=== PATIENT | male | born 1950 | race Caucasian/White ===

== ENCOUNTER 2020-09-29 05:39 | Emergency (ER) | payer MEDICARE, OTHER, SELFPAY ==
[2020-09-29 05:42] VITALS: BP 105/71; PULSE 70; RESP 16; TEMP 36.8; O2SAT 96; BMI 27.3
--- NOTE | 2020-09-29 05:42 | XR_ITS ---
WS: [id number] PORTABLE CHEST HISTORY: Acute onset of chest pain. COMPARISON: 02/11/2019 Lungs are clear and well expanded. No pleural effusion or pneumothorax. Cardiac size: Normal. Mediastinum/Aorta: Normal mediastinum. Mild bilateral glenohumeral joint arthritis. XR/XR chest 1V portable [id number] IMPRESSION: Unremarkable portable chest.
--- NOTE | 2020-09-29 05:42 | ECG_ITS ---
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 Measurements Intervals [place] Rate: 70 P: -88 MT: 121 QRS: -21 QRSD: 92 T: 39 QT: 384 QTc: 415 Interpretive Statements JUNCTIONAL RHYTHM BORDERLINE LEFT AXIS DEVIATION [QRS AXIS < -20] Compared to ECG 02/11/2019 09:46:46 Junctional rhythm now present Ectopic atrial rhythm no longer present Electronically Signed On 09-29-2020 18:27:50 ROOM SERVICE ATTENDANT by Karissa العلي M.D. [id number] f
--- NOTE | 2020-09-29 05:43 | W.ED.CHESTPA ---
HPI - Chest Pain General: Chief Complaint: Chest Pain Stated Complaint: CP Time Seen by Provider: 09/29/20 05:50 Source: patient and EMS Mode of arrival: EMS Limitations: no limitations History of Present Illness: HPI narrative: 70-year-old male states has been having chest pain over the last week after a fall. He states he had a ground-level fall and landed on his chest and has had sharp pain is worse with palpation. He states that throughout the night he was concerned as he was having hypertension. He does have a history of hypertension. Patient was given nitro in route and blood pressure is much improved. He denies any shortness of breath. Denies any pressure type pain. Associated symptoms: Deny abdominal pain, dyspnea, fever(s), nausea or vomiting Review of Systems Const: Denies: fever(s), chills, body aches or change in appetite Eyes: Denies: blurry vision or eye discomfort ENMT: Denies: throat pain or dental pain Card: Reports: chest pain Resp: Denies: dyspnea GI: Denies: abdominal pain, nausea, vomiting or diarrhea : Denies: dysuria Musc: Denies: neck pain or back pain Skin/Breast: Denies: rash Neuro: Denies: headache(s) Psych: Denies: depression Rashel/Lymph: Denies: easy bruising All/Imm: Denies: urticaria Physical Exam Const: COMMON NORMALS: no acute distress, patient oriented x3 and healthy appearing HENMT: COMMON NORMALS: normocephalic and atraumatic HEAD & SCALP: normocephalic and atraumatic Eye: COMMON NORMALS: Equal, round and reactive pupils present and EOMs intact bilaterally PUPIL: Yes Equal, round and reactive pupils present Neck/C-Spine: COMMON NORMALS: full ROM and supple Chest: COMMONS NORMALS: normal inspection of the chest OTHER: point tender in center of chest Resp: COMMON NORMALS: normal respiratory effort, No retractions, No use of accessory muscles and clear to auscultation bilaterally AUSCULTATION: clear to auscultation bilaterally Cardio: COMMON NORMALS: regular rate, regular rhythm and No murmurs present (Cardio) RATE: regular rate RHYTHM: regular rhythm GI: COMMON NORMALS: Normal to inspection, nondistended, normoactive bowel sounds present, Soft to palpation, non-tender and no masses PALPATION: Yes Soft to palpation Extremity: COMMON NORMALS: normal to inspection and full ROM Neuro: COMMON NORMALS: patient oriented x3, moves all extremities and no focal motor deficits Psych: COMMON NORMALS: mental status grossly normal, Normal thought process present and cooperative THOUGHT PROCESS: Normal thought process present Skin: COMMON NORMALS: no rashes or lesions noted and no wounds GENERAL SKIN EXAM: no rashes or lesions noted Course Vital Signs: Vital signs: Vital Signs Temperature 98.2 F 09/29/20 05:42 Pulse Rate 70 09/29/20 06:17 Respiratory Rate 14 09/29/20 07:43 Blood Pressure 92/65 09/29/20 07:43 Pulse Oximetry 96 09/29/20 07:43 MDM - Chest Pain MDM Narrative: Medical decision making narrative: Rafa presents here with high blood pressure has since resolved. He is to monitor his blood pressure at home and follow-up with his PCP. Chest pain is atypical and is likely muscular or contusion from his fall. His repeat troponin shows no change. He is stable for discharge and return if worsening. Lab Data: Labs: Lab Results 09/29/20 09/29/20 09/29/20 Range/Units 05:30 05:30 05:30 WBC 4.7 (4.0-10.0) 10^3/ uL RBC 4.83 (4.1-5.3) 10^6/u L Hgb 14.9 (11.7-16.6) g/dL Hct 45.2 (42.0-52.0) % MCV 93.6 (80-94) fL MCH 30.8 (28.0-34.0) pg MCHC 33.0 (30.0-36.0) g/dL RDW 12.3 (12.1-15.1) % Plt Count 282 (130-400) 10^3/c mm MPV 9.8 (7.4-10.4) fL Neut % (Auto) 57.9 % Lymph % (Auto) 24.7 % [place] % (Auto) 13.4 % Eos % (Auto) 2.3 % Baso % (Auto) 1.3 % Neut # (Auto) 2.72 (1.8-7.7) 10^3/u L Lymph # (Auto) 1.2 (0.8-4.8) 10^3/u L [place] # (Auto) 0.6 (0.2-0.9) 10^3/u L Eos # (Auto) 0.1 (0.0-0.8) 10^3/u L Baso # (Auto) 0.1 (0.0-0.1) 10^3/u L Nucleated RBC % (a uto) 0 % Nucleated RBCs # 0.0 /100WBC Sodium 137 (136-145) mmol/L Potassium 4.4 (3.5-5.1) mmol/L Chloride 100 (98-107) mmol/L Carbon Dioxide 29 (22-29) mmol/L Anion Gap 12.4 (5-19) BUN 12 (8-23) mg/dL Creatinine 0.9 (0.7-1.2) mg/dL GFR Calculation 83.4 L (90-130) mL/min Glucose 136 H (65-115) mg/dL Calculated Osmolal ity 286 (285-295) mOsm/k g Calcium 9.6 (8.5-10.5) mg/dL Total Bilirubin 0.4 (0.15-1.2) mg/dL AST 19 (0-40) U/L ALT 23 (0-41) U/L Alkaline Phosphata se 90 (40-130) IU/L Troponin T Baselin e 30 H (0-15) ng/L Troponin T 120 Min [place] (0-15) ng/L Delta Troponin T (0-10) ABS# Total Protein 6.8 (6.6-8.7) g/dL Albumin 4.6 (3.5-5.2) g/dL Globulin 2.2 (1.3-4.6) g/dL 09/29/20 Range/Units 07:30 WBC (4.0-10.0) 10^3/ uL RBC (4.1-5.3) 10^6/u L Hgb (11.7-16.6) g/dL Hct (42.0-52.0) % MCV (80-94) fL MCH (28.0-34.0) pg MCHC (30.0-36.0) g/dL RDW (12.1-15.1) % Plt Count (130-400) 10^3/c mm MPV (7.4-10.4) fL Neut % (Auto) % Lymph % (Auto) % [place] % (Auto) % Eos % (Auto) % Baso % (Auto) % Neut # (Auto) (1.8-7.7) 10^3/u L Lymph # (Auto) (0.8-4.8) 10^3/u L [place] # (Auto) (0.2-0.9) 10^3/u L Eos # (Auto) (0.0-0.8) 10^3/u L Baso # (Auto) (0.0-0.1) 10^3/u L Nucleated RBC % (a uto) % Nucleated RBCs # /100WBC Sodium (136-145) mmol/L Potassium (3.5-5.1) mmol/L Chloride (98-107) mmol/L Carbon Dioxide (22-29) mmol/L Anion Gap (5-19) BUN (8-23) mg/dL Creatinine (0.7-1.2) mg/dL GFR Calculation (90-130) mL/min Glucose (65-115) mg/dL Calculated Osmolal ity (285-295) mOsm/k g Calcium (8.5-10.5) mg/dL Total Bilirubin (0.15-1.2) mg/dL AST (0-40) U/L ALT (0-41) U/L Alkaline Phosphata se (40-130) IU/L Troponin T Baselin e (0-15) ng/L Troponin T 120 Min [place] 26.78 H (0-15) ng/L Delta Troponin T -3.22 L (0-10) ABS# Total Protein (6.6-8.7) g/dL Albumin (3.5-5.2) g/dL Globulin (1.3-4.6) g/dL Imaging Data^: CXR: Attestation: I personally reviewed and interpreted this imaging study as follows: My impression: No acute abnormality EKG Data^: EKG 1: Attestation: I personally reviewed and interpreted this EKG as follows: EKG interpretation date: 09/29/20 EKG interpretation time: 05:43 Interpretation: nsr hr [address] or twave abnormalities qrs 92 qtc 405 EKG 2: Attestation: I personally reviewed and interpreted this EKG as follows: EKG interpretation date: 09/29/20 EKG interpretation time: 07:38 Interpretation: nsr hr [address] or t wave abnormalities qrs 82 qtc 387 Discharge Plan Discharge Patient Disposition: Home Clinical Impression: Chest pain Qualifiers: Chest pain type: unspecified Qualified Code(s): R07.9 - Chest pain, unspecified Hypertension Qualifiers: Hypertension type: unspecified Qualified Code(s): I10 - Essential (primary) hypertension Condition: Stable Prescriptions: No Action Aspir-81 81 mg Tablet,Delayed Release (Dr/Ec) See Rx Instructions .ROUTE .COMPLEX RF: 0 lisinopril 20 mg tablet 20 mg PO DAILY RF: 0 metoprolol tartrate 25 mg tablet 25 mg PO DAILY RF: 0 Discharge Orders: Discharge ED (Routine); Ordered 09/29/20 Ordered By: Shannan Floyd Discharge Diet: Advance as tolerated Discharge Activity: Resume usual activity Patient Instructions: Hypertension (ED) Coding Level of Care Code ED Sports Physiotherapist for Chg Fwd Exam Comprehensive
[2020-09-29 05:55] LABS: Basophils # 0.1 10^3/uL (0.0-0.1); Basophils % 1.3 %; Eosinophils # 0.1 10^3/uL (0.0-0.8); Eosinophils % 2.3 %; Hematocrit 45.2 % (42.0-52.0); Hemoglobin 14.9 g/dL (11.7-16.6); Lymphocytes # 1.2 10^3/uL (0.8-4.8); Lymphocytes % 24.7 %; Mean Corpuscular Hemoglobin 30.8 pg (28.0-34.0); Mean Corpuscular Volume 93.6 fL (80-94); Mean Platelet Volume 9.8 fL (7.4-10.4); Monocytes # 0.6 10^3/uL (0.2-0.9); Monocytes % 13.4 %; Neutrophils # 2.72 10^3/uL (1.8-7.7); Neutrophils % 57.9 %; Nucleated Red Blood Cells % 0 %; Platelet Count 282 10^3/cmm (130-400); Red Blood Count 4.83 10^6/uL (4.1-5.3); Red Cell Distribution Width 12.3 % (12.1-15.1); White Blood Count 4.7 10^3/uL (4.0-10.0)
[2020-09-29 06:10] LABS: Alanine Aminotransferase 23 U/L (0-41); Albumin Level 4.6 g/dL (3.5-5.2); Alkaline Phosphatase 90 IU/L (40-130); Anion Gap 12.4 (5-19); Aspartate Amino Transferase 19 U/L (0-40); Blood Urea Nitrogen 12 mg/dL (8-23); Calcium 9.6 mg/dL (8.5-10.5); Carbon Dioxide 29 mmol/L (22-29); Chloride 100 mmol/L (98-107); Creatinine Clr Calc Pharmacy 77.1422; Globulin 2.2 g/dL (1.3-4.6); Glomerular Filtration Rate 83.4 mL/min (90-130); Glucose 136 mg/dL (65-115); Osmolality Calculated 286 mOsm/kg (285-295); Potassium 4.4 mmol/L (3.5-5.1); Sodium 137 mmol/L (136-145); Total Bilirubin 0.4 mg/dL (0.15-1.2); Total Protein 6.8 g/dL (6.6-8.7)
[2020-09-29 06:12] LABS: Troponin(5th) Baseline 30 ng/L (0-15)
[2020-09-29 06:17] VITALS: BP 123/68; PULSE 70; RESP 18; O2SAT 96
--- NOTE | 2020-09-29 07:42 | ECG_ITS ---
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 Measurements Intervals [place] Rate: 69 P: -86 ME: 114 QRS: -24 QRSD: 82 T: 51 QT: 367 QTc: 395 Interpretive Statements JUNCTIONAL RHYTHM BORDERLINE LEFT AXIS DEVIATION [QRS AXIS < -20] Compared to ECG 09/29/2020 05:43:06 No significant changes Electronically Signed On 09-29-2020 20:31:01 ORACLE SOLUTIONS ARCHITECT by Karissa العلي M.D. [email or web address].[employer]/store/NU/[id number] f
[2020-09-29 07:43] VITALS: BP 92/65; RESP 14; O2SAT 96
[2020-09-29 07:58] LABS: Troponin 5 2HR 26.78 ng/L (0-15)
[2020-09-29 08:13] LABS: Troponin 5 2HR Delta -3.22 ABS# (0-10)
[2020-09-29 08:37] VITALS: BP 112/73; PULSE 77; RESP 18; O2SAT 96
== END 2020-09-29 08:37 | disposition home or self-care (01) ==
PROVIDERS: Emergency Provider Emergency Medicine
DX: R07.9 Chest pain, unspecified (principal); I10 Essential (primary) hypertension; Z79.82 Long term (current) use of aspirin
CPT/HCPCS: 12345; 71045; 80053; 84484; 85025; 93005; 99282; 99283

== ENCOUNTER 2021-10-08 02:45 | Emergency (ER) | payer MEDICARE, OTHER, SELFPAY ==
--- NOTE | 2021-10-08 02:46 | ECG_ITS ---
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 Measurements Intervals [place] Rate: 65 P: -82 AR: 123 QRS: -19 QRSD: 88 T: 31 QT: 390 QTc: 408 Interpretive Statements ECTOPIC ATRIAL RHYTHM Compared to ECG 09/29/2020 07:38:21 No significant changes Electronically Signed On 10-08-2021 7:35:00 RADIO NEWS ANCHOR by Italo Brewster M.D. [email or web address] behavioral medical centerPenboost/store/NU/[id number] f
--- NOTE | 2021-10-08 02:46 | XRR_ITS ---
PROCEDURE INFORMATION: Exam: XR Chest Exam date and time: 10/08/2021 2:46 AM Age: 71 years old Clinical indication: Chest pressure; Patient HX: Sudden onset of central anterior chest pain. ; Additional info: Cp TECHNIQUE: Imaging protocol: XR of the chest. Views: 1 view. COMPARISON: CR XR chest 1V portable [id number] 09/29/2020 5:52 AM FINDINGS: Lungs: Unremarkable. No consolidation. Pleural spaces: Unremarkable. No pleural effusion. No pneumothorax. Heart/Mediastinum: Unremarkable. No cardiomegaly. Bones/joints: Unremarkable. XR/XR chest 1V portable [id number] IMPRESSION: No acute findings. Stable appearance of the chest compared with 09/29/2020.
[2021-10-08 02:48] VITALS: BP 119/75; PULSE 66; RESP 18; TEMP 36.1; O2SAT 96; BMI 274.3
--- NOTE | 2021-10-08 02:54 | ED_ITS ---
HPI - Chest Pain General: Chief Complaint: Chest Pain Stated Complaint: CP Time Seen by Provider: 10/08/21 02:46 Source: patient and EMS Mode of arrival: EMS Limitations: no limitations History of Present Illness: HPI narrative: 71-year-old male who states that he has been having chest pain over the last 3 days. It has been intermittent in nature burning pain in his chest and abdomen states that the pain is worse tonight received a nitro in route improved his pain he states the pain actually got worse after the aspirin took at home and was burning in his abdomen. He denies any vomiting or diarrhea denies any fever denies any history of cardiac issues Associated symptoms: Reports abdominal pain; Deny dyspnea or fever(s) Review of Systems Const: Denies: fever(s), chills, body aches or change in appetite Eyes: Denies: blurry vision or eye discomfort ENMT: Denies: throat pain or dental pain Card: Reports: chest pain Resp: Denies: dyspnea GI: Reports: abdominal pain : Denies: dysuria Musc: Denies: neck pain or back pain Skin/Breast: Denies: rash Neuro: Denies: headache(s) Psych: Denies: depression Rashel/Lymph: Denies: easy bruising All/Imm: Denies: urticaria PFSH ED PFSH: Medical History Hypertension Social History Smoking and tobacco status: never smoked Physical Exam Const: COMMON NORMALS: no acute distress, patient oriented x3 and healthy appearing HENMT: COMMON NORMALS: normocephalic and atraumatic HEAD & SCALP: normocephalic and atraumatic Eye: COMMON NORMALS: Equal, round and reactive pupils present and EOMs intact bilaterally PUPIL: Yes Equal, round and reactive pupils present Neck/C-Spine: COMMON NORMALS: full ROM and supple Chest: COMMONS NORMALS: normal inspection of the chest and normal palpation of entire chest wall Resp: COMMON NORMALS: normal respiratory effort, No retractions, No use of accessory muscles and clear to auscultation bilaterally AUSCULTATION: clear to auscultation bilaterally Cardio: COMMON NORMALS: regular rate, regular rhythm and No murmurs present (Cardio) RATE: regular rate RHYTHM: regular rhythm GI: COMMON NORMALS: Normal to inspection, nondistended, normoactive bowel sounds present, Soft to palpation, non-tender and no masses PALPATION: Yes Soft to palpation Extremity: COMMON NORMALS: normal to inspection and full ROM Neuro: COMMON NORMALS: patient oriented x3, moves all extremities and no focal motor deficits Psych: COMMON NORMALS: mental status grossly normal, Normal thought process present and cooperative THOUGHT PROCESS: Normal thought process present Skin: COMMON NORMALS: no rashes or lesions noted and no wounds GENERAL SKIN EXAM: no rashes or lesions noted Course Vital Signs: Vital signs: Vital Signs Temperature 97 F L 10/08/21 02:48 Pulse Rate 68 10/08/21 03:43 Respiratory Rate 15 10/08/21 03:43 Blood Pressure 92/61 10/08/21 03:43 Pulse Oximetry 96 10/08/21 03:43 MDM - Chest Pain MDM Narrative: Medical decision making narrative: Patient presents with chest pain is atypical in nature history is more consistent likely reflux pain was resolved here with a GI cocktail patient's initial repeat troponin are normal is no signs of carotid dissection or pulmonary embolism we will place him on Protonix and he is to follow-up with PCP and return if worsening. Lab Data: Labs: Lab Results 10/08/21 10/08/21 10/08/21 02:48 02:48 02:48 WBC 5.0 10^3/uL 10^3/ uL (4.0-10.0) RBC 4.57 10^6/uL 10^6 /uL (4.1-5.3) Hgb 14.3 g/dL g/dL (11.7-16.6) Hct 42.3 % % (42.0-52.0) MCV 92.6 fl fl (80-94) MCH 31.3 pg pg (28.0-34.0) MCHC 33.8 g/dL g/dL (30.0-36.0) RDW 12.1 % % (12.1-15.1) Plt Count 237 10^3/cmm 10^3 /cmm (130-400) MPV 9.7 fL fL (7.4-10.4) Neut % (Auto) 54.9 % % Lymph % (Auto) 30.2 % % [place] % (Auto) 12.1 % % Eos % (Auto) 2.0 % % Baso % (Auto) 0.8 % % Neut # (Auto) 2.72 10^3/uL 10^3 /uL (1.8-7.7) Lymph # (Auto) 1.5 10^3/uL 10^3/ uL (0.8-4.8) [place] # (Auto) 0.6 10^3/uL 10^3/ uL (0.2-0.9) Eos # (Auto) 0.1 10^3/uL 10^3/ uL (0.0-0.8) Baso # (Auto) 0.0 10^3/uL 10^3/ uL (0.0-0.1) Nucleated RBC % (a uto) 0 % % Nucleated RBCs # 0.0 /100WBC /100W BC Sodium 137 mmol/L mmol/L (136-145) Potassium 4.2 mmol/L mmol/L (3.5-5.1) Chloride 100 mmol/L mmol/L (98-107) Carbon Dioxide 22 mmol/L mmol/L (22-29) Anion Gap 19.2 H (5-19) BUN 17 mg/dL mg/dL (8-23) Creatinine 0.9 mg/dL mg/dL (0.7-1.2) GFR Calculation Not Reportable Glucose 102 mg/dL mg/dL (65-115) Calculated Osmolal ity 286 mOsm/kg mOsm/ kg (285-295) Calcium 8.8 mg/dL mg/dL (8.5-10.5) Total Bilirubin 0.5 mg/dL mg/dL (0.15-1.2) AST 13 U/L U/L (0-40) ALT 12 U/L U/L (0-41) Alkaline Phosphata se 57 IU/L IU/L (40-130) Troponin T Baselin e 30 ng/L H ng/L (0-15) Troponin T [address] [place] Troponin T Total Protein 6.0 g/dL L g/dL (6.6-8.7) Albumin 4.1 g/dL g/dL (3.5-5.2) Globulin 1.9 g/dL g/dL (1.3-4.6) Lipase 30 U/L U/L (13-60) 10/08/21 04:40 WBC RBC Hgb Hct MCV MCH MCHC RDW Plt Count MPV Neut % (Auto) Lymph % (Auto) [place] % (Auto) Eos % (Auto) Baso % (Auto) Neut # (Auto) Lymph # (Auto) [place] # (Auto) Eos # (Auto) Baso # (Auto) Nucleated RBC % (a uto) Nucleated RBCs # Sodium Potassium Chloride Carbon Dioxide Anion Gap BUN Creatinine GFR Calculation Glucose Calculated Osmolal ity Calcium Total Bilirubin AST ALT Alkaline Phosphata se Troponin T Baselin e Troponin T [address] [place] 25.82 ng/L H ng/L (0-15) Delta Troponin T -4.18 ABS# L ABS# (0-10) Total Protein Albumin Globulin Lipase Imaging Data^: CXR: Attestation: I personally reviewed and interpreted this imaging study as follows: Radiologist's impression: no acute abnormality EKG Data^: EKG 1: Attestation: I personally reviewed and interpreted this EKG as follows: EKG interpretation date: 10/08/21 EKG interpretation time: 02:51 Interpretation: nsr hr [address] or twave abnormalities qrs 88 qtc 402 EKG 2: Attestation: I personally reviewed and interpreted this EKG as follows: EKG interpretation date: 10/08/21 EKG interpretation time: 04:39 Interpretation: nsr hr [address] or t wave abnormalities qrs 124 qtc 425 Discharge Plan Discharge Patient Disposition: Home Clinical Impression: Chest pain Condition: Stable Prescriptions: New Protonix 40 mg tablet,delayed release (DR/EC) 40 mg PO DAILY Qty: 60 RF: 0 No Action lisinopril 20 mg tablet See Rx Instructions .ROUTE .COMPLEX Qty: 90 RF: 0 metoprolol tartrate 25 mg tablet See Rx Instructions .ROUTE .COMPLEX Qty: 90 RF: 0 Aspir-81 81 mg Tablet,Delayed Release (Dr/Ec) See Rx Instructions .ROUTE .COMPLEX RF: 0 Discharge Orders: Discharge ED (Routine); Ordered 10/08/21 Ordered By: Shannan Floyd Referrals: Madelin Bacon MD [Physician] - 1-3 days Discharge Diet: Advance as tolerated Discharge Activity: Resume usual activity Patient Instructions: Chest Pain (ED) Coding Level of Care Code ED Basket Bottom Machine Operator for Chg Fwd Exam Comprehensive
[2021-10-08 02:55] VITALS: BP 119/75; PULSE 67; RESP 16; O2SAT 99
[2021-10-08 02:56] LABS: Basophils % 0.8 %; Eosinophils # 0.1 10^3/uL (0.0-0.8); Hematocrit 42.3 % (42.0-52.0); Hemoglobin 14.3 g/dL (11.7-16.6); Lymphocytes # 1.5 10^3/uL (0.8-4.8); Lymphocytes % 30.2 %; Mean Corpuscular HGB Conc 33.8 g/dL (30.0-36.0); Mean Corpuscular Hemoglobin 31.3 pg (28.0-34.0); Mean Corpuscular Volume 92.6 fl (80-94); Mean Platelet Volume 9.7 fL (7.4-10.4); Monocytes # 0.6 10^3/uL (0.2-0.9); Monocytes % 12.1 %; Neutrophils # 2.72 10^3/uL (1.8-7.7); Neutrophils % 54.9 %; Nucleated Red Blood Cells % 0 %; Platelet Count 237 10^3/cmm (130-400); Red Blood Count 4.57 10^6/uL (4.1-5.3); Red Cell Distribution Width 12.1 % (12.1-15.1)
[2021-10-08 03:11] VITALS: BP 115/68; PULSE 67; O2SAT 96
[2021-10-08 03:16] LABS: Troponin(5th) Baseline 30 ng/L (0-15)
[2021-10-08 03:18] LABS: Alanine Aminotransferase 12 U/L (0-41); Albumin Level 4.1 g/dL (3.5-5.2); Alkaline Phosphatase 57 IU/L (40-130); Anion Gap 19.2 (5-19); Aspartate Amino Transferase 13 U/L (0-40); Blood Urea Nitrogen 17 mg/dL (8-23); Calcium 8.8 mg/dL (8.5-10.5); Carbon Dioxide 22 mmol/L (22-29); Chloride 100 mmol/L (98-107); Globulin 1.9 g/dL (1.3-4.6); Glucose 102 mg/dL (65-115); Lipase 30 U/L (13-60); Osmolality Calculated 286 mOsm/kg (285-295); Potassium 4.2 mmol/L (3.5-5.1); Sodium 137 mmol/L (136-145); Total Bilirubin 0.5 mg/dL (0.15-1.2)
[2021-10-08 03:43] VITALS: BP 92/61; PULSE 68; RESP 15; O2SAT 96
[2021-10-08] MEDS: sodium chloride 0.9% 1,000 ML 999 ML IV (03:59)
--- NOTE | 2021-10-08 04:46 | ECG_ITS ---
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 Measurements Intervals [place] Rate: 69 P: -80 AR: 120 QRS: -22 QRSD: 124 T: 59 QT: 407 QTc: 436 Interpretive Statements ECTOPIC ATRIAL RHYTHM Compared to ECG 09/29/2020 07:38:21 Junctional rhythm no longer present Electronically Signed On 10-08-2021 7:43:41 MANAGER BEHAVIORAL by Italo Brewster M.D. [id number]
[2021-10-08 05:01] LABS: Troponin 5 2HR 25.82 ng/L (0-15)
[2021-10-08 05:02] LABS: Troponin 5 2HR Delta -4.18 ABS# (0-10)
[2021-10-08 05:24] VITALS: BP 127/78; PULSE 68; O2SAT 97
== END 2021-10-08 05:39 | disposition home or self-care (01) ==
PROVIDERS: Emergency Provider Emergency Medicine
DX: R07.9 Chest pain, unspecified (principal); Z79.82 Long term (current) use of aspirin; I10 Essential (primary) hypertension
CPT/HCPCS: 71045; 80053; 83690; 84484; 85025; 93005; 96360; 99284; J7030

== ENCOUNTER 2021-12-06 12:39 | Outpatient (CLI) | payer MEDICARE, SELFPAY ==
[2021-12-06 12:46] VITALS: BMI 28.1
--- NOTE | 2021-12-06 12:48 | ECG_ITS ---
[facility] Test Date: 2021-12-06 Pat Name: Rafa Galindo Department: Room: Gender: Male Airborne Operations Manager: Stella Plaza : 1950 Requested By: Karissa العلي Order Number: [id number] Jessica MD: Karissa العلي M.D. Interpretive Statements NAME OF STUDY: DOBUTAMINE STRESS ECHOCARDIOGRAM INDICATION: Chest Pain FINDINGS: PROCEDURE: At the baseline, the blood pressure was 143/84 mmHg, oxygen saturation 95% with a heart rate of 88 bpm. The electrocardiogram showed ectopic atrial rhythm, normal axis. Possible old anteroseptal infarct. The dobutamine was infused over a period of 9 minutes 29 seconds. The maximum heart rate obtained was 133 bpm (89% of the maximum predicted heart rate). The blood pressure at that time was 120/78 mmHg and oxygen saturation 95%. The patient did not have any chest pain. There was half millimeter ST depression in inferolateral leads with the dobutamine infusion. This does not meet diagnostic criteria for ischemia. The physical examination remained unchanged. No arrhythmias were seen on the monitor. During the recovery phase, the patient did not have any specific symptoms. The blood pressure at the end of the recovery phase was 119/67 mmHg, oxygen saturation 92% with a heart rate of 96 beats per minute. Echocardiographic images were obtained per protocol. CONCLUSION: 1. Normal EKG response to dobutamine infusion. 2. Normal blood pressure and heart rate response to dobutamine inusion. 3. Functional capacity could not be assessed due to pharmacological protocol. 4. Echocardiographic portion of the study will be reported separately. Electronically Signed On 12-13-2021 9:22:43 OFFICE SERVICES CLERK by Karissa العلي M.D. [email or web address] [email or web address] [email or web address]/store/[id number]
[2021-12-06] MEDS: DOBUTtamine 200 MG in sodium chloride 0.9% 34 ML 12.25 MG IV (13:21)
[2021-12-06 13:46] VITALS: BP 119/67; PULSE 98
== END 2021-12-06 12:40 | disposition home or self-care (01) ==
PROVIDERS: PCP Nurse Practitioner Family; Visit Provider Internal Medicine Cardiovascular Disease
DX: R07.89 Other chest pain (principal); R06.02 Shortness of breath
CPT/HCPCS: 93017; 93350; J1250; J7050

== ENCOUNTER 2021-12-15 06:00 | Outpatient (CLI) | payer MEDICARE, SELFPAY ==
--- NOTE | 2021-12-15 12:50 | USCV_ITS ---
Dobutamine Stress Echo Rafa Galindo Age: 71 Gender: M : 1950 Exam Date: 12/06/2021 13:11 Ordering Phys: Madelin Bacon MD ([email or web address]) Technologist: AMY Exam Location: [facility] Indication: CHEST PAIN Rhythm: Sinus Patient History: CP Cardiac Medications: Lisinopril, Metoprolol Medications in past 24 hours: Lisinopril Contrast: Stress Results Protocol: Alex Total dose(mL): Exercise Duration (min:sec): 09:29 METS: 1.0 Resting HR: 87 Resting BP: 143 / 84 Peak HR: 133 Peak BP: 162 / 119 Max Predicted HR: 149 89 % Max Predicted HR Target HR: 127 Double Product: 94374 Stress Summary: The patient's target heart rate was achieved BP Response: Normal Reason for Termination: Test terminated after reaching target heart rate (85% max predicted) Cardiac Symptoms: None ECG Analysis Resting ECG: Stress ECG: Arrhythmia: MEASUREMENTS (Male/Female) Normal Values FINDINGS 1. At the baseline, the patient's blood pressure was 143/84 mmHg with a heart rate of 87 beats per minute. The electrocardiogram showed ectopic atrial rhythm, normal axis. Possible old anteroseptal infarct. The chest examination revealed normal breath sounds with no rales or rhonchi. The CVS examination revealed normal heart sounds with no S3 or S4. 2. The Dobutamine was infused over 9 minutes 29 seconds . The maximum heart rate obtained was 133 beats per minute. The patient attained 89% of the maximum predicted heart rate. The blood pressure at the end of the infusion was 162/119 mmHg. Patient did not have any chest pain or any significant electrocardiogram changes with the Dobutamine infusion. The physical examination remained unchanged. No arrhythmias were seen on the monitor. 3. At the baseline, the patient's echocardiogram revealed normal cardiac chamber sizes with normal LV ejection fraction of 65%. Segmental wall motion analysis revealed no regional wall motion abnormality. There were no intracardiac masses. No significant pericardial effusion. Aortic root appears to be upper limits of normal size. 4. With the low and the peak Dobutamine infusion, there was good augmentation of all the segments with no Dobutamine-induced wall motion abnormalities. 5. During the recovery phase, the patient did not have any symptoms or any EKG changes. The blood pressure at the end of the recovery phase was 119/67 mmHg with a heart rate of 96 beats per minute. 6. The echocardiogram during the recovery phase also did not reveal any new changes. CONCLUSIONS 1. Normal electrocardiogram response to Dobutamine infusion. 2. Normal echocardiographic response to Dobutamine infusion. 3. No Dobutamine-induced chest pain or cardiac arrhythmia. 4. Clinical correlation is recommended. Karissa العلي MD (Electronically Signed) Final Date: 14 December 2021 19:36 S MTDD
== END 2021-12-15 06:01 | disposition home or self-care (01) ==
LOC: CDL 12-16 09:14
PROVIDERS: PCP Nurse Practitioner Family; Visit Provider Internal Medicine Cardiovascular Disease
DX: R07.89 Other chest pain (principal)
CPT/HCPCS: 93350

== ENCOUNTER → 2022-09-26 10:49 | Outpatient (BNVA) | payer MEDICARE, SELFPAY | PROVIDERS: PCP Nurse Practitioner Family; Visit Provider Nurse Practitioner Family | DX: I10 Essential (primary) hypertension (principal) | CPT/HCPCS: 80053 ==

== ENCOUNTER → 2022-09-27 13:39 | Outpatient (BNVA) | payer MEDICARE, SELFPAY | PROVIDERS: PCP Nurse Practitioner Family; Visit Provider Nurse Practitioner Family | DX: I10 Essential (primary) hypertension (principal) | CPT/HCPCS: 80061 ==

== ENCOUNTER 2023-05-17 07:18 | Inpatient (IN) | payer MEDICARE, SELFPAY ==
[2023-05-17] VITALS (40 sets, daily range): BP systolic 84–121; BP diastolic 50–78; PULSE 61–73; RESP 14–26; TEMP 36.6–36.8; O2SAT 91–97; BMI 27.3
--- NOTE | 2023-05-17 07:28 | ECG_ITS ---
[facility] Test Date: 2023-05-17 Pat Name: Rafa Galindo Department: Room: 106 Gender: Male Hot Die Press Feeder: : 1950 Requested By: Abdiaziz Child Order Number: [id number] Jessica MD: Karissa العلي M.D. Measurements Intervals [place] Rate: 71 P: 262 [place]: 131 QRS: -26 QRSD: 87 T: 66 QT: 370 QTc: 403 Interpretive Statements JUNCTIONAL RHYTHM BORDERLINE LEFT AXIS DEVIATION [QRS AXIS < -20] ABNORMAL RHYTHM ECG Compared to ECG 10/08/2021 04:39:34 Junctional rhythm now present Ectopic atrial rhythm no longer present Electronically Signed On 05-17-2023 16:24:26 CDT by Karissa العلي M.D. [email or web address]/[id number] f
--- NOTE | 2023-05-17 07:42 | XR_ITS ---
WS: [id number] Exam: XR chest 1V portable [id number] Date/Time of Exam: 05/17/2023 7:55 AM Reason For Exam: chest pain The lungs are fully inflated and clear. Normal cardiomediastinal silhouette. No pleural effusions. Ol d left clavicle fracture. XR/XR chest 1V portable [id number] IMPRESSION: 1. No acute cardiopulmonary finding.
--- NOTE | 2023-05-17 07:46 | ED_ITS ---
HPI - Chest Pain General: Chief Complaint: Chest Pain Stated Complaint: chest pain Time Seen by Provider: 05/17/23 07:42 Source: patient Mode of arrival: ambulatory History of Present Illness: 72-year-old male presents emergency room with complaint of chest pain. Patient reports he had an episode of chest pain yesterday began at rest he was diaphoretic nauseous leg pain radiating down his left arm that resolved spontaneously he thought nothing of it and went about his business for the day. This morning he awoke again with chest pain this episode seemed worse. By the time he arrived here it had resolved but it did last much longer than his previous episode. He was nauseous with that as well as diaphoretic. He tells m e he previously had angiograph several decades ago and was told it was normal ultimately his chest pain is attributed to costochondritis. He has not previously had known coronary artery disease. MD complaint: chest pain Onset (ago): day(s) Timing of current episode: episodic Prior episodes: Yes Onset: during rest Pain location: substernal and left chest Pain radiation: left arm Severity: moderate Quality: aching and heaviness Associated symptoms: Reports dyspnea; Deny abdominal pain, fever(s), nausea or vomiting Review of Systems Const: Denies: fever(s), chills, body aches, change in appetite, fatigue or malaise ENMT: Denies: throat pain, ear or mastoid pain, nasal discharge or nasal congestion Card: Reports: chest pain; Denies: edema, dyspnea on exertion or orthopnea Resp: Reports: dyspnea; Denies: productive cough or non-productive cough GI: Denies: abdominal pain, nausea, vomiting, hematemesis, coffee ground emesis, diarrhea, constipation, bloating, hematochezia or melena : Denies: flank pain, dysuria, urinary frequency or urinary urgency Musc: Denies: neck pain or back pain Skin/Breast: Denies: rash or pruritus PFSH ED PFSH: Medical History CAD (coronary artery disease) Dyslipidemia Hypertension Surgical History Hx of inguinal hernia surgery Stented coronary artery Family History Mother Hypertension Father Cancer Colon cancer Family/Other Dementia Denies family history of Diabetes CAD (coronary artery disease) Clotting disorder Chronic kidney disease (CKD) Suicide Anesthesia complication Bleeding disorder Lung disease Stroke Social History Smoking and tobacco status: never smoked Alcohol intake: never Substance/Drug Use: never Physical Exam Const: GENERAL APPEARANCE: cooperative and comfortable ORIENTATION/CONSCIOUSNESS: Yes awake, Yes oriented to person, Yes oriented to place and Yes oriented to time HENMT: COMMON NORMALS: normocephalic, atraumatic and hearing grossly normal bilaterally HEAD & SCALP: normocephalic and atraumatic Resp: COMMON NORMALS: normal respiratory effort, No retractions, No use of accessory muscles and clear to auscultation bilaterally AUSCULTATION: clear to auscultation bilaterally Cardio: COMMON NORMALS: regular rate, regular rhythm and No murmurs present (Cardio) RATE: regular rate RHYTHM: regular rhythm GI: COMMON NORMALS: Soft to palpation and No hepatosplenomegaly present AUSCULTATION: Yes normoactive bowel sounds PALPATION: Yes Soft to palpation, No Tenderness to palpation present (GI), No Guarding due to palpation present (GI) and Yes No hepatosplenomegaly present Extremity: COMMON NORMALS: normal to inspection, capillary refill normal, no clubbing, cyanosis or edema, no calf tenderness and no pedal edema Neuro: SENSORIUM/ORIENTATION: Yes oriented to person, Yes oriented to place and Yes oriented to time Skin: COMMON NORMALS: no rashes or lesions noted GENERAL SKIN EXAM: no rashes or lesions noted Course Vital Signs: Vital signs: Vital Signs Temperature 98.1 F 05/18/23 08:00 Pulse Rate 66 05/18/23 08:00 Respiratory Rate 18 05/18/23 08:00 Blood Pressure 119/70 05/18/23 08:00 Pulse Oximetry 96 05/18/23 08:00 Oxygen Delivery Me thod Room Air 05/18/23 08:00 MDM - Chest Pain Medical Decision Making Patient's presentation classic for unstable angina. Initially was pain-free his first troponin is slightly elevated second was markedly elevated his pain had begun to return EKG did not show any acute changes shows a junctional rhythm which is been present on previous EKGs. His delta troponin is markedly elevated he is relatively pain-free at this time. When he began having more chest discomfort topical nitro was added on his second troponin came back heparin was started. Cardiology consulted discussed with hospitalist orders written for admission Differential Diagnosis Likely acute myocardial infarction Medical Records I reviewed the patient's medical records. Lab Data I reviewed the patient's lab results. 05/18/23 07:00 05/18/23 07:00 Radiology Impressions Chest X-Ray 05/17/23 07:42 IMPRESSION: 1. No acute cardiopulmonary finding. Laboratory Results WBC 3.9 10^3/uL (4.0-10.0) L 05/17/23 07:50 RBC 4.14 10^6/uL (4.1-5.3) 05/17/23 07:50 Hgb 12.9 g/dL (11.7-16.6) 05/17/23 07:50 Hct 37.9 % (42.0-52.0) L 05/17/23 07:50 MCV 91.5 fl (80-94) 05/17/23 07:50 MCH 31.2 pg (28.0-34.0) 05/17/23 07:50 MCHC 34.0 g/dL (30.0-36.0) 05/17/23 07:50 RDW 12.7 % (12.1-15.1) 05/17/23 07:50 Plt Count 194 10^3/cmm (130-400) 05/17/23 07:50 MPV 9.5 fL (7.4-10.4) 05/17/23 07:50 Neut % (Auto) 71.5 % 05/17/23 07:50 Lymph % (Auto) 15.7 % 05/17/23 07:50 [place] % (Auto) 9.4 % 05/17/23 07:50 Eos % (Auto) 2.3 % 05/17/23 07:50 Baso % (Auto) 0.8 % 05/17/23 07:50 Neut # (Auto) 2.82 10^3/uL (1.8-7.7) 05/17/23 07:50 Lymph # (Auto) 0.6 10^3/uL (0.8-4.8) L 05/17/23 07:50 [place] # (Auto) 0.4 10^3/uL (0.2-0.9) 05/17/23 07:50 Eos # (Auto) 0.1 10^3/uL (0.0-0.8) 05/17/23 07:50 Baso # (Auto) 0.0 10^3/uL (0.0-0.1) 05/17/23 07:50 Nucleated RBC % (auto) 0 % 05/17/23 07:50 Nucleated RBCs # 0.0 /100WBC 05/17/23 07:50 APTT 27.5 SECONDS (23.9-36.7) 05/17/23 07:50 Sodium 139 mmol/L (136-145) 05/17/23 07:50 Potassium 4.2 mmol/L (3.5-5.1) 05/17/23 07:50 Chloride 104 mmol/L (98-107) 05/17/23 07:50 Carbon Dioxide 26 mmol/L (22-29) 05/17/23 07:50 Anion Gap 13.2 (5-19) 05/17/23 07:50 BUN 14 mg/dL (8-23) 05/17/23 07:50 Creatinine 0.9 mg/dL (0.7-1.2) 05/17/23 07:50 GFR Calculation Not Reportable 05/17/23 07:50 Glucose 166 mg/dL (65-115) H 05/17/23 07:50 Estimat Average Glucose 128 05/17/23 07:50 Hemoglobin A1c 6.1 % (4.0-6.0) H 05/17/23 07:50 Calculated Osmolality 292 mOsm/kg (285-295) 05/17/23 07:50 Calcium 8.5 mg/dL (8.5-10.5) 05/17/23 07:50 Magnesium 2.1 mg/dL (1.7-2.3) 05/17/23 07:50 Total Bilirubin 0.4 mg/dL (0.15-1.2) 05/17/23 07:50 AST 14 U/L (0-40) 05/17/23 07:50 ALT 14 U/L (0-41) 05/17/23 07:50 Alkaline Phosphatase 57 U/L (40-130) 05/17/23 07:50 Troponin T Baseline 84 ng/L (0-15) H 05/17/23 07:50 Troponin T 120 Minute 131.6 ng/L (0-15) H 05/17/23 09:50 Delta Troponin T 47.6 ABS# (0-10) H* 05/17/23 09:50 NT-Pro-B Natriuret Pep 72 pg/mL (0-125) 05/17/23 07:50 Total Protein 5.8 g/dL (6.6-8.7) L 05/17/23 07:50 Albumin 3.8 g/dL (3.5-5.2) 05/17/23 07:50 Globulin 2.0 g/dL (1.3-4.6) 05/17/23 07:50 Triglycerides 107 mg/dL (0-150) 05/17/23 07:50 Cholesterol 207 mg/dL (0-200) H 05/17/23 07:50 LDL Cholesterol, Calc 137 mg/dL (50-129) H 05/17/23 07:50 HDL Cholesterol 49 mg/dL (60-100) L 05/17/23 07:50 LDL/HDL Ratio 2.80 RATIO (0.00-3.22) 05/17/23 07:50 Cholesterol/HDL Ratio 4.22 mg/dL (1.0-5.00) 05/17/23 07:50 TSH 1.76 uIU/mL (0.27-4.20) 05/17/23 07:50 Discharge Plan Discharge Patient Disposition: Admitted As Inpatient Admit Provider: Abdiaziz Child Clinical Impression: Unstable angina pectoris, Acute non-ST elevation myocardial infarction (NSTEMI) Condition: Stable Discharge Diet: Cardiac Discharge Activity: Resume usual activity Coding Level of Care Code ED Tower Equipment Installer for Brittany Osullivan
[2023-05-17 08:01] LABS: Basophils % 0.8 %; Eosinophils # 0.1 10^3/uL (0.0-0.8); Eosinophils % 2.3 %; Hematocrit 37.9 % (42.0-52.0); Hemoglobin 12.9 g/dL (11.7-16.6); Lymphocytes # 0.6 10^3/uL (0.8-4.8); Lymphocytes % 15.7 %; Mean Corpuscular Hemoglobin 31.2 pg (28.0-34.0); Mean Corpuscular Volume 91.5 fl (80-94); Mean Platelet Volume 9.5 fL (7.4-10.4); Monocytes # 0.4 10^3/uL (0.2-0.9); Monocytes % 9.4 %; Neutrophils # 2.82 10^3/uL (1.8-7.7); Neutrophils % 71.5 %; Nucleated Red Blood Cells % 0 %; Platelet Count 194 10^3/cmm (130-400); Red Blood Count 4.14 10^6/uL (4.1-5.3); Red Cell Distribution Width 12.7 % (12.1-15.1); White Blood Count 3.9 10^3/uL (4.0-10.0)
[2023-05-17 08:26] LABS: Alanine Aminotransferase 14 U/L (0-41); Albumin Level 3.8 g/dL (3.5-5.2); Alkaline Phosphatase 57 U/L (40-130); Anion Gap 13.2 (5-19); Aspartate Amino Transferase 14 U/L (0-40); Blood Urea Nitrogen 14 mg/dL (8-23); Calcium 8.5 mg/dL (8.5-10.5); Carbon Dioxide 26 mmol/L (22-29); Chloride 104 mmol/L (98-107); Glucose 166 mg/dL (65-115); Osmolality Calculated 292 mOsm/kg (285-295); Potassium 4.2 mmol/L (3.5-5.1); Sodium 139 mmol/L (136-145); Total Bilirubin 0.4 mg/dL (0.15-1.2); Total Protein 5.8 g/dL (6.6-8.7)
[2023-05-17 08:27] LABS: Troponin(5th) Baseline 84 ng/L (0-15)
--- NOTE | 2023-05-17 09:42 | ECG_ITS ---
[facility] Test Date: 2023-05-17 Pat Name: Rafa Galindo Department: Room: Gender: Male Pedodontist: : 1950 Requested By: Lokesh Louie Order Number: [id number] Jessica MD: Karissa العلي M.D. Measurements Intervals [place] Rate: 64 P: -89 [place]: 128 QRS: -15 QRSD: 90 T: 52 QT: 362 QTc: 375 Interpretive Statements JUNCTIONAL RHYTHM ABNORMAL RHYTHM ECG Compared to ECG 10/08/2021 04:39:34 Junctional rhythm now present Ectopic atrial rhythm no longer present Electronically Signed On 05-17-2023 12:31:25 CDT by Karissa العلي M.D. [id number]
[2023-05-17 10:21] LABS: Troponin 5 2HR 131.6 ng/L (0-15); Troponin 5 2HR Delta 47.6 ABS# (0-10)
[2023-05-17] MEDS: nitroglycerin 1 gm/inch oint Pkt 0.5 INCH TOPICAL (10:31)
--- NOTE | 2023-05-17 10:51 | ECG_ITS ---
[facility] Test Date: 2023-05-17 Pat Name: Rafa Galindo Department: Room: Gender: Male Pop Singer: : 1950 Requested By: Lokesh Louie Order Number: [id number] Jessica MD: Karissa العلي M.D. Measurements Intervals [place] Rate: 65 P: -83 [place]: 122 QRS: -19 QRSD: 90 T: 54 QT: 385 QTc: 402 Interpretive Statements JUNCTIONAL RHYTHM ABNORMAL RHYTHM ECG Compared to ECG 05/17/2023 10:34:30 No significant changes Electronically Signed On 05-17-2023 12:23:15 CDT by Karissa العلي M.D. [id number]
[2023-05-17 11:11] LABS: Partial Thromboplastin Time 27.5 SECONDS (23.9-36.7)
[2023-05-17] MEDS: heparin 5,000 unit/mL INJ 1 mL IV (11:13)
[2023-05-17] MEDS: heparin drip 25,000 UNIT/500 ML PREMIX 22 UNIT IV (11:15)
--- NOTE | 2023-05-17 11:44 | USCV_ITS ---
Rafa Galindo Age: 72 Gender: M : 1950 Exam Date: 05/17/2023 12:26 Ordering Phys: Abdiaziz Child MD Technologist: Rashel Amos Exam Location: [facility] – [place] Indication: stemi BP: 121 / 73 HR: 67 Rhythm: Sinus Technical Quality: Adequate MEASUREMENTS (Male / Female) Normal Values 2D ECHO LVOT Diameter 2.0 cm LV Ejection Fraction MOD 2C 68.8 % LV Ejection Fraction 2C AL 69.1 % LA Diameter 3.5 cm LA Width 3.2 cm LA Height 5.2 cm RA Width 2.8 cm RA Height 4.4 cm Aorta at Sinotubular Diameter 2.4 cm IVC Diameter 1.4 cm M-MODE Aortic Annulus Diameter 2.9 cm LA Ao Ratio MM 1.1 MV E Point Septal Separation 0.5 cm DOPPLER AV Peak Velocity 107.3 cm/s LVOT Peak Velocity 85.0 cm/s AV Area Cont Eq vti 3.0 cm squared AV Area Cont Eq pk 2.6 cm squared MV Peak Velocity 76.0 cm/s MV Area PHT 5.0 cm squared Mitral E to A Ratio 0.6 MV E' Velocity 24.5 cm/s Mitral E to MV E' Ratio 5.8 Mitral E to LV E' Lateral Ratio 5.2 Mitral E to LV E' Septal Ratio 6.5 TR Peak Velocity 271.8 cm/s TR Peak Gradient 29.5 mmHg TR Mean Velocity 219.8 cm/s TR Mean Gradient 20.9 mmHg TR Velocity Time Integral 63.0 cm Right Atrial Pressure 3.0 mmHg Pulmonary Artery Systolic Pressu 32.5 mmHg PV Peak Velocity 96.3 cm/s RV Acceleration Time 0.1 s RV Ejection Time 0.3 s RV AcT/ET 0.4 FINDINGS Left Ventricle Normal left ventricular size, systolic function and wall thickness, with no regional wall motion abnormalities. Grade I/IV diastolic dysfunction (abnormal relaxation filling pattern), normal to mildly elevated filling pressures. Left ventricular ejection fraction is estimated at 70 %. Right Ventricle The right ventricle is normal in size and function. Right Atrium The right atrium is normal in size. Left Atrium The left atrium is normal in size. Mitral Valve Structurally normal mitral valve without significant stenosis or prolapse. There is no mitral regurgitation. Aortic Valve Structurally normal aortic valve without significant sclerosis or stenosis. There is no aortic regurgitation. Tricuspid Valve Structurally normal tricuspid valve without significant stenosis or regurgitation. Pulmonary artery systolic pressure is normal. Pulmonic Valve Pulmonic valve not well visualized. Pericardium Normal pericardium without effusion. Aorta Normal ascending aorta dimension. IVC The inferior vena cava appears normal. CONCLUSIONS Normal left ventricular size, systolic function and wall thickness, with no regional wall motion abnormalities. Grade I/IV diastolic dysfunction (abnormal relaxation filling pattern), normal to mildly elevated filling pressures. Left ventricular ejection fraction is estimated at 70 %. There are no prior echocardiogram studies to compare. Dr. Bob Tanner MD (Electronically Signed) Final Date: 17 May 2023 15:35 S
--- NOTE | 2023-05-17 11:44 | PM.HP ---
Providers/Chief Complaint Admitting Physician: Abdiaziz Child MD Primary Care Provider: JUAN CARLOS Arroyo Chief Complaint: chest pain History of Present Illness Rafa Galindo is a 72 year old male with a past medical history of hypertension, costochondral pain, who presents to [facility] for chest pain. 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 He tells me that since then, whenever he would have rib pain, chest discomfort, sternal pain, he would rub WD-40 out to a rag and rub it out his chest and would typically take care of his pain. He has been doing that for the last 50 years, and he tells me that it takes care of most of the pain, the last time he did it was a few months ago. 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 He tells me that early this morning, he had chest pain that woke him up, roughly at 2 AM or so, substernal, this time radiating down both arms, he tells he that was a pressure-like pain, felt a bit diaphoretic, did feel a bit short of breath, no lightheadedness, dizziness, no nausea, no vomiting. He tells me that he had a stress test roughly a year ago and it was okay. He denies a family history of CAD but does have a family history of hypertension. He does tell me that he has chronic sinus drainage, that causes a chronic cough. No recent fevers or chills, or trauma. He does tell me that he has hypertension, and he tells me that recently his diastolic blood pressure has been increasing, up to 100. No headache, blurry vision, no facial droop no slurring of his words, no strokelike symptoms. Denies a history of strokes. He denies history of smoking. No history of drug use. No history of alcoholism. Currently he is in the emergency room, had a nitro patch placed, EKG shows junctional rhythm, no acute ST-T wave changes, his 120-minute troponin was 131, delta 47.6, currently chest pain-free, he has been given aspirin, started on a heparin drip, ER physician spoke to cardiology. He tells me that his last meal was at 5 AM when he woke up early in the morning and ate a bowl of Cheerios Review of Systems Const: Denies: fever(s) Eyes: Denies: change in vision ENMT: Denies: throat pain Card: Reports: chest pain Resp: Reports: non-productive cough; Denies: dyspnea GI: Denies: abdominal pain : Denies: flank pain Musc: Denies: neck pain or back pain Skin/Breast: Denies: rash Neuro: Denies: headache(s) or numbness in extremities Psych: Denies: anxiety Endo: Denies: polyuria or polydipsia Medications/Allergies Home Medications Medication Instructions Recorded Confirmed Last Taken Type aspirin 81 mg tablet,delayed 243 - 324 mg PO DAILY PRN Chest 05/17/23 05/17/23 05/17/23 History release Pain 324 mg lisinopril 20 mg tablet 20 mg PO QAM 05/17/23 05/17/23 05/17/23 05:15 History metoprolol tartrate 25 mg tablet 25 mg PO QAM 05/17/23 05/17/23 05/17/23 05:15 History pantoprazole 40 mg tablet,delayed 40 mg PO DAILY PRN Heartburn 05/17/23 05/17/23 Unknown History release (Protonix) potassium gluconate 595 mg (99 mg) 595 mg PO DAILY PRN leg cramps 05/17/23 05/17/23 Unknown History tablet Allergies Allergy/AdvReac Type Severity Reaction Status Date / Time No Known Allergies Allergy Verified 05/17/23 10:32 PFSH Acute PFSH: Medical History (Updated 05/17/23 @ 11:55 by Abdiaziz Child MD) Hypertension Surgical History (Updated 05/17/23 @ 11:51 by Abdiaziz Child MD) Hx of inguinal hernia surgery Family History (Updated 05/17/23 @ 11:51 by Abdiaziz Child MD) Mother Hypertension Father Cancer Colon cancer Family/Other Dementia Denies family history of Diabetes CAD (coronary artery disease) Clotting disorder Chronic kidney disease (CKD) Suicide Anesthesia complication Bleeding disorder Lung disease Stroke Social History Smoking and tobacco status: never smoked Alcohol intake: never Substance/Drug Use: never Vitals/I&O/Wt Last Vital Signs Temp 98.2 F 05/17/23 07:22 Pulse 65 05/17/23 10:31 Resp 18 05/17/23 07:22 BP 121/73 05/17/23 10:31 Pulse Ox 95 05/17/23 07:22 O2 Del Method Room Air 05/17/23 07:22 Weight last 48 hrs Weight 79.379 kg Physical Exam Const: COMMON NORMALS: no acute distress and patient oriented x3 GENERAL APPEARANCE: cooperative, well kempt and well developed HENMT: COMMON NORMALS: normocephalic and Normal external nose present HEAD & SCALP: normocephalic FACE & SINUS: normal facial exam NOSE: Normal external nose present MOUTH: Normal oral and palatal mucosa present Eye: COMMON NORMALS: Equal, round and reactive pupils present, EOMs intact bilaterally, conjunctivae normal and no scleral icterus CONJUNCTIVA: Yes conjunctivae normal PUPIL: Yes Equal, round and reactive pupils present Neck/C-Spine: COMMON NORMALS: full ROM, no lymphadenopathy, no JVD, Thyroid normal and No carotid bruits THYROID: Thyroid normal Lymph: LYMPHATIC: no lymphadenopathy noted Chest: COMMONS NORMALS: normal inspection of the chest Resp: COMMON NORMALS: normal respiratory effort, No retractions, No use of accessory muscles and clear to auscultation bilaterally AUSCULTATION: clear to auscultation bilaterally Cardio: COMMON NORMALS: no JVD, regular rate, regular rhythm, S1 normal heart sound present, S2 normal heart sound present, No murmurs present (Cardio) and Peripheral pulses 2+ throughout RATE: regular rate RHYTHM: regular rhythm HEART SOUNDS: S1 normal heart sound present and S2 normal heart sound present PERIPHERAL PULSES: Peripheral pulses 2+ throughout GI: COMMON NORMALS: Normal to inspection, nondistended, normoactive bowel sounds present, Soft to palpation and non-tender Back/Pelvis: COMMON NORMALS: no CVA tenderness Extremity: COMMON NORMALS: normal to inspection, full ROM, no calf tenderness and no pedal edema Neuro: COMMON NORMALS: patient oriented x3, CN's II-XII intact bilaterally, moves all extremities, no focal motor deficits and no sensory deficits noted Psych: COMMON NORMALS: mental status grossly normal, Normal thought process present, cooperative and speech normal APPEARANCE: Yes well kempt SPEECH: Yes normal speech THOUGHT PROCESS: Normal thought process present Skin: COMMON NORMALS: turgor normal and no jaundice GENERAL SKIN EXAM: turgor normal Data 05/17/23 07:50 05/17/23 07:50 A&P Assessment and plan (1) Chest pain: Qualifiers: Chest pain type: unspecified Qualified Code(s): R07.9 - Chest pain, unspecified (2) NSTEMI (non-ST elevated myocardial infarction): (3) Goals of care, counseling/discussion: Plan Chest pain NSTEMI Plan -Serial EKGs, serial troponins, telemetry monitoring -Aspirin, statin, metoprolol -Heparin drip -Cardiac echocardiogram -We will keep n.p.o., last meal at 5 AM -ER physician spoke to cardiology -Patient had a dobutamine stress echo from 2021 showed: 1. At the baseline, the patient's blood pressure was 143/84 mmHg ?with a heart rate of 87 beats per minute. The electrocardiogram ?showed ectopic atrial rhythm, normal axis.? Possible old ?anteroseptal infarct. ?The chest examination revealed normal breath sounds with no ?rales or rhonchi. The CVS examination revealed normal heart ?sounds with no S3 or S4. ?2. The Dobutamine was infused over 9 minutes 29 seconds . The ?maximum heart rate obtained was 133 beats per minute. The ?patient attained 89% of the maximum predicted heart rate. The ?blood pressure at the end of the infusion was 162/119 mmHg. ?Patient did not have any chest pain or any significant ?electrocardiogram changes with the Dobutamine infusion. The ?physical examination remained unchanged. No arrhythmias were ?seen on the monitor. ?3. At the baseline, the patient's echocardiogram revealed normal ?cardiac chamber sizes with normal LV ejection fraction of 65%. ?Segmental wall motion analysis revealed no regional wall motion ?abnormality. There were no intracardiac masses. No significant ?pericardial effusion. Aortic root appears to be upper limits of ?normal size. ?4. With the low and the peak Dobutamine infusion, there was good ?augmentation of all the segments with no Dobutamine-induced wall ?motion abnormalities. ?5. During the recovery phase, the patient did not have any ?symptoms or any EKG changes. The blood pressure at the end of ?the recovery phase was 119/67 mmHg with a heart rate of 96 beats ?per minute. ?6. The echocardiogram during the recovery phase also did not ?reveal any new changes. ??CONCLUSIONS ?1. Normal electrocardiogram response to Dobutamine infusion. ?2. Normal echocardiographic response to Dobutamine infusion. ?3. No Dobutamine-induced chest pain or cardiac arrhythmia. ?4. Clinical correlation is recommended. -tsh, mag, a1c, lipid panel -Full code, however patient tells me he does not want to be kept alive if there is no quality of life, he does not want to be a burden on anyone, he does not want life sustaining measures to be kept going if he will not have a quality of life in which he will be dependent on others -Heparin for DVT prophylaxis Attestations Medical Necessity Statement*: Patient requires hospitalization, inpatient, greater than 2 midnights, for chest pain Diagnoses Chest pain R07.9 Chest pain type: unspecified NSTEMI (non-ST elevated myocardial infarction) I21.4 Goals of care, counseling/discussion Z71.89
[2023-05-17 12:25] LABS: NT Pro B Type Natriuretic Pept 72 pg/mL (0-125)
--- NOTE | 2023-05-17 12:26 | P.CONIM_ITS ---
Providers/Reason For Consult Consulting Physician/Specialty*: Cardiovascular medicine Reason for Consult*: Chest pain elevated troponin Requesting Physician: Emergency room Attending Physician: Abdiaziz Child MD Primary Care Provider: JAUN CARLOS Arroyo History of Present Illness History of Present Illness Rafa Galindo is a 72 year old male who has no known history of heart disease. 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 Yesterday he was out tending to the chickens and walked to the barn. He noticed the onset of fairly typical substernal chest pain that hurt like the [place] . It radiated to both arms. No other symptoms. He worked through it and it finally went away later in the day. Today he was performing similar chores outdoors and noticed the onset of the chest discomfort again after some minimal exercise. This also radiated to both arms. No other symptoms. Today it was more severe so he was brought to the emergency room. His EKG is unremarkable. CBC and chemistries are unremarkable. His first troponin was 84 and the second 131. I do not really know what medications he was given although he said the ambulance drivers gave him a nitroglycerin and he has an inch of Nitropaste in place at this time. Currently he is free of pain He has a history of hypertension, diverticular disease, dyslipidemia and GERD. He states that when he was in his 20s he had an angiogram of his heart in [place]. He said they told him that there was anything wrong with his heart but he thought that he had dry rib sockets . He said that the doctor injected his ribs at that time alleviating the pain. He then did it 1 more time. Patient, since then, occasionally gets that same pain and decided to treat himself. He treats himself by taking WD-40 and rubbing it into his skin on his chest with a paper towel. The most recent episode of that was just about 3 weeks ago[address] He saw Dr. Bacon in this office 2 years ago. A dobutamine stress echo was read as negative. Review of Systems Narrative: Review of systems is negative Medications/Allergies Home Medications Medication Instructions Recorded Confirmed Last Taken Type aspirin 81 mg tablet,delayed 243 - 324 mg PO DAILY PRN Chest 05/17/23 05/17/23 05/17/23 History release Pain 324 mg lisinopril 20 mg tablet 20 mg PO QAM 05/17/23 05/17/23 05/17/23 05:15 History metoprolol tartrate 25 mg tablet 25 mg PO QAM 05/17/23 05/17/23 05/17/23 05:15 History pantoprazole 40 mg tablet,delayed 40 mg PO DAILY PRN Heartburn 05/17/23 05/17/23 Unknown History release (Protonix) potassium gluconate 595 mg (99 mg) 595 mg PO DAILY PRN leg cramps 05/17/23 05/17/23 Unknown History tablet Allergies Allergy/AdvReac Type Severity Reaction Status Date / Time No Known Allergies Allergy Verified 05/17/23 10:32 Current Medications Generic Name Dose Route Start Last Admin Trade Name Freq PRN Reason Stop Dose Admin Heparin Sodium (Porcine) 0 unit 05/17/23 10:27 05/17/23 11:13 Heparin 5,000 Unit/Ml Inj 1 Ml IV 4,000 unit PRN PRN Administration Heparin weight-base protocol Protocol Heparin Sodium/Sodium Chloride 25,000 unit in 500 mls @ 0 mls/hr 05/17/23 10:30 05/17/23 11:15 Heparin Drip IV 13.86 unit/kg/hr .Q0M BRAULIO 22 mls/hr Administration Protocol Per Protocol PFSH Acute PFSH: Medical History (Updated 05/17/23 @ 11:55 by Abdiaziz Child MD) Hypertension Surgical History (Updated 05/17/23 @ 11:51 by Abdiaziz Child MD) Hx of inguinal hernia surgery Family History (Updated 05/17/23 @ 11:51 by Abdiaziz Child MD) Mother Hypertension Father Cancer Colon cancer Family/Other Dementia Denies family history of Diabetes CAD (coronary artery disease) Clotting disorder Chronic kidney disease (CKD) Suicide Anesthesia complication Bleeding disorder Lung disease Stroke Social History Smoking and tobacco status: never smoked Alcohol intake: never Substance/Drug Use: never Vitals/I&O/Wt Last Vital Signs Temp 98.2 F 05/17/23 07:22 Pulse 65 05/17/23 10:31 Resp 18 05/17/23 07:22 BP 121/73 05/17/23 10:31 Pulse Ox 95 05/17/23 07:22 O2 Del Method Room Air 05/17/23 07:22 Weight last 48 hrs Weight 175 lb Physical Exam Narrative: GENERAL: In general he looks and feels well and is in no pain. HEENT: Exam within normal limits. NECK: Supple without jugular vein distention. The carotid upstroke is normal without bruits. BACK: Exam normal. LUNGS: Clear. HEART: Regular rate and rhythm. ABDOMEN: Benign without organomegaly or tenderness. EXTREMITIES: No edema. NEUROLOGIC: Exam normal. SKIN: Unremarkable. Data 05/17/23 07:50 05/17/23 07:50 A&P Assessment and plan (1) Hypertension: Qualifiers: Hypertension type: primary hypertension Qualified Code(s): I10 - Essential (primary) hypertension (2) NSTEMI (non-ST elevated myocardial infarction): (3) Hypertension: Qualifiers: Hypertension type: primary hypertension Qualified Code(s): I10 - Essential (primary) hypertension Plan He needs coronary angiography. We will perform that this afternoon. He is NPO. I explained this to him and his daughter in detail. They understand. and Moderate Time for a total of 35 minutes, includes reviewing past or interval history, examining/interviewing patient, placing orders, counseling patient/family/other support, discussing plan of care with staff, communicating with other healthcare providers and documenting encounter Diagnoses Hypertension I10 Hypertension type: primary hypertension NSTEMI (non-ST elevated myocardial infarction) I21.4
[2023-05-17 12:56] LABS: Chol HDL Ratio 4.22 mg/dL (1.0-5.00); Cholesterol 207 mg/dL (0-200); HDL Cholesterol 49 mg/dL (60-100); LDL Cholesterol Calculated 137 mg/dL (50-129); Magnesium 2.1 mg/dL (1.7-2.3); Thyroid Stimulating Hormone 1.76 uIU/mL (0.27-4.20); Triglycerides 107 mg/dL (0-150)
[2023-05-17] MEDS: diphenhydrAMINE 50 mg Capsule PO (12:59)
[2023-05-17] MEDS: pantoprazole 40 mg SDV IVP (12:59)
[2023-05-17 13:01] LABS: Estmated Average Glucose 128; Hemoglobin A1C 6.1 % (4.0-6.0)
[2023-05-17] MEDS: sodium chloride 0.9% 1,000 ML 50 ML IV (13:07)
--- NOTE | 2023-05-17 13:42 | ECG_ITS ---
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 Measurements Intervals [place] Rate: 64 P: 267 AR: 128 QRS: -22 QRSD: 94 T: 51 QT: 384 QTc: 397 Interpretive Statements JUNCTIONAL RHYTHM BORDERLINE LEFT AXIS DEVIATION [QRS AXIS < -20] ABNORMAL RHYTHM ECG Compared to ECG 05/17/2023 10:02:19 No significant changes Electronically Signed On 05-17-2023 12:31:17 CDT by Karissa العلي M.D. [id number]
--- NOTE | 2023-05-17 14:30 | XACV_ITS ---
Exam Room: 106 Ht: 170 cm Wt: 79 kg BSA: 1.95 m2 Gender: Male : 1950 Exam Priority: Routine Procedure(s): Procedure Description: Diagnostic procedure Procedure Description: Coronary Angiography Diagnostic Cath Status: Urgent Diagnostic Findings * Patient with no previous cardiac history. Classic anginal symptoms with exertion. Non-ST segment elevation DC in the emergency room today. Left ventricular function normal by echo. * Coronary angiography reveals right coronary artery dominance. The left main coronary artery is normal. There is a 99.996% stenosis of the ostial LAD with CARMELA I flow. The LAD contains very mild diffuse plaquing. Circumflex is normal with diffuse plaquing. The right coronary artery is a large dominant vessel and has diffuse luminal irregularities. PCI Status: Urgent PCI LVEF Assessed: Yes PCI Indication: NSTE - ACS Interventional Findings * The ostial LAD was primarily stented with a 4 x 8 mm drug-eluting stent. Excellent angiographic result. Decision for PCI with Surgical Consult: No PCI for Multi-vessel Disease: No Conclusions 1. One-vessel coronary artery disease with severe proximal/ostial LAD disease. Primarily stented with good result. Normal left ventricular function. Ventriculography Ejection Fraction: 70.0 % Pressures Phase:Rest AO : 72 / 60 ( 67 ) @ 3:34:00 PM 98 / 65 ( 76 ) @ 3:43:00 PM 97 / 64 ( 78 ) @ 3:43:00 PM 90 / 67 ( 76 ) @ 3:47:00 PM LV : 104 / 0 / 16 @ 3:42:00 PM 107 / 7 / 21 @ 3:43:00 PM 106 / 7 / 21 @ 3:43:00 PM Valves Phase:DefaultPhase AV : 6.0 @ 3:01:20 PM AV Mean Gradient: 4.0 @ 3:01:20 PM Clinical Evaluation EBL: 5mL-10mL Procedural Details Procedure Consent Obtained. Admit Source: In Patient. Pre-Procedure Time Out. Identified patient by full name and date of as verbalized by the patient/guarantor. Does the consent match the physician's order: Yes. Accurate & Complete Informed Consent: Yes. Inpatient/Outpatient History & Physical on Chart: Yes. If H&P is completed, is and addenduem needed: Yes; If yes, is the addendum complete: N/A. Visualize and Verify Site with Patient/Guarantor: N/A. Relevant Radiology Images available: N/A. Pre-op teaching completed and patient verbalized understanding. The risks, benefits, and alternatives of sedation and/or procedure were discussed by physician. The patient agrees to continue. Procedure started. [facility] [place] Clinical Fraility Score: 3: Managing Well. Scudding Inspector Indications: Worsening Angina. Chest Pain Symptom Assessment: Typical Angina Symptoms. Cardiovascular Instability: Yes, if yes, Persistant Ischemic Symptoms. Correct patient, site and procedure confirmed by cath team. Current diagnosis: NSTEMI. PERRLA. Strong, equal hand rn imcu bilaterally. Lungs clear x 5 lobes. IV Site on Arrival: 20 gauge in the left anticubital. IV Fluids: 0.9% NaCl at KVO. 100 mL infused prior to laboratory director. Pre Procedural Pulses: right radial was 3+. Pre Procedural Pulses: bilateral dorsalis pedis was 2+. Oxygen started at 2liters/min via nasal canula. right groin was prepped with chloroprep then draped in the usual sterile fashion. right radial was prepped with chloroprep then draped in the usual sterile fashion. Physician notified. Baseline sample Acquired. HR: 64 BPM. Physician arrived. Physician scrubbed in. Immediate Pre-Procedure Time Out. Correct Patient: Yes; Correct Procedure: Yes; Correct Site: Yes; Correct Patient Position: Yes; Correct Supplies: Yes; Dried Flammable Prep: Yes; Blood Products Available: N/A;. Lidocaine 1% infiltrated to the right radial. Arterial access obtained. A 5 eritrean TIG catheter in over wire. Current Diagnosis : NSTEMI. Multiple views taken of left coronary artery. Catheter redirected to the RCA. Multiple views taken of right coronary artery. Catheter removed over the exchange wire. A 5 eritrean Angled Pig catheter in over wire. EDP Sample taken: LV 104/0,16; HR: 62 BPM; SpO2: 96%. LV gram performed in MELENDEZ @ 10 mL/second for a total of 30 mL. EDP Sample taken: LV 107/7,21; HR: 60 BPM; SpO2: 95%. Pullback taken: LV 106/7,21; AO 98/65(76); Mean: 4mmHg, Peak to Peak: 6mmHg, SEP: 7sec/min; HR: 61 BPM; SpO2: 98%. Catheter removed over the exchange wire. Equipment: 6F - Radial. [place] Steele Manifold Kit Model BT 2000, Co-ship's pilot. 6 eritrean XB 3 guide catheter was inserted over the wire. [place] guidewire was advanced through the guide catheter to lesion in the prox LAD. Stent inserted to lesion in the Ostial LAD. Inflation Number : 1 Jose A Morel KYMBERLY 4.0X08 LAURENT -Lot Number# [id number] Exp 07/01/2024 was prepped and advanced across the Prox LAD. The stent was deployed at 12 JOSEY for 0:28 seconds. Results checked. Stent balloon out over wire. Results checked. Wire out. Guide catheter out. Physician scrubbed out. Patient's family updated. A TR Band was successful obtaining hemostatsis at the Right Radial artery insertion site. Post Procedure: Pulses reassessed and unchanged. PERRLA. Strong, equal hand rn imcu bilaterally. No VTE prophylaxis required. Medication's Wasted: Lidocaine 1% = 3 mL. Medication's Wasted: Nitro = 49.8 mg. Medication's Wasted: Heparin = 1000 u. Medication's Wasted: Other = Fentanyl 50 mcg. Total IV fluids: 44 mL. Post-op diagnosis: Obstructive CAD. Complications: none. Estimated blood loss: 5mL-10mL. Responsiveness - Normal response to verbal stimuli; alert and oriented, PERRLA. Airway - Unaffected, no intervention required; spontaneous ventilation. Circulation: W/N/L, pulses unchanged. Nausea/Vomiting: No. Procedure completed. Patient transferred by bed to 1st floor. Access Site Site: Right Radial artery Sheath Size: 6 Fr Hemostasis Method: TR Band Hemostasis Success: Successful Procedure Medications Start: 2:27 PM Stop: 2:27 PM Medication: Versed Amount: 1 mg Route: I.V. Start: 2:27 PM Stop: 2:27 PM Medication: Fentanyl Amount: 50 mcg Route: I.V. Start: 2:31 PM Stop: 2:31 PM Medication: Nitrogylcerin Amount: 200 mcg Route: I.A. Start: 2:49 PM Stop: 2:49 PM Medication: Versed Amount: 1 mg Route: I.V. Start: 3:00 PM Stop: 3:00 PM Medication: Plavix Amount: 600 mg Route: P.O. I, the attending physician, have reviewed and verified all procedure medications. Yes, all medications given per verbal order History/Risk Factors Hypertension: Yes Dyslipidemia: No Peripheral Arterial Disease (PAD): No Myocardial Infarction (DC): No Obesity: No Renal Disease: No Tobacco Use: Never Prior Interventions PCI: No CABG: No Valve Surgery: No Report Signatures Finalized by Dr. Bob Tanner MD on 05/17/2023 03:29 PM
--- NOTE | 2023-05-17 15:54 | PC.NURSE ---
Patient's daughter took wallet home with her.
[2023-05-17] MEDS: sodium chloride 0.9% 1,000 ML 100 ML IV (16:12)
[2023-05-17 17:34] LABS: Partial Thromboplastin Time 38.9 SECONDS (23.9-36.7)
--- NOTE | 2023-05-17 17:35 | PC.NURSE ---
TR band removed and 2x2 and tegaderm placed at 1734. No hematoma noted.
[2023-05-17 18:55] LABS: Troponin 5 6HR 117.4 ng/L (0-15); Troponin 5 6HR Delta 33.4 ng/L (0-12)
[2023-05-17] MEDS: atorvastatin 40 mg Tablet PO (20:31)
[2023-05-18] VITALS: BP 93/66; PULSE 66; RESP 21; TEMP 36.8; O2SAT 94
[2023-05-18 04:00] VITALS: PULSE 68
[2023-05-18] MEDS: metoprolol tartrate 25 mg Tablet PO (04:21)
--- NOTE | 2023-05-18 05:27 | P.PN_ITS ---
Subjective Subjective: Rafa had a stent placed in his ostial LAD yesterday. His other coronary arteries were without significant lesions. He has normal left ventricular function. The procedure was done from the right radial artery. No complications. His blood pressure was a little low after the procedure. I gave him 500 mL of normal saline. He has been normotensive the rest of the evening and overnight. He is anxious to leave the hospital this morning. He has already told me that he does not want to take any medicines that are not absolutely necessary and even does not want to take those. He specifically refers to statins that he does not want to take. Vitals/I&O/Wt Last Vital Signs Temp 98.3 F 05/18/23 00:00 Pulse 68 05/18/23 04:00 Resp 21 H 05/18/23 00:00 BP 93/66 05/18/23 00:00 Pulse Ox 94 05/18/23 00:00 O2 Del Method Room Air 05/18/23 00:00 05/17/23 05/17/23 05/18/23 14:59 22:59 06:59 Intake Total 2749.866 / 2749.866 240 / 2989.866 Output Total 300 / 300 875 / 1175 Balance 2449.866 / 2449.866 -635 / 1814.866 Weight last 48 hrs Weight 175 lb Physical Exam Narrative: GENERAL: In general he looks and feels well HEENT: Exam within normal limits. NECK: Supple without jugular vein distention. The carotid upstroke is normal without bruits. BACK: Exam normal. LUNGS: Clear. HEART: Regular rate and rhythm. ABDOMEN: Benign without organomegaly or tenderness. EXTREMITIES: No edema. Right radial artery entry site flat, dry without bleeding hematoma or other vascular anomaly. NEUROLOGIC: Exam normal. SKIN: Unremarkable. Data 05/17/23 07:50 05/17/23 07:50 A&P Assessment and plan (1) NSTEMI (non-ST elevated myocardial infarction): (2) Hypertension: Qualifiers: Hypertension type: primary hypertension Qualified Code(s): I10 - Essential (primary) hypertension (3) CAD (coronary artery disease): (4) Stented coronary artery: (5) Dyslipidemia: Plan He may go home today. I impressed upon him his vigorously as I could the importance of the aspirin and Plavix. I suggested a statin. He is already on atorvastatin and metoprolol. If we add the Plavix to those medications that should be sufficient. Follow-up in 7 to 10 days with the nurse practitioner and then the shell plater about 3 months later. Attestations Medical Necessity Statement*: Able to discharge home today. and Moderate Time for a total of 30 minutes, includes reviewing past or interval history, examining/interviewing patient, counseling patient/family/other support, updating patient/family/other support and documenting encounter Diagnoses NSTEMI (non-ST elevated myocardial infarction) I21.4 Hypertension I10 Hypertension type: primary hypertension CAD (coronary artery disease) I25.10 Stented coronary artery Z95.5 Dyslipidemia E78.5
[2023-05-18 06:12] VITALS: BP 126/69; O2SAT 95
[2023-05-18 06:21] VITALS: BP 126/69; PULSE 68; RESP 24; TEMP 36.7; O2SAT 94
[2023-05-18 07:11] LABS: Basophils # 0.1 10^3/uL (0.0-0.1); Basophils % 0.9 %; Eosinophils # 0.1 10^3/uL (0.0-0.8); Eosinophils % 2.4 %; Hematocrit 41.1 % (42.0-52.0); Hemoglobin 13.6 g/dL (11.7-16.6); Lymphocytes % 16.7 %; Mean Corpuscular HGB Conc 33.1 g/dL (30.0-36.0); Mean Corpuscular Hemoglobin 31.1 pg (28.0-34.0); Mean Corpuscular Volume 93.8 fl (80-94); Mean Platelet Volume 9.4 fL (7.4-10.4); Monocytes # 0.6 10^3/uL (0.2-0.9); Monocytes % 10.7 %; Neutrophils # 4.03 10^3/uL (1.8-7.7); Neutrophils % 69.1 %; Nucleated Red Blood Cells % 0 %; Platelet Count 199 10^3/cmm (130-400); Red Blood Count 4.38 10^6/uL (4.1-5.3); Red Cell Distribution Width 12.6 % (12.1-15.1); White Blood Count 5.8 10^3/uL (4.0-10.0)
[2023-05-18 07:40] LABS: Alanine Aminotransferase 13 U/L (0-41); Albumin Level 3.7 g/dL (3.5-5.2); Alkaline Phosphatase 60 U/L (40-130); Anion Gap 12.3 (5-19); Aspartate Amino Transferase 14 U/L (0-40); Blood Urea Nitrogen 14 mg/dL (8-23); Calcium 8.5 mg/dL (8.5-10.5); Carbon Dioxide 25 mmol/L (22-29); Chloride 105 mmol/L (98-107); Creatinine Clr Calc Pharmacy 67.4443; Globulin 2.2 g/dL (1.3-4.6); Glucose 103 mg/dL (65-115); Magnesium 2.1 mg/dL (1.7-2.3); Osmolality Calculated 287 mOsm/kg (285-295); Potassium 4.3 mmol/L (3.5-5.1); Sodium 138 mmol/L (136-145); Total Bilirubin 0.6 mg/dL (0.15-1.2); Total Protein 5.9 g/dL (6.6-8.7)
[2023-05-18 08:00] VITALS: BP 119/70; PULSE 66; RESP 18; TEMP 36.7; O2SAT 96
[2023-05-18] MEDS: aspirin 81 mg EC Tablet PO (09:07)
[2023-05-18] MEDS: clopidogrel 75 mg Tablet PO (09:07)
--- NOTE | 2023-05-18 11:23 | PM.DCS ---
Discharge Providers Date of Admission: 05/17/23 12:07 Date of Discharge: May 18, 2023 Attending Provider at Admission: Abdiaziz Child MD Attending Provider at Discharge: Abdiaziz Child MD Primary Care Provider: JUAN CARLOS Arroyo Diagnoses at Discharge Discharge Diagnosis (1) NSTEMI (non-ST elevated myocardial infarction): Status: Acute (2) Hypertension: Status: Acute Qualifiers: Hypertension type: primary hypertension Qualified Code(s): I10 - Essential (primary) hypertension (3) CAD (coronary artery disease): Status: Acute (4) Stented coronary artery: Status: Acute (5) Dyslipidemia: Status: Acute Reason for Visit Reason for Visit: chest pain Hospital Course Hospital Course madhavi Galindo is a 72 year old male with a past medical history of hypertension, costochondral pain, who presents to [facility] for chest pain.? Patient tells me that in his 20s, he had an angiogram, he tells me that he was here at [facility], and he was having chest pain, as he was transferred to urgent lead to [place], he tells me that his product development technician, did an angiogram, and it was normal, so they thought it was costochondral pain so they would give him injections of lidocaine, into the chest, he tells me that he tells me the pain would go away but come back, so he would start spraying WD-40 onto a rag and rub again on his chest, and it would help.? He tells me that since then, whenever he would have rib pain, chest discomfort, sternal pain, he would rub WD-40 out to a rag and rub it out his chest and would typically take care of his pain.? He has been doing that for the last 50 years, and he tells me that it takes care of most of the pain, the last time he did it was a few months ago.? 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 He tells me that early this morning, he had chest pain that woke him up, roughly at 2 AM or so, substernal, this time radiating down both arms, he tells he that was a pressure-like pain, felt a bit diaphoretic, did feel a bit short of breath, no lightheadedness, dizziness, no nausea, no vomiting.? He tells me that he had a stress test roughly a year ago and it was okay.? He denies a family history of CAD but does have a family history of hypertension.? He does tell me that he has chronic sinus drainage, that causes a chronic cough.? No recent fevers or chills, or trauma.? He does tell me that he has hypertension, and he tells me that recently his diastolic blood pressure has been increasing, up to 100.? No headache, blurry vision, no facial droop no slurring of his words, no strokelike symptoms.? Denies a history of strokes.? He denies history of smoking.? No history of drug use.? No history of alcoholism.? Currently he is in the emergency room, had a nitro patch placed, EKG shows junctional rhythm, no acute ST-T wave changes, his 120-minute troponin was 131, delta 47.6, currently chest pain-free, he has been given aspirin, started on a heparin drip, ER physician spoke to cardiology.? He tells me that his last meal was at 5 AM when he woke up early in the morning and ate a bowl of Cheerios Patient was admitted to [facility] for NSTEMI, chest pain, cardiology was consulted underwent cardiac catheterization with stent placed ostial LAD, monitor for 24 hours thereafter, no recurrent complaints of chest pain, normal LV function, he will be discharged on aspirin, statin, Plavix, metoprolol, nitro as needed for chest pain with close follow-up with product development technician outpatient. 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 Physical Exam Const: COMMON NORMALS: no acute distress and patient oriented x3 Resp: COMMON NORMALS: normal respiratory effort, No retractions, No use of accessory muscles and clear to auscultation bilaterally AUSCULTATION: clear to auscultation bilaterally Cardio: COMMON NORMALS: regular rate, regular rhythm, S1 normal heart sound present and S2 normal heart sound present RATE: regular rate RHYTHM: regular rhythm HEART SOUNDS: S1 normal heart sound present and S2 normal heart sound present GI: COMMON NORMALS: Normal to inspection, nondistended, normoactive bowel sounds present, non-tender and no bruits Extremity: COMMON NORMALS: no pedal edema Neuro: COMMON NORMALS: patient oriented x3 Psych: COMMON NORMALS: mental status grossly normal Discharge Data Studies Completed and Pending Completed Studies During Hospitalization Category Date Time Status MECHANICAL TECHNOLOGIST request for service Routine Exams 05/17/23 14:30 Completed XR chest 1V portable [id number] Stat Exams 05/17/23 07:42 Completed CV. echo complete* [id number] Stat Ultrasound 05/17/23 11:44 Completed Pending at discharge Category Date Time Status Platelet Count Q2D Lab 05/19/23 04:00 Ordered Platelet Count Q2D Lab 05/21/23 04:00 Ordered Radiology Impressions Chest X-Ray 05/17/23 07:42 IMPRESSION: 1. No acute cardiopulmonary finding. Laboratory Results WBC 5.8 10^3/uL (4.0-10.0) 05/18/23 07:00 RBC 4.38 10^6/uL (4.1-5.3) 05/18/23 07:00 Hgb 13.6 g/dL (11.7-16.6) 05/18/23 07:00 Hct 41.1 % (42.0-52.0) L 05/18/23 07:00 MCV 93.8 fl (80-94) 05/18/23 07:00 MCH 31.1 pg (28.0-34.0) 05/18/23 07:00 MCHC 33.1 g/dL (30.0-36.0) 05/18/23 07:00 RDW 12.6 % (12.1-15.1) 05/18/23 07:00 Plt Count 199 10^3/cmm (130-400) 05/18/23 07:00 MPV 9.4 fL (7.4-10.4) 05/18/23 07:00 Neut % (Auto) 69.1 % 05/18/23 07:00 Lymph % (Auto) 16.7 % 05/18/23 07:00 Christian % (Auto) 10.7 % 05/18/23 07:00 Eos % (Auto) 2.4 % 05/18/23 07:00 Baso % (Auto) 0.9 % 05/18/23 07:00 Neut # (Auto) 4.03 10^3/uL (1.8-7.7) 05/18/23 07:00 Lymph # (Auto) 1.0 10^3/uL (0.8-4.8) 05/18/23 07:00 Christian # (Auto) 0.6 10^3/uL (0.2-0.9) 05/18/23 07:00 Eos # (Auto) 0.1 10^3/uL (0.0-0.8) 05/18/23 07:00 Baso # (Auto) 0.1 10^3/uL (0.0-0.1) 05/18/23 07:00 Nucleated RBC % (auto) 0 % 05/18/23 07:00 Nucleated RBCs # 0.0 /100WBC 05/18/23 07:00 APTT 38.9 SECONDS (23.9-36.7) H 05/17/23 17:07 Sodium 138 mmol/L (136-145) 05/18/23 07:00 Potassium 4.3 mmol/L (3.5-5.1) 05/18/23 07:00 Chloride 105 mmol/L (98-107) 05/18/23 07:00 Carbon Dioxide 25 mmol/L (22-29) 05/18/23 07:00 Anion Gap 12.3 (5-19) 05/18/23 07:00 BUN 14 mg/dL (8-23) 05/18/23 07:00 Creatinine 1.0 mg/dL (0.7-1.2) 05/18/23 07:00 GFR Calculation Not Reportable 05/18/23 07:00 Glucose 103 mg/dL (65-115) 05/18/23 07:00 Estimat Average Glucose 128 05/17/23 07:50 Hemoglobin A1c 6.1 % (4.0-6.0) H 05/17/23 07:50 Calculated Osmolality 287 mOsm/kg (285-295) 05/18/23 07:00 Calcium 8.5 mg/dL (8.5-10.5) 05/18/23 07:00 Magnesium 2.1 mg/dL (1.7-2.3) 05/18/23 07:00 Total Bilirubin 0.6 mg/dL (0.15-1.2) 05/18/23 07:00 AST 14 U/L (0-40) 05/18/23 07:00 ALT 13 U/L (0-41) 05/18/23 07:00 Alkaline Phosphatase 60 U/L (40-130) 05/18/23 07:00 Troponin T Baseline 84 ng/L (0-15) H 05/17/23 07:50 Troponin T 120 Minute 131.6 ng/L (0-15) H 05/17/23 09:50 Delta Troponin T 47.6 ABS# (0-10) H* 05/17/23 09:50 Troponin T Hi Sens 6Hr 117.4 ng/L (0-15) H 05/17/23 17:49 Troponin T Hi Sens 6Hr Delta 33.4 ng/L (0-12) H* 05/17/23 17:49 NT-Pro-B Natriuret Pep 72 pg/mL (0-125) 05/17/23 07:50 Total Protein 5.9 g/dL (6.6-8.7) L 05/18/23 07:00 Albumin 3.7 g/dL (3.5-5.2) 05/18/23 07:00 Globulin 2.2 g/dL (1.3-4.6) 05/18/23 07:00 Triglycerides 107 mg/dL (0-150) 05/17/23 07:50 Cholesterol 207 mg/dL (0-200) H 05/17/23 07:50 LDL Cholesterol, Calc 137 mg/dL (50-129) H 05/17/23 07:50 HDL Cholesterol 49 mg/dL (60-100) L 05/17/23 07:50 LDL/HDL Ratio 2.80 RATIO (0.00-3.22) 05/17/23 07:50 Cholesterol/HDL Ratio 4.22 mg/dL (1.0-5.00) 05/17/23 07:50 TSH 1.76 uIU/mL (0.27-4.20) 05/17/23 07:50 Vitals Last Vital Signs Temp 98.1 F 05/18/23 08:00 Pulse 66 05/18/23 08:00 Resp 18 05/18/23 08:00 BP 119/70 05/18/23 08:00 Pulse Ox 96 05/18/23 08:00 O2 Del Method Room Air 05/18/23 08:00 Discharge Plan Discharge Condition: Stable Prescriptions: New atorvastatin 40 mg Tablet 40 mg PO BEDTIME 30 Days Qty: 30 0RF nitroglycerin 0.4 mg Tablet, Sublingual 0.4 mg sublingual Q5M PRN (Reason: Chest Pain) 30 Days Qty: 30 0RF clopidogrel 75 mg Tablet 75 mg PO DAILY 30 Days Qty: 30 0RF Continued potassium gluconate 595 mg (99 mg) Tablet 595 mg PO DAILY PRN (Reason: leg cramps) Changed aspirin 81 mg Tablet,Delayed Release (Dr/Ec) 81 mg PO DAILY 30 Days Qty: 30 0RF lisinopril 20 mg tablet 20 mg PO QAM 30 Days Qty: 30 0RF metoprolol tartrate 25 mg tablet 25 mg PO QAM 30 Days Qty: 30 0RF pantoprazole [Protonix] 40 mg tablet,delayed release (DR/EC) 40 mg PO DAILY PRN (Reason: Heartburn) 30 Days Qty: 30 0RF Discharge Orders: Discharge Order (Routine); Ordered 05/18/23 Ordered By: Abdiaziz Child Referrals: Bob Tanner MD [Physician] - (Your Dr. Tanner follow up appointment will be scheduled while you are at your Edel Garcia appointment. Thank you.) Ligia Lorenzana FNP [Primary Care Provider] - Edel Garcia FNP [Nurse Practitioner] - 05/23/23 10:00 am Discharge Diet: Cardiac Discharge Activity: Resume usual activity Patient Instructions: Coronary Angioplasty (DC), Opioid Safety, Post Angiogram Home Care Instructions, Post Heart Attack Stoplight Activity Restrictions/Additional Instructions: - Please take aspirin 81 mg daily, with Plavix 75 mg daily, do not stop taking these medications, as they keep your stent open -If you develop bloody or black stools please come to the emergency room -Please see cardiology in 1 week -Please see your primary care provider in 1 week -If you have any recurrent chest pain please go to the emergency room Discharge Attestations Time Spent in Discharge Care*: greater than 30 min Quality Metrics Clinical Quality Measures [ Acute Myocardial Infaction { Clinical Trial Participant: No; Contraindication to aspirin: None; Aspirin prescribed; Contraindication to statin: None; Statin prescribed; Contraindication to PCI: None; PCI performed;}] Coding Level of Care Code 17360 Total time (in minutes) for Discharge: 45 Diagnoses NSTEMI (non-ST elevated myocardial infarction) I21.4 Hypertension I10 Hypertension type: primary hypertension CAD (coronary artery disease) I25.10 Stented coronary artery Z95.5 Dyslipidemia E78.5
== END 2023-05-18 12:10 | disposition home or self-care (01) | DRG 247 ==
LOC: ER 09:40 → CSU 12:28
PROVIDERS: Internal Medicine Cardiovascular Disease; Admitting Provider Family Medicine; Emergency Provider Family Medicine; PCP Nurse Practitioner Family; Visit Provider Family Medicine
PROC: 027034Z Dilation of Coronary Artery, One Artery with Drug-eluting Intraluminal Device, Percutaneous Approach (ICD-10-PCS; principal; 2023-05-17 14:30)
PROC: 027034Z Dilation of Coronary Artery, One Artery with Drug-eluting Intraluminal Device, Percutaneous Approach (ICD-10-PCS; 2023-05-17 14:30)
DX: I21.4 Non-ST elevation (NSTEMI) myocardial infarction (principal); I10 Essential (primary) hypertension; I25.10 Atherosclerotic heart disease of native coronary artery without angina pectoris; E78.5 Hyperlipidemia, unspecified; K21.9 Gastro-esophageal reflux disease without esophagitis; Z79.82 Long term (current) use of aspirin
CPT/HCPCS: 36415; 71045; 80053; 80061; 83036; 83735; 83880; 84443; 84484; 85025; 85730; 93005; 93306; 93458; 96365; 96375; 99152; 99153; 99285; C1769; C1874; C1887; C1894; C9113; C9600; J1644; J2250; J3010; J3490; J7030; Q0163; Q9967

== ENCOUNTER 2023-05-20 06:56 | Emergency (ER) | payer MEDICARE, SELFPAY ==
[2023-05-20] VITALS (7 sets, daily range): BP systolic 100–130; BP diastolic 69–90; PULSE 59–65; RESP 12–20; O2SAT 94–99
--- NOTE | 2023-05-20 06:58 | XRR_ITS ---
PROCEDURE INFORMATION: Exam: XR Chest Exam date and time: 05/20/2023 7:23 AM Age: 72 years old Clinical indication: Pain; Chest pressure; Additional info: Cp TECHNIQUE: Imaging protocol: Radiologic exam of the chest. Views: 1 view. COMPARISON: CR XR chest 1V portable [id number] 05/17/2023 7:48 AM FINDINGS: Lungs: The lung parenchyma is clear. Pleural spaces: No pneumothorax. No pleural effusion. Heart/Mediastinum: The cardiomediastinal silhouette is within normal limits. Bones/joints: Degenerative changes in the shoulder joints. Degenerative changes in the spine. XR/XR chest 1V portable [id number] IMPRESSION: No acute cardiopulmonary abnormality identified.
--- NOTE | 2023-05-20 06:58 | ED_ITS ---
HPI - Chest Pain General: Chief Complaint: Chest Pain Stated Complaint: Chest Pain, High BP Time Seen by Provider: 05/20/23 06:57 History of Present Illness: Mr Galindo is a 72-year-old gentleman with recent hospitalization for NSTEMI with coronary artery stent placement presenting the emergency department for chest pain. Is been doing well until last night and has been chest pain-free. He reports onset of symptoms about midnight last night and woke him from sleep with substernal chest pain. No significant radiation like previous episode. Persisted overnight and he also noticed that his blood pressure was higher than typical. He reports typically having low blood pressure but does get chest pain when the diastolic blood pressure becomes elevated. He reports compliance with his medication regimen. Intensity was moderate to severe however is currently mild. No other specific changes in health, exacerbating, or alleviating factors identified. Onset (ago): hour(s) Prior episodes: Yes Onset: awoke with symptoms Relieving factors: nothing Exacerbating factors: nothing Associated symptoms: Reports no associated symptoms Review of Systems General: Reports: 10 or more systems reviewed and unremarkable except in HPI and below PFSH ED PFSH: Medical History CAD (coronary artery disease) Dyslipidemia Hypertension Surgical History Hx of inguinal hernia surgery Stented coronary artery Family History Mother Hypertension Father Cancer Colon cancer Family/Other Dementia Denies family history of Diabetes CAD (coronary artery disease) Clotting disorder Chronic kidney disease (CKD) Suicide Anesthesia complication Bleeding disorder Lung disease Stroke Social History Smoking and tobacco status: never smoked Alcohol intake: never Substance/Drug Use: never Physical Exam Const: COMMON NORMALS: alert GENERAL APPEARANCE: cooperative and well de veloped HENMT: COMMON NORMALS: normocephalic and atraumatic HEAD & SCALP: normocephalic and atraumatic Eye: COMMON NORMALS: conjunctivae normal CONJUNCTIVA: Yes conjunctivae normal SCLERA: sclerae normal Neck/C-Spine: COMMON NORMALS: supple GENERAL: Yes trachea midline Resp: COMMON NORMALS: clear to auscultation bilaterally EFFORT & INSPECTION: Yes able to speak in complete sentences AUSCULTATION: clear to auscultation bilaterally Cardio: COMMON NORMALS: regular rate and regular rhythm RATE: regular rate RHYTHM: regular rhythm GI: COMMON NORMALS: Soft to palpation PALPATION: Yes Soft to palpation and No Tenderness to palpation present (GI) Extremity: GENERAL: Yes normal exam except as noted and No edema Neuro: COMMON NORMALS: moves all extremities SENSORIUM/ORIENTATION: Yes alert and No Orientation impaired Psych: COMMON NORMALS: mental status grossly normal and Normal thought process present THOUGHT PROCESS: Normal thought process present Course Vital Signs: Vital signs: Vital Signs Pulse Rate 62 05/20/23 10:42 Respiratory Rate 15 05/20/23 10:42 Blood Pressure 105/70 05/20/23 10:42 Pulse Oximetry 95 05/20/23 10:42 Oxygen Delivery Me thod Room Air 05/20/23 07:32 MDM - Chest Pain Medical Decision Making 72-year-old gentleman with cardiac history presenting to the emergency department for concern over chest pain associated with higher blood pressure than typical. Exam as above. Nontoxic EKG demonstrates junctional rhythm, normal intervals otherwise, no STEMI Labs with no leukocytosis, essentially unremarkable hematologic metabolic panel otherwise. Initial troponin elevated though likely from prior NSTEMI and negative delta. Chest x-ray with no lobar consolidation or pneumothorax. Patient improved with isosorbide and also treated during ED course with aspirin. Discussed with cardiology on-call. Plan to initiate isosorbide dinitrate. The results of ED evaluation were discussed with the patient including prescriptions and/or symptomatic cares (if applicable) including appropriate and responsible use, followup plan, and return precautions. The patient verbalized understanding and felt safe for discharge. Medical Records I reviewed the patient's medical records. Lab Data I reviewed the patient's lab results. 05/20/23 07:12 05/20/23 07:12 Radiology Impressions Chest X-Ray 05/20/23 06:58 IMPRESSION: No acute cardiopulmonary abnormality identified. Laboratory Results WBC 5.4 10^3/uL (4.0-10.0) 05/20/23 07:12 RBC 4.30 10^6/uL (4.1-5.3) 05/20/23 07:12 Hgb 13.3 g/dL (11.7-16.6) 05/20/23 07:12 Hct 40.4 % (42.0-52.0) L 05/20/23 07:12 MCV 94.0 fl (80-94) 05/20/23 07:12 MCH 30.9 pg (28.0-34.0) 05/20/23 07:12 MCHC 32.9 g/dL (30.0-36.0) 05/20/23 07:12 RDW 12.6 % (12.1-15.1) 05/20/23 07:12 Plt Count 220 10^3/cmm (130-400) 05/20/23 07:12 MPV 9.5 fL (7.4-10.4) 05/20/23 07:12 Neut % (Auto) 66.1 % 05/20/23 07:12 Lymph % (Auto) 18.9 % 05/20/23 07:12 Mitchell % (Auto) 11.3 % 05/20/23 07:12 Eos % (Auto) 2.2 % 05/20/23 07:12 Baso % (Auto) 0.9 % 05/20/23 07:12 Neut # (Auto) 3.58 10^3/uL (1.8-7.7) 05/20/23 07:12 Lymph # (Auto) 1.0 10^3/uL (0.8-4.8) 05/20/23 07:12 Mitchell # (Auto) 0.6 10^3/uL (0.2-0.9) 05/20/23 07:12 Eos # (Auto) 0.1 10^3/uL (0.0-0.8) 05/20/23 07:12 Baso # (Auto) 0.1 10^3/uL (0.0-0.1) 05/20/23 07:12 Nucleated RBC % (auto) 0 % 05/20/23 07:12 Nucleated RBCs # 0.0 /100WBC 05/20/23 07:12 Sodium 135 mmol/L (136-145) L 05/20/23 07:12 Potassium 4.3 mmol/L (3.5-5.1) 05/20/23 07:12 Chloride 100 mmol/L (98-107) 05/20/23 07:12 Carbon Dioxide 26 mmol/L (22-29) 05/20/23 07:12 Anion Gap 13.3 (5-19) 05/20/23 07:12 BUN 19 mg/dL (8-23) 05/20/23 07:12 Creatinine 1.1 mg/dL (0.7-1.2) 05/20/23 07:12 GFR Calculation Not Reportable 05/20/23 07:12 Glucose 159 mg/dL (65-115) H 05/20/23 07:12 Calculated Osmolality 286 mOsm/kg (285-295) 05/20/23 07:12 Calcium 8.7 mg/dL (8.5-10.5) 05/20/23 07:12 Total Bilirubin 0.5 mg/dL (0.15-1.2) 05/20/23 07:12 AST 15 U/L (0-40) 05/20/23 07:12 ALT 14 U/L (0-41) 05/20/23 07:12 Alkaline Phosphatase 61 U/L (40-130) 05/20/23 07:12 CK-MB (CK-2) 4.0 ng/mL (0-10.4) 05/20/23 07:12 Troponin T Baseline 131 ng/L (0-15) H* 05/20/23 07:12 Troponin T 120 Minute 121.6 ng/L (0-15) H 05/20/23 09:22 Delta Troponin T -9.4 ABS# (0-10) L 05/20/23 09:22 NT-Pro-B Natriuret Pep 36 pg/mL (0-125) 05/20/23 07:12 Total Protein 6.1 g/dL (6.6-8.7) L 05/20/23 07:12 Albumin 3.8 g/dL (3.5-5.2) 05/20/23 07:12 Globulin 2.3 g/dL (1.3-4.6) 05/20/23 07:12 Discharge Plan Discharge Patient Disposition: Home Clinical Impression: Chest pain Condition: Stable Prescriptions: New isosorbide dinitrate 5 mg tablet 5 mg PO BID Qty: 60 0RF No Action clopidogrel 75 mg Tablet 75 mg PO DAILY 30 Days Qty: 30 0RF nitroglycerin 0.4 mg Tablet, Sublingual 0.4 mg sublingual Q5M PRN (Reason: Chest Pain) 30 Days Qty: 30 0RF lisinopril 20 mg tablet 20 mg PO QAM 30 Days Qty: 30 0RF aspirin 81 mg Tablet,Delayed Release (Dr/Ec) 81 mg PO DAILY 30 Days Qty: 30 0RF pantoprazole [Protonix] 40 mg tablet,delayed release (DR/EC) 40 mg PO DAILY PRN (Reason: Heartburn) 30 Days Qty: 30 0RF metoprolol tartrate 25 mg tablet 25 mg PO QAM 30 Days Qty: 30 0RF Discharge Orders: Discharge ED (Routine); Ordered 05/20/23 Ordered By: Wilber Nguyen Referrals: Ligia Lorenzana FNP [Primary Care Provider] - Discharge Diet: Usual diet Discharge Activity: Limit activity as instructed Patient Instructions: Isosorbide Dinitrate (By mouth), Chest Pain (ED) Activity Restrictions/Additional Instructions: Thank you for visiting the emergency department. You were seen and evaluated for chest pain. The exact cause of your symptoms is unclear however after discussion with cardiology and based on ED evaluation you did not require inpatient management at this time. I will prescribe a new medication. I will also message case management for cardiology follow-up. Return for worsening symptoms or anything else that you are concerned about and feel needs emergency department evaluation. Coding Level of Care Code ED Carbonation Tester for Brittany Osullivan
--- NOTE | 2023-05-20 07:06 | ECG_ITS ---
[facility] Test Date: 2023-05-20 Pat Name: Rafa Galindo Department: Room: Gender: Male Generator Man: : 1950 Requested By: Wilber Nguyen Order Number: [id number] A Lopez MD: Karissa العلي M.D. Measurements Intervals [place] Rate: 63 P: -89 IN: 128 QRS: -8 QRSD: 100 T: 79 QT: 404 QTc: 416 Interpretive Statements JUNCTIONAL RHYTHM MODERATE T-WAVE ABNORMALITY, CONSIDER ANTEROLATERAL ISCHEMIA [-0.1+ mV T-WAVE IN V3-V6] Compared to ECG 05/17/2023 10:51:52 T-wave abnormality now present Possible ischemia now present Electronically Signed On 05-20-2023 11:21:15 CDT by Karissa العلي M.D. [id number]
[2023-05-20] MEDS: aspirin 81 mg Chew Tablet 324 MG PO (07:08)
[2023-05-20 07:33] LABS: Basophils # 0.1 10^3/uL (0.0-0.1); Basophils % 0.9 %; Eosinophils # 0.1 10^3/uL (0.0-0.8); Eosinophils % 2.2 %; Hematocrit 40.4 % (42.0-52.0); Hemoglobin 13.3 g/dL (11.7-16.6); Lymphocytes % 18.9 %; Mean Corpuscular HGB Conc 32.9 g/dL (30.0-36.0); Mean Corpuscular Hemoglobin 30.9 pg (28.0-34.0); Mean Platelet Volume 9.5 fL (7.4-10.4); Monocytes # 0.6 10^3/uL (0.2-0.9); Monocytes % 11.3 %; Neutrophils # 3.58 10^3/uL (1.8-7.7); Neutrophils % 66.1 %; Nucleated Red Blood Cells % 0 %; Platelet Count 220 10^3/cmm (130-400); Red Cell Distribution Width 12.6 % (12.1-15.1); White Blood Count 5.4 10^3/uL (4.0-10.0)
[2023-05-20 07:54] LABS: Troponin(5th) Baseline 131 ng/L (0-15)
[2023-05-20 07:56] LABS: Alanine Aminotransferase 14 U/L (0-41); Albumin Level 3.8 g/dL (3.5-5.2); Alkaline Phosphatase 61 U/L (40-130); Anion Gap 13.3 (5-19); Aspartate Amino Transferase 15 U/L (0-40); Blood Urea Nitrogen 19 mg/dL (8-23); Calcium 8.7 mg/dL (8.5-10.5); Carbon Dioxide 26 mmol/L (22-29); Chloride 100 mmol/L (98-107); Globulin 2.3 g/dL (1.3-4.6); Glucose 159 mg/dL (65-115); NT Pro B Type Natriuretic Pept 36 pg/mL (0-125); Osmolality Calculated 286 mOsm/kg (285-295); Potassium 4.3 mmol/L (3.5-5.1); Sodium 135 mmol/L (136-145); Total Bilirubin 0.5 mg/dL (0.15-1.2); Total Protein 6.1 g/dL (6.6-8.7)
--- NOTE | 2023-05-20 08:57 | ECG_ITS ---
[facility] Test Date: 2023-05-20 Pat Name: Rafa Galindo Department: Room: Gender: Male Polysomnography Technologist: : 1950 Requested By: Wilber Nguyen Order Number: [id number] A Lopez MD: Karissa العلي M.D. Measurements Intervals [place] Rate: 61 P: -89 HI: 130 QRS: -14 QRSD: 98 T: 89 QT: 401 QTc: 405 Interpretive Statements JUNCTIONAL RHYTHM MODERATE T-WAVE ABNORMALITY, CONSIDER ANTEROLATERAL ISCHEMIA [-0.1+ mV T-WAVE IN V3-V6] Compared to ECG 05/20/2023 07:06:23 No significant changes Electronically Signed On 05-20-2023 11:26:09 CDT by Karissa العلي M.D. [id number]
[2023-05-20] MEDS: nitroglycerin 0.4 mg sublingual Tablet SUBLINGUAL ×2 (09:33→09:48)
[2023-05-20 09:55] LABS: Troponin 5 2HR Delta -9.4 ABS# (0-10)
[2023-05-20 09:56] LABS: Troponin 5 2HR 121.6 ng/L (0-15)
[2023-05-20] MEDS: isosorbide dinitrate 20 mg Tablet 5 MG PO (10:41)
--- NOTE | 2023-05-21 09:02 | DCPLANNER ---
Addendum entered by Martha Mirza 05/24/23 10:16: This appointment was rescheduled Addendum entered by Martha Mirza 05/21/23 15:18: Patient has a follow up appointment scheduled for 2022 at 10:00 with Edel Garcia at [facility]. Original Note: project manager entertainment and media had message to schedule a follow up appointment for patient with cardiology. project manager entertainment and media sent patients information to the front office staff at [facility]. Patients information will be printed and reviewed. Clinic will call patient with appointment information.
== END 2023-05-20 10:43 | disposition home or self-care (01) ==
PROVIDERS: Emergency Provider Emergency Medicine; PCP Nurse Practitioner Family
DX: R07.2 Precordial pain (principal); I10 Essential (primary) hypertension; Z95.5 Presence of coronary angioplasty implant and graft
CPT/HCPCS: 36415; 71045; 80053; 82553; 83880; 84484; 85025; 93005; 99285

== ENCOUNTER → 2023-07-16 11:31 | Outpatient (BNVA) | payer MEDICARE, SELFPAY | PROVIDERS: PCP Nurse Practitioner Family; Visit Provider Internal Medicine Cardiovascular Disease | DX: I25.110 Atherosclerotic heart disease of native coronary artery with unstable angina pectoris (principal); I25.2 Old myocardial infarction; E78.5 Hyperlipidemia, unspecified; Z95.5 Presence of coronary angioplasty implant and graft; I10 Essential (primary) hypertension | CPT/HCPCS: 99214 ==

== ENCOUNTER 2023-08-02 03:32 | Emergency (ER) | payer MEDICARE, SELFPAY ==
[2023-08-02] VITALS (24 sets, daily range): BP systolic 110; BP diastolic 74; PULSE 67–71; RESP 17–34; TEMP 36.7; O2SAT 67–99; BMI 27.3
--- NOTE | 2023-08-02 03:34 | XRR_ITS ---
PROCEDURE INFORMATION: Exam: XR Chest Exam date and time: 08/02/2023 3:42 AM Age: 73 years old Clinical indication: Chest wall pain; Additional info: Cp TECHNIQUE: Imaging protocol: Radiologic exam of the chest. Views: 1 view. COMPARISON: CR XR chest 1V portable [id number] 05/20/2023 7:23 AM FINDINGS: Lungs: Unremarkable. No consolidation. Pleural spaces: Unremarkable. No pleural effusion. No pneumothorax. Heart/Mediastinum: Unremarkable. No cardiomegaly. Bones/joints: Remote left clavicle fracture. XR/XR chest 1V portable [id number] IMPRESSION: No acute cardiopulmonary abnormality.
--- NOTE | 2023-08-02 03:34 | ECG_ITS ---
[facility] Test Date: 2023-08-02 Pat Name: Rafa Galindo Department: Room: Gender: Male Section Chief: : 1950 Requested By: Shannan Floyd Order Number: [id number] Jessica MD: Bob Tanner M.D. Measurements Intervals [place] Rate: 68 P: -87 NV: 122 QRS: -20 QRSD: 83 T: 45 QT: 383 QTc: 408 Interpretive Statements JUNCTIONAL RHYTHM ABNORMAL RHYTHM ECG Compared to ECG 05/20/2023 08:57:24 T-wave abnormality no longer present Possible ischemia no longer present Electronically Signed On 08-02-2023 15:55:23 CDT by Bob Tanner M.D. [id number]
--- NOTE | 2023-08-02 03:49 | ED_ITS ---
HPI - Chest Pain General: Chief Complaint: Chest Pain Stated Complaint: CP Time Seen by Provider: 08/02/23 03:34 Source: patient and EMS Mode of arrival: EMS Limitations: no limitations History of Present Illness: 73-year-old male with a history of stent placed back in April states that tonight he woke up at 1 AM he is having some chest pain he did take a nitro he states when EMS arrived his pain had lessened but is currently completely resolved denies any nausea denies any diaphoresis denies any shortness of breath states the pain at its worst was a 6 out of 10. Associated symptoms: Deny abdominal pain, dyspnea, fever(s), nausea or vomiting Review of Systems Const: Denies: fever(s), chills, body aches or change in appetite ENMT: Denies: throat pain or dental pain Card: Reports: chest pain Resp: Denies: dyspnea GI: Denies: abdominal pain, nausea, vomiting or diarrhea : Denies: dysuria Musc: Denies: neck pain or back pain Skin/Breast: Denies: rash Neuro: Denies: headache(s) PFSH ED PFSH: Medical History CAD (coronary artery disease) Diverticulosis Dyslipidemia Hypertension Surgical History Hx of heart artery stent Hx of inguinal hernia surgery Stented coronary artery Family History Mother Hypertension Father Cancer Colon cancer Family/Other Dementia Denies family history of Diabetes CAD (coronary artery disease) Clotting disorder Chronic kidney disease (CKD) Suicide Anesthesia complication Bleeding disorder Lung disease Stroke Social History Smoking and tobacco status: never smoked Alcohol intake: never Substance/Drug Use: never Physical Exam Const: COMMON NORMALS: patient oriented x3 HENMT: COMMON NORMALS: normocephalic and atraumatic HEAD & SCALP: normocephalic and atraumatic Eye: COMMON NORMALS: Equal, round and reactive pupils present and EOMs intact bilaterally PUPIL: Yes Equal, round and reactive pupils present Neck/C-Spine: COMMON NORMALS: full ROM and supple Chest: COMMONS NORMALS: normal inspection of the chest and normal palpation of entire chest wall Resp: COMMON NORMALS: normal respiratory effort, No retractions, No use of accessory muscles and clear to auscultation bilaterally AUSCULTATION: clear to auscultation bilaterally Cardio: COMMON NORMALS: regular rate, regular rhythm and No murmurs present (Cardio) RATE: regular rate RHYTHM: regular rhythm GI: COMMON NORMALS: Normal to inspection, nondistended, normoactive bowel sounds present, Soft to palpation, non-tender and no masses PALPATION: Yes Soft to palpation Extremity: COMMON NORMALS: normal to inspection and full ROM Neuro: COMMON NORMALS: patient oriented x3, moves all extremities and no focal motor deficits Psych: COMMON NORMALS: mental status grossly normal, Normal thought process present and cooperative THOUGHT PROCESS: Normal thought process present Skin: COMMON NORMALS: no rashes or lesions noted and no wounds GENERAL SKIN EXAM: no rashes or lesions noted Course Vital Signs: Vital signs: Vital Signs Temperature 98.0 F 08/02/23 03:41 Pulse Rate 67 08/02/23 05:42 Respiratory Rate 18 08/02/23 05:42 Blood Pressure 110/74 08/02/23 05:42 Pulse Oximetry 67 L 08/02/23 05:42 Oxygen Delivery Me thod Room Air 08/02/23 03:41 MDM - Chest Pain Medical Decision Making Patient presents for chest pain his troponins here are normal he has had no pain here he does want to go home I feel he is stable for discharge he has no signs of dissection pulmonary embolism or acute coronary syndrome is follow-up with his chute feeder return if worsening he understands agrees to plan. Medical Records I reviewed the patient's medical records. Lab Data I reviewed the patient's lab results. 08/02/23 03:44 08/02/23 03:44 Radiology Impressions Chest X-Ray 08/02/23 03:34 IMPRESSION: No acute cardiopulmonary abnormality. Laboratory Results WBC 4.41 10^3/uL (3.29-11.43) 08/02/23 03:44 RBC 3.92 10^6/uL (3.85-5.65) 08/02/23 03:44 Hgb 12.50 g/dL (11.27-16.99) 08/02/23 03:44 Hct 36.4 % (37-53) L 08/02/23 03:44 MCV 92.9 fl (82-101) 08/02/23 03:44 MCH 31.9 pg (27-33) 08/02/23 03:44 MCHC 34.3 g/dL (30-55) 08/02/23 03:44 RDW 12.3 % (12.1-15.1) 08/02/23 03:44 Plt Count 207 10^3/cmm (157-399) 08/02/23 03:44 MPV 9.3 fL (7.4-10.4) 08/02/23 03:44 Neut % (Auto) 67.0 % 08/02/23 03:44 Lymph % (Auto) 18.1 % 08/02/23 03:44 [place] % (Auto) 11.6 % 08/02/23 03:44 Eos % (Auto) 2.0 % 08/02/23 03:44 Baso % (Auto) 1.1 % 08/02/23 03:44 Neut # (Auto) 2.95 10^3/uL (1.8-7.7) 08/02/23 03:44 Lymph # (Auto) 0.8 10^3/uL (0.8-4.8) 08/02/23 03:44 [place] # (Auto) 0.5 10^3/uL (0.2-0.9) 08/02/23 03:44 Eos # (Auto) 0.1 10^3/uL (0.0-0.8) 08/02/23 03:44 Baso # (Auto) 0.1 10^3/uL (0.0-0.1) 08/02/23 03:44 Nucleated RBC % (auto) 0 % 08/02/23 03:44 Nucleated RBCs # 0.0 /100WBC 08/02/23 03:44 Sodium 138 mmol/L (136-145) 08/02/23 03:44 Potassium 4.0 mmol/L (3.5-5.1) 08/02/23 03:44 Chloride 102 mmol/L (98-107) 08/02/23 03:44 Carbon Dioxide 26 mmol/L (22-29) 08/02/23 03:44 Anion Gap 14.0 (5-19) 08/02/23 03:44 BUN 15 mg/dL (8-23) 08/02/23 03:44 Creatinine 0.9 mg/dL (0.7-1.2) 08/02/23 03:44 GFR Calculation Not Reportable 08/02/23 03:44 Glucose 112 mg/dL (65-115) 08/02/23 03:44 Calculated Osmolality 288 mOsm/kg (285-295) 08/02/23 03:44 Calcium 8.6 mg/dL (8.5-10.5) 08/02/23 03:44 Total Bilirubin 0.3 mg/dL (0.15-1.2) 08/02/23 03:44 AST 15 U/L (0-40) 08/02/23 03:44 ALT 14 U/L (0-41) 08/02/23 03:44 Alkaline Phosphatase 57 U/L (40-130) 08/02/23 03:44 Troponin T Baseline 31 ng/L (0-15) H 08/02/23 03:44 Troponin T 120 Minute 29.70 ng/L (0-15) H 08/02/23 05:17 Delta Troponin T -1.30 ABS# (0-10) L 08/02/23 05:17 Total Protein 6.0 g/dL (6.6-8.7) L 08/02/23 03:44 Albumin 3.9 g/dL (3.5-5.2) 08/02/23 03:44 Globulin 2.1 g/dL (1.3-4.6) 08/02/23 03:44 Lipase 28 U/L (13-60) 08/02/23 03:44 All radiology interpretation(s) finalized by discharge EKG Data EKG 1: I personally reviewed and interpreted this EKG as follows: EKG interpretation date: 08/02/23 EKG interpretation time: 03:37 Interpretation: nsr hr [address] or t wave abnormalities qrs 83 qtc 400 EKG 2: I personally reviewed and interpreted this EKG as follows: EKG interpretation date: 08/02/23 EKG interpretation time: 05:15 Interpretation: junctional rhythm hr [address] or t wave abnormalities qrs 84 qtc 411 Discharge Plan Discharge Patient Disposition: Home Clinical Impression: Chest pain Condition: Stable Prescriptions: No Action clopidogrel 75 mg tablet 75 mg PO DAILY metoprolol tartrate 25 mg tablet 25 mg PO QAM Qty: 90 0RF lisinopril 20 mg tablet 20 mg PO QAM 90 Days Qty: 90 0RF pantoprazole [Protonix] 40 mg tablet,delayed release (DR/EC) 40 mg PO DAILY PRN (Reason: Heartburn) Qty: 90 0RF aspirin 81 mg tablet,delayed release (DR/EC) See Rx Instructions .ROUTE .COMPLEX Qty: 30 0RF Dose Instruction: TAKE 1 TABLET BY MOUTH DAILY Rx Instructions: TAKE 1 TABLET BY MOUTH DAILY isosorbide dinitrate 5 mg tablet 5 mg PO BID Qty: 60 0RF Discharge Orders: Discharge ED (Routine); Ordered 08/02/23 Ordered By: Shannan Floyd Referrals: Ligia Lorenzana FNP [Primary Care Provider] - 1-3 days Karissa العلي MD [Physician] - 1-3 days Discharge Diet: Advance as tolerated Discharge Activity: Resume usual activity Patient Instructions: Chest Pain (ED) Coding Level of Care Code ED Information Technology Professor for Brittany Osullivan
[2023-08-02 03:50] LABS: Basophils # 0.1 10^3/uL (0.0-0.1); Basophils % 1.1 %; Eosinophils # 0.1 10^3/uL (0.0-0.8); Hematocrit 36.4 % (37-53); Lymphocytes # 0.8 10^3/uL (0.8-4.8); Lymphocytes % 18.1 %; Mean Corpuscular HGB Conc 34.3 g/dL (30-55); Mean Corpuscular Hemoglobin 31.9 pg (27-33); Mean Corpuscular Volume 92.9 fl (82-101); Mean Platelet Volume 9.3 fL (7.4-10.4); Monocytes # 0.5 10^3/uL (0.2-0.9); Monocytes % 11.6 %; Neutrophils # 2.95 10^3/uL (1.8-7.7); Nucleated Red Blood Cells % 0 %; Platelet Count 207 10^3/cmm (157-399); Red Blood Count 3.92 10^6/uL (3.85-5.65); Red Cell Distribution Width 12.3 % (12.1-15.1); White Blood Count 4.41 10^3/uL (3.29-11.43)
[2023-08-02 04:09] LABS: Troponin(5th) Baseline 31 ng/L (0-15)
[2023-08-02 04:12] LABS: Alanine Aminotransferase 14 U/L (0-41); Albumin Level 3.9 g/dL (3.5-5.2); Alkaline Phosphatase 57 U/L (40-130); Aspartate Amino Transferase 15 U/L (0-40); Blood Urea Nitrogen 15 mg/dL (8-23); Calcium 8.6 mg/dL (8.5-10.5); Carbon Dioxide 26 mmol/L (22-29); Chloride 102 mmol/L (98-107); Globulin 2.1 g/dL (1.3-4.6); Glucose 112 mg/dL (65-115); Lipase 28 U/L (13-60); Osmolality Calculated 288 mOsm/kg (285-295); Sodium 138 mmol/L (136-145); Total Bilirubin 0.3 mg/dL (0.15-1.2)
--- NOTE | 2023-08-02 05:15 | ECG_ITS ---
[facility] Test Date: 2023-08-02 Pat Name: Rafa Galindo Department: Room: Gender: Male Control Systems Specialist: : 1950 Requested By: Shannan Floyd Order Number: [id number] Reading MD: Bob Tanner M.D. Measurements Intervals [place] Rate: 69 P: -80 IN: 117 QRS: -21 QRSD: 84 T: 52 QT: 392 QTc: 421 Interpretive Statements JUNCTIONAL RHYTHM BORDERLINE LEFT AXIS DEVIATION [QRS AXIS < -20] ABNORMAL RHYTHM ECG Compared to ECG 08/02/2023 03:37:01 No significant changes Electronically Signed On 08-02-2023 15:56:51 CDT by Bob Tanner M.D. [id number]
== END 2023-08-02 05:47 | disposition home or self-care (01) ==
PROVIDERS: Emergency Provider Emergency Medicine; PCP Nurse Practitioner Family
DX: R07.9 Chest pain, unspecified (principal); Z79.02 Long term (current) use of antithrombotics/antiplatelets; Z79.82 Long term (current) use of aspirin; I25.10 Atherosclerotic heart disease of native coronary artery without angina pectoris; E78.5 Hyperlipidemia, unspecified; I10 Essential (primary) hypertension
CPT/HCPCS: 36415; 71045; 80053; 83690; 84484; 85025; 93005; 99285

== ENCOUNTER 2023-09-03 20:26 | Emergency (ER) | payer MEDICARE, SELFPAY ==
--- NOTE | 2023-09-03 20:28 | ECG_ITS ---
[facility] Test Date: 2023-09-03 Pat Name: Rafa Galindo Department: Room: Gender: Male Lamina Searcher: : 1950 Requested By: Doug Liz Order Number: [id number] Jsesica MD: Italo Brewsetr M.D. Measurements Intervals [place] Rate: 71 P: 268 ID: [id number] QRS: -25 QRSD: 90 T: 49 QT: 393 QTc: 429 Interpretive Statements ECTOPIC ATRIAL RHYTHM BORDERLINE LEFT AXIS DEVIATION [QRS AXIS < -20] Electronically Signed On 09-04-2023 8:52:00 SUPERVISOR WORD PROCESSING by Italo Brewster M.D. [id number]
--- NOTE | 2023-09-03 20:28 | XRR_ITS ---
PROCEDURE INFORMATION: Exam: XR Chest Exam date and time: 09/03/2023 8:32 PM Age: 73 years old Clinical indication: Pain; Chest pressure; Additional info: Chest pain TECHNIQUE: Imaging protocol: Radiologic exam of the chest. Views: 1 view. COMPARISON: CR (CHEST, ) 08/02/2023 3:42 AM FINDINGS: Lungs: Unremarkable. No consolidation. Pleural spaces: Unremarkable. No pleural effusion. No pneumothorax. Heart/Mediastinum: Unremarkable. No cardiomegaly. Bones/joints: Unremarkable. XR/XR chest 1V portable [id number] IMPRESSION: No acute findings.
[2023-09-03 20:34] VITALS: BP 151/90; PULSE 109; RESP 17; TEMP 36.8; O2SAT 94; BMI 27.3
[2023-09-03 20:36] VITALS: BP 151/90; PULSE 72; RESP 18; O2SAT 98
[2023-09-03 20:42] LABS: Basophils % 0.8 %; Eosinophils # 0.1 10^3/uL (0.0-0.8); Eosinophils % 1.7 %; Hematocrit 39.7 % (37-53); Lymphocytes % 19.5 %; Mean Corpuscular HGB Conc 33.8 g/dL (30-55); Mean Corpuscular Hemoglobin 31.6 pg (27-33); Mean Corpuscular Volume 93.6 fl (82-101); Monocytes # 0.6 10^3/uL (0.2-0.9); Monocytes % 12.1 %; Neutrophils # 3.46 10^3/uL (1.8-7.7); Neutrophils % 65.7 %; Nucleated Red Blood Cells % 0 %; Platelet Count 228 10^3/cmm (157-399); Red Blood Count 4.24 10^6/uL (3.85-5.65); Red Cell Distribution Width 12.2 % (12.1-15.1); White Blood Count 5.27 10^3/uL (3.29-11.43)
--- NOTE | 2023-09-03 21:03 | ED_ITS ---
HPI - Chest Pain General: Chief Complaint: Chest Pain Stated Complaint: chest pain, arms tingling Time Seen by Provider: 09/03/23 20:28 History of Present Illness: Patient presents to the ER with chest pain that came on when he was picking corn doing chores. Patient stated at that time the pain can radiated down both arms. Patient then went into his house and rested and took 2 nitros and the pain went away. Patient states that his blood pressure was a little high for him the b ottom number was approximately 93-95. Patient states when the bottom number gets about 90 or above then he starts having chest pain such as this. Patient is currently on Plavix, isosorbide, lisinopril, metoprolol. Patient states he has not missed any doses and takes them regularly. Patient denies any nausea vomiting, diaphoresis, shortness of breath. Review of Systems General: Reports: 10 or more systems reviewed and unremarkable except in HPI and below PFSH ED PFSH: Medical History CAD (coronary artery disease) Diverticulosis Dyslipidemia Hypertension Surgical History Hx of heart artery stent Hx of inguinal hernia surgery Stented coronary artery Family History Mother Hypertension Father Cancer Colon cancer Family/Other Dementia Denies family history of Diabetes CAD (coronary artery disease) Clotting disorder Chronic kidney disease (CKD) Suicide Anesthesia complication Bleeding disorder Lung disease Stroke Social History Smoking and tobacco/nicotine status: never used tobacco/nicotine Alcohol intake: never Substance/Drug Use: never Physical Exam Const: COMMON NORMALS: no acute distress, average body habitus, patient oriented x3, no limitations, healthy appearing, alert and well nourished HENMT: COMMON NORMALS: normocephalic, atraumatic, hearing grossly normal bilaterally, external ears normal, Normal external nose present, moist oral mucous membranes and oropharynx normal HEAD & SCALP: normocephalic and atraumatic NOSE: Normal external nose present EXTERNAL EAR: Yes external ears normal Neck/C-Spine: COMMON NORMALS: no JVD Chest: COMMONS NORMALS: normal inspection of the chest and normal palpation of entire chest wall Resp: COMMON NORMALS: normal respiratory effort, No retractions, No use of accessory muscles and clear to auscultation bilaterally AUSCULTATION: clear to auscultation bilaterally Cardio: COMMON NORMALS: no JVD, regular rate, regular rhythm, S1 normal heart sound present, S2 normal heart sound present, No gallops present (Cardio), No clicks present (Cardio), No murmurs present (Cardio) and No rub (Cardio) RATE: regular rate RHYTHM: regular rhythm HEART SOUNDS: S1 normal heart s ound present and S2 normal heart sound present GI: COMMON NORMALS: Normal to inspection, nondistended, normoactive bowel sounds present, Soft to palpation, non-tender, No hepatosplenomegaly present and no masses PALPATION: Yes Soft to palpation and Yes No hepatosplenomegaly present : COMMON NORMALS: Yes no CVA tenderness BLADDER/KIDNEY EXAM: Yes no CVA tenderness Back/Pelvis: COMMON NORMALS: no CVA tenderness Neuro: COMMON NORMALS: patient oriented x3 SENSORIUM/ORIENTATION: Yes alert Course Vital Signs: Vital signs: Vital Signs Temperature 98.2 F 09/03/23 20:34 Pulse Rate 80 09/03/23 22:03 Respiratory Rate 16 09/03/23 22:03 Blood Pressure 142/84 09/03/23 21:47 Pulse Oximetry 96 09/03/23 22:03 Oxygen Delivery Me thod Room Air 09/03/23 22:03 MDM - Chest Pain Medical Decision Making Patient presents to the ER with complaints of chest pain comes on his blood pressure gets above 90. Patient has had several of these episodes. Patient does have a stent. Patient is on blood pressure medicine as well as Plavix and has not missed any doses. Patient was worked up in normal cardiac fashion delta troponin was within normal limits. The rest of his blood work and x-rays and EKGs were stable. This is felt not to be cardiac in nature. Patient be discharged home and is to follow-up with his appraisal coordinator. Differential Diagnosis Unlikely acute massive pulmonary embolism, acute respiratory failure, acute myocardial infarction, cardiac arrest or sudden cardiac Medical Records I reviewed the patient's medical records. Lab Data I reviewed the patient's lab results. 09/03/23 20:37 09/03/23 20:37 Radiology Impressions Chest X-Ray 09/03/23 20:28 IMPRESSION: No acute findings. Laboratory Results WBC 5.27 10^3/uL (3.29-11.43) 09/03/23 20:37 RBC 4.24 10^6/uL (3.85-5.65) 09/03/23 20:37 Hgb 13.40 g/dL (11.27-16.99) 09/03/23 20:37 Hct 39.7 % (37-53) 09/03/23 20:37 MCV 93.6 fl (82-101) 09/03/23 20:37 MCH 31.6 pg (27-33) 09/03/23 20:37 MCHC 33.8 g/dL (30-55) 09/03/23 20:37 RDW 12.2 % (12.1-15.1) 09/03/23 20:37 Plt Count 228 10^3/cmm (157-399) 09/03/23 20:37 MPV 9.0 fL (7.4-10.4) 09/03/23 20:37 Neut % (Auto) 65.7 % 09/03/23 20:37 Lymph % (Auto) 19.5 % 09/03/23 20:37 [place] % (Auto) 12.1 % 09/03/23 20:37 Eos % (Auto) 1.7 % 09/03/23 20:37 Baso % (Auto) 0.8 % 09/03/23 20:37 Neut # (Auto) 3.46 10^3/uL (1.8-7.7) 09/03/23 20:37 Lymph # (Auto) 1.0 10^3/uL (0.8-4.8) 09/03/23 20:37 [place] # (Auto) 0.6 10^3/uL (0.2-0.9) 09/03/23 20:37 Eos # (Auto) 0.1 10^3/uL (0.0-0.8) 09/03/23 20:37 Baso # (Auto) 0.0 10^3/uL (0.0-0.1) 09/03/23 20:37 Nucleated RBC % (auto) 0 % 09/03/23 20:37 Nucleated RBCs # 0.0 /100WBC 09/03/23 20:37 Sodium 141 mmol/L (136-145) 09/03/23 20:37 Potassium 4.2 mmol/L (3.5-5.1) 09/03/23 20:37 Chloride 104 mmol/L (98-107) 09/03/23 20:37 Carbon Dioxide 26 mmol/L (22-29) 09/03/23 20:37 Anion Gap 15.2 (5-19) 09/03/23 20:37 BUN 16 mg/dL (8-23) 09/03/23 20:37 Creatinine 1.0 mg/dL (0.7-1.2) 09/03/23 20:37 GFR Calculation Not Reportable 09/03/23 20:37 Glucose 116 mg/dL (65-115) H 09/03/23 20:37 Calculated Osmolality 294 mOsm/kg (285-295) 09/03/23 20:37 Calcium 8.9 mg/dL (8.5-10.5) 09/03/23 20:37 Total Bilirubin 0.3 mg/dL (0.15-1.2) 09/03/23 20:37 AST 16 U/L (0-40) 09/03/23 20:37 ALT 16 U/L (0-41) 09/03/23 20:37 Alkaline Phosphatase 55 U/L (40-130) 09/03/23 20:37 Troponin T Baseline 36 ng/L (0-15) H 09/03/23 20:37 Troponin T 120 Minute 30.06 ng/L (0-15) H 09/03/23 22:31 Delta Troponin T -5.94 ABS# (0-10) L 09/03/23 22:31 Total Protein 6.3 g/dL (6.6-8.7) L 09/03/23 20:37 Albumin 4.3 g/dL (3.5-5.2) 09/03/23 20:37 Globulin 2.0 g/dL (1.3-4.6) 09/03/23 20:37 All radiology interpretation(s) finalized by discharge EKG Data EKG 1: I personally reviewed and interpreted this EKG as follows: EKG interpretation date: 09/03/23 EKG interpretation time: 20:26 Prior EKG tracings: not available for review Interpretation: EKG showed ventricular rate 71 beats minute, NC interval 119, QRS duration 98, QTc of 4 9, sinus rhythm with a short NC interval, borderline left axis deviation, nonspecific T wave abnormality Discharge Plan Discharge Patient Disposition: Home Clinical Impression: Chest pain Qualifiers: Chest pain type: unspecified Qualified Code(s): R07.9 - Chest pain, unspecified Condition: Stable Prescriptions: No Action metoprolol tartrate 25 mg tablet 25 mg PO QAM Qty: 90 0RF lisinopril 20 mg tablet 20 mg PO QAM 90 Days Qty: 90 0RF clopidogrel 75 mg tablet See Rx Instructions .ROUTE .COMPLEX Qty: 90 0RF Dose Instruction: TAKE 1 TABLET BY MOUTH DAILY Rx Instructions: TAKE 1 TABLET BY MOUTH DAILY pantoprazole 40 mg tablet,delayed release (DR/EC) See Rx Instructions .ROUTE .COMPLEX Qty: 90 0RF Dose Instruction: TAKE 1 TABLET BY MOUTH DAILY NEEDED FOR HEARTBURN Rx Instructions: TAKE 1 TABLET BY MOUTH DAILY NEEDED FOR HEARTBURN aspirin 81 mg tablet,delayed release (DR/EC) See Rx Instructions .ROUTE .COMPLEX Qty: 30 0RF Dose Instruction: TAKE 1 TABLET BY MOUTH DAILY Rx Instructions: TAKE 1 TABLET BY MOUTH DAILY isosorbide dinitrate 5 mg tablet 5 mg PO BID Qty: 60 0RF Discharge Orders: Discharge ED (Routine); Ordered 09/03/23 Ordered By: Doug Liz Referrals: Ligia Lorenzana FNP [Primary Care Provider] - Patient Instructions: Chest Pain (ED) Activity Restrictions/Additional Instructions: If your chest pain returns or worsens please feel free to return to the ER for further evaluation. Otherwise please call your appraisal coordinator in the morning to arrange follow-up for this episode. Coding Level of Care Code ED Manager Clinical Research for Brittany Osullivan
[2023-09-03 21:07] LABS: Troponin(5th) Baseline 36 ng/L (0-15)
[2023-09-03 21:12] LABS: Alanine Aminotransferase 16 U/L (0-41); Albumin Level 4.3 g/dL (3.5-5.2); Alkaline Phosphatase 55 U/L (40-130); Anion Gap 15.2 (5-19); Aspartate Amino Transferase 16 U/L (0-40); Blood Urea Nitrogen 16 mg/dL (8-23); Calcium 8.9 mg/dL (8.5-10.5); Carbon Dioxide 26 mmol/L (22-29); Chloride 104 mmol/L (98-107); Glucose 116 mg/dL (65-115); Osmolality Calculated 294 mOsm/kg (285-295); Potassium 4.2 mmol/L (3.5-5.1); Sodium 141 mmol/L (136-145); Total Bilirubin 0.3 mg/dL (0.15-1.2); Total Protein 6.3 g/dL (6.6-8.7)
[2023-09-03] MEDS: nitroglycerin 0.4 mg sublingual Tablet SUBLINGUAL (21:46)
[2023-09-03 21:47] VITALS: BP 142/84; PULSE 76; RESP 17; O2SAT 91
--- NOTE | 2023-09-03 21:58 | PC.NURSE ---
pt states chest pain has increased, substernal with radiation to R arm. pt is not diaphoretic, denies SOB, pulse oxygen sat @94% room air. EKG repeated. Dr. Liz notified. Dr. Liz verbal order for nitro tab 0.4mg x1.
[2023-09-03 22:03] VITALS: PULSE 80; RESP 16; O2SAT 96
--- NOTE | 2023-09-03 22:28 | ECG_ITS ---
[facility] Test Date: 2023-09-03 Pat Name: Rafa Galindo Department: Room: Gender: Male Construction Specialist: : 1950 Requested By: Doug Liz Order Number: [id number] Jessica MD: Italo Brewster M.D. Measurements Intervals [place] Rate: 71 P: -39 [place]: 119 QRS: -24 QRSD: 98 T: 87 QT: 386 QTc: 421 Interpretive Statements SINUS RHYTHM WITH SHORT [place] INTERVAL BORDERLINE LEFT AXIS DEVIATION [QRS AXIS < -20] NONSPECIFIC T-WAVE ABNORMALITY Compared to ECG 08/02/2023 05:15:09 Short [place] interval now present T-wave abnormality now present Junctional rhythm no longer present Electronically Signed On 09-04-2023 8:52:25 MANAGER PROGRESSIVE CARE by Italo Brewster M.D. [id number] f
[2023-09-03 23:00] LABS: Troponin 5 2HR 30.06 ng/L (0-15)
[2023-09-03 23:01] LABS: Troponin 5 2HR Delta -5.94 ABS# (0-10)
[2023-09-03 23:47] VITALS: BP 144/78; PULSE 80; RESP 16; O2SAT 96
== END 2023-09-03 23:48 | disposition home or self-care (01) ==
PROVIDERS: Emergency Provider Emergency Medicine; PCP Nurse Practitioner Family
DX: R07.9 Chest pain, unspecified (principal); Z79.02 Long term (current) use of antithrombotics/antiplatelets; Z79.82 Long term (current) use of aspirin; I25.10 Atherosclerotic heart disease of native coronary artery without angina pectoris; E78.5 Hyperlipidemia, unspecified; I10 Essential (primary) hypertension
CPT/HCPCS: 36415; 71045; 80053; 84484; 85025; 93005; 99285

== ENCOUNTER 2023-09-18 06:10 | Observation (INO) | payer MEDICARE, SELFPAY ==
[2023-09-18] VITALS (17 sets, daily range): BP systolic 67–141; BP diastolic 44–85; PULSE 62–78; RESP 12–21; TEMP 36.6–36.9; O2SAT 96–100; BMI 27.3
--- NOTE | 2023-09-18 06:10 | ECG_ITS ---
[facility] Test Date: 2023-09-18 Pat Name: Rafa Galindo Department: Room: Gender: Male Weigher Production: : 1950 Requested By: Lokesh Louie Order Number: [id number] Jessica MD: Michael Lama M.D. Measurements Intervals [place] Rate: 77 P: 268 [place]: 113 QRS: -35 QRSD: 92 T: 54 QT: 383 QTc: 435 Interpretive Statements Ectopic atrial rhythm Borderline LEFT AXIS DEVIATION [QRS AXIS < -30] Compared to ECG 09/03/2023 21:29:17, there is no significant change Electronically Signed On 09-18-2023 14:26:09 CHOIRMASTER by Michael Lama M.D. [id number] f
[2023-09-18] MEDS: nitroglycerin 1 gm/inch oint Pkt 1 INCH TOPICAL (06:21)
--- NOTE | 2023-09-18 06:23 | PC.NURSE ---
Dr Terry gave verbal orders to give 2 81-mg aspirin chewable PO once, and 1 inch transdermal nitro paste. Orders put in.
[2023-09-18] MEDS: aspirin 81 mg Chew Tablet 162 MG PO ×2 (06:25→09:28)
--- NOTE | 2023-09-18 06:37 | W.ED.CHESTPA ---
HPI - Chest Pain General: Chief Complaint: Chest Pain Stated Complaint: chest pain Time Seen by Provider: 09/18/23 06:21 Source: patient Mode of arrival: ambulatory History of Present Illness: 72-year-old male presents to the emergency room complaining of chest pain. He woke up at around 2 AM this morning he took a nitro it did seem to get better when he arrived here he still had some chest pain was given topical nitro improved some but did not resolve. He had a angiogram earlier this year in May 17. At that time there is diffuse noncritical disease and a proximal LAD lesion that was very significant. That was stented. Since then he has had 4 visits now to the emergency room complaining of chest pain. He also has other time episodes of chest pain at home during the day when he is active he takes nitro it resolves. MD complaint: chest pain Pertinent past history: coronary artery disease Onset (ago): hour(s) Timing of current episode: episodic Prior episodes: Yes Onset: during rest Pain location: substernal Associated symptoms: Deny abdominal pain, dyspnea or fever(s) Review of Systems Const: Denies: fever(s) or chills Card: Denies: chest pain Resp: Denies: dyspnea GI: Denies: abdominal pain : Denies: dysuria, urinary frequency or urinary urgency Musc: Denies: neck pain or back pain Skin/Breast: Denies: rash PFSH ED PFSH: Medical History CAD (coronary artery disease) Diverticulosis Dyslipidemia Hypertension Surgical History Hx of heart artery stent Hx of inguinal hernia surgery Stented coronary artery Family History Mother Hypertension Father Cancer Colon cancer Family/Other Dementia Denies family history of Diabetes CAD (coronary artery disease) Clotting disorder Chronic kidney disease (CKD) Suicide Anesthesia complication Bleeding disorder Lung disease Stroke Social History Smoking and tobacco/nicotine status: never used tobacco/nicotine Alcohol intake: never Substance/Drug Use: never Physical Exam Const: COMMON NORMALS: no acute distress GENERAL APPEARANCE: cooperative and comfortable ORIENTATION/CONSCIOUSNESS: Yes awake, Yes oriented to person, Yes oriented to place and Yes oriented to time HENMT: COMMON NORMALS: normocephalic, atraumatic and hearing grossly normal bilaterally HEAD & SCALP: normocephalic and atraumatic Resp: COMMON NORMALS: normal respiratory effort, No retractions, No use of accessory muscles and clear to auscultation bilaterally AUSCULTATION: clear to auscultation bilaterally Cardio: COMMON NORMALS: regular rate, regular rhythm and No murmurs present (Cardio) RATE: regular rate RHYTHM: regular rhythm GI: COMMON NORMALS: Soft to palpation and No hepatosplenomegaly present AUSCULTATION: Yes normoactive bowel sounds PALPATION: Yes Soft to palpation, No Tenderness to palpation present (GI), No Guarding due to palpation present (GI) and Yes No hepatosplenomegaly present Extremity: COMMON NORMALS: normal to inspection, capillary refill normal, no clubbing, cyanosis or edema, no calf tenderness and no pedal edema Neuro: SENSORIUM/ORIENTATION: Yes oriented to person, Yes oriented to place and Yes oriented to time Skin: COMMON NORMALS: no rashes or lesions noted GENERAL SKIN EXAM: no rashes or lesions noted Course Vital Signs: Vital signs: Vital Signs Temperature 97.8 F 09/18/23 06:13 Pulse Rate 63 09/18/23 10:36 Respiratory Rate 16 09/18/23 10:36 Blood Pressure 90/63 09/18/23 10:36 Pulse Oximetry 96 09/18/23 10:36 Oxygen Delivery Me thod Room Air 09/18/23 10:36 MDM - Chest Pain Medical Decision Making Patient has had multiple episodes of chest pain since his last angiography. He has a intermediate positive troponin delta. EKG does not show any acute changes. He was previously on isosorbide dinitrate he stopped that. Before the reconciliation on his med list came we had given him meds off his med list since he had not taken his morning meds gave him his Plavix metoprolol and the isosorbide. He did have a transient decrease in blood pressure which we treated with fluid boluses that is recovered now we also removed his topical nitro is not having any further chest pain. Will place patient on observation discussed with hospitalist and cardiology cardiology's been consulted and seen patient in the department at this time. Medical Records I reviewed the patient's medical records. Lab Data I reviewed the patient's lab results. 09/18/23 06:19 09/18/23 06:19 Radiology Impressions Chest X-Ray 09/18/23 07:02 IMPRESSION: No acute findings. ADDENDUM: 09/18/23 0826 Healed fracture of the mid left clavicle. Laboratory Results WBC 5.62 10^3/uL (3.29-11.43) 09/18/23 06:19 RBC 4.74 10^6/uL (3.85-5.65) 09/18/23 06:19 Hgb 15.00 g/dL (11.27-16.99) 09/18/23 06:19 Hct 44.3 % (37-53) 09/18/23 06:19 MCV 93.5 fl (82-101) 09/18/23 06:19 MCH 31.6 pg (27-33) 09/18/23 06:19 MCHC 33.9 g/dL (30-55) 09/18/23 06:19 RDW 12.0 % (12.1-15.1) L 09/18/23 06:19 Plt Count 230 10^3/cmm (157-399) 09/18/23 06:19 MPV 9.4 fL (7.4-10.4) 09/18/23 06:19 Neut % (Auto) 70.8 % 09/18/23 06:19 Lymph % (Auto) 16.0 % 09/18/23 06:19 [place] % (Auto) 11.4 % 09/18/23 06:19 Eos % (Auto) 0.9 % 09/18/23 06:19 Baso % (Auto) 0.7 % 09/18/23 06:19 Neut # (Auto) 3.98 10^3/uL (1.8-7.7) 09/18/23 06:19 Lymph # (Auto) 0.9 10^3/uL (0.8-4.8) 09/18/23 06:19 [place] # (Auto) 0.6 10^3/uL (0.2-0.9) 09/18/23 06:19 Eos # (Auto) 0.1 10^3/uL (0.0-0.8) 09/18/23 06:19 Baso # (Auto) 0.0 10^3/uL (0.0-0.1) 09/18/23 06:19 Nucleated RBC % (auto) 0 % 09/18/23 06:19 Nucleated RBCs # 0.0 /100WBC 09/18/23 06:19 Sodium 137 mmol/L (136-145) 09/18/23 06:19 Potassium 4.0 mmol/L (3.5-5.1) 09/18/23 06:19 Chloride 102 mmol/L (98-107) 09/18/23 06:19 Carbon Dioxide 24 mmol/L (22-29) 09/18/23 06:19 Anion Gap 15.0 (5-19) 09/18/23 06:19 BUN 18 mg/dL (8-23) 09/18/23 06:19 Creatinine 0.9 mg/dL (0.7-1.2) 09/18/23 06:19 GFR Calculation Not Reportable 09/18/23 06:19 Glucose 116 mg/dL (65-115) H 09/18/23 06:19 Calculated Osmolality 287 mOsm/kg (285-295) 09/18/23 06:19 Calcium 8.9 mg/dL (8.5-10.5) 09/18/23 06:19 Total Bilirubin 0.6 mg/dL (0.15-1.2) 09/18/23 06:19 AST 16 U/L (0-40) 09/18/23 06:19 ALT 16 U/L (0-41) 09/18/23 06:19 Alkaline Phosphatase 59 U/L (40-130) 09/18/23 06:19 Troponin T Baseline 39 ng/L (0-15) H 09/18/23 06:19 Troponin T 120 Minute 45.36 ng/L (0-15) H 09/18/23 08:13 Delta Troponin T 6.36 ABS# (0-10) 09/18/23 08:13 Total Protein 6.9 g/dL (6.6-8.7) 09/18/23 06:19 Albumin 4.2 g/dL (3.5-5.2) 09/18/23 06:19 Globulin 2.7 g/dL (1.3-4.6) 11/21/23 06:19 All radiology interpretation(s) finalized by discharge Discharge Plan Discharge Patient Disposition: Placed in Observation Admit Provider: Onesimo Gottlieb Clinical Impression: Unstable angina Coding Level of Care Code ED Medical Equipment Technician for Brittany Osullivan
[2023-09-18] MEDS: metoprolol tartrate 25 mg Tablet PO (06:41)
[2023-09-18] MEDS: clopidogrel 75 mg Tablet PO (06:41)
[2023-09-18] MEDS: pantoprazole DR 40 mg Tablet PO (06:41)
[2023-09-18] MEDS: isosorbide dinitrate 20 mg Tablet 10 MG PO (06:46)
--- NOTE | 2023-09-18 07:02 | XRR_ITS ---
PROCEDURE INFORMATION: Exam: XR Chest Exam date and time: 09/18/2023 7:21 AM Age: 73 years old Clinical indication: Pain; Angina pectoris; Additional info: Chest pain TECHNIQUE: Imaging protocol: Radiologic exam of the chest. Views: 1 view. COMPARISON: CR (CHEST, ) 09/03/2023 8:32 PM FINDINGS: Lungs: Unremarkable. No consolidation. Pleural spaces: Unremarkable. No pleural effusion. No pneumothorax. Heart/Mediastinum: Unremarkable. No cardiomegaly. Bones/joints: Unremarkable. XR/XR chest 1V portable [id number] IMPRESSION: No acute findings.
[2023-09-18 07:09] LABS: Basophils % 0.7 %; Eosinophils # 0.1 10^3/uL (0.0-0.8); Eosinophils % 0.9 %; Hematocrit 44.3 % (37-53); Lymphocytes # 0.9 10^3/uL (0.8-4.8); Mean Corpuscular HGB Conc 33.9 g/dL (30-55); Mean Corpuscular Hemoglobin 31.6 pg (27-33); Mean Corpuscular Volume 93.5 fl (82-101); Mean Platelet Volume 9.4 fL (7.4-10.4); Monocytes # 0.6 10^3/uL (0.2-0.9); Monocytes % 11.4 %; Neutrophils # 3.98 10^3/uL (1.8-7.7); Neutrophils % 70.8 %; Nucleated Red Blood Cells % 0 %; Platelet Count 230 10^3/cmm (157-399); Red Blood Count 4.74 10^6/uL (3.85-5.65); White Blood Count 5.62 10^3/uL (3.29-11.43)
[2023-09-18] MEDS: morphine 4 mg/mL SDV 1 mL 2 MG IVP (07:21)
[2023-09-18 07:27] LABS: Alanine Aminotransferase 16 U/L (0-41); Albumin Level 4.2 g/dL (3.5-5.2); Alkaline Phosphatase 59 U/L (40-130); Aspartate Amino Transferase 16 U/L (0-40); Blood Urea Nitrogen 18 mg/dL (8-23); Calcium 8.9 mg/dL (8.5-10.5); Carbon Dioxide 24 mmol/L (22-29); Chloride 102 mmol/L (98-107); Globulin 2.7 g/dL (1.3-4.6); Glucose 116 mg/dL (65-115); Osmolality Calculated 287 mOsm/kg (285-295); Sodium 137 mmol/L (136-145); Total Bilirubin 0.6 mg/dL (0.15-1.2); Total Protein 6.9 g/dL (6.6-8.7)
[2023-09-18 07:28] LABS: Troponin(5th) Baseline 39 ng/L (0-15)
[2023-09-18] MEDS: sodium chloride 0.9% 500 ML 999 ML IV ×3 (07:52→10:56)
[2023-09-18 08:41] LABS: Troponin 5 2HR 45.36 ng/L (0-15)
[2023-09-18 08:45] LABS: Troponin 5 2HR Delta 6.36 ABS# (0-10)
--- NOTE | 2023-09-18 09:02 | ECG_ITS ---
[facility] Test Date: 2023-09-18 Pat Name: Rafa Galindo Department: Room: Gender: Male Machine Milker: : 1950 Requested By: Lokesh Louie Order Number: [id number] Jessica MD: Michael Lama M.D. Measurements Intervals [place] Rate: 70 P: -86 IN: 109 QRS: -21 QRSD: 96 T: 47 QT: 409 QTc: 443 Interpretive Statements Ectopic atrial rhythm BORDERLINE LEFT AXIS DEVIATION [QRS AXIS < -20] ABNORMAL RHYTHM ECG Compared to ECG 09/03/2023 21:29:17 No significant change Electronically Signed On 09-18-2023 14:33:40 ALLERGY AND IMMUNOLOGY SPECIALIST by Michael Lama M.D. [id number]
--- NOTE | 2023-09-18 10:12 | PM.HP ---
Providers/Chief Complaint Admitting Physician: Onesimo Gottlieb MD Primary Care Provider: JUAN CARLOS Arroyo Chief Complaint: chest pain History of Present Illness Rafa Galindo is a 73 year old male with history of coronary artery disease with drug-eluting stent placed in April of this year who presents with recurrent chest pain. He has some difficulty describing his discomfort. He reports it is in his chest, usually on his right side, and occasionally radiates into his arm. He had an episode of chest discomfort yesterday, which gradually went away. This morning, it awoke him from sleep around 3 to 4 AM. He eventually took a nitroglycerin which alleviated this discomfort, but it slowly came back. He reports it is now gone away with medication in the emergency department. He does not really give any associated symptoms with his chest discomfort, but his overall history is difficult for him to relate. He relates he also has a history of musculoskeletal chest pain but this was when he was a young man. No fever, recent illness, blood in stool, black or tarry stools. He reports he is compliant with his Plavix. He reports he is not going to take cholesterol medicine no matter what, as a neighbor took it and had some thinking problems. He reports his chest pain seems to correlate when his blood pressure is higher. It is interesting to note that following his stent placement he had a ER visit for chest discomfort several days after, but then he went until August 02 without an episode of chest discomfort. Following this he visited the emergency department September 03 and September 18. Most of the time his troponin is a little high, and dropped by the 2-hour level. This time it increased by 6. Review of Systems General: Reports: 10 or more systems reviewed and unremarkable except in HPI and below Card: Reports: chest pain; Denies: swelling of feet/ankles Resp: Denies: dyspnea GI: Denies: abdominal pain, nausea, vomiting, hematochezia or melena Medications/Allergies Home Medications Medication Instructions Recorded Confirmed Last Taken Type lisinopril 20 mg tablet 20 mg PO QAM 90 days #90 tabs 06/13/23 09/18/23 Unknown Rx metoprolol tartrate 25 mg tablet 25 mg PO QAM #90 tabs 06/13/23 09/18/23 Unknown Rx aspirin 81 mg tablet,delayed 81 mg PO QAM 09/18/23 09/18/23 Unknown History release clopidogrel 75 mg tablet 75 mg PO QAM 09/18/23 09/18/23 Unknown History nitroglycerin 0.4 mg sublingual 0.4 mg sublingual Q5M PRN Chest 09/18/23 09/18/23 09/18/23 04:00 History tablet (Nitrostat) Pain pantoprazole 40 mg tablet,delayed 40 mg PO DAILY PRN Heartburn 09/18/23 09/18/23 Unknown History release Allergies Allergy/AdvReac Type Severity Reaction Status Date / Time No Known Allergies Allergy Verified 09/18/23 07:35 PFSH Acute PFSH: Medical History CAD (coronary artery disease) Diverticulosis Dyslipidemia Hypertension Surgical History Hx of heart artery stent Hx of inguinal hernia surgery Stented coronary artery Family History Mother Hypertension Father Cancer Colon cancer Family/Other Dementia Denies family history of Diabetes CAD (coronary artery disease) Clotting disorder Chronic kidney disease (CKD) Suicide Anesthesia complication Bleeding disorder Lung disease Stroke Social History Smoking and tobacco/nicotine status: never used tobacco/nicotine Alcohol intake: never Substance/Drug Use: never Vitals/I&O/Wt Last Vital Signs Temp 97.8 F 09/18/23 06:13 Pulse 64 09/18/23 09:29 Resp 21 H 09/18/23 09:29 BP 93/67 09/18/23 09:29 Pulse Ox 97 09/18/23 09:29 O2 Del Method Room Air 09/18/23 09:29 09/17/23 09/18/23 09/18/23 22:59 06:59 14:59 Intake Total 500 / 500 Balance 500 / 500 Weight last 48 hrs Weight 79.379 kg Physical Exam Narrative: General exam is a white male, no distress currently no chest pain currently HEENT: Atraumatic and normocephalic. Oropharynx clear Neck is supple no lymphadenopathy thyromegaly or bruit Cardiovascular regular rate and rhythm without murmur Lungs clear no wheezing or crackles Abdomen is soft with positive bowel sounds. No obvious organomegaly exams deferred Extremities no cyanosis clubbing edema, cap refill brisk Skin no rash Neuro no obvious focal deficits Data 09/18/23 06:19 09/18/23 06:19 Other Labs: EKG which I reviewed demonstrates sinus rhythm, left axis deviation, no acute changes Chest x-ray which I reviewed demonstrates no infiltrate LFTs are normal Troponin 39 with repeat of 45 Albumin, calcium normal Recent TSH is normal Echo in April demonstrated normal EF, 1/4 diastolic dysfunction A&P Assessment and plan (1) Chest pain: Patient presents with chest discomfort. He has trouble describing his discomfort, but it is evident that he has had more events in the last several months in the right after his procedure. It does seem to be relieved with sublingual nitroglycerin. Last angiogram demonstrated an ostial lesion for which she received an LAD stent. He has been compliant with Plavix, aspirin, and other meds but refuses to take a statin. Continue serial troponins If troponin increases, consider full dose anticoagulation Continue Plavix, aspirin, beta-sveta If recurrent chest pain also consider full anticoagulation Cardiology consult for optimal testing, stress testing versus angiogram Qualifiers: Chest pain type: unspecified Qualified Code(s): R07.9 - Chest pain, unspecified (2) CAD (coronary artery disease): See above (3) Hypertension: Continue lisinopril and metoprolol Qualifiers: Hypertension type: primary hypertension Qualified Code(s): I10 - Essential (primary) hypertension (4) Dyslipidemia: Refuses statin Plan Other medical problems as outlined in past medical history Full code Lovenox will suffice for DVT prophylaxis Attestations Medical Necessity Statement*: Will require less than 2 midnight stay for evaluation and treatment of chest discomfort Diagnoses Chest pain R07.9 Chest pain type: unspecified CAD (coronary artery disease) I25.10 Hypertension I10 Hypertension type: primary hypertension Dyslipidemia E78.5 Time Spent (min) 50
[2023-09-18] MEDS: enoxaparin 40 mg/0.4 mL Syringe SUBCUT (10:57)
--- NOTE | 2023-09-18 11:51 | ECG_ITS ---
[facility] Test Date: 2023-09-19 Pat Name: Rafa Galindo Department: Room: 105 Gender: Male Glycerin Supervisor: : 1950 Requested By: Onesimo Hoffman Order Number: [id number] Jessica MD: Madelin Bacon M.D. Interpretive Statements NAME OF STUDY: LEXISCAN SESTAMIBI STRESS TEST INDICATION: Chest Pain RESULTS TO GLADIS COLON PROCEDURE: At the baseline, the EKG revealed normal possible ectopic atrial rhythm with poor R wave progression. The baseline heart was 68 bpm with a blood pressue of 111/84 mm of Hg Lexiscan was infused over a period of 20 seconds. A total of 0.4 milligrams of Lexiscan was infused. The stress phase was continued for a total of 5 minutes. Heart rate at the end of the stress phase was 84 bpm with a blood pressure 98/61 mm of Hg. The EKG at the peak infusion revealed no significant changes. Sestamibi was injected 20 seconds after the Lexiscan infusion. Heart rate at the end of the recovery phase was 83 bpm with a blood pressure of 113/63 mm of Hg. CONCLUSION: 1. No significant EKG changes with the LexiScan infusion 2. No LexiScan induced chest pain or cardiac arrhythmia 3. Normal blood pressure and heart rate response 4. Sestamibi/sestamibi perfusion scan pending; see separate report. Electronically Signed On 09-21-2023 14:11:39 RESIDENTIAL SUPPORT WORKER by Madelin Bacon M.D. [id number]
--- NOTE | 2023-09-18 12:14 | P.CONIM_ITS ---
Providers/Reason For Consult Consulting Physician/Specialty*: Cardiology Reason for Consult*: Chest pain Requesting Physician: Dr. Gottlieb Attending Physician: Onesimo Gottlieb MD Primary Care Provider: JUAN CARLOS Arroyo History of Present Illness History of Present Illness Rafa Galindo is a 73 year old male with a known history of coronary disease, angioplasty in April this year for symptoms of unstable angina. Patient presented to the ER this morning with the chest pain since last night. The chest pain comes at at rest. The chest pain history is very vague. 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 He denies any chest pain or shortness of air while at work. He was working at his form yesterday afternoon and evening without any symptoms. The chest pain is not like a pressure or heaviness, he feels more like a burning pain, although at times he feels some dull pain across his chest as well. All of the symptoms of chest pain has been happening at rest. No exertional chest pain or shortness of air. On arrival to the ER his vitals were stable. Cardiovascular exam was normal. EKG did not show any acute ischemic changes. The first set of cardiac enzymes or at border line. Currently he is completely asymptomatic and resting comfortably. He says he takes his medicine including dual antiplatelets very regularly. Review of Systems Narrative: Detail 10 point systemic review is unremarkable except for as mentioned above in the history of present illness. Medications/Allergies Home Medications Medication Instructions Recorded Confirmed Last Taken Type lisinopril 20 mg tablet 20 mg PO QAM 90 days #90 tabs 06/13/23 09/18/23 Unknown Rx metoprolol tartrate 25 mg tablet 25 mg PO QAM #90 tabs 06/13/23 09/18/23 Unknown Rx aspirin 81 mg tablet,delayed 81 mg PO QAM 09/18/23 09/18/23 Unknown History release clopidogrel 75 mg tablet 75 mg PO QAM 09/18/23 09/18/23 Unknown History nitroglycerin 0.4 mg sublingual 0.4 mg sublingual Q5M PRN Chest 09/18/23 1 11/18/22 09/18/23 04:00 History tablet (Nitrostat) Pain pantoprazole 40 mg tablet,delayed 40 mg PO DAILY PRN Heartburn 09/18/23 09/18/23 Unknown History release Allergies Allergy/AdvReac Type Severity Reaction Status Date / Time No Known Allergies Allergy Verified 09/18/23 07:35 Current Medications Generic Name Dose Route Start Last Admin Trade Name Zoe PRN Reason Stop Dose Admin Aspirin 162 mg 09/18/23 06:30 09/18/23 09:28 Aspirin 81 Mg Chew Tablet PO 162 mg DAILY BRAULIO Administration Enoxaparin Sodium 40 mg 09/18/23 10:36 09/18/23 10:57 Enoxaparin 40 Mg/0.4 Ml Syringe SUBCUT 40 mg Q24H BRAULIO Administration PFSH Acute PFSH: Medical History CAD (coronary artery disease) Diverticulosis Dyslipidemia Hypertension Surgical History Hx of heart artery stent Hx of inguinal hernia surgery Stented coronary artery Family History Mother Hypertension Father Cancer Colon cancer Family/Other Dementia Denies family history of Diabetes CAD (coronary artery disease) Clotting disorder Chronic kidney disease (CKD) Suicide Anesthesia complication Bleeding disorder Lung disease Stroke Social History Smoking and tobacco/nicotine status: never used tobacco/nicotine Alcohol intake: never Substance/Drug Use: never Vitals/I&O/Wt Last Vital Signs Temp 97.8 F 09/18/23 06:13 Pulse 63 09/18/23 10:36 Resp 16 09/18/23 10:36 BP 90/63 09/18/23 10:36 Pulse Ox 96 09/18/23 10:36 O2 Del Method Room Air 09/18/23 10:36 09/17/23 09/18/23 09/18/23 22:59 06:59 14:59 Intake Total 1000 / 1000 Balance 1000 / 1000 Weight last 48 hrs Weight 175 lb Physical Exam Narrative: Patient laying comfortably and he is not in any distress. Completely asymptomatic. His vitals are stable. Blood pressure 106/72, heart rate 70/min regular. There is no JVD. HEENT examination unremarkable. Respiratory examination unremarkable with good air entry bilaterally and no added sound. Cardiovascular examination: Normal first and second heart sounds. No added sound Abdomen: Soft and nontender. Bowel sounds audible. Extremities: Normal. No pedal edema. Distal pulses palpable. Skin warm and dry. Neuro examination: Grossly intact. Data 09/18/23 06:19 09/18/23 06:19 A&P Assessment and plan (1) Chest pain: Qualifiers: Chest pain type: unspecified Qualified Code(s): R07.9 - Chest pain, unspecified Plan 73-year-old male with known coronary disease, angioplasty of LAD in April this year, now presenting with very atypical chest pain. Clinically sign symptoms unlikely related to cardiac ischemic etiology. Vitals are stable. Clinically no heart failure symptoms. He has a good exercise tolerance. Recommendation: Continue current medication and and rule out for ACS. I recommend cardiac Lexiscan. Thanks for asking me to see this patient in consultation. Coding Level of Care Code Acute Code for [facility] Fwd Diagnoses Chest pain R07.9 Chest pain type: unspecified
[2023-09-18 12:43] LABS: Troponin 5 6HR 41.63 ng/L (0-15)
[2023-09-18 12:48] LABS: Troponin 5 6HR Delta 2.63 ng/L (0-12)
--- NOTE | 2023-09-18 13:02 | ECG_ITS ---
[facility] Test Date: 2023-09-18 Pat Name: Rafa Galindo Department: Room: EDIP Gender: Male Gas Operator: : 1950 Requested By: Lokesh Louie Order Number: [id number] Jessica MD: Michael Lama M.D. Measurements Intervals [place] Rate: 62 P: 269 DE: 124 QRS: -21 QRSD: 85 T: 50 QT: 409 QTc: 418 Interpretive Statements Ectopic atrial rhythm BORDERLINE LEFT AXIS DEVIATION [QRS AXIS < -20] ABNORMAL RHYTHM ECG Compared to ECG 09/18/2023 08:00:55 No significant changes Electronically Signed On 09-18-2023 14:30:19 CAMP DISHWASHER by Michael Lama M.D. [email or web address] [id number]
--- NOTE | 2023-09-18 19:58 | PC.NURSE ---
Discussed plan for cardiac stress test in the morning. Patient verbalized complete understanding. Patient disconnected from telemetry to use the bathroom. Patient ambulates well.
[2023-09-19] VITALS (7 sets, daily range): BP systolic 108–128; BP diastolic 61–77; PULSE 62–85; RESP 14–17; TEMP 36.4–36.6; O2SAT 96–99; BMI 25.9
[2023-09-19 04:20] LABS: Basophils % 0.9 %; Eosinophils # 0.1 10^3/uL (0.0-0.8); Eosinophils % 1.5 %; Hematocrit 39.6 % (37-53); Lymphocytes % 20.9 %; Mean Corpuscular HGB Conc 32.6 g/dL (30-55); Mean Corpuscular Hemoglobin 31.5 pg (27-33); Mean Corpuscular Volume 96.6 fl (82-101); Mean Platelet Volume 9.7 fL (7.4-10.4); Monocytes # 0.5 10^3/uL (0.2-0.9); Monocytes % 10.9 %; Neutrophils % 65.4 %; Nucleated Red Blood Cells % 0 %; Platelet Count 207 10^3/cmm (157-399); Red Cell Distribution Width 12.3 % (12.1-15.1); White Blood Count 4.59 10^3/uL (3.29-11.43)
[2023-09-19 04:45] LABS: Anion Gap 10.5 (5-19); Blood Urea Nitrogen 16 mg/dL (8-23); Calcium 8.8 mg/dL (8.5-10.5); Carbon Dioxide 27 mmol/L (22-29); Chloride 104 mmol/L (98-107); Glucose 103 mg/dL (65-115); Osmolality Calculated 285 mOsm/kg (285-295); Potassium 4.5 mmol/L (3.5-5.1); Sodium 137 mmol/L (136-145)
[2023-09-19] MEDS: clopidogrel 75 mg Tablet PO (05:09)
[2023-09-19] MEDS: lisinopril 20 mg Tablet PO (05:09)
[2023-09-19] MEDS: metoprolol tartrate 25 mg Tablet PO (05:09)
[2023-09-19] MEDS: regadenoson 0.4 Mg/5 ml Syringe IVP (07:26)
--- NOTE | 2023-09-19 08:00 | NMCV_ITS ---
NM kaya perf SPECT r/s* [id number] Rafa Galindo Age: 73 Gender: M : 1950 Exam Date: 09/19/2023 06:33 Ordering Phys: Onesimo Gottlieb MD Technologist: JORDANA Balderas Exam Location: [facility] Indications: CHEST PAIN STRESS TEST Please see separate stress test report in [facility] for full findings IMAGE PROTOCOL Rest/Stress 1 Lexiscan Day Radiopharmaceutical Dose (mCi) Administration Site Administered by Rest: Tc-99m 10.6 IV JORDANA Retana Sestamibi Stress:Tc-99m 32.6 IV JORDANA Retana Sestamibi Rest: 19-Sep-2023 60 Discovery 630 Stress: 19-Sep-2023 30 Discovery 630 0.4mg Lexiscan. Images obtained in supine and prone position. SPECT RESULTS Technical Quality: Excellent Raw Data Analysis: Normal Image Corrections: No attenuation or motion correction applied Summed Stress Score: 1 Summed Rest Score: 0 Summed Difference Score: 1 PERFUSION FINDINGS A small area of slightly decreased tracer uptake was noted in the apical lateral region, in the supine position with uniform tracer uptake at rest. No significant perfusion normalities were noted with the prone imaging. FUNCTIONAL RESULTS (calculated via Gated SPECT) Stress Image LV EF (%): 83 Stress EDV (mL):71 TID: 0.59 Stress ESV (mL):12 FUNCTIONAL FINDINGS: Segmental wall motion analysis revealing no gross wall motion abnormalities IMPRESSIONS 1. Myocardial perfusion imaging revealing a small area of reversible defect in the apical lateral region, suggestive of ischemia in the circumflex territory. However because of the inconsistency, the reliability is questionable 2. Normal LV ejection fraction of 83%. 3. LV wall motion analysis revealing no gross wall motion abnormalities. 4. Normal LV volume Dr Madelin Bacon MD FACC (Electronically Signed) Final Date: 19 September 2023 12:48 S
[2023-09-19] MEDS: enoxaparin 40 mg/0.4 mL Syringe SUBCUT (09:39)
[2023-09-19] MEDS: aspirin 81 mg Chew Tablet 162 MG PO (09:46)
--- NOTE | 2023-09-19 11:09 | PC.CHAP ---
Pastoral Care Encounter/Spiritual Assessment Type of Contact [] Declined aircraft systems repairer visit [] Patient/Family/Request visit [] Outpatient visit [] Follow-up visit [] Physician referral [] Code/Alert [x] Routine visit [] Staff referral [] Actively dying [] Patient sleeping [] Family support [] [] Out of room [] Palliative care [] [] Receiving care in room [] Pre-surgical visit [] Trauma [] Long length of stay [] ICU visit [] Other: Relational/Emotional Strength [x] Patient feels connected with others/family/visitors/staff [] Distress [] Loneliness/isolation [] Abandonment Spirituality of Patient [] Person of Freya [] Attends Restorationism of their Freya [] Believes in Prayer [] Reads Bible or Advent materials [] There are Spiritual issues to be addressed Load Tester Interventions [x] Prayer [x] Active listening [] Non-anxious presence [] Spiritual/emotional support [] Crisis/trauma care [] Spiritual counseling [] Bereavement support [] Provided bereavement packet [] Provided Bible/devotional materials [] Provided toy/stuffed animal, coloring book to patient or family member [] Provided Communion [] Anointing/[place] [] Salvation [] Completed spiritual assessment [] Other: Impact on Illness or Injury [] Angry [] Fearful [] Anxious [] Often cries [] Exhaustion [] Unable to work [] Unable to attend cheondoism [] Unable to walk/stand [] Unable to read [] Unable to drive [] Unable to eat/drink [] Unable to sleep [] Unable to be with family [] Patient intubated [] Other: Summary Time spent with patient 15 min
--- NOTE | 2023-09-19 13:49 | PM.CONSULT ---
Providers/Reason For Consult Consulting Physician/Specialty*: Cardiology Reason for Consult*: abnormal stress test Requesting Physician: Dr. Liu Attending Physician: Shwetha Liu MD Primary Care Provider: JUAN CARLOS Arroyo History of Present Illness History of Present Illness Rafa Galindo is a 73 year old male who was admitted yesterday with a very atypical chest pain. I in fact him in the ER and requested the cardiac nuclear stress test. He underwent card nuclear stress test which showed possible small apical lateral ischemia. Currently patient is completely asymptomatic he is ambulating well and denies any anginal symptoms. He has not had any further a chest pain since admission. His vitals are stable. Cardiovascular exam is unremarkable. I reviewed the nuclear stress test report. LVEF is normal. There is a small apical lateral possible reversible ischemia. Detailed systemic review is unremarkable. Review of Systems Narrative: Detailed 10 point systemic review unremarkable. Medications/Allergies Home Medications Medication Instructions Recorded Confirmed Last Taken Type lisinopril 20 mg tablet 20 mg PO QAM 90 days #90 tabs 06/13/23 09/18/23 Unknown Rx metoprolol tartrate 25 mg tablet 25 mg PO QAM #90 tabs 06/13/23 09/18/23 Unknown Rx aspirin 81 mg tablet,delayed 81 mg PO QAM 09/18/23 09/18/23 Unknown History release clopidogrel 75 mg tablet 75 mg PO QAM 09/18/23 09/18/23 Unknown History nitroglycerin 0.4 mg sublingual 0.4 mg sublingual Q5M PRN Chest 09/18/23 09/18/23 09/18/23 04:00 History tablet (Nitrostat) Pain pantoprazole 40 mg tablet,delayed 40 mg PO DAILY PRN Heartburn 09/18/23 09/18/23 Unknown History release Allergies Allergy/AdvReac Type Severity Reaction Status Date / Time No Known Allergies Allergy Verified 09/18/23 07:35 Current Medications Generic Name Dose Route Start Last Admin Trade Name Freq PRN Reason Stop Dose Admin Aspirin 162 mg 09/18/23 06:30 09/19/23 09:46 Aspirin 81 Mg Chew Tablet PO 162 mg DAILY BRAULIO Administration Clopidogrel Bisulfate 75 mg 09/19/23 06:00 09/19/23 05:09 Clopidogrel 75 Mg Tablet PO 75 mg QAM BRAULIO Administration Enoxaparin Sodium 40 mg 09/18/23 10:36 09/19/23 09:39 Enoxaparin 40 Mg/0.4 Ml Syringe SUBCUT 40 mg Q24H BRAULIO Administration Lisinopril 20 mg 09/19/23 06:00 09/19/23 05:09 Lisinopril 20 Mg Tablet PO 20 mg QAM BRAULIO Administration Metoprolol Tartrate 25 mg 09/19/23 06:00 09/19/23 05:09 Metoprolol Tartrate 25 Mg Tablet PO 25 mg QAM BRAULIO Administration PFSH Acute PFSH: Medical History CAD (coronary artery disease) Diverticulosis Dyslipidemia Hypertension Surgical History Hx of heart artery stent Hx of inguinal hernia surgery Stented coronary artery Family History Mother Hypertension Father Cancer Colon cancer Family/Other Dementia Denies family history of Diabetes CAD (coronary artery disease) Clotting disorder Chronic kidney disease (CKD) Suicide Anesthesia complication Bleeding disorder Lung disease Stroke Social History Smoking and tobacco/nicotine status: never used tobacco/nicotine Alcohol intake: never Substance/Drug Use: never Vitals/I&O/Wt Last Vital Signs Temp 97.5 F L 09/19/23 11:53 Pulse 68 09/19/23 11:53 Resp 17 09/19/23 11:53 BP 115/76 09/19/23 11:53 Pulse Ox 98 09/19/23 11:53 O2 Del Method Room Air 09/19/23 11:53 09/18/23 09/19/23 09/19/23 22:59 06:59 14:59 Intake Total 240 / 1740 150 / 1890 480 / 480 Output Total 0 / 0 Balance 240 / 1740 150 / 1890 480 / 480 Weight last 48 hrs Weight 165 lb 9.6 oz Weight 175 lb Weight 175 lb Physical Exam Narrative: Vitals are stable and within normal range. HENMT: Unremarkable Eyes: Normal RESP: Good air entry bilaterally. No added sounds. Cardiovascular: Normal first and second heart sounds. No added sounds. Abdomen: Soft nontender. Bowel sounds audible. Extremeties: Normal. No pedal edema. Neuro: Grossly intact. Skin: Warm and dry. Data 09/19/23 03:38 09/19/23 03:38 A&P Assessment and plan (1) Chest pain: 73-year-old male with a history of coronary disease, history of angioplasty in April 2023, presented yesterday with a very atypical a chest pain symptoms. No heart failure. Nuclear stress test showed a possible apical lateral reversible ischemia. Normal LV functions. I discussed with the patient in detail regarding further management with repeat cardiac cath procedure to assess the detail of coronary anatomy and possible new disease. Patient is clinically completely asymptomatic ambulating well. He is okay to have the procedure however he would like to get it done next week after hols. With a him being completely asymptomatic and low risk nuclear stress test I agree with his wish I agree with his wishes and will plan cardiac cath next week. In the meantime he will continue his current medication including dual antiplatelets. I have added oral nitrates Imdur 30 mg once a day. Qualifiers: Chest pain type: unspecified Qualified Code(s): R07.9 - Chest pain, unspecified (2) CAD (coronary artery disease): Coding Level of Care Code Acute Code for [facility] Diagnoses Chest pain R07.9 Chest pain type: unspecified CAD (coronary artery disease) I25.10 Time Spent (min) 30
--- NOTE | 2023-09-19 14:25 | PM.DCS ---
Discharge Providers Date of Admission: 09/18/23 10:32 Date of Discharge: September 19, 2023 Attending Provider at Admission: Onesimo Gottlieb MD Attending Provider at Discharge: Shwetha Liu MD Primary Care Provider: JUAN CARLOS Arroyo Diagnoses at Discharge Discharge Diagnosis (1) Chest pain: Status: Acute Qualifiers: Chest pain type: unspecified Qualified Code(s): R07.9 - Chest pain, unspecified (2) CAD (coronary artery disease): Status: Acute Reason for Visit Reason for Visit: chest pain Hospital Course Hospital Course Patient admitted for chest pain. Stress test was done which showed reversible defect area in left circumflex artery. Cardiology consult was obtained.Patient is clinically completely asymptomatic ambulating well.? He is okay to have the procedure however he would like to get it done next week after hols.? With a him being completely asymptomatic and low risk nuclear stress test I agree with his wish I agree with his wishes and will plan cardiac cath next week. In the meantime he will continue his current medication including dual antiplatelets.? I have added oral nitrates Imdur 30 mg once a day. Patient is requesting to go home at this time. 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 He understands the risks and benefits and will be discharged home in stable condition at this time. Physical Exam Narrative: Vitals are stable and within normal range. RESP: Good air entry bilaterally. No added sounds. Cardiovascular: Normal first and second heart sounds. No added sounds. Abdomen: Soft nontender. Bowel sounds audible. Extremeties: Normal. No pedal edema. Neuro: Grossly intact. Skin: Warm and dry. Discharge Data Studies Completed and Pending Completed Studies During Hospitalization Category Date Time Status Cardiac Stress Test MIBI [Sestamibi Stress Test Request Exams 09/18/23 11:51 Draft ] Routine XR chest 1V portable [id number] Stat Exams 09/18/23 07:02 Completed NM kaya perf SPECT r/s* [id number] Routine Nuc Med 09/19/23 08:00 Completed Pending at discharge Category Date Time Status JAVA DEVELOPER WITH SECURITY CLEARANCE request for service Routine Exams 09/19/23 10:52 Ordered Radiology Impressions Chest X-Ray 09/18/23 07:02 IMPRESSION: No acute findings. ADDENDUM: 09/18/23 0826 Healed fracture of the mid left clavicle. Laboratory Results WBC 4.59 10^3/uL (3.29-11.43) 09/19/23 03:38 RBC 4.10 10^6/uL (3.85-5.65) 09/19/23 03:38 Hgb 12.90 g/dL (11.27-16.99) 09/19/23 03:38 Hct 39.6 % (37-53) 09/19/23 03:38 MCV 96.6 fl (82-101) 09/19/23 03:38 MCH 31.5 pg (27-33) 09/19/23 03:38 MCHC 32.6 g/dL (30-55) 09/19/23 03:38 RDW 12.3 % (12.1-15.1) 09/19/23 03:38 Plt Count 207 10^3/cmm (157-399) 09/19/23 03:38 MPV 9.7 fL (7.4-10.4) 09/19/23 03:38 Neut % (Auto) 65.4 % 09/19/23 03:38 Lymph % (Auto) 20.9 % 09/19/23 03:38 Storey % (Auto) 10.9 % 09/19/23 03:38 Eos % (Auto) 1.5 % 09/19/23 03:38 Baso % (Auto) 0.9 % 09/19/23 03:38 Neut # (Auto) 3.00 10^3/uL (1.8-7.7) 09/19/23 03:38 Lymph # (Auto) 1.0 10^3/uL (0.8-4.8) 09/19/23 03:38 Storey # (Auto) 0.5 10^3/uL (0.2-0.9) 09/19/23 03:38 Eos # (Auto) 0.1 10^3/uL (0.0-0.8) 09/19/23 03:38 Baso # (Auto) 0.0 10^3/uL (0.0-0.1) 09/19/23 03:38 Nucleated RBC % (auto) 0 % 09/19/23 03:38 Nucleated RBCs # 0.0 /100WBC 09/19/23 03:38 Sodium 137 mmol/L (136-145) 09/19/23 03:38 Potassium 4.5 mmol/L (3.5-5.1) 09/19/23 03:38 Chloride 104 mmol/L (98-107) 09/19/23 03:38 Carbon Dioxide 27 mmol/L (22-29) 09/19/23 03:38 Anion Gap 10.5 (5-19) 09/19/23 03:38 BUN 16 mg/dL (8-23) 09/19/23 03:38 Creatinine 1.0 mg/dL (0.7-1.2) 09/19/23 03:38 GFR Calculation Not Reportable 09/19/23 03:38 Glucose 103 mg/dL (65-115) 09/19/23 03:38 Calculated Osmolality 285 mOsm/kg (285-295) 09/19/23 03:38 Calcium 8.8 mg/dL (8.5-10.5) 09/19/23 03:38 Total Bilirubin 0.6 mg/dL (0.15-1.2) 09/18/23 06:19 AST 16 U/L (0-40) 09/18/23 06:19 ALT 16 U/L (0-41) 09/18/23 06:19 Alkaline Phosphatase 59 U/L (40-130) 09/18/23 06:19 Troponin T Baseline 39 ng/L (0-15) H 09/18/23 06:19 Troponin T 120 Minute 45.36 ng/L (0-15) H 09/18/23 08:13 Delta Troponin T 6.36 ABS# (0-10) 09/18/23 08:13 Troponin T Hi Sens 6Hr 41.63 ng/L (0-15) H 09/18/23 12:15 Troponin T Hi Sens 6Hr Delta 2.63 ng/L (0-12) 09/18/23 12:15 Total Protein 6.9 g/dL (6.6-8.7) 09/18/23 06:19 Albumin 4.2 g/dL (3.5-5.2) 09/18/23 06:19 Globulin 2.7 g/dL (1.3-4.6) 09/18/23 06:19 Vitals Last Vital Signs Temp 97.5 F L 09/19/23 11:53 Pulse 68 09/19/23 11:53 Resp 17 09/19/23 11:53 BP 115/76 09/19/23 11:53 Pulse Ox 98 09/19/23 11:53 O2 Del Method Room Air 09/19/23 11:53 Discharge Plan Discharge Patient Disposition: Home Condition: Stable Prescriptions: New isosorbide mononitrate 30 mg Tablet Extended Release 24 Hr 30 mg PO DAILY Qty: 30 0RF Continued metoprolol tartrate 25 mg tablet 25 mg PO QAM Qty: 90 0RF lisinopril 20 mg tablet 20 mg PO QAM 90 Days Qty: 90 0RF Nitrostat 0.4 mg Tablet, Sublingual 0.4 mg SUBLINGUAL Q5M PRN (Reason: Chest Pain) Rx Instructions: do not exceed 3 doses per episode clopidogrel 75 mg tablet 75 mg PO QAM aspirin 81 mg tablet,delayed release (DR/EC) 81 mg PO QAM pantoprazole 40 mg tablet,delayed release (DR/EC) 40 mg PO DAILY PRN (Reason: Heartburn) Discharge Orders: Discharge Order (Routine); Ordered 09/19/23 Ordered By: Shwetha Liu Other Ambulatory Orders: JAVA DEVELOPER WITH SECURITY CLEARANCE request for service (Routine) Timeframe: 1 Week Facility: [facility] - Location: Cardiac Cath Laboratory Ordered By: Shwetha Liu Referrals: Bob Tanner MD [Physician] - 4-7 days (Follow up 09/27/2023 @ 9:00AM) Ligia Lorenzana FNP [Primary Care Provider] - 4-7 days (Follow up 09/25/2023 @ 2:40PM) Discharge Diet: Cardiac Discharge Activity: Limit activity as instructed Patient Instructions: Isosorbide Mononitrate (By mouth), Angina (DC), Chest Pain (DC), Chest Pain Stoplight, Opioid Safety Activity Restrictions/Additional Instructions: Please return to hospital if you experience chest pain, shortness of breath, sweating, or any other new symptoms. Discharge Attestations Time Spent in Discharge Care*: greater than 30 min Quality Metrics Clinical Quality Measures [ No reported AMI, CVA or VTE this stay] Coding Level of Care Code 47894 Total time (in minutes) for Discharge: 35 Diagnoses Chest pain R07.9 Chest pain type: unspecified CAD (coronary artery disease) I25.10
--- NOTE | 2023-09-19 15:20 | PC.NURSE ---
Discharge Note Patient discharged to [home] via [ambulation] accompanied by [daughter]. Discharge instructions reviewed with patient and/or sales representative door to door. Mobile pharmacy medications and/or prescriptions provided. Belongings/home medications returned.
== END 2023-09-19 15:22 | disposition home or self-care (01) ==
LOC: ER 06:38 → ER IP 10:53 → CSU 14:37
PROVIDERS: Admitting Provider Internal Medicine; Emergency Provider Family Medicine; PCP Nurse Practitioner Family; Visit Provider Internal Medicine
DX: R07.89 Other chest pain (principal); I25.10 Atherosclerotic heart disease of native coronary artery without angina pectoris; Z79.82 Long term (current) use of aspirin; E78.5 Hyperlipidemia, unspecified; I10 Essential (primary) hypertension; Z95.5 Presence of coronary angioplasty implant and graft
CPT/HCPCS: 12345; 36415; 71045; 78452; 80048; 80053; 84484; 85025; 93005; 93010; 93017; 96372; 96374; 96375; 99285; A9500; G0378; J1650; J2270; J2785; J7040

== ENCOUNTER → 2023-09-27 08:23 | Outpatient (BNVA) | payer MEDICARE, SELFPAY | PROVIDERS: PCP Nurse Practitioner Family; Visit Provider Nurse Practitioner Family | DX: I25.118 Atherosclerotic heart disease of native coronary artery with other forms of angina pectoris (principal); I10 Essential (primary) hypertension | CPT/HCPCS: 99213 ==

== ENCOUNTER 2023-10-11 08:32 | Observation (INO) | payer MEDICARE, SELFPAY ==
--- NOTE | 2023-10-11 06:00 | XACV_ITS ---
Exam Room: 2 Ht: 170 cm Wt: 79 kg BSA: 1.95 m2 Gender: Male : 1950 Any Known Allergies: No known allergies Exam Priority: Routine Procedure(s): Procedure Description: Diagnostic procedure Procedure Description: Left Heart Catheterization Procedure Description: Left ventriculography Procedure Description: Coronary Angiography Diagnostic Cath Status: Elective Diagnostic Findings * INDICATION: Chest pain/abnormal stress test. * Left Main has no significant disease. * Left Anterior Descending has patent prior proximal stent. No significant disease. * Circumflex has mild luminal irregularities. * Proximal Right Coronary Artery: luminal irregularities 20% stenosis, CARMELA: 3 flow. * Coronary angiography shows right dominance. Conclusions 1. Non-obstructive Coronary artery disease. Patent prior LAD stent. 2. Normal left ventricular systolic function. Ejection fraction of 60%. Recommendations * Aggressive risk factor modification. * We will uptitrate isosorbide for chest pain control. * Outpatient cardiology follow up in 4 weeks. Interventional RX Recommendation: medical therapy and/or counseling Diagnostic RX Recommendation: medical therapy and/or counseling Anticoagulation: Heparin Ventriculography Ejection Fraction: 60.0 % Pressures Phase:Rest AO : 83 / 48 ( 63 ) @ 8:03:00 AM 75 / 73 ( 65 ) @ 8:04:00 AM 74 / 66 ( 64 ) @ 8:05:00 AM 101 / 58 ( 76 ) @ 8:13:00 AM 103 / 56 ( 75 ) @ 8:13:00 AM LV : 103 / -6 / 12 @ 8:11:00 AM 103 / -1 / 12 @ 8:13:00 AM 105 / -2 / 12 @ 8:13:00 AM Valves Phase:DefaultPhase AV : 4.0 @ 8:17:06 AM AV Mean Gradient: 8.0 @ 8:17:06 AM 8.0 @ 8:17:06 AM Clinical Evaluation EBL: 5mL-10mL Procedural Details Pre-Procedure Time Out. Identified patient by full name and date of as verbalized by the patient/guarantor. Does the consent match the physician's order: Yes. Accurate & Complete Informed Consent: Yes. Inpatient/Outpatient History & Physical on Chart: Yes. If H&P is completed, is and addenduem needed: No; If yes, is the addendum complete: N/A. Visualize and Verify Site with Patient/Guarantor: N/A. Relevant Radiology Images available: Yes. Pre-op teaching completed and patient verbalized understanding. The risks, benefits, and alternatives of sedation and/or procedure were discussed by physician. The patient agrees to continue. Procedure started. [facility] Clinical Fraility Score: 3: Managing Well. Order Expediter Indications: Suspected CAD. Chest Pain Symptom Assessment: Atypical Angina. Correct patient, site and procedure confirmed by cath team. Current diagnosis: Chest Pain. PERRLA. Strong, equal hand sports complex attendant bilaterally. Lungs clear x 5 lobes. IV Site on Arrival: 20 gauge in the right anticubital. IV Fluids: 0.9% NaCl at KVO. 0 mL infused prior to cardiac cath lab technologist. Pre Procedural Pulses: bilateral dorsalis pedis was 3+. Pre Procedural Pulses: bilateral posterior tibial was 3+. Pre Procedural Pulses: bilateral radial was 3+. Oxygen started at 2liters/min via nasal canula. right groin was prepped with chloroprep then draped in the usual sterile fashion. right radial was prepped with chloroprep then draped in the usual sterile fashion. Baseline sample Acquired. HR: 67 BPM. Physician arrived. Current Diagnosis : Chest Pain. Physician scrubbed in. Immediate Pre-Procedure Time Out. Correct Patient: Yes; Correct Procedure: Yes; Correct Site: Yes; Correct Patient Position: Yes; Correct Supplies: Yes; Dried Flammable Prep: Yes; Blood Products Available: N/A;. Lidocaine 1% infiltrated to the right radial. Arterial access obtained. A 5 [place] citizen TIG catheter in over wire. Multiple views taken of left coronary artery. Catheter redirected to the RCA. Catheter removed over the exchange wire. A 5 [place] citizen JR4 catheter in over wire. Multiple views taken of right coronary artery. Catheter removed over the exchange wire. A 5 [place] citizen Angled Pig catheter in over wire. EDP Sample taken: LV 103/-7,12; HR: 64 BPM; SpO2: 98%. LV gram performed in MELENDEZ @ 10 mL/second for a total of 30 mL. EDP Sample taken: LV 103/-2,12; HR: 53 BPM; SpO2: 98%. Pullback taken: LV 105/-3,12; AO 101/58(76); Mean: 8mmHg, Peak to Peak: 4mmHg, SEP: 5sec/min; HR: 63 BPM; SpO2: 98%. Catheter removed over the exchange wire. Physician scrubbed out. A TR Band was successful obtaining hemostatsis at the Right Radial artery insertion site. Post Procedure: Pulses reassessed and unchanged. PERRLA. Strong, equal hand sports complex attendant bilaterally. No VTE prophylaxis required. Medication's Wasted: Nitro = 49.9 mcg. Medication's Wasted: Heparin = 1000 units. Medication's Wasted: Other = Fentanyl 75mcg Versed 1 mg. Total IV fluids: 35 mL. Post-op diagnosis: Normal Coronaries. Complications: None. Estimated blood loss: 5mL-10mL. Responsiveness - Normal response to verbal stimuli; alert and oriented, PERRLA. Airway - Unaffected, no intervention required; spontaneous ventilation. Circulation: W/N/L, pulses unchanged. Nausea/Vomiting: No. Procedure completed. Patient transferred by wheelchair to 1st floor. Vital chart was stopped. Access Site Site: Right Radial artery Sheath Size: 6 Fr Hemostasis Method: TR Band Hemostasis Success: Successful Procedure Medications Start: 7:52 AM Stop: 7:52 AM Medication: Versed 1 mg and Fentanyl 25 mcg Amount: 1 Route: I.V. Start: 8:01 AM Stop: 8:01 AM Medication: Nitrogylcerin Amount: 100 mcg Route: I.A. Start: 8:03 AM Stop: 8:03 AM Medication: Heparin Amount: 5000 units I, the attending physician, have reviewed and verified all procedure medications. Yes, all medications given per verbal order History/Risk Factors Hypertension: Yes Dyslipidemia: Yes Peripheral Arterial Disease (PAD): No Myocardial Infarction (ND): No Obesity: No Renal Disease: No Tobacco Use: Never Prior Interventions PCI: Yes CABG: No Valve Surgery: No Date of PCI: 05/17/2023 Report Signatures Finalized by Italo Brewster MD on 10/11/2023 08:37 AM
[2023-10-11] MEDS: diphenhydrAMINE 50 mg Capsule PO (06:15)
[2023-10-11 06:18] VITALS: BP 112/71; PULSE 66; RESP 18; O2SAT 97; BMI 27.3
[2023-10-11 06:19] LABS: Basophils % 0.9 %; Eosinophils # 0.1 10^3/uL (0.0-0.8); Hematocrit 40.8 % (37-53); Lymphocytes # 0.9 10^3/uL (0.8-4.8); Lymphocytes % 19.6 %; Mean Corpuscular HGB Conc 34.1 g/dL (30-55); Mean Corpuscular Hemoglobin 31.5 pg (27-33); Mean Corpuscular Volume 92.5 fl (82-101); Mean Platelet Volume 9.2 fL (7.4-10.4); Monocytes # 0.5 10^3/uL (0.2-0.9); Monocytes % 10.2 %; Neutrophils % 66.9 %; Nucleated Red Blood Cells % 0 %; Platelet Count 234 10^3/cmm (157-399); Red Blood Count 4.41 10^6/uL (3.85-5.65); Red Cell Distribution Width 12.1 % (12.1-15.1); White Blood Count 4.49 10^3/uL (3.29-11.43)
[2023-10-11 06:38] LABS: Blood Urea Nitrogen 15 mg/dL (8-23); Calcium 9.1 mg/dL (8.5-10.5); Carbon Dioxide 26 mmol/L (22-29); Chloride 102 mmol/L (98-107); Glucose 118 mg/dL (65-115); Osmolality Calculated 288 mOsm/kg (285-295); Sodium 138 mmol/L (136-145)
--- NOTE | 2023-10-11 07:45 | W.PM.OPSUD ---
Surgery/Procedure H&P Update DATE OF PROCEDURE: October 11, 2023 DATE H&P PERFORMED: 09/27/23 H&P UPDATE INFORMATION: I have reviewed H&P completed within last 30 days, I have examined patient prior to procedure and No changes to prior documentation PREOP DIAGNOSIS: Chest pain/ abnormal stress test PLANNED PROCEDURE: Operation Date: 10/11/23 07:00 Proposed Procedures p [facility] 38819,R94.39(Left) - Italo Brewster M.D Possible percutaneous coronary intervention PATIENT REASSESSED PRIOR TO SEDATION, WITH NO CHANGE NOTED: Yes PHYSICAL EXAM: alert, oriented x 3, clear to auscultation bilaterally and regular rate & rhythm AIRWAY EVAL/ANESTHESIA PLAN: normal airway, ASA III, Local Anesthesia, Risks, benefits & alternatives of sedation and/or procedure discussed and Patient agrees to continue as planned ADDITIONAL INFORMATION: Moderate sedation
--- NOTE | 2023-10-11 13:49 | PC.NURSE ---
TR band removed per protocol. No issues or concerns. patient education regarding activity restrictions and understands and verbalizes. Nurse went over d/c instructions with patient and . Nurse escorted patient to exit.
[2023-10-11 13:51] VITALS: BP 112/71; PULSE 66; RESP 18; O2SAT 97
== END 2023-10-11 13:57 | disposition home or self-care (01) ==
LOC: CSU 08:35
PROVIDERS: Internal Medicine Cardiovascular Disease; Admitting Provider Internal Medicine; PCP Nurse Practitioner Family; Visit Provider Internal Medicine
DX: I25.118 Atherosclerotic heart disease of native coronary artery with other forms of angina pectoris (principal); I10 Essential (primary) hypertension; Z79.82 Long term (current) use of aspirin
CPT/HCPCS: 36415; 80048; 85025; 93458; 96365; 99152; 99153; C1769; C1887; C1894; G0378; J1644; J2250; J3010; J3490; J7030; Q0163; Q9967

== ENCOUNTER → 2023-10-17 10:44 | Outpatient (BNVA) | payer MEDICARE, SELFPAY | PROVIDERS: PCP Nurse Practitioner Family; Visit Provider Nurse Practitioner Family | DX: Z09 Encounter for follow-up examination after completed treatment for conditions other than malignant neoplasm (principal); I25.10 Atherosclerotic heart disease of native coronary artery without angina pectoris | CPT/HCPCS: 36415; 80048; 99214 ==

== ENCOUNTER 2023-11-01 06:32 | Emergency (ER) | payer MEDICARE, SELFPAY ==
[2023-11-01] VITALS (11 sets, daily range): BP systolic 91–125; BP diastolic 58–80; PULSE 67–73; RESP 13–18; TEMP 36.6; O2SAT 94–98; BMI 27.3
--- NOTE | 2023-11-01 06:38 | ECG_ITS ---
Test Date: 2023-11-01 Pat Name: Rafa Galindo Department: Room: Gender: Male Cabinet Builder: : 1950 Requested By: Girma Burnham Order Number: [id number] Jessica MD: Italo Brewster M.D. Measurements Intervals [place] Rate: 68 P: -86 AR: 123 QRS: -19 QRSD: 87 T: 46 QT: 401 QTc: 428 Interpretive Statements ECTOPIC ATRIAL RHYTHM Compared to ECG 09/18/2023 13:09:51 NO CHANGES Electronically Signed On 11-01-2023 13:03:02 PAPER TWISTER TENDER by Italo Brewster M.D. [id number]
--- NOTE | 2023-11-01 07:15 | XR_ITS ---
WS: [id number] Portable AP upright chest, 11/01/2023 Clinical Data: CXP Comparison: Portable chest, 09/18/2023 Findings: No nodules, masses or effusions are seen. The heart is normal. The pulmonary vascularity is not increased. No pneumonia or pneumothorax is seen. The aortic arch and descending thoracic aorta s how tortuosity. 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 There are monitor leads on the chest wa ll. Impression: Atherosclerosis.
[2023-11-01 07:23] LABS: Basophils # 0.1 10^3/uL (0.0-0.1); Basophils % 1.1 %; Eosinophils # 0.1 10^3/uL (0.0-0.8); Eosinophils % 1.8 %; Lymphocytes # 0.8 10^3/uL (0.8-4.8); Lymphocytes % 18.7 %; Mean Corpuscular HGB Conc 34.4 g/dL (30-55); Mean Corpuscular Hemoglobin 31.5 pg (27-33); Mean Corpuscular Volume 91.5 fl (82-101); Mean Platelet Volume 9.5 fL (7.4-10.4); Monocytes # 0.4 10^3/uL (0.2-0.9); Monocytes % 9.8 %; Neutrophils # 3.06 10^3/uL (1.8-7.7); Neutrophils % 68.2 %; Nucleated Red Blood Cells % 0 %; Platelet Count 258 10^3/cmm (157-399); Red Cell Distribution Width 12.3 % (12.1-15.1); White Blood Count 4.49 10^3/uL (3.29-11.43)
[2023-11-01] MEDS: nitroglycerin 1 gm/inch oint Pkt 1 INCH TOPICAL (07:23)
[2023-11-01 07:27] LABS: INR 0.95 (0.8-1.2)
[2023-11-01 07:28] LABS: Partial Thromboplastin Time 31.1 SECONDS (23.9-36.7)
[2023-11-01 07:50] LABS: Troponin(5th) Baseline 32 ng/L (0-15)
[2023-11-01 07:58] LABS: Alanine Aminotransferase 14 U/L (0-41); Albumin Level 3.8 g/dL (3.5-5.2); Alkaline Phosphatase 58 U/L (40-130); Anion Gap 13.2 (5-19); Aspartate Amino Transferase 15 U/L (0-40); Blood Urea Nitrogen 16 mg/dL (8-23); Calcium 8.8 mg/dL (8.5-10.5); Carbon Dioxide 25 mmol/L (22-29); Chloride 103 mmol/L (98-107); Globulin 2.4 g/dL (1.3-4.6); Glucose 127 mg/dL (65-115); NT Pro B Type Natriuretic Pept 46 pg/mL (0-125); Osmolality Calculated 287 mOsm/kg (285-295); Potassium 4.2 mmol/L (3.5-5.1); Sodium 137 mmol/L (136-145); Total Bilirubin 0.5 mg/dL (0.15-1.2); Total Protein 6.2 g/dL (6.6-8.7)
--- NOTE | 2023-11-01 09:21 | ECG_ITS ---
[facility] Test Date: 2023-11-01 Pat Name: Rafa Galindo Department: Room: Gender: Male Neurourologist: : 1950 Requested By: Girma Burnham Order Number: [id number] A Lopez MD: Italo Brewster M.D. Measurements Intervals [place] Rate: 67 P: -90 AK: 119 QRS: -17 QRSD: 85 T: 56 QT: 402 QTc: 427 Interpretive Statements ECTOPIC ATRIAL RHYTHM Compared to ECG 11/01/2023 06:38:02 No significant changes Electronically Signed On 11-01-2023 13:04:50 SHOP REPAIRER by Italo Brewster M.D. [email or web address]
[2023-11-01 09:46] LABS: Troponin 5 2HR 31.41 ng/L (0-15)
[2023-11-01 09:49] LABS: Troponin 5 2HR Delta -0.59 ABS# (0-10)
--- NOTE | 2023-11-01 10:23 | W.ED.CHESTPA ---
HPI - Chest Pain General: Chief Complaint: Chest Pain Stated Complaint: chest pains Time Seen by Provider: 11/01/23 07:15 History of Present Illness: 72-year-old male presents emerged part with complaints of left-sided chest pain. He states that 1 month ago he had a cardiac stent placed and has since had a repeat angioplasty and was advised that there is no additional blockage at that time. He states that he started having chest pain approximately midnight and took 2 nitroglycerin and states that his pain significantly improved. He states he was not having any shortness of breath, dizziness or lightheaded feeling. He denies nausea or vomiting. He states his chest pain now is a 0 out of 10. He states initially when he had his chest discomfort it was a 4 out of 10. Review of Systems General: Reports: 10 or more systems reviewed and unremarkable except in HPI and below Card: Reports: chest pain [facility] PFSH: Medical History Diverticulosis Dyslipidemia CAD (coronary artery disease) Hypertension Surgical History Hx of heart artery stent Stented coronary artery Hx of inguinal hernia surgery Family History Mother Hypertension Father Cancer Colon cancer Family/Other Dementia Denies family history of Diabetes CAD (coronary artery disease) Clotting disorder Chronic kidney disease (CKD) Suicide Anesthesia complication Bleeding disorder Lung disease Stroke Social History Smoking and tobacco/nicotine status: never used tobacco/nicotine Alcohol intake: never Substance/Drug Use: never Physical Exam Narrative: EXAM NARRATIVE: Constitutional: the patient appears well nourished and with normal development. Vital signs reviewed as documented. HENMT: Normocephalic, atraumatic. Extermal ears with normal appearance without drainage. Nose without drainage, normal appearance. Mucus membranes moist. Neck is supple, No jugular venous distension, trachea is midline, no appreciable carotid bruits. No lymphadenopathy. No meningeal signs. Flexion, extension and lateral rotation is without pain. Eyes: Pupils are equal, round, reactive to light and accommodation. No scleral icterus. Extra-ocular movement are intact. Thorax is symmetrical and with equal rise and fall with respirations. Resp: Lungs are clear to auscultation. No wheezes, rales, crackles or ronchi at present. Cardio: Regular rate and rhythm. Positive S1, S2. No appreciable murmurs, rubs or gallops. GI: Abdominal exam reveals normal bowel sounds to all quadrants. No organomegaly. No obvious palpable masses noted. No hepatomegally appreciated. Soft, nontender to palpation. Extremity: Extremities are non-edematous and both femoral and pedal pulses are 2+ and equal bilaterally. Moves all extremities well, sensation in all extremities. Neuro: Alert and oriented x4, person, place, time and situation. Cranial nerves II through XII are grossly intact, there is no focal neurological deficits that I can appreciate at present. Motor strength in the upper and lower extremities are equal and bilateral 5/5. Psych: Cooperative, calm, normal thought process, appropriate judgment. Skin: No lesions, rashes. No gross abnormalities noted. Back: Symmetrical, no obvious deformity, No CVA tenderness Course Vital Signs: Vital signs: Vital Signs Temperature 97.9 F 11/01/23 06:34 Pulse Rate 69 11/01/23 09:51 Respiratory Rate 17 11/01/23 09:51 Blood Pressure 107/64 11/01/23 09:51 Pulse Oximetry 94 11/01/23 09:51 Oxygen Delivery Me thod Room Air 11/01/23 09:51 MDM - Chest Pain Medical Decision Making Physical exam completed and documented, I will obtain CBC, CMP serial cardiac enzymes as well as twelve-lead EKG provide cardiac dose aspirin as well as nitroglycerin and reevaluate. Medical Records I reviewed the patient's medical records. Lab Data I reviewed the patient's lab results. 11/01/23 06:43 11/01/23 07:26 Laboratory Results WBC 4.49 10^3/uL (3.29-11.43) 11/01/23 06:43 RBC 4.70 10^6/uL (3.85-5.65) 11/01/23 06:43 Hgb 14.80 g/dL (11.27-16.99) 11/01/23 06:43 Hct 43.0 % (37-53) 11/01/23 06:43 MCV 91.5 fl (82-101) 11/01/23 06:43 MCH 31.5 pg (27-33) 11/01/23 06:43 MCHC 34.4 g/dL (30-55) 11/01/23 06:43 RDW 12.3 % (12.1-15.1) 11/01/23 06:43 Plt Count 258 10^3/cmm (157-399) 11/01/23 06:43 MPV 9.5 fL (7.4-10.4) 11/01/23 06:43 Neut % (Auto) 68.2 % 11/01/23 06:43 Lymph % (Auto) 18.7 % 11/01/23 06:43 [place] % (Auto) 9.8 % 11/01/23 06:43 Eos % (Auto) 1.8 % 11/01/23 06:43 Baso % (Auto) 1.1 % 11/01/23 06:43 Neut # (Auto) 3.06 10^3/uL (1.8-7.7) 11/01/23 06:43 Lymph # (Auto) 0.8 10^3/uL (0.8-4.8) 11/01/23 06:43 [place] # (Auto) 0.4 10^3/uL (0.2-0.9) 11/01/23 06:43 Eos # (Auto) 0.1 10^3/uL (0.0-0.8) 11/01/23 06:43 Baso # (Auto) 0.1 10^3/uL (0.0-0.1) 11/01/23 06:43 Nucleated RBC % (auto) 0 % 11/01/23 06:43 Nucleated RBCs # 0.0 /100WBC 11/01/23 06:43 PT 13.00 SECONDS (12.1-14.9) 11/01/23 06:43 INR 0.95 (0.8-1.2) 11/01/23 06:43 APTT 31.1 SECONDS (23.9-36.7) 11/01/23 06:43 Sodium 137 mmol/L (136-145) 11/01/23 07:26 Potassium 4.2 mmol/L (3.5-5.1) 11/01/23 07:26 Chloride 103 mmol/L (98-107) 01/04/24 07:26 Carbon Dioxide 25 mmol/L (22-29) 11/01/23 07:26 Anion Gap 13.2 (5-19) 11/01/23 07:26 BUN 16 mg/dL (8-23) 11/01/23 07:26 Creatinine 0.8 mg/dL (0.7-1.2) 11/01/23 07:26 GFR Calculation Not Reportable 11/01/23 07:26 Glucose 127 mg/dL (65-115) H 11/01/23 07:26 Calculated Osmolality 287 mOsm/kg (285-295) 11/01/23 07:26 Calcium 8.8 mg/dL (8.5-10.5) 11/01/23 07:26 Total Bilirubin 0.5 mg/dL (0.15-1.2) 11/01/23 07:26 AST 15 U/L (0-40) 11/01/23 07:26 ALT 14 U/L (0-41) 11/01/23 07:26 Alkaline Phosphatase 58 U/L (40-130) 11/01/23 07:26 Troponin T Baseline 32 ng/L (0-15) H 11/01/23 07:26 Troponin T 120 Minute 31.41 ng/L (0-15) H 11/01/23 09:24 Delta Troponin T -0.59 ABS# (0-10) L 11/01/23 09:24 NT-Pro-B Natriuret Pep 46 pg/mL (0-125) 11/01/23 07:26 Total Protein 6.2 g/dL (6.6-8.7) L 11/01/23 07:26 Albumin 3.8 g/dL (3.5-5.2) 11/01/23 07:26 Globulin 2.4 g/dL (1.3-4.6) 11/01/23 07:26 All radiology interpretation(s) finalized by discharge EKG Data EKG 1: Interpretation: Twelve-lead EKG obtained at 638 and reviewed at 640 demonstrates normal sinus rhythm ventricular rate of [address] elevation or depression MD interval 123 QRS duration 87 QT 401 QTc [address] elevation or depression to demonstrate acute ischemia or infarction at present. EKG 2: Interpretation: Twelve-lead EKG obtained at 921 reviewed at 922 demonstrates normal sinus rhythm with a ventricular rate of 67 bpm, MD interval 119 QRS duration 85 QT 402 QTc 418, there is no ST elevation or depression to demonstrate acute ischemia or infarction at present. Discharge Plan Discharge Patient Disposition: Home Clinical Impression: Atypical chest pain Condition: Stable Prescriptions: No Action metoprolol tartrate 25 mg tablet 25 mg PO QAM Qty: 90 0RF isosorbide mononitrate 30 mg tablet extended release 24 hr 30 mg PO DAILY Qty: 90 3RF lisinopril 20 mg tablet 20 mg PO QAM 90 Days Qty: 90 0RF nitroglycerin [Nitrostat] 0.4 mg Tablet, Sublingual 0.4 mg SUBLINGUAL Q5M PRN (Reason: Chest Pain) Rx Instructions: do not exceed 3 doses per episode clopidogrel 75 mg tablet 75 mg PO QAM aspirin 81 mg tablet,delayed release (DR/EC) 81 mg PO QAM pantoprazole 40 mg tablet,delayed release (DR/EC) 40 mg PO DAILY PRN (Reason: Heartburn) Discharge Orders: Discharge ED (Routine); Ordered 11/01/23 Ordered By: Girma Burnham Referrals: Ligia Lorenzana FNP [Primary Care Provider] - Discharge Diet: Advance as tolerated Discharge Activity: Resume usual activity Patient Instructions: Opioid Safety, Pain Management Activity Restrictions/Additional Instructions: Activity Restrictions/Additional Instructions: Thank you for choosing [facility] for your healthcare needs today. Please realize that you were seen in the Emergency Department and that we are providing you with an emergency medical screening exam and this may not be a complete and all inclusive of all the testing and or medical work-up that you may need to determine your ailment or severity of your illness. It is very important that you follow-up as instructed with your Primary care provider or Specialist for additional evaluation and to discuss your medical treatment plan. You may return to the Emergency Department should you have concerns or if your condition changes or worsens in any way. Coding Level of Care Code ED Project Management Instructor for Brittany Osullivan
== END 2023-11-01 10:45 | disposition home or self-care (01) ==
PROVIDERS: Emergency Provider Internal Medicine; PCP Nurse Practitioner Family
DX: R07.89 Other chest pain (principal); Z79.02 Long term (current) use of antithrombotics/antiplatelets; Z79.82 Long term (current) use of aspirin; E78.5 Hyperlipidemia, unspecified; I25.10 Atherosclerotic heart disease of native coronary artery without angina pectoris; I10 Essential (primary) hypertension
CPT/HCPCS: 36415; 71045; 80053; 83880; 84484; 85025; 85610; 85730; 93005; 99285

== ENCOUNTER 2023-11-20 21:37 | Emergency (ER) | payer MEDICARE, SELFPAY ==
[2023-11-20 21:38] VITALS: BP 118/77; PULSE 78; RESP 18; TEMP 36.6; O2SAT 92; BMI 28.1
--- NOTE | 2023-11-20 21:40 | ECG_ITS ---
[facility] Test Date: 2023-11-20 Pat Name: Rafa Galindo Department: Room: Gender: Male Carpenter Prototype: : 1950 Requested By: Doug Liz Order Number: [id number] Jessica MD: Madelin Bacon M.D. Measurements Intervals [place] Rate: 76 P: -89 [place]: 117 QRS: -29 QRSD: 88 T: 61 QT: 375 QTc: 424 Interpretive Statements JUNCTIONAL RHYTHM BORDERLINE LEFT AXIS DEVIATION [QRS AXIS < -20] ABNORMAL RHYTHM ECG Compared to ECG 11/01/2023 09:21:34 Junctional rhythm now present Ectopic atrial rhythm no longer present Electronically Signed On 11-21-2023 21:37:04 AUDIT LEAD by Madelin Bacon M.D. [id number]
--- NOTE | 2023-11-20 21:41 | XRR_ITS ---
PROCEDURE INFORMATION: Exam: XR Chest Exam date and time: 11/20/2023 9:46 PM Age: 73 years old Clinical indication: Pain; Chest pressure; Prior surgery; Surgery date: 6+ months; Surgery type: Cardiac stent; Additional info: Chest pain TECHNIQUE: Imaging protocol: Radiologic exam of the chest. Views: 1 view. COMPARISON: CR XR chest 1V portable [id number] 01/28/2024 07:46 FINDINGS: Lungs: Unremarkable. No consolidation. Pleural spaces: Unremarkable. No pleural effusion. No pneumothorax. Heart/Mediastinum: Unremarkable. No cardiomegaly. Bones/joints: Old healed left clavicle fracture. Severe degenerative changes of the left glenohumeral joint. Mild curvature and degenerative changes of the spine. XR/XR chest 1V portable [id number] IMPRESSION: No acute findings.
--- NOTE | 2023-11-20 21:50 | W.ED.CHESTPA ---
HPI - Chest Pain General: Chief Complaint: Chest Pain Stated Complaint: CP Time Seen by Provider: 11/20/23 21:41 History of Present Illness: Patient presents to the ER with complaints of chest pain. Patient states he was actually left arm pain and can went across his chest into his right arm but is worse substernally. Patient took 481 mg aspirin and gave himself 2 nitro at home. On route patient received 100 mcg of fentanyl 1 nitro and 4 mg Zofran. Patient is currently pain-free. Patient had 1 stent placed back about 9 months ago and since then has had 1 [address] Medina that was clean per the patient. Patient states he often has this problem on the bottom number of his blood pressure gets up in the high 80s and low 90s. His diastolic blood pressure was in the high 80s and low 90s today when this pain happened. Patient currently takes Plavix, Review of Systems General: Reports: 10 or more systems reviewed and unremarkable except in HPI and below PFSH ED PFSH: Medical History Diverticulosis Dyslipidemia CAD (coronary artery disease) Hypertension Surgical History Hx of heart artery stent Stented coronary artery Hx of inguinal hernia surgery Family History Mother Hypertension Father Cancer Colon cancer Family/Other Dementia Denies family history of Diabetes CAD (coronary artery disease) Clotting disorder Chronic kidney disease (CKD) Suicide Anesthesia complication Bleeding disorder Lung disease Stroke Social History Smoking and tobacco/nicotine status: never used tobacco/nicotine Alcohol intake: never Substance/Drug Use: never Physical Exam Const: COMMON NORMALS: no acute distress, average body habitus, patient oriented x3, no limitations, healthy appearing, alert and well nourished HENMT: COMMON NORMALS: normocephalic, hearing grossly normal bilaterally, external ears normal, Normal external nose present, moist oral mucous membranes and oropharynx normal HEAD & SCALP: normocephalic NOSE: Normal external nose present EXTERNAL EAR: Yes external ears normal Neck/C-Spine: COMMON NORMALS: no JVD Chest: COMMONS NORMALS: normal inspection of the chest and normal palpation of entire chest wall Resp: COMMON NORMALS: normal respiratory effort, No retractions, No use of accessory muscles and clear to auscultation bilaterally AUSCULTATION: clear to auscultation bilaterally Cardio: COMMON NORMALS: no JVD, regular rate, regular rhythm, S1 normal heart sound present, S2 normal heart sound present, No gallops present (Cardio), No clicks present (Cardio), No murmurs present (Cardio) and No rub (Cardio) RATE: regular rate RHYTHM: regular rhythm HEART SOUNDS: S1 normal heart sound present and S2 normal heart sound present GI: COMMON NORMALS: Normal to inspection, nondistended, normoactive bowel sounds present, Soft to palpation, non-tender, No hepatosplenomegaly present and no masses PALPATION: Yes Soft to palpation and Yes No hepatosplenomegaly present Neuro: COMMON NORMALS: patient oriented x3 SENSORIUM/ORIENTATION: Yes alert Course Vital Signs: Vital signs: Vital Signs Temperature 97.8 F 11/20/23 21:38 Pulse Rate 78 11/20/23 21:38 Respiratory Rate 18 11/20/23 21:38 Blood Pressure 118/77 11/20/23 21:38 Pulse Oximetry 92 11/20/23 21:38 Oxygen Delivery Me thod Room Air 11/20/23 21:38 MDM - Chest Pain Medical Decision Making Patient presented to the ER with complaints of chest pain and/or arm pain that radiated into his chest. These did resolve with nitro. Patient does have a history of a stent with a recent clean angiogram. Patient was worked up a standard cardiac fashion with serial EKGs and enzymes as well as chest x-ray. All of which were essentially benign. Patient was chest pain-free during his stay in ER. Patient be discharged home to follow-up with his PCP within the next 7 days for further evaluation and treatment. Differential Diagnosis Unlikely acute massive pulmonary embolism, acute respiratory failure, acute myocardial infarction, cardiac arrest or sudden cardiac Medical Records I reviewed the patient's medical records. Lab Data I reviewed the patient's lab results. 11/20/23 21:46 11/20/23 21:46 Radiology Impressions Chest X-Ray 11/20/23 21:41 IMPRESSION: No acute findings. Laboratory Results WBC 4.31 10^3/uL (3.29-11.43) 11/20/23 21:46 RBC 4.05 10^6/uL (3.85-5.65) 11/20/23 21:46 Hgb 12.80 g/dL (11.27-16.99) 11/20/23 21:46 Hct 37.2 % (37-53) 11/20/23 21:46 MCV 91.9 fl (82-101) 11/20/23 21:46 MCH 31.6 pg (27-33) 11/20/23 21:46 MCHC 34.4 g/dL (30-55) 11/20/23 21:46 RDW 12.2 % (12.1-15.1) 11/20/23 21:46 Plt Count 224 10^3/cmm (157-399) 11/20/23 21:46 MPV 9.0 fL (7.4-10.4) 11/20/23 21:46 Neut % (Auto) 65.2 % 11/20/23 21:46 Lymph % (Auto) 19.3 % 11/20/23 21:46 [place] % (Auto) 13.0 % 11/20/23 21:46 Eos % (Auto) 1.4 % 11/20/23 21:46 Baso % (Auto) 0.9 % 11/20/23 21:46 Neut # (Auto) 2.81 10^3/uL (1.8-7.7) 11/20/23 21:46 Lymph # (Auto) 0.8 10^3/uL (0.8-4.8) 11/20/23 21:46 [place] # (Auto) 0.6 10^3/uL (0.2-0.9) 11/20/23 21:46 Eos # (Auto) 0.1 10^3/uL (0.0-0.8) 11/20/23 21:46 Baso # (Auto) 0.0 10^3/uL (0.0-0.1) 11/20/23 21:46 Nucleated RBC % (auto) 0 % 11/20/23 21:46 Nucleated RBCs # 0.0 /100WBC 11/20/23 21:46 PT 13.60 SECONDS (12.1-14.9) 11/20/23 21:46 INR 1.01 (0.8-1.2) 11/20/23 21:46 Sodium 138 mmol/L (136-145) 11/20/23 21:46 Potassium 4.4 mmol/L (3.5-5.1) 11/20/23 21:46 Chloride 103 mmol/L (98-107) 11/20/23 21:46 Carbon Dioxide 27 mmol/L (22-29) 11/20/23 21:46 Anion Gap 12.4 (5-19) 11/20/23 21:46 BUN 16 mg/dL (8-23) 11/20/23 21:46 Creatinine 0.9 mg/dL (0.7-1.2) 11/20/23 21:46 GFR Calculation Not Reportable 11/20/23 21:46 Glucose 125 mg/dL (65-115) H 11/20/23 21:46 Calculated Osmolality 289 mOsm/kg (285-295) 11/20/23 21:46 Calcium 9.1 mg/dL (8.5-10.5) 11/20/23 21:46 Total Bilirubin 0.3 mg/dL (0.15-1.2) 11/20/23 21:46 AST 15 U/L (0-40) 11/20/23 21:46 ALT 14 U/L (0-41) 11/20/23 21:46 Alkaline Phosphatase 59 U/L (40-130) 11/20/23 21:46 Troponin T Baseline 31 ng/L (0-15) H 11/20/23 21:46 Troponin T 120 Minute 29.93 ng/L (0-15) H 11/20/23 23:12 Delta Troponin T -1.07 ABS# (0-10) L 11/20/23 23:12 Total Protein 6.1 g/dL (6.6-8.7) L 11/20/23 21:46 Albumin 4.0 g/dL (3.5-5.2) 11/20/23 21:46 Globulin 2.1 g/dL (1.3-4.6) 11/20/23 21:46 All radiology interpretation(s) finalized by discharge EKG Data EKG 1: I personally reviewed and interpreted this EKG as follows: EKG interpretation date: 11/20/23 EKG interpretation time: 21:40 Prior EKG tracings: available for review Interpretation: EKG showed ventricular rate 76 bpm, NM interval 117, QRS duration 88, QTc of 406, junctional rhythm, borderline left axis deviation, Discharge Plan Discharge Patient Disposition: Home Clinical Impression: Chest pain Condition: Stable Prescriptions: No Action metoprolol tartrate 25 mg tablet 25 mg PO QAM Qty: 90 0RF isosorbide mononitrate 30 mg tablet extended release 24 hr 30 mg PO DAILY Qty: 90 3RF lisinopril 20 mg tablet 20 mg PO QAM 90 Days Qty: 90 0RF nitroglycerin [Nitrostat] 0.4 mg Tablet, Sublingual 0.4 mg SUBLINGUAL Q5M PRN (Reason: Chest Pain) Rx Instructions: do not exceed 3 doses per episode clopidogrel 75 mg tablet 75 mg PO QAM aspirin 81 mg tablet,delayed release (DR/EC) 81 mg PO QAM pantoprazole 40 mg tablet,delayed release (DR/EC) 40 mg PO DAILY PRN (Reason: Heartburn) Discharge Orders: Discharge ED (Routine); Ordered 11/21/23 Ordered By: Doug Liz Referrals: Ligia Lorenzana FNP [Primary Care Provider] - 7-10 days Patient Instructions: Chest Pain (ED) Activity Restrictions/Additional Instructions: Your chest pain workup in ER did not reveal any acute cause of your chest pain. Is felt to be noncardiac in nature. Please follow-up with your family practice physician and/or military science instructor within the next 7 to 10 days for further evaluation and treatment as needed. If your chest pain returns or worsens please feel free to return to the ER. Coding Level of Care Code ED Family Medicine Physician Assistant for Brittany Osullivan
[2023-11-20 22:17] LABS: Basophils % 0.9 %; Eosinophils # 0.1 10^3/uL (0.0-0.8); Eosinophils % 1.4 %; Hematocrit 37.2 % (37-53); Lymphocytes # 0.8 10^3/uL (0.8-4.8); Lymphocytes % 19.3 %; Mean Corpuscular HGB Conc 34.4 g/dL (30-55); Mean Corpuscular Hemoglobin 31.6 pg (27-33); Mean Corpuscular Volume 91.9 fl (82-101); Monocytes # 0.6 10^3/uL (0.2-0.9); Neutrophils # 2.81 10^3/uL (1.8-7.7); Neutrophils % 65.2 %; Nucleated Red Blood Cells % 0 %; Platelet Count 224 10^3/cmm (157-399); Red Blood Count 4.05 10^6/uL (3.85-5.65); Red Cell Distribution Width 12.2 % (12.1-15.1); White Blood Count 4.31 10^3/uL (3.29-11.43)
[2023-11-20 22:22] LABS: Troponin(5th) Baseline 31 ng/L (0-15)
[2023-11-20 22:24] LABS: Alanine Aminotransferase 14 U/L (0-41); Alkaline Phosphatase 59 U/L (40-130); Anion Gap 12.4 (5-19); Aspartate Amino Transferase 15 U/L (0-40); Blood Urea Nitrogen 16 mg/dL (8-23); Calcium 9.1 mg/dL (8.5-10.5); Carbon Dioxide 27 mmol/L (22-29); Chloride 103 mmol/L (98-107); Globulin 2.1 g/dL (1.3-4.6); Glucose 125 mg/dL (65-115); Osmolality Calculated 289 mOsm/kg (285-295); Potassium 4.4 mmol/L (3.5-5.1); Sodium 138 mmol/L (136-145); Total Bilirubin 0.3 mg/dL (0.15-1.2); Total Protein 6.1 g/dL (6.6-8.7)
[2023-11-20 22:25] LABS: INR 1.01 (0.8-1.2)
[2023-11-20 23:54] LABS: Troponin 5 2HR 29.93 ng/L (0-15)
[2023-11-20 23:55] LABS: Troponin 5 2HR Delta -1.07 ABS# (0-10)
[2023-11-21 00:22] VITALS: BP 118/77; PULSE 78; RESP 18; TEMP 36.6; O2SAT 92
== END 2023-11-21 00:23 | disposition home or self-care (01) ==
PROVIDERS: Emergency Provider Emergency Medicine; PCP Nurse Practitioner Family
DX: R07.9 Chest pain, unspecified (principal); Z79.02 Long term (current) use of antithrombotics/antiplatelets; Z79.82 Long term (current) use of aspirin; E78.5 Hyperlipidemia, unspecified; I25.10 Atherosclerotic heart disease of native coronary artery without angina pectoris; I10 Essential (primary) hypertension
CPT/HCPCS: 71045; 80053; 84484; 85025; 85610; 93005; 99285

== ENCOUNTER 2024-05-21 00:11 | Emergency (ER) | payer MEDICARE, SELFPAY ==
--- NOTE | 2024-05-21 00:12 | XRR_ITS ---
PROCEDURE INFORMATION: Exam: XR Chest Exam date and time: 05/21/2024 12:22 AM Age: 73 years old Clinical indication: Pain; Chest pressure; Prior surgery; Surgery date: 6+ months; Surgery type: Stents; Additional info: Chest pain TECHNIQUE: Imaging protocol: Radiologic exam of the chest. Views: 1 view. COMPARISON: CR XR chest 1V portable [id number] 11/20/2023 9:46 PM FINDINGS: Lungs: Mild left basilar atelectasis versus scarring. No consolidation. Pleural spaces: Unremarkable. No pleural effusion. No pneumothorax. Heart/Mediastinum: Unremarkable. No cardiomegaly. Bones/joints: Degenerative changes of the bilateral shoulders. Chronic left clavicular fracture. XR/XR chest 1V portable [id number] IMPRESSION: Mild left basilar atelectasis versus scarring. No consolidation.
[2024-05-21 00:13] VITALS: BP 121/68; PULSE 78; RESP 18; TEMP 36.8; O2SAT 93
--- NOTE | 2024-05-21 00:15 | ECG_ITS ---
[facility] Test Date: 2024-05-21 Pat Name: Rafa Galindo Department: Room: Gender: Male Assistant Principal: : 1950 Requested By: Doug Liz Order Number: [id number] Jessica MD: Italo Brewster M.D. Measurements Intervals [place] Rate: 71 P: -88 [place]: 123 QRS: -23 QRSD: 88 T: 45 QT: 375 QTc: 409 Interpretive Statements ECTOPIC ATRIAL RHYTHM BORDERLINE LEFT AXIS DEVIATION [QRS AXIS < -20] LOW QRS VOLTAGE IN PRECORDIAL LEADS [QRS DEFLECTION < 1.0 mV IN CHEST LEADS] PATTERN CONSISTENT WITH PULMONARY DISEASE Compared to ECG 11/20/2023 21:40:23 Low QRS voltage now present Electronically Signed On 05-21-2024 10:31:50 CDT by Italo Brewster M.D. [email or web address]
--- NOTE | 2024-05-21 00:19 | W.ED.CHESTPA ---
HPI - Chest Pain General: Chief Complaint: Chest Pain Stated Complaint: CP Time Seen by Provider: 05/21/24 00:12 History of Present Illness: Patient presents to the ER with complaints of chest pain started around 5 to 6 PM tonight. Patient took 1 nitro which relieved it and then it came back not too long ago needed: EMS gave another nitro and on the way here it relieved it. Patient does have a history of coronary artery disease and a stent placement last April here, patient is on Plavix and isosorbide aspirin and metoprolol. Patient has no other complaints at this time denies nausea vomiting current chest pain, shortness of breath diaphoresis Review of Systems General: Reports: 10 or more systems reviewed and unremarkable except in HPI and below PFSH ED PFSH: Medical History Diverticulosis Dyslipidemia CAD (coronary artery disease) Hypertension Surgical History Hx of heart artery stent Stented coronary artery Hx of inguinal hernia surgery Family History Mother Hypertension Father Cancer Colon cancer Family/Other Dementia Denies family history of Diabetes CAD (coronary artery disease) Clotting disorder Chronic kidney disease (CKD) Suicide Anesthesia complication Bleeding disorder Lung disease Stroke Social History Smoking and tobacco/nicotine status: never used tobacco/nicotine Alcohol intake: never Substance/Drug Use: never Physical Exam Const: COMMON NORMALS: no acute distress, average body habitus, patient oriented x3, no limitations, healthy appearing, alert and well nourished HENMT: COMMON NORMALS: normocephalic, atraumatic, hearing grossly normal bilaterally, external ears normal, Normal external nose present and moist oral mucous membranes HEAD & SCALP: normocephalic and atraumatic NOSE: Normal external nose present EXTERNAL EAR: Yes external ears normal Neck/C-Spine: COMMON NORMALS: full ROM, no lymphadenopathy, supple, no meningeal signs, no JVD and Thyroid normal THYROID: Thyroid normal Chest: COMMONS NORMALS: normal inspection of the chest and normal palpation of entire chest wall Resp: COMMON NORMALS: normal respiratory effort, No retractions, No use of accessory muscles and clear to auscultation bilaterally AUSCULTATION: clear to auscultation bilaterally Cardio: COMMON NORMALS: no JVD, regular rate, regular rhythm, S1 normal heart sound present, S2 normal heart sound present, No gallops present (Cardio), No clicks present (Cardio), No murmurs present (Cardio) and No rub (Cardio) RATE: regular rate RHYTHM: regular rhythm HEART SOUNDS: S1 normal heart sound present and S2 normal heart sound present GI: COMMON NORMALS: Normal to inspection, nondistended, normoactive bowel sounds present, Soft to palpation, non-tender, No hepatosplenomegaly present and no masses PALPATION: Yes Soft to palpation and Yes No hepatosplenomegaly present Neuro: COMMON NORMALS: patient oriented x3 SENSORIUM/ORIENTATION: Yes alert MENINGEAL SIGNS: Yes no meningeal signs Course Vital Signs: Vital signs: Vital Signs Temperature 98.2 F 05/21/24 00:13 Pulse Rate 70 05/21/24 02:19 Respiratory Rate 19 H 05/21/24 02:19 Blood Pressure 153/96 05/21/24 02:19 Pulse Oximetry 96 05/21/24 02:19 Oxygen Delivery Me thod Room Air 05/21/24 02:19 MDM - Chest Pain Medical Decision Making Patient presented with chest pain. He underwent a normal standard chest pain workup with serial EKGs, serial lab work and chest x-ray, all of which essentially unremarkable. His initial troponin was 33 with a 2-hour 31.27 for delta of -2 proximately. These results was discussed with the patient. Patient be discharged home. Differential Diagnosis Unlikely acute massive pulmonary embolism, acute respiratory failure, acute myocardial infarction, cardiac arrest or sudden cardiac Medical Records I reviewed the patient's medical records. Lab Data I reviewed the patient's lab results. 05/21/24 00:13 05/21/24 00:13 Radiology Impressions Chest X-Ray 05/21/24 00:12 IMPRESSION: Mild left basilar atelectasis versus scarring. No consolidation. Laboratory Results WBC 5.28 10^3/uL (3.29-11.43) 05/21/24 00:13 RBC 4.17 10^6/uL (3.85-5.65) 05/21/24 00:13 Hgb 13.30 g/dL (11.27-16.99) 05/21/24 00:13 Hct 38.9 % (37-53) 05/21/24 00:13 MCV 93.3 fl (82-101) 05/21/24 00:13 MCH 31.9 pg (27-33) 05/21/24 00:13 MCHC 34.2 g/dL (30-55) 05/21/24 00:13 RDW 12.7 % (12.1-15.1) 05/21/24 00:13 Plt Count 212 10^3/cmm (157-399) 05/21/24 00:13 MPV 10.0 fL (7.4-10.4) 05/21/24 00:13 Neut % (Auto) 66.7 % 05/21/24 00:13 Lymph % (Auto) 21.0 % 05/21/24 00:13 [place] % (Auto) 9.8 % 05/21/24 00:13 Eos % (Auto) 1.3 % 05/21/24 00:13 Baso % (Auto) 0.6 % 05/21/24 00:13 Neut # (Auto) 3.52 10^3/uL (1.8-7.7) 05/21/24 00:13 Lymph # (Auto) 1.1 10^3/uL (0.8-4.8) 05/21/24 00:13 [place] # (Auto) 0.5 10^3/uL (0.2-0.9) 05/21/24 00:13 Eos # (Auto) 0.1 10^3/uL (0.0-0.8) 05/21/24 00:13 Baso # (Auto) 0.0 10^3/uL (0.0-0.1) 05/21/24 00:13 Nucleated RBC % (auto) 0 % 05/21/24 00:13 Nucleated RBCs # 0.0 /100WBC 05/21/24 00:13 Sodium 141 mmol/L (136-145) 05/21/24 00:13 Potassium 4.2 mmol/L (3.5-5.1) 05/21/24 00:13 Chloride 106 mmol/L (98-107) 05/21/24 00:13 Carbon Dioxide 23 mmol/L (22-29) 05/21/24 00:13 Anion Gap 16.2 (5-19) 05/21/24 00:13 BUN 17 mg/dL (8-23) 05/21/24 00:13 Creatinine 0.9 mg/dL (0.7-1.2) 05/21/24 00:13 GFR Calculation Not Reportable 05/21/24 00:13 Glucose 130 mg/dL (65-115) H 05/21/24 00:13 Calculated Osmolality 295 mOsm/kg (285-295) 05/21/24 00:13 Calcium 8.6 mg/dL (8.5-10.5) 05/21/24 00:13 Total Bilirubin 0.4 mg/dL (0.15-1.2) 05/21/24 00:13 AST 11 U/L (0-40) 05/21/24 00:13 ALT 12 U/L (0-41) 05/21/24 00:13 Alkaline Phosphatase 60 U/L (40-130) 05/21/24 00:13 Troponin T Baseline 33 ng/L (0-15) H 05/21/24 00:13 Troponin T 120 Minute 31.27 ng/L (0-15) H 05/21/24 02:13 Delta Troponin T -1.73 ABS# (0-10) L 05/21/24 02:13 Total Protein 6.2 g/dL (6.6-8.7) L 05/21/24 00:13 Albumin 4.1 g/dL (3.5-5.2) 05/21/24 00:13 Globulin 2.1 g/dL (1.3-4.6) 05/21/24 00:13 All radiology interpretation(s) finalized by discharge Discharge Plan Discharge Patient Disposition: Home Clinical Impression: Chest pain Qualifiers: Chest pain type: unspecified Qualified Code(s): R07.9 - Chest pain, unspecified Condition: Stable Prescriptions: No Action isosorbide mononitrate 30 mg tablet extended release 24 hr 30 mg PO DAILY Qty: 90 3RF clopidogrel 75 mg tablet See Rx Instructions .ROUTE .COMPLEX Qty: 90 0RF Dose Instruction: TAKE 1 TABLET BY MOUTH DAILY Rx Instructions: TAKE 1 TABLET BY MOUTH DAILY pantoprazole 40 mg tablet,delayed release (DR/EC) See Rx Instructions .ROUTE .COMPLEX Qty: 90 0RF Dose Instruction: TAKE 1 TABLET BY MOUTH DAILY NEEDED FOR HEARTBURN Rx Instructions: TAKE 1 TABLET BY MOUTH DAILY NEEDED FOR HEARTBURN lisinopril 20 mg tablet See Rx Instructions .ROUTE .COMPLEX Qty: 90 0RF Dose Instruction: TAKE 1 TABLET BY MOUTH EVERY MORNING Rx Instructions: TAKE 1 TABLET BY MOUTH EVERY MORNING metoprolol tartrate 25 mg tablet See Rx Instructions .ROUTE .COMPLEX Qty: 90 0RF Dose Instruction: TAKE 1 TABLET BY MOUTH EVERY MORNING Rx Instructions: TAKE 1 TABLET BY MOUTH EVERY MORNING nitroglycerin [Nitrostat] 0.4 mg Tablet, Sublingual 0.4 mg SUBLINGUAL Q5M PRN (Reason: Chest Pain) Rx Instructions: do not exceed 3 doses per episode aspirin 81 mg tablet,delayed release (DR/EC) 81 mg PO QAM Discharge Orders: Discharge ED (Routine); Ordered 05/21/24 Ordered By: Doug Liz Referrals: Ligia Lorenzana FNP [Primary Care Provider] - 1 week Patient Instructions: Chest Pain (ED) Activity Restrictions/Additional Instructions: Thank you for choosing [facility] for your healthcare needs today. Please realize that you were seen in the emergency department and that we are providing you with an emergency medical screening exam and this may not be a complete and all exclusive of all testing and/or medical workup we may need to determine your element or severity of your illness. It is very important that you follow-up as instructed with your primary care provider or specialist for the additional evaluation and to discuss your medical treatment plan. You may return to the emergency department should you have concerns or if your condition changes or worsens in any way. Coding Level of Care Code ED Sales Operations Director for Brittany Osullivan
[2024-05-21 00:24] VITALS: BP 129/83; PULSE 69; RESP 18; O2SAT 96
[2024-05-21 00:33] LABS: Basophils % 0.6 %; Eosinophils # 0.1 10^3/uL (0.0-0.8); Eosinophils % 1.3 %; Hematocrit 38.9 % (37-53); Lymphocytes # 1.1 10^3/uL (0.8-4.8); Mean Corpuscular HGB Conc 34.2 g/dL (30-55); Mean Corpuscular Hemoglobin 31.9 pg (27-33); Mean Corpuscular Volume 93.3 fl (82-101); Monocytes # 0.5 10^3/uL (0.2-0.9); Monocytes % 9.8 %; Neutrophils # 3.52 10^3/uL (1.8-7.7); Neutrophils % 66.7 %; Nucleated Red Blood Cells % 0 %; Platelet Count 212 10^3/cmm (157-399); Red Blood Count 4.17 10^6/uL (3.85-5.65); Red Cell Distribution Width 12.7 % (12.1-15.1); White Blood Count 5.28 10^3/uL (3.29-11.43)
[2024-05-21 00:43] LABS: Troponin(5th) Baseline 33 ng/L (0-15)
[2024-05-21 00:44] LABS: Alanine Aminotransferase 12 U/L (0-41); Albumin Level 4.1 g/dL (3.5-5.2); Alkaline Phosphatase 60 U/L (40-130); Anion Gap 16.2 (5-19); Aspartate Amino Transferase 11 U/L (0-40); Blood Urea Nitrogen 17 mg/dL (8-23); Calcium 8.6 mg/dL (8.5-10.5); Carbon Dioxide 23 mmol/L (22-29); Chloride 106 mmol/L (98-107); Globulin 2.1 g/dL (1.3-4.6); Glucose 130 mg/dL (65-115); Osmolality Calculated 295 mOsm/kg (285-295); Potassium 4.2 mmol/L (3.5-5.1); Sodium 141 mmol/L (136-145); Total Bilirubin 0.4 mg/dL (0.15-1.2); Total Protein 6.2 g/dL (6.6-8.7)
[2024-05-21 02:19] VITALS: BP 153/96; PULSE 70; RESP 19; O2SAT 96
[2024-05-21 02:35] LABS: Troponin 5 2HR 31.27 ng/L (0-15); Troponin 5 2HR Delta -1.73 ABS# (0-10)
--- NOTE | 2024-05-21 02:37 | ECG_ITS ---
[facility] Test Date: 2024-05-21 Pat Name: Rafa Galindo Department: Room: Gender: Male Vascular Surgery Physician: : 1950 Requested By: Doug Liz Order Number: [id number] Jessica MD: Italo Brewster M.D. Measurements Intervals [place] Rate: 67 P: 258 NH: 122 QRS: -22 QRSD: 90 T: 37 QT: 387 QTc: 410 Interpretive Statements ECTOPIC ATRIAL RHYTHM BORDERLINE LEFT AXIS DEVIATION [QRS AXIS < -20] Compared to ECG 05/21/2024 00:15:57 No significant changes Electronically Signed On 05-21-2024 10:33:59 CDT by Italo Brewster M.D. [id number]
[2024-05-21 04:06] VITALS: BP 126/88; PULSE 70; RESP 18; O2SAT 97
== END 2024-05-21 03:46 | disposition home or self-care (01) ==
PROVIDERS: Emergency Provider Emergency Medicine; PCP Nurse Practitioner Family
DX: R07.9 Chest pain, unspecified (principal); Z79.02 Long term (current) use of antithrombotics/antiplatelets; Z79.82 Long term (current) use of aspirin; E78.5 Hyperlipidemia, unspecified; I25.10 Atherosclerotic heart disease of native coronary artery without angina pectoris; I10 Essential (primary) hypertension
CPT/HCPCS: 71045; 80053; 84484; 85025; 93005; 99285

== ENCOUNTER → 2024-06-06 10:02 | Outpatient (BNVA) | payer MEDICARE, SELFPAY | PROVIDERS: PCP Nurse Practitioner Family; Visit Provider Nurse Practitioner Family | DX: I25.118 Atherosclerotic heart disease of native coronary artery with other forms of angina pectoris (principal); I10 Essential (primary) hypertension; R73.09 Other abnormal glucose | CPT/HCPCS: 80053; 80061; 83036; 85025 ==

== ENCOUNTER 2024-09-07 06:08 | Emergency (ER) | payer MEDICARE, SELFPAY ==
--- NOTE | 2024-09-07 06:09 | ECG_ITS ---
[facility] Test Date: 2024-09-07 Pat Name: Rafa Galindo Department: Room: Gender: Male Senior Clinical Research Associate: : 1950 Requested By: Yung Orourke Order Number: [id number] Jessica MD: Michael Lama M.D. Measurements Intervals [place] Rate: 70 P: -67 NH: 123 QRS: -11 QRSD: 92 T: 46 QT: 393 QTc: 425 Interpretive Statements ECTOPIC ATRIAL RHYTHM ABNORMAL RHYTHM ECG Compared to ECG 05/21/2024 02:37:52 No significant change Electronically Signed On 09-07-2024 14:02:18 SET DESIGNER by Michael Lama M.D. [email or web address]
--- NOTE | 2024-09-07 06:11 | XRR_ITS ---
PROCEDURE INFORMATION: Exam: XR Chest Exam date and time: 09/07/2024 6:27 AM Age: 74 years old Clinical indication: Chest pressure; Prior surgery; Surgery date: 6+ months; Surgery type: Coronary stent; Patient HX: C/O chest pain; Additional info: Cp TECHNIQUE: Imaging protocol: Radiologic exam of the chest. Views: 1 view. COMPARISON: CR XR chest 1V portable [id number] 05/21/2024 12:22 AM FINDINGS: Lungs: No focal infiltrate. No consolidation. Pleural spaces: No pleural effusion. No pneumothorax. Heart/Mediastinum: Stable. No cardiomegaly. Bones/joints: Stable. XR/XR chest 1V portable [id number] IMPRESSION: No acute findings.
--- NOTE | 2024-09-07 06:23 | ED_ITS ---
HPI - Chest Pain 2 General: Chief Complaint: Chest Pain Stated Complaint: chest pain Time Seen by Provider: 09/07/24 06:09 Source: patient Mode of arrival: EMS Limitations: no limitations History of Present Illness: This patient was transported the emergency departments morning by EMS from his home. He states he has been having chest pain most of the morning. He states that he does not sleep well and had chest pain somewhere around 2 AM or so which has continued and then is now improved. He is not sure what has made it better. He uses nitroglycerin which sometimes helps it but sometimes not. He has a longstanding history of recurrent chest pains. 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 He states there is no associated shortness of breath or nausea or sweating. He states that he also has rib problems and he gets episodes of pain in his anterior chest that sometimes he can push on a single spot and reproduce the pain. He denies any recent illness with cough congestion fevers etc. He has had previous stents placed approximately 18 to 20 months ago. He states he has been faithful to all his prescribed medication. He states that again there is no specific pattern to his episodes of pain sometimes dull, at rest sometimes, with activity. He denies any other complaints at this time MD complaint: chest pain Pertinent past history: coronary artery disease Associated symptoms: Deny abdominal pain, dyspnea, fever(s), nausea, palpitations, syncope or vomiting Related Data Home Medications Medication Instructions Recorded Confirmed aspirin 81 mg tablet,delayed 81 mg PO QAM 09/18/23 09/07/24 release nitroglycerin 0.4 mg sublingual 0.4 mg sublingual Q5M PRN Chest 09/18/23 09/07/24 tablet (Nitrostat) Pain lisinopril 20 mg tablet 20 mg PO QAM 09/07/24 09/07/24 metoprolol tartrate 25 mg tablet 25 mg PO QAM 09/07/24 09/07/24 pantoprazole 40 mg tablet,delayed 40 mg PO DAILY PRN Heartburn 09/07/24 09/07/24 release Previous Rx's Medication Instructions Recorded isosorbide mononitrate 30 mg 30 mg PO DAILY #90 tabs 10/17/23 tablet,extended release 24 hr clopidogrel 75 mg tablet See Rx Instructions .Route 08/26/24 .COMPLEX #90 tabs Allergies Allergy/AdvReac Type Severity Reaction Status Date / Time No Known Allergies Allergy Verified 09/07/24 06:22 Review of Systems 2 Const: Denies: fever(s) or chills ENMT: Denies: throat pain or odynophagia Card: Reports: chest pain; Denies: palpitations, syncope, pre-syncope or dyspnea on exertion Resp: Denies: dyspnea, productive cough or non-productive cough GI: Denies: abdominal pain, nausea, vomiting or diarrhea : Denies: flank pain, difficulty urinating, dysuria or urinary frequency Musc: Denies: neck pain, back pain, extremity pain or extremity swelling Skin/Breast: Denies: rash Neuro: Denies: headache(s), numbness in extremities or weakness in extremities Psych: Reports: sleeping less PFSH ED 2 PFSH: Medical History Diverticulosis Dyslipidemia CAD (coronary artery disease) Hypertension Surgical History Hx of heart artery stent Stented coronary artery Hx of inguinal hernia surgery Family History Mother Hypertension Father Cancer Colon cancer Family/Other Dementia Denies family history of Diabetes CAD (coronary artery disease) Clotting disorder Chronic kidney disease (CKD) Suicide Anesthesia complication Bleeding disorder Lung disease Stroke Social History Smoking and tobacco/nicotine status: never used tobacco/nicotine Alcohol intake: never Substance/Drug Use: never Physical Exam 2 Narrative: EXAM NARRATIVE: Patient appears to be in no acute distress makes good eye contact speech is goal-directed. Const: COMMON NORMALS: no acute distress, average body habitus, patient oriented x3, healthy appearing and alert HENMT: COMMON NORMALS: normocephalic, atraumatic, Normal nasal mucous membranes and turbinates present, moist oral mucous membranes and oropharynx normal HEAD & SCALP: normocephalic and atraumatic NOSE: Normal nasal mucous membranes and turbinates present Eye: COMMON NORMALS: Equal, round and reactive pupils present, EOMs intact bilaterally and conjunctivae normal CONJUNCTIVA: Yes conjunctivae normal P UPIL: Yes Equal, round and reactive pupils present Neck/C-Spine: COMMON NORMALS: full ROM, no lymphadenopathy, no JVD and No carotid bruits Chest: COMMONS NORMALS: normal inspection of the chest and normal palpation of entire chest wall Resp: COMMON NORMALS: normal respiratory effort, No retractions, No use of accessory muscles and clear to auscultation bilaterally AUSCULTATION: clear to auscultation bilaterally Cardio: COMMON NORMALS: no JVD, regular rate, regular rhythm, No murmurs present (Cardio) and Peripheral pulses 2+ throughout RATE: regular rate R HYTHM: regular rhythm PERIPHERAL PULSES: Peripheral pulses 2+ throughout GI: COMMON NORMALS: Normal to inspection, nondistended, normoactive bowel sounds present, Soft to palpation, non-tender and no masses PALPATION: Yes Soft to palpation : COMMON NORMALS: Yes no CVA tenderness BLADDER/KIDNEY EXAM: Yes no CVA tenderness Back/Pelvis: COMMON NORMALS: no CVA tenderness, thoracic and lumbar spine normal to inspection, no thoracic nor lumbar tenderness and thoraco-lumbar ROM normal Extremity: COMMON NORMALS: normal to inspection, full ROM, capillary refill normal, no calf tenderness and no pedal edema Neuro: COMMON NORMALS: patient oriented x3, moves all extremities, no focal motor deficits and no sensory deficits noted SENSORIUM/ORIENTATION: Yes alert CRANIAL NERVES: Yes CN normal except as noted Psych: COMMON NORMALS: mental status grossly normal Skin: COMMON NORMALS: no rashes or lesions noted, no wounds, turgor normal and no petechiae GENERAL SKIN EXAM: no rashes or lesions noted and turgor normal Course 2 Reevaluation(s): Reevaluation #1: Patient remained stable. Initial laboratories were notable for elevated troponin. Will follow and trend this marker to see if there is any evidence of continued rise. Time: 06:55 Reevaluation #2: Patient remains chest pain-free. Discussed current findings. Second troponin has had a fall from the first troponin and review of prior troponins reveal that he has a chronically mild elevation in his troponin values. Discussed treatment options to include continued observation versus discharge and he strongly prefers the latter given the lack of any ongoing symptoms and a reassuring delta troponin. We also discussed cardiology follow-up. Time: 08:45 Vital Signs: Vital signs: Vital Signs Pulse Rate 70 09/07/24 07:17 Respiratory Rate 16 11/10/24 07:17 Blood Pressure 126/74 09/07/24 07:17 Pulse Oximetry 97 09/07/24 07:17 Oxygen Delivery Me thod Room Air 09/07/24 07:17 MDM - Chest Pain Medical Decision Making This patient presented as noted in the HPI. Has known history of coronary artery disease but his history is not strongly suggestive of ACS at this time. He has historically what sounds like musculoskeletal component to his chest pain and his chest pain does not seem to have a typical angina or exertional type pattern. Initial twelve-lead EKG is reassuring. Will go ahead and obtain biomarkers, chest x-ray and other laboratories to ensure that there is no evidence of occult ischemia or other worrisome etiologies. He has low risk for thromboembolic disease and is currently taking an antiplatelet agent. Initial troponin biomarker is elevated over the URL however a repeat 2-hour troponin decreased with a negative delta. Serial EKGs did not reveal any dynamic changes and no ongoing ischemic changes. He had normal vital signs without any evidence of hypoxia tachycardia or other concerning findings. Review of his past records revealed he appears to have a chronically elevated troponin level on all ED visits noted here. A angiogram that was performed 11 months ago was negative for any significant coronary artery disease that needed intervention at that time. The patient's had a nonspecific chest pain history with no discernible pattern to his chest pain. At that the time of this emergency department visit there is not any evidence of ACS or ongoing ischemia. He has not seen cardiology for approximately 1 year and we placed a consultation in for a cardiology follow-up within the next week and also discussed his findings and return precautions with him. He voiced understanding appreciated the care. He prefers to be discharged at this time for outpatient follow-up. Medical Records I reviewed the patient's medical records. Angiogram of the October 20 revealed no significant disease in any of his coronary arteries that required intervention at that time. Lab Data I reviewed the patient's lab results. 09/07/24 06:17 09/07/24 06:17 Radiology Impressions Chest X-Ray 09/07/24 06:11 IMPRESSION: No acute findings. Laboratory Results WBC 4.40 10^3/uL (3.29-11.43) 09/07/24 06:17 RBC 4.26 10^6/uL (3.85-5.65) 09/07/24 06:17 Hgb 13.50 g/dL (11.27-16.99) 09/07/24 06:17 Hct 39.6 % (37-53) 09/07/24 06:17 MCV 93.0 fl (82-101) 09/07/24 06:17 MCH 31.7 pg (27-33) 09/07/24 06:17 MCHC 34.1 g/dL (30-55) 09/07/24 06:17 RDW 12.2 % (12.1-15.1) 09/07/24 06:17 Plt Count 216 10^3/cmm (157-399) 09/07/24 06:17 MPV 9.2 fL (7.4-10.4) 09/07/24 06:17 Neut % (Auto) 68.5 % 09/07/24 06:17 Lymph % (Auto) 18.4 % 09/07/24 06:17 [place] % (Auto) 10.9 % 09/07/24 06:17 Eos % (Auto) 1.1 % 09/07/24 06:17 Baso % (Auto) 0.9 % 09/07/24 06:17 Neut # (Auto) 3.01 10^3/uL (1.8-7.7) 09/07/24 06:17 Lymph # (Auto) 0.8 10^3/uL (0.8-4.8) 09/07/24 06:17 [place] # (Auto) 0.5 10^3/uL (0.2-0.9) 09/07/24 06:17 Eos # (Auto) 0.1 10^3/uL (0.0-0.8) 09/07/24 06:17 Baso # (Auto) 0.0 10^3/uL (0.0-0.1) 09/07/24 06:17 Nucleated RBC % (auto) 0 % 09/07/24 06:17 Nucleated RBCs # 0.0 /100WBC 09/07/24 06:17 Sodium 140 mmol/L (136-145) 09/07/24 06:17 Potassium 4.3 mmol/L (3.5-5.1) 09/07/24 06:17 Chloride 104 mmol/L (98-107) 09/07/24 06:17 Carbon Dioxide 27 mmol/L (22-29) 09/07/24 06:17 Anion Gap 13.3 (5-19) 09/07/24 06:17 BUN 11 mg/dL (8-23) 09/07/24 06:17 Creatinine 0.9 mg/dL (0.7-1.2) 09/07/24 06:17 GFR Calculation Not Reportable 09/07/24 06:17 Glucose 125 mg/dL (65-115) H 09/07/24 06:17 Calculated Osmolality 291 mOsm/kg (285-295) 09/07/24 06:17 Calcium 8.4 mg/dL (8.5-10.5) L 09/07/24 06:17 Total Bilirubin 0.4 mg/dL (0.15-1.2) 09/07/24 06:17 AST 16 U/L (0-40) 09/07/24 06:17 ALT 14 U/L (0-41) 09/07/24 06:17 Alkaline Phosphatase 60 U/L (40-130) 09/07/24 06:17 Troponin T Baseline 32 ng/L (0-15) H 09/07/24 06:17 Troponin T 120 Minute 29.56 ng/L (0-15) H 09/07/24 08:01 Delta Troponin T -2.44 ABS# (0-10) L 09/07/24 08:01 Total Protein 6.0 g/dL (6.6-8.7) L 09/07/24 06:17 Albumin 4.0 g/dL (3.5-5.2) 09/07/24 06:17 Globulin 2.0 g/dL (1.3-4.6) 09/07/24 06:17 All radiology interpretation(s) finalized by discharge EKG Data EKG 1: Interpretation: Contemporaneous review of resting EKG reveals ventricular rate of 70 bpm. No normal NC interval, QRS duration, corrected QT interval. Normal axis. No acute ST-T wave changes noted. EKG 2: I personally reviewed and interpreted this EKG as follows: Interpretation: Mild baseline artifact is present. Ventricular rate of 70 bpm with normal NC interval, QRS duration, corrected QT interval. Borderline left axis deviation. No dynamic changes compared with previous tracing this date. No acute ST-T wave changes noted. Discharge Plan Discharge Patient Disposition: Home Clinical Impression: Chest pain Qualifiers: Chest pain type: unspecified Qualified Code(s): R07.9 - Chest pain, unspecified Condition: Stable Prescriptions: No Action isosorbide mononitrate 30 mg tablet extended release 24 hr 30 mg PO DAILY Qty: 90 3RF clopidogrel 75 mg tablet See Rx Instructions .ROUTE .COMPLEX Qty: 90 0RF Dose Instruction: TAKE 1 TABLET BY MOUTH DAILY Rx Instructions: TAKE 1 TABLET BY MOUTH DAILY nitroglycerin [Nitrostat] 0.4 mg Tablet, Sublingual 0.4 mg SUBLINGUAL Q5M PRN (Reason: Chest Pain) Rx Instructions: do not exceed 3 doses per episode aspirin 81 mg tablet,delayed release (DR/EC) 81 mg PO QAM lisinopril 20 mg tablet 20 mg PO QAM Rx Instructions: TAKE 1 TABLET BY MOUTH EVERY MORNING pantoprazole 40 mg tablet,delayed release (DR/EC) 40 mg PO DAILY PRN (Reason: Heartburn) metoprolol tartrate 25 mg tablet 25 mg PO QAM Discharge Orders: Discharge ED (Routine); Ordered 09/07/24 Ordered By: Jin Morse Referrals: Ligia Lorenzana FNP [Primary Care Provider] - Discharge Diet: Usual diet Discharge Activity: Resume usual activity Patient Instructions: Opioid Safety, Pain Management Activity Restrictions/Additional Instructions: As discussed your evaluation in the emergency department today did not reveal any evidence of a heart attack or other acute condition. You should continue all your usual medications and continue your usual activity. We have placed a consultation in for case management to reschedule your cardiology follow-up and you should hear from them in the next few days. If you develop any sustained chest pain or any other concerning symptoms that lasts for more than 1 to 2 hours or not relieved by nitroglycerin return to this or the nearest emergency department. Coding Level of Care Code ED Closet Organizer for Brittany Osullivan
[2024-09-07 06:25] LABS: Basophils % 0.9 %; Eosinophils # 0.1 10^3/uL (0.0-0.8); Eosinophils % 1.1 %; Hematocrit 39.6 % (37-53); Lymphocytes # 0.8 10^3/uL (0.8-4.8); Lymphocytes % 18.4 %; Mean Corpuscular HGB Conc 34.1 g/dL (30-55); Mean Corpuscular Hemoglobin 31.7 pg (27-33); Mean Platelet Volume 9.2 fL (7.4-10.4); Monocytes # 0.5 10^3/uL (0.2-0.9); Monocytes % 10.9 %; Neutrophils # 3.01 10^3/uL (1.8-7.7); Neutrophils % 68.5 %; Nucleated Red Blood Cells % 0 %; Platelet Count 216 10^3/cmm (157-399); Red Blood Count 4.26 10^6/uL (3.85-5.65); Red Cell Distribution Width 12.2 % (12.1-15.1)
[2024-09-07 06:44] LABS: Troponin(5th) Baseline 32 ng/L (0-15)
[2024-09-07 06:47] LABS: Alanine Aminotransferase 14 U/L (0-41); Alkaline Phosphatase 60 U/L (40-130); Anion Gap 13.3 (5-19); Aspartate Amino Transferase 16 U/L (0-40); Blood Urea Nitrogen 11 mg/dL (8-23); Calcium 8.4 mg/dL (8.5-10.5); Carbon Dioxide 27 mmol/L (22-29); Chloride 104 mmol/L (98-107); Glucose 125 mg/dL (65-115); Osmolality Calculated 291 mOsm/kg (285-295); Potassium 4.3 mmol/L (3.5-5.1); Sodium 140 mmol/L (136-145); Total Bilirubin 0.4 mg/dL (0.15-1.2)
[2024-09-07 07:17] VITALS: BP 126/74; PULSE 70; RESP 16; O2SAT 97
--- NOTE | 2024-09-07 07:18 | PC.NURSE ---
THIS NURSE TOOK OVER CARE @ 0700. PATIENT STABLE, RESTING IN BED, VITALS SIGNS WNL, BREATHING EVEN AND UNLABORED.
--- NOTE | 2024-09-07 08:11 | ECG_ITS ---
[facility] [employer] Test Date: 2024-09-07 Pat Name: Rafa Galindo Department: Room: Gender: Male Communications Technologist: : 1950 Requested By: Jin Morse Order Number: [id number] Jessica MD: Michael Lama M.D. Measurements Intervals [place] Rate: 70 P: 268 [place]: 122 QRS: -28 QRSD: 90 T: 41 QT: 407 QTc: 439 Interpretive Statements JUNCTIONAL RHYTHM BORDERLINE LEFT AXIS DEVIATION [QRS AXIS < -20] ABNORMAL RHYTHM ECG Compared to ECG 09/07/2024 06:11:31 No significant changes Electronically Signed On 09-07-2024 14:15:19 RECORDIST by Michael Lama M.D. [id number]
[2024-09-07 08:33] LABS: Troponin 5 2HR 29.56 ng/L (0-15)
[2024-09-07 08:36] LABS: Troponin 5 2HR Delta -2.44 ABS# (0-10)
[2024-09-07 09:18] VITALS: BP 135/88; PULSE 70; RESP 16; O2SAT 97
--- NOTE | 2024-09-08 07:36 | DCPLANNER ---
messaged heart care for er f/u
== END 2024-09-07 09:23 | disposition home or self-care (01) ==
PROVIDERS: Emergency Provider Emergency Medicine; PCP Nurse Practitioner Family
DX: R07.9 Chest pain, unspecified (principal); I25.10 Atherosclerotic heart disease of native coronary artery without angina pectoris; I10 Essential (primary) hypertension; Z79.02 Long term (current) use of antithrombotics/antiplatelets; Z79.82 Long term (current) use of aspirin
CPT/HCPCS: 71045; 80053; 84484; 85025; 93005; 99285

== ENCOUNTER 2024-09-09 20:41 | Observation (INO) | payer MEDICARE, SELFPAY ==
[2024-09-09] VITALS (9 sets, daily range): BP systolic 116–138; BP diastolic 75–86; PULSE 71–76; RESP 16–19; TEMP 37.2; O2SAT 92–96; BMI 27.8
--- NOTE | 2024-09-09 20:47 | ECG_ITS ---
[employer] Test Date: 2024-09-09 Pat Name: Rafa Galindo Department: Room: 104 Gender: Male Collision Technician: : 1950 Requested By: Whitney Louie Order Number: [id number] Jessica MD: Madelin Bacon M.D. Measurements Intervals [place] Rate: 73 P: -85 [place]: 121 QRS: -23 QRSD: 88 T: 43 QT: 384 QTc: 425 Interpretive Statements possible ectopic atrial rhythm BORDERLINE LEFT AXIS DEVIATION [QRS AXIS < -20] ABNORMAL RHYTHM ECG Compared to ECG 09/07/2024 09:03:53 No significant changes Electronically Signed On 09-11-2024 21:45:27 PETROLOGIST by Madelin Bacon M.D. [id number]
--- NOTE | 2024-09-09 20:50 | ED_ITS ---
HPI - Chest Pain 2 General: Chief Complaint: Chest Pain Stated Complaint: CHEST PAIN Time Seen by Provider: 09/09/24 20:49 History of Present Illness: 74-year-old man with a history of hypert ension and coronary artery disease status post stent about a year ago. He presents the emergency room by ambulance with chest pain. He associates the pain with increased blood pressure. He says there is no relation to exertion really. 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 Then his took him to the ambulance station. There his blood pressure was elevated for him about 170/90. He had taken some of his nitro but he thinks they might be old. EMS nitro helped. He says he had followed up with cardiology after stent a couple times and then he was lost to follow-up he said they never called him back when they canceled an appointment on him earlier. He was here about a week ago with similar symptoms. He does now have follow-up with cardiology says. Related Data Home Medications Medication Instructions Recorded Confirmed aspirin 81 mg tablet,delayed 81 mg PO QAM 09/18/23 09/07/24 release lisinopril 20 mg tablet 20 mg PO QAM 09/07/24 09/07/24 metoprolol tartrate 25 mg tablet 25 mg PO QAM 09/07/24 09/07/24 pantoprazole 40 mg tablet,delayed 40 mg PO DAILY PRN Heartburn 09/07/24 09/07/24 release Previous Rx's Medication Instructions Recorded isosorbide mononitrate 30 mg 30 mg PO DAILY #90 tabs 10/17/23 tablet,extended release 24 hr clopidogrel 75 mg tablet See Rx Instructions .Route 08/26/24 .COMPLEX #90 tabs nitroglycerin 0.4 mg sublingual 0.4 mg sublingual Q5M PRN Chest 09/07/24 tablet (Nitrostat) Pain #30 tabs Allergies Allergy/AdvReac Type Severity Reaction Status Date / Time No Known Allergies Allergy Verified 09/09/24 20:53 Review of Systems 2 Narrative: Constitutional symptoms: Negative except as documented in HPI. Skin symptoms: Negative except as documented in HPI. Eye symptoms: Negative except as documented in HPI. ENMT symptoms: Negative except as documented in HPI. Respiratory symptoms: Negative except as documented in HPI. Cardiovascular symptoms: Negative except as documented in HPI. Gastrointestinal symptoms: Negative except as documented in HPI. Genitourinary symptoms: Negative except as documented in HPI. Musculoskeletal symptoms: Negative except as documented in HPI. Neurologic symptoms: Negative except as documented in HPI. Psychiatric symptoms: Negative except as documented in HPI. Endocrine symptoms: Negative except as documented in HPI. PFSH ED 2 PFSH: Medical History Diverticulosis Dyslipidemia CAD (coronary artery disease) Hypertension Surgical History Hx of heart artery stent Stented coronary artery Hx of inguinal hernia surgery Family History Mother Hypertension Father Cancer Colon cancer Family/Other Dementia Denies family history of Diabetes CAD (coronary artery disease) Clotting disorder Chronic kidney disease (CKD) Suicide Anesthesia complication Bleeding disorder Lung disease Stroke Social History Smoking and tobacco/nicotine status: never used tobacco/nicotine Alcohol intake: never Substance/Drug Use: never Physical Exam 2 Narrative: EXAM NARRATIVE: General: Alert, no acute distress. Skin: Warm, dry. Head: Normocephalic, atraumatic. Neck: Supple, trachea midline. Eye: Extraocular movements are intact. Ears, nose, mouth and throat: mucosa moist. Cardiovascular: Regular, Normal peripheral perfusion. Respiratory: Lungs are clear to auscultation, respirations are non-labored, breath sounds are equal, Symmetrical chest wall expansion. Gastrointestinal: Soft, Nontender, Non distended Musculoskeletal: Normal ROM, no deformity. Neurological: Alert and oriented, No focal neurological deficit observed. Psychiatric: Cooperative, appropriate mood & affect. Course 2 Vital Signs: Vital signs: Vital Signs Temperature 99 F 09/09/24 20:46 Pulse Rate 73 09/09/24 20:46 Respiratory Rate 18 09/09/24 20:46 Blood Pressure 127/78 09/09/24 20:46 Pulse Oximetry 93 09/09/24 20:46 Oxygen Delivery Me thod Room Air 09/09/24 20:46 MDM - Chest Pain Medical Decision Making Differential diagnosis for patient with chest pain includes but is not limited to and based on the above HPI, review of systems and physical exam: Pneumonia. unstable angina. angina. Acute coronary syndrome / RI. Pulmonary embolism. Costochondritis / musculoskeletal. Pleurisy. Pericarditis. Esophageal spasm. Pancreatis. Cholecystitis. Orders placed to evaluate differential diagnosis based on the above differential, HPI and physical exam EKG: Time 2046. Rate 73. Normal sinus rhythm, No ST-T changes, no ectopy, normal NC & QRS intervals, This was reviewed and interpreted by myself the ER physician at 2049. Chest x-ray: No acute process. No infiltrate. No pneumothorax. Films were interpreted by myself the emergency room provider and pending final radiology review. Lab Review: Laboratory results were reviewed and interpreted by myself the emergency room physician. No leukocytosis. White count is 5. Hemoglobin is 12.8. BUN and creatinine are 19 and 1. Initial troponin was slightly elevated at 30. It has been this way in the past. I reviewed the patient's medical record. Reexamination: Patient remained stable. No increased work of breathing. No altered mental status. No focal motor deficits. Patient is currently chest pain-free Consultation: I spoke with Dr. Nowak who is on-call for the hospitalist service who agrees to admit observation. Assessment and plan: Coronary artery disease Unstable angina -I discussed the patient with the hospitalist on-call who is admitting the patient. - Discussed findings and plan with patient. Answered any questions. - All laboratory values were reviewed and interpreted personally by myself, the ER physician - All imaging was reviewed and interpreted personally by myself, the ER physician. - Evaluation and treatment of this problem were appropriate in the emergency setting Lab Data 09/09/24 20:56 09/09/24 20:56 Laboratory Results WBC 4.92 10^3/uL (3.29-11.43) 09/09/24 20:56 RBC 4.16 10^6/uL (3.85-5.65) 09/09/24 20:56 Hgb 12.80 g/dL (11.27-16.99) 09/09/24 20:56 Hct 38.3 % (37-53) 09/09/24 20:56 MCV 92.1 fl (82-101) 09/09/24 20:56 MCH 30.8 pg (27-33) 09/09/24 20:56 MCHC 33.4 g/dL (30-55) 09/09/24 20:56 RDW 12.0 % (12.1-15.1) L 09/09/24 20:56 Plt Count 211 10^3/cmm (157-399) 09/09/24 20:56 MPV 9.1 fL (7.4-10.4) 09/09/24 20:56 Neut % (Auto) 64.1 % 09/09/24 20:56 Lymph % (Auto) 21.5 % 09/09/24 20:56 [place] % (Auto) 11.4 % 09/09/24 20:56 Eos % (Auto) 1.6 % 09/09/24 20:56 Baso % (Auto) 1.0 % 09/09/24 20:56 Neut # (Auto) 3.15 10^3/uL (1.8-7.7) 09/09/24 20:56 Lymph # (Auto) 1.1 10^3/uL (0.8-4.8) 09/09/24 20:56 [place] # (Auto) 0.6 10^3/uL (0.2-0.9) 09/09/24 20:56 Eos # (Auto) 0.1 10^3/uL (0.0-0.8) 09/09/24 20:56 Baso # (Auto) 0.1 10^3/uL (0.0-0.1) 09/09/24 20:56 Nucleated RBC % (auto) 0 % 09/09/24 20:56 Nucleated RBCs # 0.0 /100WBC 09/09/24 20:56 Sodium 139 mmol/L (136-145) 09/09/24 20:56 Potassium 4.1 mmol/L (3.5-5.1) 09/09/24 20:56 Chloride 105 mmol/L (98-107) 09/09/24 20:56 Carbon Dioxide 25 mmol/L (22-29) 09/09/24 20:56 Anion Gap 13.1 (5-19) 09/09/24 20:56 BUN 19 mg/dL (8-23) 09/09/24 20:56 Creatinine 1.0 mg/dL (0.7-1.2) 09/09/24 20:56 GFR Calculation Not Reportable 09/09/24 20:56 Glucose 110 mg/dL (65-115) 09/09/24 20:56 Calculated Osmolality 291 mOsm/kg (285-295) 09/09/24 20:56 Calcium 8.4 mg/dL (8.5-10.5) L 09/09/24 20:56 Total Bilirubin 0.3 mg/dL (0.15-1.2) 09/09/24 20:56 AST 15 U/L (0-40) 09/09/24 20:56 ALT 14 U/L (0-41) 09/09/24 20:56 Alkaline Phosphatase 58 U/L (40-130) 09/09/24 20:56 Troponin T Baseline 29 ng/L (0-15) H 09/09/24 20:56 Total Protein 6.0 g/dL (6.6-8.7) L 09/09/24 20:56 Albumin 4.1 g/dL (3.5-5.2) 09/09/24 20:56 Globulin 1.9 g/dL (1.3-4.6) 09/09/24 20:56 XR interpretation done by ED provider, pending radiology final review Discharge Plan Discharge Patient Disposition: Placed in Observation Clinical Impression: Unstable angina pectoris CAD (coronary artery disease) Qualifiers: Coronary Disease-Associated Artery/Lesion type: [place] artery [place] vs. transplanted heart: [place] heart Associated angina: with other forms of angina Q ualified Code(s): I25.118 - Atherosclerotic heart disease of [place] coronary artery with other forms of angina pectoris Coding Level of Care Code ED Record Center Specialist for Brittany Osullivan
--- NOTE | 2024-09-09 20:50 | XRR_ITS ---
PROCEDURE INFORMATION: Exam: XR Chest Exam date and time: 09/09/2024 8:59 PM Age: 74 years old Clinical indication: Pain; Chest pressure; Additional info: Chest pain TECHNIQUE: Imaging protocol: Radiologic exam of the chest. Views: 1 view. COMPARISON: CR (CHEST, ) 09/07/2024 6:27 AM FINDINGS: Lungs: Emphysematous changes. Pleural spaces: Unremarkable. No pleural effusion. No pneumothorax. Heart/Mediastinum: Unremarkable. No cardiomegaly. Bones/joints: Unremarkable. XR/XR chest 1V portable [id number] IMPRESSION: 1. Negative for infiltrate 2. Emphysematous changes.
[2024-09-09 20:59] LABS: Basophils # 0.1 10^3/uL (0.0-0.1); Eosinophils # 0.1 10^3/uL (0.0-0.8); Eosinophils % 1.6 %; Hematocrit 38.3 % (37-53); Lymphocytes # 1.1 10^3/uL (0.8-4.8); Lymphocytes % 21.5 %; Mean Corpuscular HGB Conc 33.4 g/dL (30-55); Mean Corpuscular Hemoglobin 30.8 pg (27-33); Mean Corpuscular Volume 92.1 fl (82-101); Mean Platelet Volume 9.1 fL (7.4-10.4); Monocytes # 0.6 10^3/uL (0.2-0.9); Monocytes % 11.4 %; Neutrophils # 3.15 10^3/uL (1.8-7.7); Neutrophils % 64.1 %; Nucleated Red Blood Cells % 0 %; Platelet Count 211 10^3/cmm (157-399); Red Blood Count 4.16 10^6/uL (3.85-5.65); White Blood Count 4.92 10^3/uL (3.29-11.43)
[2024-09-09 21:16] LABS: Alanine Aminotransferase 14 U/L (0-41); Albumin Level 4.1 g/dL (3.5-5.2); Alkaline Phosphatase 58 U/L (40-130); Anion Gap 13.1 (5-19); Aspartate Amino Transferase 15 U/L (0-40); Blood Urea Nitrogen 19 mg/dL (8-23); Calcium 8.4 mg/dL (8.5-10.5); Carbon Dioxide 25 mmol/L (22-29); Chloride 105 mmol/L (98-107); Creatinine Clr Calc Pharmacy 65.9593; Globulin 1.9 g/dL (1.3-4.6); Glucose 110 mg/dL (65-115); Osmolality Calculated 291 mOsm/kg (285-295); Potassium 4.1 mmol/L (3.5-5.1); Sodium 139 mmol/L (136-145); Total Bilirubin 0.3 mg/dL (0.15-1.2)
[2024-09-09 21:17] LABS: Troponin(5th) Baseline 29 ng/L (0-15)
--- NOTE | 2024-09-09 22:13 | P.HP_ITS ---
Providers/Chief Complaint 2 Admitting Physician: Jose Carlos Nowak MD Primary Care Provider: JUAN CARLOS Arroyo Chief Complaint: CHEST PAIN History of Present Illness Rafa Galindo is a 74 year old male with established history of coronary disease, 1 stent, hypertension, presented today with chief complaint of chest pain. 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 His troponins are not significantly high EKG not showing any acute infarctive changes. Patient is complaining of chest pain 02/05 at the time of my evaluation. Patient is stating that at age 20 he had first coronary angiogram when he was having chest pain, patient is stating that he was thrown on the floor by cow when he was young he thinks his symptoms were related to costochondritis he was given steroid injection in the past patient is stating that he puts WD-40 oil which makes him feel better, patient is stating that every time his diastolic pressure is above 80 he will start feeling chest pain. He is denying orthopnea, PND, shortness of breath, vomiting but endorsing radiation of pain towards his back occasionally. Review of Systems 2 Const: Denies: fever(s) Eyes: Denies: change in vision ENMT: Denies: throat pain Card: Reports: chest pain Resp: Denies: dyspnea GI: Denies: abdominal pain Medications/Allergies Home Medications Medication Instructions Recorded Confirmed Last Taken Type aspirin 81 mg tablet,delayed 81 mg PO QAM 09/18/23 09/07/24 09/06/24 History release isosorbide mononitrate 30 mg 30 mg PO DAILY #90 tabs 10/17/23 09/07/24 09/06/24 Rx tablet,extended release 24 hr clopidogrel 75 mg tablet See Rx Instructions .Route 08/26/24 09/07/24 09/06/24 Rx .COMPLEX #90 tabs lisinopril 20 mg tablet 20 mg PO QAM 09/07/24 09/07/24 09/06/24 History metoprolol tartrate 25 mg tablet 25 mg PO QAM 09/07/24 09/07/24 09/06/24 History nitroglycerin 0.4 mg sublingual 0.4 mg sublingual Q5M PRN Chest 09/07/24 09/07/24 10/11/23 04:30 Rx tablet (Nitrostat) Pain #30 tabs pantoprazole 40 mg tablet,delayed 40 mg PO DAILY PRN Heartburn 09/07/24 09/07/24 Unknown History release Allergies Allergy/AdvReac Type Severity Reaction Status Date / Time No Known Allergies Allergy Verified 09/09/24 20:53 PFSH Acute 2 PFSH: Medical History (Updated 09/09/24 @ 22:17 by Jose Carlos Nowak MD) Positive cardiac stress test Acute non-ST elevation myocardial infarction (NSTEMI) Diverticulosis Dyslipidemia CAD (coronary artery disease) Hypertension Surgical History Hx of heart artery stent Stented coronary artery Hx of inguinal hernia surgery Family History Mother Hypertension Father Cancer Colon cancer Family/Other Dementia Denies family history of Diabetes CAD (coronary artery disease) Clotting disorder Chronic kidney disease (CKD) Suicide Anesthesia complication Bleeding disorder Lung disease Stroke Social History Smoking and tobacco/nicotine status: never used tobacco/nicotine Alcohol intake: never Substance/Drug Use: never Vitals/I&O/Wt Last Vital Signs Temp 99 F 09/09/24 20:46 Pulse 76 09/09/24 21:38 Resp 18 09/09/24 21:38 BP 136/77 09/09/24 21:38 Pulse Ox 96 09/09/24 21:38 O2 Del Method Room Air 09/09/24 20:53 Weight last 48 hrs Weight 80.739 kg Physical Exam 2 Narrative: Awake and alert Euvolemic GCS 15 S1, S2 Hemodynamically stable Blood pressure 136/86 mmHg Complaining of chest pain/10 Nonfocal neuroexam S1, S2 Euvolemic Pleasant and cooperative GCS 15 Data 09/09/24 20:56 09/09/24 20:56 A&P Assessment and plan (1) Hypertension: Qualifiers: Hypertension type: primary hypertension Qualified Code(s): I10 - Essential (primary) hypertension (2) CAD (coronary artery disease): Qualifiers: Coronary Disease-Associated Artery/Lesion type: [place] artery [place] vs. transplanted heart: [place] heart Associated angina: with other forms of angina Qualified Code(s): I25.118 - Atherosclerotic heart disease of [place] coronary artery with other forms of angina pectoris (3) Dyslipidemia: Plan Unstable angina History of salvage coronary disease with underlying risk factor of hypertension and diabetes Complaining of active chest pain Dr. Elizabeth consulted Patient will be kept n.p.o. Continue antianginals including antiplatelet therapy Diastolic blood pressures above 80, systolic blood pressures around 136 mmHg. Will resume his lisinopril along metoprolol and Imdur Full code N.p.o. after midnight DVT prophylaxis: Lovenox, check D-dimer Patient physically active Does not smoke or drink alcohol Attestations 2 Medical Necessity Statement*: Anticipating discharge within 48 hours Diagnoses Primary hypertension I10 Hypertension type: primary hypertension Coronary artery disease involving [place] coronary artery of [place] heart with other form of angina pectoris I25.118 Coronary Disease-Associated Artery/Lesion type: [place] artery [place] vs. transplanted heart: [place] heart Associated angina: with other forms of angina Dyslipidemia E78.5
[2024-09-09] MEDS: nitroglycerin 1 gm/inch oint Pkt 0.5 INCH TOPICAL (22:17)
--- NOTE | 2024-09-09 22:35 | USCV_ITS ---
Rafa Galindo Age: 74 Gender: M : 1950 Exam Date: 09/09/2024 22:46 Ordering Phys: Jose Carlos Nowak MD Technologist: PADILLA [place] [facility] [place]: unstable angina, history of HTN, CAD s/p cardiac stenting 2022. BP: 123 / 75 HR: 71 Rhythm: Sinus Technical Quality: Adequate MEASUREMENTS (Male / Female) Normal Values 2D ECHO LV Diastolic Diameter PLAX 3.5 cm 4.2 - 5.9 / 3.9 - 5.3 cm IVS Diastolic Thickness 1.6 cm 0.6 - 1.0 / 0.6 - 0.9 cm IVS Systolic Thickness 1.7 cm LVPW Diastolic Thickness 1.5 cm 0.6 - 1.0 / 0.6 - 0.9 cm LVPW Systolic Thickness 2.1 cm LVOT Diameter 1.9 cm LV Ejection Fraction 2D Teich 69.8 % LV Ejection Fraction MOD 4C 50.4 % LV Ejection Fraction MOD 2C 57.6 % LV Ejection Fraction 2C AL 60.2 % LA Diameter 3.3 cm Aorta at Sinotubular Diameter 3.1 cm IVC Diameter 2.2 cm M-MODE LA Ao Ratio MM 1.3 AV Cusp Separation MM 2.2 cm DOPPLER AV Peak Velocity 108.0 cm/s LVOT Peak Velocity 71.0 cm/s AV Area Cont Eq vti 2.8 cm squared AV Area Cont Eq pk 1.8 cm squared MV Peak Velocity 96.0 cm/s MV Area PHT 2.7 cm squared Mitral E to A Ratio 0.9 TV Peak Velocity 249.0 cm/s TR Peak Velocity 262.0 cm/s TR Peak Gradient 27.5 mmHg TV Peak E Velocity 52.0 cm/s Right Atrial Pressure 3.0 mmHg Pulmonary Artery Systolic Pressu 30.5 mmHg PV Peak Velocity 124.0 cm/s FINDINGS Left Ventricle Normal left ventricular size, systolic function and wall thickness, with no regional wall motion abnormalities. Left ventricular ejection fraction is estimated at 60 %. Grade I/IV diastolic dysfunction (abnormal relaxation filling pattern), normal to mildly elevated filling pressures. Right Ventricle The right ventricle is normal in size and function. Right Atrium The right atrium is normal in size. Left Atrium The left atrium is normal in size. Mitral Valve Thickened mitral valve. Mitral annular calcification. No mitral valve stenosis. Trace mitral valve regurgitation. Aortic Valve Structurally normal aortic valve without significant sclerosis or stenosis. There is no aortic regurgitation. Tricuspid Valve Mild tricuspid valve regurgitation. Pulmonic Valve Structurally normal pulmonic valve without significant stenosis. There is no pulmonic regurgitation. Pericardium Normal pericardium without effusion. Aorta Normal ascending aorta dimension. IVC The inferior vena cava appears normal. CONCLUSIONS CONCLUSIONS: 1. Normal left ventricular size, systolic function and wall thickness, with no regional wall motion abnormalities. Left ventricular ejection fraction is estimated at 60%. Normal left ventricular wall thickness. Grade I/IV diastolic dysfunction (abnormal relaxation filling pattern), normal to mildly elevated filling pressures. 2. No significant chamber abnormalities. 3. Mild tricuspid valve regurgitation. 4. There is no pericardial effusion. 5. There are no intracardiac masses. 6. Pulmonary artery systolic pressure is within normal limits. 7. Right atrial pressure is around [5] mm of mercury. 8. There are no prior echocardiogram studies to compare. Jose Carlos Elizabeth MD (Electronically Signed) Final Date: 11 September 2024 11:49 S
[2024-09-09 22:42] LABS: D Dimer 0.67 ug/mLFEU (0-0.59)
[2024-09-09 23:28] LABS: Estmated Average Glucose 117; Hemoglobin A1C 5.7 % (4.0-6.0)
--- NOTE | 2024-09-09 23:33 | ECG_ITS ---
[facility] Date: 2024-09-09 Pat Name: Rafa Galindo Department: Room: 104 Gender: Male Primary Mill Roller: : 1950 Requested By: Whitney Louie Order Number: [id number] A Lopez MD: Madelin Bacon M.D. Measurements Intervals [place] Rate: 68 P: 268 [place]: 123 QRS: -19 QRSD: 92 T: 48 QT: 396 QTc: 422 Interpretive Statements JUNCTIONAL RHYTHM ABNORMAL RHYTHM ECG Compared to ECG 09/09/2024 20:47:08 No significant changes Electronically Signed On 09-15-2024 21:16:00 COW RIDER by Madelin Bacon M.D. [id number]
[2024-09-10] VITALS (9 sets, daily range): BP systolic 105–134; BP diastolic 67–78; PULSE 65–82; RESP 14–24; TEMP 36.6–36.7; O2SAT 92–97
[2024-09-10 00:18] LABS: Vitamin B12 334 pg/mL (232-1245)
[2024-09-10] MEDS: enoxaparin 40 mg/0.4 mL Syringe SUBCUT ×2 (00:18→22:01)
[2024-09-10] MEDS: lisinopril 10 mg Tablet PO ×2 (00:19→08:39)
[2024-09-10 03:32] LABS: Blood Urea Nitrogen 16 mg/dL (8-23); Calcium 8.7 mg/dL (8.5-10.5); Carbon Dioxide 26 mmol/L (22-29); Chloride 105 mmol/L (98-107); Creatinine Clr Calc Pharmacy 64.8949; Glucose 116 mg/dL (65-115); Magnesium 2.2 mg/dL (1.7-2.3); Osmolality Calculated 290 mOsm/kg (285-295); Sodium 139 mmol/L (136-145)
[2024-09-10 03:35] LABS: Troponin 5 6HR 27.42 ng/L (0-15)
--- NOTE | 2024-09-10 03:39 | ECG_ITS ---
[facility] Date: 2024-09-10 Pat Name: Rfaa Galindo Department: Room: 104 Gender: Male Tobacco Stripper Hand: : 1950 Requested By: Whitney Louie Order Number: [id number] A Lopez MD: Madelin Bacon M.D. Measurements Intervals [place] Rate: 67 P: 264 [place]: 126 QRS: -12 QRSD: 94 T: 57 QT: 382 QTc: 404 Interpretive Statements JUNCTIONAL RHYTHM ABNORMAL RHYTHM ECG Compared to ECG 09/09/2024 23:33:47 No significant changes Electronically Signed On 09-15-2024 21:15:55 POLICE SERGEANT by Madelin Bacon M.D. [id number]
[2024-09-10 03:42] LABS: Troponin 5 6HR Delta -1.58 ng/L (0-12)
[2024-09-10] MEDS: pantoprazole 40 mg SDV IVP ×2 (08:38→18:11)
[2024-09-10] MEDS: atorvastatin 40 mg Tablet 20 MG PO (08:39)
[2024-09-10] MEDS: aspirin 81 mg EC Tablet PO (08:39)
[2024-09-10] MEDS: clopidogrel 75 mg Tablet PO (08:39)
[2024-09-10] MEDS: isosorbide mononitrate ER 30 mg Tablet PO (08:39)
[2024-09-10] MEDS: metoprolol tartrate 25 mg Tablet PO (08:39)
--- NOTE | 2024-09-10 10:08 | PC.CHAP ---
Pastoral Care Encounter/Spiritual Assessment Type of Contact [] Declined collection coordinator visit [] Patient/Family/Request visit [] Outpatient visit [] Follow-up visit [] Physician referral [] Code/Alert [x] Routine visit [] Staff referral [] Actively dying [] Patient sleeping [] Family support [] [] Out of room [] Palliative care [] [] Receiving care in room [] Pre-surgical visit [] Trauma [] Long length of stay [] ICU visit [] Other: Relational/Emotional Strength [x] Patient feels connected with others/family/visitors/staff [] Distress [] Loneliness/isolation [] Abandonment Spirituality of Patient [x] Person of Freya [] Attends Confucianism of their Freya [x] Believes in Prayer [] Reads Bible or Muslim materials [] There are Spiritual issues to be addressed Spray Foam Installer Interventions [x] Prayer [x] Active listening [] Non-anxious presence [x] Spiritual/emotional support [] Crisis/trauma care [] Spiritual counseling [] Bereavement support [] Provided bereavement packet [] Provided Bible/devotional materials [] Provided toy/stuffed animal, coloring book to patient or family member [] Provided Communion [] Anointing/[place] [] Salvation [x] Completed spiritual assessment [] Other: Impact on Illness or Injury [] Angry [] Fearful [] Anxious [] Often cries [] Exhaustion [] Unable to work [] Unable to attend advent [] Unable to walk/stand [] Unable to read [] Unable to drive [] Unable to eat/drink [] Unable to sleep [] Unable to be with family [] Patient intubated [] Other: Summary Time spent with patient 5 min
--- NOTE | 2024-09-10 11:02 | ECG_ITS ---
[facility] Test Date: 2024-09-11 Pat Name: Rafa Galindo Department: Room: 104 Gender: Male Greens Planter: : 1950 Requested By: Coco Mello Order Number: [id number] Jessica RONDON: Interpretive Statements Lung unchanged pre/post procedure; Intraprocedure shortess of breath; Symptoms resoled by discharge [email or web address]
--- NOTE | 2024-09-10 13:44 | P.CONIM_ITS ---
Documented by User: Coco Mello NP 09/10/24 14:01 Providers/Reason For Consult 2 Consulting Physician/Specialty*: Jose Carlos Elizabeth MD Reason for Consult*: Chest pain Requesting Physician: Dr. Mateusz MD Attending Physician: Abdiaziz Child MD Primary Care Provider: JUAN CARLOS Arroyo History of Present Illness History of Present Illness Rafa Galindo is a very pleasant 74 year old male who presented yesterday to the ED with chief complaint of chest pain. He states that when his blood pressure on the diastolic and he gets above 80 he starts to have this chest pain. He states is at the center of his chest. It does not radiate. He states that sometimes nitro will relieve the pain. 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 This particular pain most the time comes on during the nighttime per patient. He denies any chest pain at this time. He states that this is more of a pressure than pain. He states this has been going on for at least a year or even after his stent to the LAD that he had in April of last year. He has had a heart cath since then that showed patent stent in the LAD and approximately a 20% stenosed RCA. His history included stenting to the LAD, dyslipidemia, CAD, chest pain, and GERD. Currently, he is on dual antiplatelet therapy. BP is well controlled. EKG showed junctional rhythm. Review of Systems 2 Narrative: Consitutional: denies fever, chills, body aches, or changes in appetite, denies abnormal weight loss Card: reports chest pressure for 1 year when blood pressure goes up, palpitations, irregular heart rhythm, edema, syncope, shortness of breath, orthopnea, leg pain with exertion Resp: Denies shortness of breath, denies hemoptysis, denies cough GI: denies abdominal pain, denies nausea or voimting, denies blood in stool : denies blood in urine, denies dysuria Musc: Denies extremity pain, denies limited range of motion or recent injury Skin: Denies rash, lesions, or wounds, denies changes to skin color Neuro: Denies nubmness in extremities, h/a, s/s of stroke Rashel: Denies easy bruiding/bleeding All: Denies s/s of allergies Medications/Allergies Home Medications Medication Instructions Recorded Confirmed Last Taken Type aspirin 81 mg tablet,delayed 81 mg PO QAM 09/18/23 09/09/24 09/09/24 History release isosorbide mononitrate 30 mg 30 mg PO DAILY #90 tabs 10/17/23 09/09/24 09/09/24 Rx tablet,extended release 24 hr clopidogrel 75 mg tablet See Rx Instructions .Route 08/26/24 09/09/24 09/09/24 Rx .COMPLEX #90 tabs lisinopril 20 mg tablet 20 mg PO QAM 09/07/24 09/09/24 09/09/24 History metoprolol tartrate 25 mg tablet 25 mg PO QAM 09/07/24 09/09/24 09/09/24 History nitroglycerin 0.4 mg sublingual 0.4 mg sublingual Q5M PRN Chest 09/07/24 09/09/24 09/09/24 Rx tablet (Nitrostat) Pain #30 tabs pantoprazole 40 mg tablet,delayed 40 mg PO DAILY PRN Heartburn 09/07/24 09/09/24 Unknown History release Allergies Allergy/AdvReac Type Severity Reaction Status Date / Time No Known Allergies Allergy Verified 09/09/24 20:53 Current Medications Generic Name Dose Route Start Last Admin Trade Name Freq PRN Reason Stop Dose Admin Aspirin 81 mg 09/10/24 09:00 09/10/24 08:39 Aspirin 81 Mg Ec Tablet PO 81 mg DAILY BRAULIO Administration Atorvastatin Calcium 20 mg 09/10/24 09:00 09/10/24 08:39 Atorvastatin 40 Mg Tablet PO 20 mg DAILY BRAULIO Administration Clopidogrel Bisulfate 75 mg 09/10/24 09:00 09/10/24 08:39 Clopidogrel 75 Mg Tablet PO 75 mg DAILY BRAULIO Administration Enoxaparin Sodium 40 mg 09/09/24 22:35 09/10/24 00:18 Enoxaparin 40 Mg/0.4 Ml Syringe SUBCUT 40 mg Q24H BRAULIO Administration Isosorbide Mononitrate 30 mg 09/10/24 09:00 09/10/24 08:39 Isosorbide Mononitrate Er 30 Mg Tablet PO 30 mg DAILY BRAULIO Administration Lisinopril 10 mg 09/09/24 22:35 09/10/24 08:39 Lisinopril 10 Mg Tablet PO 10 mg DAILY BRAULIO Administration Lisinopril 20 mg 09/10/24 06:00 09/10/24 08:59 Lisinopril 20 Mg Tablet PO Not Given QAM BRAULIO Metoprolol Tartrate 25 mg 09/10/24 09:00 09/10/24 08:39 Metoprolol Tartrate 25 Mg Tablet PO 25 mg DAILY BRAULIO Administration Pantoprazole Sodium 40 mg 09/10/24 09:00 09/10/24 08:38 Pantoprazole 40 Mg Sdv IVP 40 mg BID BRAULIO Administration PFSH Acute 2 PFSH: Medical History (Updated 09/09/24 @ 22:17 by Jose Carlos Nowak MD) Positive cardiac stress test Acute non-ST elevation myocardial infarction (NSTEMI) Diverticulosis Dyslipidemia CAD (coronary artery disease) Hypertension Surgical History Hx of heart artery stent Stented coronary artery Hx of inguinal hernia surgery Family History Mother Hypertension Father Cancer Colon cancer Family/Other Dementia Denies family history of Diabetes CAD (coronary artery disease) Clotting disorder Chronic kidney disease (CKD) Suicide Anesthesia complication Bleeding disorder Lung disease Stroke Social History Smoking and tobacco/nicotine status: never used tobacco/nicotine Alcohol intake: never Substance/Drug Use: never Vitals/I&O/Wt Last Vital Signs Temp 97.8 F 09/10/24 11:59 Pulse 65 09/10/24 11:59 Resp 16 09/10/24 11:59 BP 105/68 09/10/24 11:59 Pulse Ox 97 09/10/24 11:59 O2 Del Method Room Air 09/10/24 11:59 09/09/24 09/10/24 09/10/24 22:59 06:59 14:59 Intake Total 120 / 120 240 / 240 Balance 120 / 120 240 / 240 Weight last 48 hrs Weight 170 lb 1.6 oz Weight 171 lb 9.6 oz Weight 178 lb Physical Exam 2 Narrative: General: No apparent distress, healthy appearing, well nourished Neck: No carotid bruit bilaterally Muskuloskeletal: Full ROM Lymphatic: no lymphedema noted Respiratory: Normal respiratory effort, clear to auscultation bilaterally throughout all lung dale, no use of accessory muscles Cardio: No JVD, regular rate, regular rhythm, S1 S2 normal, no murmurs, peripheral pulses 2+ throughout Extremities: Full ROM, normal, normal capillary refill, no cyanosis or edema Neuro: Alert and oriented x4, no focal motor deficits Psych: Affect normal, denies suicidal ideation, mental status grossly normal Skin: No rashes or lesions noted, no wounds Data 09/09/24 20:56 09/10/24 02:49 Other data: 10/11/23 Left heart cath: Diagnostic Findings * INDICATION: Chest pain/abnormal stress test. * Left Main has no significant disease. * Left Anterior Descending has patent prior proximal stent. No significant disease. * Circumflex has mild luminal irregularities. * Proximal Right Coronary Artery: luminal irregularities 20% stenosis, CARMELA: 3 flow. * Coronary angiography shows right dominance. Conclusions 1. Non-obstructive Coronary artery disease. Patent prior LAD stent. 2. Normal left ventricular systolic function. Ejection fraction of 60%. 05/17/23 CONCLUSIONS Normal left ventricular size, systolic function and wall thickness, with no regional wall motion abnormalities. Grade I/IV diastolic dysfunction (abnormal relaxation filling pattern), normal to mildly elevated filling pressures. Left ventricular ejection fraction is estimated at 70 %. There are no prior echocardiogram studies to compare. A&P Assessment and plan (1) Chest pain: Patient is having atypical chest pain. This has been going on for over a year. At this time we have recommended a stress test to rule out any type of restenosis of his previously placed stent or further progressed coronary artery disease. EKG showed junctional rhythm, which is baseline for this patient. No ST elevation or T wave abnormalities. Troponin slightly elevated at 29-27.5-27.42 delta negative. Echo is pending. He is chest pain-free at this time. Continue nitro sublingual as needed chest pain. Qualifiers: Chest pain type: unspecified Qualified Code(s): R07.9 - Chest pain, unspecified (2) CAD (coronary artery disease): Status post stent to the LAD. Continue dual antiplatelet therapy including aspirin and Plavix. Qualifiers: Associated angina: with other forms of angina Coronary Disease- Associated Artery/Lesion type: [place] artery [place] vs. transplanted heart: n ative heart Qualified Code(s): I25.118 - Atherosclerotic heart disease of [place] coronary artery with other forms of angina pectoris (3) Hypertension: Well-controlled 105/68. Continue current regimen. Qualifiers: Hypertension type: primary hypertension Qualified Code(s): I10 - Essential (primary) hypertension (4) Dyslipidemia: Patient's last LDL was 112. Will increase atorvastatin to 40 mg daily. Continue to monitor cholesterol levels. (5) Stented coronary artery: Continue dual antiplatelet therapy including aspirin and Plavix. Plan The plan for this very pleasant 74-year-old gentleman is to conduct a stress test. If this is positive may consider cardiac cath to rule out acute coronary syndrome. If the stress test is negative we will optimize medical therapy. Continue dual antiplatelet therapy including aspirin and Plavix. Continue to monitor for chest pain or EKG changes. Thank you, Dr. Child, for allowing us to take care of this very pleasant 74 year old gentleman. Consult Attestations 2 Medical Necessity Statement: Patient stay expected to cross 2 midnights due to chest pain, elevated troponin, need to rule out acute coronary ischemia. Coding Level of Care Code Acute Code for [facility] Diagnoses Chest pain R07.9 Chest pain type: unspecified Coronary artery disease involving [place] coronary artery of [place] heart with other form of angina pectoris I25.118 Associated angina: with other forms of angina Coronary Disease-Associated Artery/Lesion type: [place] artery [place] vs. transplanted heart: [place] heart Primary hypertension I10 Hypertension type: primary hypertension Dyslipidemia E78.5 Stented coronary artery Z95.5 Documented by User: Jose Carlos Elizabeth MD 09/10/24 21:16 History of Present Illness History of Present Illness Patient was evaluated and cared for in conjunction with an advanced practice practitioner. I personally examined the patient and reviewed the chart and all pertinent data including imaging, telemetry, and laboratory results. I discussed the patient in detail with the advanced practice practitioner. Please see their note for complete H&P testing result and agreed upon plan of care for the patient. 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 HEART: Regular S1 and S2. No murmur, rub or gallop. LUNGS: Clear to auscultate bilaterally. CENTRAL NERVOUS SYSTEM: Grossly nonfocal. EXTREMITIES: Lower extremities with out edema bilaterally. Assessment and plan Chest pressure/atypical Coronary artery disease history of prior stent Hypertension Hyperlipidemia Patient has atypical chest pain however since he continues to have chest pressure off-and-on basis would like to rule out obstructive coronary artery disease will proceed with Lexiscan MIBI stress test in the morning since because of back problem he cannot walk much. Further plan will be devised as per progress the patient Rafa Galindo is a very pleasant 74 year old male who presented yesterday to the ED with chief complaint of chest pain. He states that when his blood pressure on the diastolic and he gets above 80 he starts to have this chest pain. He states is at the center of his chest. It does not radiate. He states that sometimes nitro will relieve the pain. 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 This particular pain most the time comes on during the nighttime per patient. He denies any chest pain at this time. He states that this is more of a pressure than pain. He states this has been going on for at least a year or even after his stent to the LAD that he had in April of last year. He has had a heart cath since then that showed patent stent in the LAD and approximately a 20% stenosed RCA. His history included stenting to the LAD, dyslipidemia, CAD, chest pain, and GERD. Currently, he is on dual antiplatelet therapy. BP is well controlled. EKG showed junctional rhythm. Medications/Allergies Home Medications Medication Instructions Recorded Confirmed Last Taken Type aspirin 81 mg tablet,delayed 81 mg PO QAM 09/18/23 09/09/24 09/09/24 History release isosorbide mononitrate 30 mg 30 mg PO DAILY #90 tabs 10/17/23 09/09/24 09/09/24 Rx tablet,extended release 24 hr clopidogrel 75 mg tablet See Rx Instructions .Route 08/26/24 09/09/24 09/09/24 Rx .COMPLEX #90 tabs lisinopril 20 mg tablet 20 mg PO QAM 09/07/24 09/09/24 09/09/24 History metoprolol tartrate 25 mg tablet 25 mg PO QAM 09/07/24 09/09/24 09/09/24 History nitroglycerin 0.4 mg sublingual 0.4 mg sublingual Q5M PRN Chest 09/07/24 09/09/24 09/09/24 Rx tablet (Nitrostat) Pain #30 tabs pantoprazole 40 mg tablet,delayed 40 mg PO DAILY PRN Heartburn 09/07/24 09/09/24 Unknown History release Allergies Allergy/AdvReac Type Severity Reaction Status Date / Time No Known Allergies Allergy Verified 09/09/24 20:53 PFSH Acute 2 PFSH: Medical History (Updated 09/09/24 @ 22:17 by Jose Carlos Nowak MD) Positive cardiac stress test Acute non-ST elevation myocardial infarction (NSTEMI) Diverticulosis Dyslipidemia CAD (coronary artery disease) Hypertension Surgical History Hx of heart artery stent Stented coronary artery Hx of inguinal hernia surgery Family History Mother Hypertension Father Cancer Colon cancer Family/Other Dementia Denies family history of Diabetes CAD (coronary artery disease) Clotting disorder Chronic kidney disease (CKD) Suicide Anesthesia complication Bleeding disorder Lung disease Stroke Social History Smoking and tobacco/nicotine status: never used tobacco/nicotine Alcohol intake: never Substance/Drug Use: never Data 09/09/24 20:56 09/10/24 02:49 A&P Assessment and plan (1) Chest pain: Qualifiers: Chest pain type: unspecified Qualified Code(s): R07.9 - Chest pain, unspecified (2) CAD (coronary artery disease): Qualifiers: Associated angina: with other forms of angina Coronary Disease- Associated Artery/Lesion type: [place] artery [place] vs. transplanted heart: n ative heart Qualified Code(s): I25.118 - Atherosclerotic heart disease of [place] coronary artery with other forms of angina pectoris (3) Hypertension: Qualifiers: Hypertension type: primary hypertension Qualified Code(s): I10 - Essential (primary) hypertension (4) Dyslipidemia: (5) Stented coronary artery: Coding Level of Care Code Acute Code for [facility] Diagnoses Chest pain R07.9 Chest pain type: unspecified Coronary artery disease involving [place] coronary artery of [place] heart with other form of angina pectoris I25.118 Associated angina: with other forms of angina Coronary Disease-Associated Artery/Lesion type: [place] artery [place] vs. transplanted heart: [place] heart Primary hypertension I10 Hypertension type: primary hypertension Dyslipidemia E78.5 Stented coronary artery Z95.5
--- NOTE | 2024-09-10 15:33 | PM.PN ---
Subjective Subjective: Patient was seen this morning, he denies any chest pain, no palpitations, no nausea, no vomiting, no dyslipidemia Vitals/I&O/Wt Last Vital Signs Temp 97.8 F 09/10/24 11:59 Pulse 65 09/10/24 11:59 Resp 16 09/10/24 11:59 BP 105/68 09/10/24 11:59 Pulse Ox 97 09/10/24 11:59 O2 Del Method Room Air 09/10/24 11:59 09/10/24 09/10/24 09/10/24 06:59 14:59 22:59 Intake Total 120 / 120 240 / 240 Balance 120 / 120 240 / 240 Weight last 48 hrs Weight 77.156 kg Weight 77.836 kg Weight 80.739 kg Physical Exam Const: COMMON NORMALS: no acute distress and patient oriented x3 Resp: COMMON NORMALS: normal respiratory effort, No retractions, No use of accessory muscles and clear to auscultation bilaterally AUSCULTATION: clear to auscultation bilaterally Cardio: COMMON NORMALS: regular rate, regular rhythm, S1 normal heart sound present and S2 normal heart sound present RATE: regular rate RHYTHM: regular rhythm HEART SOUNDS: S1 normal heart sound present and S2 normal heart sound present GI: COMMON NORMALS: Normal to inspection, nondistended, normoactive bowel sounds present and non-tender Extremity: COMMON NORMALS: no pedal edema Neuro: COMMON NORMALS: patient oriented x3, CN's II-XII intact bilaterally and moves all extremities Psych: COMMON NORMALS: mental status grossly normal Data 09/09/24 20:56 09/10/24 02:49 A&P Assessment and plan (1) Hypertension: Qualifiers: Hypertension type: primary hypertension Qualified Code(s): I10 - Essential (primary) hypertension (2) CAD (coronary artery disease): Qualifiers: Coronary Disease-Associated Artery/Lesion type: [place] artery [place] vs. transplanted heart: [place] heart Associated angina: with other forms of angina Qualified Code(s): I25.118 - Atherosclerotic heart disease of [place] coronary artery with other forms of angina pectoris (3) Dyslipidemia: (4) Chest pain: Qualifiers: Chest pain type: unspecified Qualified Code(s): R07.9 - Chest pain, unspecified Plan Chest pain History of salvage coronary disease with underlying risk factor of hypertension and diabetes Currently no active chest pain Cardiac cath in 2022 Conclusions 1. Non-obstructive Coronary artery disease. Patent prior LAD stent. 2. Normal left ventricular systolic function. Ejection fraction of 60%. Echo April 2023 CONCLUSIONS Normal left ventricular size, systolic function and wall thickness, with no regional wall motion abnormalities. Grade I/IV diastolic dysfunction (abnormal relaxation filling pattern), normal to mildly elevated filling pressures. Left ventricular ejection fraction is estimated at 70 %. There are no prior echocardiogram studies to compare. Dr. Elizabeth consulted Currently on a cardiac diet Continue beta-sveta, lisinopril, Imdur Continue aspirin, Plavix, statin Full code Stress test tomorrow N.p.o. after midnight DVT prophylaxis: Lovenox, Patient physically active Does not smoke or drink alcohol Attestations Medical Necessity Statement*: Patient requires hospitalization for chest pain Diagnoses Primary hypertension I10 Hypertension type: primary hypertension Coronary artery disease involving [place] coronary artery of [place] heart with other form of angina pectoris I25.118 Coronary Disease-Associated Artery/Lesion type: [place] artery [place] vs. transplanted heart: [place] heart Associated angina: with other forms of angina Dyslipidemia E78.5 Chest pain R07.9 Chest pain type: unspecified
[2024-09-11] VITALS (8 sets, daily range): BP systolic 101–126; BP diastolic 55–79; PULSE 61–93; RESP 16–25; TEMP 36.6–36.7; O2SAT 94–98
[2024-09-11 04:06] LABS: Basophils # 0.1 10^3/uL (0.0-0.1); Eosinophils # 0.1 10^3/uL (0.0-0.8); Eosinophils % 2.2 %; Hematocrit 42.2 % (37-53); Lymphocytes % 19.7 %; Mean Corpuscular HGB Conc 33.6 g/dL (30-55); Mean Corpuscular Hemoglobin 31.7 pg (27-33); Mean Corpuscular Volume 94.2 fl (82-101); Mean Platelet Volume 9.4 fL (7.4-10.4); Monocytes # 0.5 10^3/uL (0.2-0.9); Monocytes % 10.3 %; Neutrophils # 3.28 10^3/uL (1.8-7.7); Neutrophils % 66.6 %; Nucleated Red Blood Cells % 0 %; Platelet Count 230 10^3/cmm (157-399); Red Blood Count 4.48 10^6/uL (3.85-5.65); Red Cell Distribution Width 12.3 % (12.1-15.1); White Blood Count 4.93 10^3/uL (3.29-11.43)
[2024-09-11 04:36] LABS: Anion Gap 13.1 (5-19); Blood Urea Nitrogen 20 mg/dL (8-23); Calcium 8.6 mg/dL (8.5-10.5); Carbon Dioxide 25 mmol/L (22-29); Chloride 105 mmol/L (98-107); Creatinine Clr Calc Pharmacy 64.6455; Glucose 98 mg/dL (65-115); NT Pro B Type Natriuretic Pept < 36 pg/mL (0-125); Osmolality Calculated 291 mOsm/kg (285-295); Potassium 4.1 mmol/L (3.5-5.1); Sodium 139 mmol/L (136-145)
[2024-09-11] MEDS: regadenoson 0.4 Mg/5 ml Syringe IVP (07:06)
[2024-09-11] MEDS: clopidogrel 75 mg Tablet PO (09:06)
[2024-09-11] MEDS: isosorbide mononitrate ER 30 mg Tablet PO (09:06)
[2024-09-11] MEDS: pantoprazole 40 mg SDV IVP (09:07)
[2024-09-11] MEDS: metoprolol tartrate 25 mg Tablet PO (09:07)
[2024-09-11] MEDS: aspirin 81 mg EC Tablet PO (09:07)
[2024-09-11] MEDS: lisinopril 20 mg Tablet PO (09:09)
--- NOTE | 2024-09-11 11:02 | NMCV_ITS ---
NM kaya perf SPECT r/s* [id number] Rafa Galindo Age: 74 Gender: M : 1950 Exam Date: 09/11/2024 11:02 Ordering Phys: Coco Mello NP Technologist: JORDANA Massey Exam Location: [facility] Indications: cp STRESS TEST Please see separate stress test report in [facility] for full findings IMAGE PROTOCOL Rest/Stress 1 Lexiscan Day Radiopharmaceutical Dose (mCi) Administration Site Administered by Rest: Tc-99m 10.5 IV JORDANA Retana Sestamibi Stress:Tc-99m 32.90 IV JORDANA Massey Sestamistuart Rest: 11-Sep-2024 60 Discovery 630 Stress: 11-Sep-2024 30 Discovery 630 0.4mg Lexiscan. Supine position only as patient was unable to lay prone. SPECT RESULTS Technical Quality: Good Raw Data Analysis: Normal Image Corrections: No attenuation or motion correction applied Summed Stress Score: 0 Summed Rest Score: 0 Summed Difference Score: 0 PERFUSION FINDINGS Uniform myocardial tracer uptake with no significant perfusion abnormalities FUNCTIONAL RESULTS (calculated via Gated SPECT) Stress Image LV EF (%): 94 Stress EDV (mL):51 TID: 0.66 Stress ESV (mL):3 FUNCTIONAL FINDINGS: Segmental wall motion analysis revealing no gross wall motion abnormalities IMPRESSIONS 1. Myocardial perfusion imaging revealing uniform myocardial tracer uptake with no significant Perfusion normalities. 2. Normal LV ejection fraction of 94%. 3. LV wall motion analysis revealing no gross wall motion abnormalities. 4. Normal LV volume Low probability for coronary ischemia, based on the above findings No similar previous studies are available for comparison Dr Madelin Bacon MD [facility] (Electronically Signed) Final Date: 11 September 2024 12:37 S
--- NOTE | 2024-09-11 12:42 | PC.NURSE ---
refuses [email or web address] notified.
--- NOTE | 2024-09-11 12:45 | PM.DCS ---
Discharge Providers Date of Admission: 09/09/24 21:37 Date of Discharge: September 11, 2024 Attending Provider at Admission: Jose Carlos Nowak MD Attending Provider at Discharge: Abdiaziz Child MD Primary Care Provider: JUAN CARLOS Arroyo Diagnoses at Discharge Discharge Diagnosis (1) Chest pain: Status: Acute Qualifiers: Chest pain type: unspecified Qualified Code(s): R07.9 - Chest pain, unspecified (2) CAD (coronary artery disease): Status: Acute Qualifiers: Associated angina: with other forms of angina Coronary Disease-Associated Artery/Lesion type: [place] artery [place] vs. transplanted heart: [place] heart Qualified Code(s): I25.118 - Atherosclerotic heart disease of [place] coronary artery with other forms of angina pectoris (3) Hypertension: Status: Acute Qualifiers: Hypertension type: primary hypertension Qualified Code(s): I10 - Essential (primary) hypertension (4) Dyslipidemia: Status: Acute (5) Stented coronary artery: Status: Acute Reason for Visit Reason for Visit: CHEST PAIN Hospital Course Hospital Course This is a 74-year-old male with a past medical history of CAD status post stenting, hypertension who presents [facility] for chest pain He was admitted to [facility] for chest pain, cardiology was consulted, managed on aspirin, Plavix, statin, his home beta-sveta, lisinopril, Imdur, testing as below IMPRESSIONS 1. Myocardial perfusion imaging revealing uniform myocardial tracer uptake with no significant Perfusion normalities. 2. Normal LV ejection fraction of 94%. 3. LV wall motion analysis revealing no gross wall motion abnormalities. 4. Normal LV volume Low probability for coronary ischemia, based on the above findings No similar previous studies are available for comparison cardiac echo CONCLUSIONS CONCLUSIONS: 1. Normal left ventricular size, systolic function and wall thickness, with no regional wall motion abnormalities. Left ventricular ejection fraction is estimated at 60%. Normal left ventricular wall thickness. Grade I/IV diastolic dysfunction (abnormal relaxation filling pattern), normal to mildly elevated filling pressures. 2. No significant chamber abnormalities. 3. Mild tricuspid valve regurgitation. 4. There is no pericardial effusion. 5. There are no intracardiac masses. 6. Pulmonary artery systolic pressure is within normal limits. 7. Right atrial pressure is around [5] mm of mercury. 8. There are no prior echocardiogram studies to compare. -Patient remained chest pain-free -Will be discharged home with a close follow-up with cardiology as outpatient -Patient was advised if he were to have any chest pain to go to the emergency room -Patient would like a refill of his nitroglycerin tablets Physical Exam Const: COMMON NORMALS: no acute distress and patient oriented x3 Resp: COMMON NORMALS: normal respiratory effort, No retractions, No use of accessory muscles and clear to auscultation bilaterally AUSCULTATION: clear to auscultation bilaterally Cardio: COMMON NORMALS: regular rate, regular rhythm, S1 normal heart sound present and S2 normal heart sound present RATE: regular rate RHYTHM: regular rhythm HEART SOUNDS: S1 normal heart sound present and S2 normal heart sound present GI: COMMON NORMALS: Normal to inspection, nondistended, normoactive bowel sounds present and non-tender Extremity: COMMON NORMALS: no pedal edema Neuro: COMMON NORMALS: patient oriented x3 Psych: COMMON NORMALS: mental status grossly normal Discharge Data Studies Completed and Pending Completed Studies During Hospitalization Category Date Time Status Sestamibi Stress Test Request Routine Exams 09/10/24 11:02 Draft XR chest 1V portable [id number] Stat Exams 09/09/24 20:50 Completed NM kaya perf SPECT r/s* [id number] Routine Nuc Med 09/11/24 11:02 Completed CV. echo complete* [id number] Routine Ultrasound 09/09/24 22:35 Completed Pending at discharge Category Date Time Status Basic Metabolic Panel AM LABS Lab 09/12/24 04:00 Ordered Basic Metabolic Panel AM LABS Lab 09/13/24 04:00 Ordered Complete Blood Count w/Auto AM LABS Lab 09/12/24 04:00 Ordered Complete Blood Count w/Auto AM LABS Lab 09/13/24 04:00 Ordered NT Pro B Type Natriuretic Pept QAM Lab 09/12/24 06:00 Ordered NT Pro B Type Natriuretic Pept QAM Lab 09/13/24 06:00 Ordered Radiology Impressions Chest X-Ray 09/09/24 20:50 IMPRESSION: 1. Negative for infiltrate 2. Emphysematous changes. Laboratory Results WBC 4.93 10^3/uL (3.29-11.43) 09/11/24 03:01 RBC 4.48 10^6/uL (3.85-5.65) 09/11/24 03:01 Hgb 14.20 g/dL (11.27-16.99) 09/11/24 03:01 Hct 42.2 % (37-53) 09/11/24 03:01 MCV 94.2 fl (82-101) 09/11/24 03:01 MCH 31.7 pg (27-33) 09/11/24 03:01 MCHC 33.6 g/dL (30-55) 09/11/24 03:01 RDW 12.3 % (12.1-15.1) 09/11/24 03:01 Plt Count 230 10^3/cmm (157-399) 09/11/24 03:01 MPV 9.4 fL (7.4-10.4) 09/11/24 03:01 Neut % (Auto) 66.6 % 09/11/24 03:01 Lymph % (Auto) 19.7 % 09/11/24 03:01 Johnson % (Auto) 10.3 % 09/11/24 03:01 Eos % (Auto) 2.2 % 09/11/24 03:01 Baso % (Auto) 1.0 % 09/11/24 03:01 Neut # (Auto) 3.28 10^3/uL (1.8-7.7) 09/11/24 03:01 Lymph # (Auto) 1.0 10^3/uL (0.8-4.8) 09/11/24 03:01 Johnson # (Auto) 0.5 10^3/uL (0.2-0.9) 09/11/24 03:01 Eos # (Auto) 0.1 10^3/uL (0.0-0.8) 09/11/24 03:01 Baso # (Auto) 0.1 10^3/uL (0.0-0.1) 09/11/24 03:01 Nucleated RBC % (auto) 0 % 09/11/24 03:01 Nucleated RBCs # 0.0 /100WBC 09/11/24 03:01 D-Dimer 0.67 ug/mLFEU (0-0.59) H 09/09/24 20:53 Sodium 139 mmol/L (136-145) 09/11/24 03:01 Potassium 4.1 mmol/L (3.5-5.1) 09/11/24 03:01 Chloride 105 mmol/L (98-107) 09/11/24 03:01 Carbon Dioxide 25 mmol/L (22-29) 09/11/24 03:01 Anion Gap 13.1 (5-19) 09/11/24 03:01 BUN 20 mg/dL (8-23) 09/11/24 03:01 Creatinine 1.0 mg/dL (0.7-1.2) 09/11/24 03:01 GFR Calculation Not Reportable 09/11/24 03:01 Glucose 98 mg/dL (65-115) 09/11/24 03:01 Estimat Average Glucose 117 09/09/24 20:56 Hemoglobin A1c 5.7 % (4.0-6.0) 09/09/24 20:56 Calculated Osmolality 291 mOsm/kg (285-295) 09/11/24 03:01 Calcium 8.6 mg/dL (8.5-10.5) 09/11/24 03:01 Magnesium 2.2 mg/dL (1.7-2.3) 09/10/24 02:49 Total Bilirubin 0.3 mg/dL (0.15-1.2) 09/09/24 20:56 AST 15 U/L (0-40) 09/09/24 20:56 ALT 14 U/L (0-41) 09/09/24 20:56 Alkaline Phosphatase 58 U/L (40-130) 09/09/24 20:56 Troponin T Baseline 29 ng/L (0-15) H 09/09/24 20:56 Troponin T 120 Minute 27.50 ng/L (0-15) H 09/09/24 23:09 Delta Troponin T -1.50 ABS# (0-10) L 09/09/24 23:09 Troponin T Hi Sens 6Hr 27.42 ng/L (0-15) H 09/10/24 02:49 Troponin T Hi Sens 6Hr Delta -1.58 ng/L (0-12) L 09/10/24 02:49 NT-Pro-B Natriuret Pep < 36 pg/mL (0-125) 09/11/24 03:01 Total Protein 6.0 g/dL (6.6-8.7) L 09/09/24 20:56 Albumin 4.1 g/dL (3.5-5.2) 09/09/24 20:56 Globulin 1.9 g/dL (1.3-4.6) 09/09/24 20:56 Vitamin B12 334 pg/mL (232-1245) 09/09/24 20:56 Vitals Last Vital Signs Temp 98.1 F 09/11/24 11:19 Pulse 71 09/11/24 11:19 Resp 25 H 09/11/24 11:19 BP 101/63 09/11/24 11:19 Pulse Ox 94 09/11/24 11:19 O2 Del Method Room Air 09/11/24 11:19 Discharge Plan Discharge Patient Disposition: Home Condition: Stable Prescriptions: Continued isosorbide mononitrate 30 mg tablet extended release 24 hr 30 mg PO DAILY Qty: 90 3RF clopidogrel 75 mg tablet See Rx Instructions .ROUTE .COMPLEX Qty: 90 0RF Dose Instruction: TAKE 1 TABLET BY MOUTH DAILY Rx Instructions: TAKE 1 TABLET BY MOUTH DAILY aspirin 81 mg tablet,delayed release (DR/EC) 81 mg PO QAM lisinopril 20 mg tablet 20 mg PO QAM Rx Instructions: TAKE 1 TABLET BY MOUTH EVERY MORNING pantoprazole 40 mg tablet,delayed release (DR/EC) 40 mg PO DAILY PRN (Reason: Heartburn) metoprolol tartrate 25 mg tablet 25 mg PO QAM nitroglycerin [Nitrostat] 0.4 mg Tablet, Sublingual 0.4 mg SUBLINGUAL Q5M PRN (Reason: Chest Pain) 30 Days Qty: 30 0RF Rx Instructions: do not exceed 3 doses per episode Discharge Orders: Discharge Order (Routine); Ordered 09/11/24 Ordered By: Abdiaziz Child Referrals: Ligia Lorenzana FNP [Primary Care Provider] - Discharge Diet: Cardiac Discharge Activity: Resume usual activity Patient Instructions: Opioid Safety Activity Restrictions/Additional Instructions: -if you have any chest pain please go to emergency room Discharge Attestations Time Spent in Discharge Care*: greater than 30 min Quality Metrics Clinical Quality Measures [ No reported AMI, CVA or VTE this stay] Coding Level of Care Code 49111 Total time (in minutes) for Discharge: 45 Diagnoses Chest pain R07.9 Chest pain type: unspecified Coronary artery disease involving [place] coronary artery of [place] heart with other form of angina pectoris I25.118 Associated angina: with other forms of angina Coronary Disease-Associated Artery/Lesion type: [place] artery [place] vs. transplanted heart: [place] heart Primary hypertension I10 Hypertension type: primary hypertension Dyslipidemia E78.5 Stented coronary artery Z95.5
--- NOTE | 2024-09-11 13:28 | PC.NURSE ---
discharge instructions given and explained.pt verb understanding of instructions.discharged via w/c to exit at this time.friend to drive pt home.
--- NOTE | 2024-09-11 15:11 | P.PN_ITS ---
Subjective 2 Subjective: Patient doing well. No chest pain no shortness of breath. Stress test was negative. Medications: Reviewed: Yes Vitals/I&O/Wt Last Vital Signs Temp 98.1 F 09/11/24 11:19 Pulse 70 09/11/24 13:11 Resp 25 H 09/11/24 13:11 BP 101/63 09/11/24 13:11 Pulse Ox 94 09/11/24 13:11 O2 Del Method Room Air 09/11/24 11:19 09/11/24 09/11/24 09/11/24 06:59 14:59 22:59 Intake Total 100 / 930 720 / 720 Balance 100 / 928 720 / 720 Weight last 48 hrs Weight 170 lb 1.6 oz Weight 170 lb 1.6 oz Weight 171 lb 9.6 oz Weight 178 lb Physical Exam 2 Narrative: General: No apparent distress, healthy appearing, well nourished Muskuloskeletal: Full ROM Lymphatic: no lymphedema noted Respiratory: Normal respiratory effort, clear to auscultation bilaterally throughout all lung dale, no use of accessory muscles Cardio: No JVD, regular rate, regular rhythm, S1 S2 normal, no murmurs, peripheral pulses 2+ throughout GI: Normal to inspection, nondistended Extremities: Full ROM, normal, normal capillary refill, no cyanosis or edema Neuro: Alert and oriented x4, no focal motor deficits Psych: Affect normal, denies suicidal ideation, mental status grossly normal Skin: No rashes or lesions noted, no wounds Data 09/11/24 03:01 09/11/24 03:01 A&P Assessment and plan (1) Chest pain: Patient states he has not had chest pain the whole stay. He is doing well without complaints. Previous history of chest pain. T stress test and echo were okay. Qualifiers: Chest pain type: unspecified Qualified Code(s): R07.9 - Chest pain, unspecified (2) CAD (coronary artery disease): Status post stent to the LAD. Continue dual antiplatelet therapy including aspirin and Plavix. Qualifiers: Associated angina: with other forms of angina Coronary Disease- Associated Artery/Lesion type: [place] artery [place] vs. transplanted heart: n ative heart Qualified Code(s): I25.118 - Atherosclerotic heart disease of [place] coronary artery with other forms of angina pectoris (3) Hypertension: Well-controlled. Continue current regimen. Qualifiers: Hypertension type: primary hypertension Qualified Code(s): I10 - Essential (primary) hypertension (4) Dyslipidemia: Patient's last LDL was 112. Continue atorvastatin to 40 mg daily. Continue to monitor cholesterol levels. (5) Stented coronary artery: Continue dual antiplatelet therapy including aspirin and Plavix. Plan The plan for this very pleasant 74-year-old gentleman is to conduct a stress test. If this is positive may consider cardiac cath to rule out acute coronary syndrome. If the stress test is negative we will optimize medical therapy. Continue dual antiplatelet therapy including aspirin and Plavix. Continue to monitor for chest pain or EKG changes. Thank you, Dr. Child, for allowing us to take care of this very pleasant 74 year old gentleman. Attestations 2 Medical Necessity Statement*: From a cardiac standpoint, patient may be discharged. He will f/u in the clinic with us in 7-10 days. Coding Level of Care Code Acute Code for [facility] Fwd Diagnoses Chest pain R07.9 Chest pain type: unspecified Coronary artery disease involving [place] coronary artery of [place] heart with other form of angina pectoris I25.118 Associated angina: with other forms of angina Coronary Disease-Associated Artery/Lesion type: [place] artery [place] vs. transplanted heart: [place] heart Primary hypertension I10 Hypertension type: primary hypertension Dyslipidemia E78.5 Stented coronary artery Z95.5
== END 2024-09-11 13:29 | disposition home or self-care (01) ==
LOC: ER 22:02 → CSU 22:10
PROVIDERS: Admitting Provider Internal Medicine; Emergency Provider Emergency Medicine; PCP Nurse Practitioner Family; Visit Provider Family Medicine
DX: I25.118 Atherosclerotic heart disease of native coronary artery with other forms of angina pectoris (principal); I10 Essential (primary) hypertension; E78.5 Hyperlipidemia, unspecified; Z95.5 Presence of coronary angioplasty implant and graft; Z79.82 Long term (current) use of aspirin; I25.2 Old myocardial infarction
CPT/HCPCS: 36415; 71045; 78452; 80048; 80053; 82607; 83036; 83735; 83880; 84484; 85025; 85378; 93005; 93017; 93306; 96372; 96375; 96376; 99285; A9500; G0378; J1650; J2470; J2785

== ENCOUNTER → 2024-10-15 15:40 | Outpatient (BNVA) | payer MEDICARE, SELFPAY | PROVIDERS: PCP Nurse Practitioner Family; Visit Provider Nurse Practitioner Family | DX: E55.9 Vitamin D deficiency, unspecified (principal); M79.10 Myalgia, unspecified site | CPT/HCPCS: 82652; 83735 ==

== ENCOUNTER 2025-04-28 07:34 | Outpatient (CLI) | payer MEDICARE, SELFPAY ==
--- NOTE | 2025-04-28 08:00 | MR_ITS ---
WS: [id number] MRI RIGHT SHOULDER HISTORY: M25.511 - Pain in right shoulder COMPARISON: None available. TECHNIQUE: Multiplanar sequences of the shoulder joint are submitted. Moderate narrowing of the AC joint. Small erosions from the distal clavicle with a small amount of edema and hypertrophic soft tissue. Mild downsloping of the acromion with mild subacromial impingement upon the supraspinatus. No os acromion. Abnormal biceps tendon. Biceps tendon is not identified in the bicipital groove. Heterogeneous abnormal signal within the biceps tendon sheath with enlargement. Moderate narrowing of the glenohumeral joint. Small erosions along the glenoid. Hypertrophic osteophyte formation surrounding the humeral head. Small erosions towards the posterior lateral humeral head. Complete loss of cartilage. Abnormal soft tissue surrounding the humeral head. Intermediate signal extending into the axillary pouch and along the biceps tendon sheath. Complete full-thickness tear involving the insertion site of the supraspinatus tendon. More proximal tendon is very heterogeneous and enlarged. Intermediate signal and thickening of the distal subscapularis tendon. Biceps tendon appears dislocated medial to the subscapularis tendon. Complex heterogeneous signal extending along the infraspinatus tendon. Partial tear and synovitis suspected. Majority of the abnormal signal is probably related to fluid along the tendon sheath and tendinopathy. Increased fluid in the subscapularis recess. High-grade tears involving the anterior and posterior glenoid. Osseous avulsion from the posterior glenoid may be present also. Abnormal signal within the superior and inferior labrum. MR/MR shoulder RT wo con* [id number] IMPRESSION: 1. Advanced abnormalities involving the RIGHT shoulder. Acute on chronic findi ngs. 2. 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 3. Subacromial impingement. 4. Torn dislocated biceps tendon with advanced tenosynovitis. Increased fluid with abnormal heterogeneous signal in the tendon sheath. 5. Full-thickness insertion site tear of the supraspinatus tendon with severe more proximal tendinopathy. 6. Tendinopathy subscapularis tendon. Distal tear not excluded. Biceps tendon is noted medial to the subscapularis tendon. 7. Fluid along the infraspinatus tendon sheath and tendinopathy. 8. Diffusely abnormal labrum from tears and chronic degenerative disease. Susp ect associated osseous avulsion from the posterior glenoid. 9. Heterogeneous signal surrounding the humeral head is typically noted with s ynovitis. Correlate with rheumatoid arthritis. 10. Severe glenohumeral joint arthropathy with erosions.
== END 2025-04-28 07:35 | disposition home or self-care (01) ==
LOC: RAD 07:35
PROVIDERS: PCP Nurse Practitioner Family; Visit Provider Nurse Practitioner Family
DX: M25.511 Pain in right shoulder (principal); M19.011 Primary osteoarthritis, right shoulder; M75.41 Impingement syndrome of right shoulder; M65.822 Other synovitis and tenosynovitis, left upper arm; R93.7 Abnormal findings on diagnostic imaging of other parts of musculoskeletal system; M75.121 Complete rotator cuff tear or rupture of right shoulder, not specified as traumatic; M65.821 Other synovitis and tenosynovitis, right upper arm; M67.813 Other specified disorders of tendon, right shoulder
CPT/HCPCS: 73221

== ENCOUNTER → 2025-05-04 11:10 | Outpatient (BNVA) | payer MEDICARE, SELFPAY | PROVIDERS: PCP Nurse Practitioner Family; Visit Provider Orthopaedic Surgery | DX: S46.211A Strain of muscle, fascia and tendon of other parts of biceps, right arm, initial encounter (principal); S46.811A Strain of other muscles, fascia and tendons at shoulder and upper arm level, right arm, initial encounter; X58.XXXA Exposure to other specified factors, initial encounter; M75.101 Unspecified rotator cuff tear or rupture of right shoulder, not specified as traumatic | CPT/HCPCS: 99213 ==

== ENCOUNTER 2025-05-20 08:04 | Outpatient (CLI) | payer MEDICARE, SELFPAY ==
[2025-05-21 03:35] LABS: PROTEIN, TOTAL 6.0 g/dL (6.1-8.1)
[2025-05-21 19:19] LABS: ALPHA 1 GLOBULIN 0.2 g/dL (0.2-0.3); ALPHA 2 GLOBULIN 0.6 g/dL (0.5-0.9); BETA 1 GLOBULIN 0.3 g/dL (0.4-0.6); BETA 2 GLOBULIN 0.2 g/dL (0.2-0.5)
== END 2025-05-20 08:05 | disposition home or self-care (01) ==
PROVIDERS: PCP Nurse Practitioner Family; Visit Provider Nurse Practitioner Family
DX: Z01.89 Encounter for other specified special examinations (principal); R53.83 Other fatigue
CPT/HCPCS: 36415; 84155; 84165

== ENCOUNTER 2025-07-21 15:34 | Outpatient (CLI) | payer MEDICARE, SELFPAY ==
--- NOTE | 2025-07-21 15:43 | XR_ITS ---
WS: [email or web address] Exam: XR femur RT min 2V* [id number] Date/Time of Exam: 07/21/2025 4:04 PM Reason For Exam: M25.561 - Pain in right knee No acute fracture or dislocation. Vascular calcification in the soft tissues. Mild degenerative change of the hip. IMPRESSION1. No fracture or other significant finding.
--- NOTE | 2025-07-21 15:43 | XR_ITS ---
WS: [email or web address] Exam: XR tibia fibula RT 2V [id number] Date/Time of Exam: 07/21/2025 4:04 PM Reason For Exam: M79.604 - Pain in right leg No fracture. Articular relationships at the knee and ankle are intact. Normal soft tissues. XR/XR tibia fibula RT 2V [id number] IMPRESSION: 1. Unremarkable RIGHT tibia and fibula.
--- NOTE | 2025-07-21 15:43 | XR_ITS ---
WS: [email or web address] Exam: XR knee RT 3V* [id number] Date/Time of Exam: 07/21/2025 4:04 PM Reason For Exam: T14.90XA - Injury, unspecified, initial encounter No acute fracture. Moderate degenerative narrowing of the medial joint compartment. No joint effusion. Normal soft tissues. IMPRESSION1. Mild to moderate degenerative change.
== END 2025-07-21 15:35 | disposition home or self-care (01) ==
LOC: RAD 15:35
PROVIDERS: PCP Nurse Practitioner Family; Visit Provider Nurse Practitioner Family
DX: M25.561 Pain in right knee (principal); M79.604 Pain in right leg
CPT/HCPCS: 73552; 73562; 73590

== ENCOUNTER 2025-09-30 06:30 | Observation (INO) | payer MEDICARE, SELFPAY ==
[2025-09-30] VITALS (11 sets, daily range): BP systolic 100–141; BP diastolic 67–87; PULSE 79–92; RESP 14–28; TEMP 36.6–36.8; O2SAT 92–97; BMI 28.1
--- NOTE | 2025-09-30 06:31 | XRR_ITS ---
PROCEDURE INFORMATION: Exam: XR Chest Exam date and time: 09/30/2025 6:35 AM Age: 75 years old Clinical indication: Pain; Chest pressure; Prior surgery; Surgery date: 6+ months; Surgery type: Cardiac stent; Additional info: Chest pain TECHNIQUE: Imaging protocol: Radiologic exam of the chest. Views: 1 view. COMPARISON: CR XR chest 1V portable [id number] 09/09/2024 8:59 PM FINDINGS: Lungs: Low lung volumes. Mild bibasilar opacities. No focal consolidation. Pleural spaces: Unremarkable. No pleural effusion. No pneumothorax. Heart/Mediastinum: Unremarkable. No cardiomegaly. Bones/joints: Unremarkable. XR/XR chest 1V portable [id number] IMPRESSION: Low lung volumes with bibasilar opacities which may represent atelectasis versus infiltrate.
--- OUTSIDE RECORDS SUMMARY | 2025-09-30 06:34 | XMS_ITS | Encounter Summary ---
Author Organization [facility] Address [address] [place] [address] Care Team Providers Care Program Director [employer] Name Role Phone Shakira Stapleton MD Primary Care Provider [phone] Encounter Details Date Type Department Care Team (Latest Contact Info) Description 09/14/2005 Outpatient Historical [facility] General Surgery [address] [address] [address] [place] [address] [place] [address] [facility] [address] [place] [address] UNILAT INGUINAL HERNIA (Primary Dx) Social History Tobacco Use Types Packs/Day Years Used Date Smoking Tobacco: Never Assessed Sex and Gender Information Value Date Recorded Sex Assigned at Not on file Legal Sex Male 6:41 AM [employer] Gender Identity Not on file Sexual Orientation Not on file documented as of this encounter Plan of Treatment Not on file documented as of this encounter Visit Diagnoses Diagnosis Inguinal hernia without mention of obstruction or gangrene, unilateral or unspecified, (not specified as recurrent)- Primary documented in this encounter Care Teams Program Director [employer] Relationship Specialty Start Date End Date Shakira Stapleton MD [address] [address] PCP - General Family Practice 03/06/14 documented as of this encounter
--- OUTSIDE RECORDS SUMMARY | 2025-09-30 06:34 | XMS_ITS | Encounter Summary ---
Author Organization [facility] Address [address] [place] [address] Care Team Providers Care Medicine Man Name Role Phone Shakira Stapleton MD Primary Care Provider Encounter Details Date Type Department Care Team (Latest Contact Info) Description 07/23/2000 Outpatient Historical [facility] Family Medicine [place] [address] [address] Rizwan Amos DO NO ADDRESS ON FILE Diverticulitis of colon (Primary Dx); Screening for malignant neoplasm of the rectum Social History Tobacco Use Types Packs/Day Years Used Date Smoking Tobacco: Never Assessed Sex and Gender Information Value Date Recorded Sex Assigned at Not on file Legal Sex Male 6:41 AM [employer] Gender Identity Not on file Sexual Orientation Not on file documented as of this encounter Plan of Treatment Not on file documented as of this encounter Visit Diagnoses Diagnosis Diverticulitis of colon- Primary Diverticulitis of colon (without mention of hemorrhage) Screening for malignant neoplasm of the rectum documented in this encounter Care Teams Medicine Man Relationship Specialty Start Date End Date Shakira Stapleton MD [address] [address] PCP - General Family Practice 03/06/14 documented as of this encounter
--- OUTSIDE RECORDS SUMMARY | 2025-09-30 06:34 | XMS_ITS | Clinical Summary ---
Author Organization [facility] Address [address] [place] [address] Care Team Providers Care Returns Supervisor Name Role Phone Shakira Stapleton MD Primary Care Provider Allergies No known active allergies Medications lisinopril (PRINIVIL) 10 mg tabletIndications :Essential hypertension TAKE 1 TABLET BY MOUTH EVERY MORNING 30 Tablet 9 Active metroNIDAZOLE (FLAGYL) 500 mg tabletIndications :Diverticulitis TAKE 1 TABLET BY MOUTH THREE TIMES DAILY 30 Tablet 9 Active metoprolol tartrate (LOPRESSOR) 25 mg tabletIndications :Essential hypertension Take 1 Tablet (25 mg) by mouth daily. 30 Tablet 9 Active lisinopril (PRINIVIL) 5 mg tablet Take 1 Tablet (5 mg) by mouth daily In evening. 30 Tablet 9 Active Active Problems Problem Noted Date Diagnosed Date Pain in ankle joint 09/29/2008 Diverticulitis 09/16/2008 Hyperlipidemia 09/16/2008 Immunizations Immunization Administration Dates Next Due (ADACEL/BOOSTRIX)(10 YR UP) TDAP VACCINE, 0.5ML, IM 01/30/2017 Family History Medical History Relation Name Comments Colon Cancer Father Relation Name Status Comments Father Social History Tobacco Use Types Packs/Day Years Used Date Smoking Tobacco: Never Smokeless Tobacco: Never Tobacco Cessation:Counseling Given: No Alcohol Use Standard Drinks/Week Comments No 0 (1 standard drink = 0.6 oz pur e alcohol) Sex and Gender Information Value Date Recorded Sex Assigned at Not on file 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 Gender Identity Not on file Sexual Orientation Not on file Last Filed Vital Signs Vital Sign Reading Time Taken Comments Blood Pressure 148/88 02/06/2019 1:56 PM CDT Pulse 92 02/06/2019 1:56 PM CDT Temperature 37 C (98.6 F) 02/06/2019 1:56 PM CDT Respiratory Rate 18 02/06/2019 1:56 PM CDT Oxygen Saturation 96% 02/06/2019 1:56 PM CDT Inhaled Oxygen Concentration - - Weight 80.7 kg (178 lb) 02/06/2019 1:56 PM CDT Height 170.2 cm (5' 7 ) 02/06/2019 1:56 PM CDT Body Mass Index 27.88 02/06/2019 1:56 PM CDT Plan of Treatment Health Maintenance Due Date Last Done Comments FIT/ DNA Q 3 YEARS (AUTO ORDER) 1968 FLEX SIG/CT COLONOGRAPHY Q 5 YEARS (AUTO ORDER) 1968 Traditional Medicare (ACO) A nnual Wellness Visit 1969 COLORECTAL CANCER SCREENING (AUTO ORDER) 1995 COLORECTAL SCREENING 1995 FIT-DNA Q 3 years 1995 Flex Sig/CT Colonography Q 5 years 1995 PNEUMOCOCCAL VACCINE 50+ YEA RS (1 of 1 - PCV) 2000 ZOSTER VACCINE (1 of 2) 2000 Colorectal Cancer Screening (AUTO ORDER) 01/16/2019 Colorectal Cancer Screening 01/16/2019 FIT/FOBT Q 1 YEAR (AUTO ORDER) 01/16/2019 0 01/16/2018, 01/16/2018, 07/23/2000 FIT/FOBT Q 1 year 01/16/2019 01/16/2018, 07/23/2000 Preventative Visit- Commercial 10/29/2024 INFLUENZA VACCINE (#1) 2025 RSV VACCINE (60+ or ) (1 - 1-dose 75+ series) 2025 DTAP/TDAP/TD VACCINES (2 - T d or Tdap) 01/30/2027 01/30/2017 Procedures Procedure Name Priority Date/Time Associated Diagnosis Comments POC OCCULT BLOOD UP TO 3 CARDS Routine 01/16/2018 11:16 AM CDT Screening for colon cancer from Last 3 Months or Most Recently Relevant to Health Maintenance Results * POC OCCULT BLOOD UP TO 3 CARDS (01/16/2018 11:16 AM CDT) OCCULT BLOOD 1 CARD POC Negative Negative [facility] OCCULT BLOOD 2 CARD POC Negative Negative [facility] OCCULT BLOOD 3 CARD POC Negative Negative [facility] INTERNAL KIT QC Pass Pass [facility] CARD LOT NUMBER POC [id number] [facility] CARD EXPIRATION DATE POC 02/26/19 [facility] DEVELOPER LOT NUMBER POC [id number] [facility] DEVELOPER EXPIRATION DATE POC 08/29/19 [facility] Stool STOOL SPECIMEN / Unknown 01/16/2018 11:16 AM CDT Ligia Lorenzana HEAD SULFIDE OPERATOR POINT OF CARE TESTING Final Result Performing Organization Address City/State/[facility] Co de Phone Number [facility] CLIA# [id number] [address] [place] [id number] from Last 3 Months or Most Recently Relevant to Health Maintenance Insurance MEDICARE PART A [facility] [place] [address] Care Teams Returns Supervisor Relationship Specialty Start Date End Date Shakira Stapleton MD [address] [phone] PCP - General Family Practice 03/06/14
--- OUTSIDE RECORDS SUMMARY | 2025-09-30 06:34 | XMS_ITS | Clinical Summary ---
Author Organization [facility] Address [address] [facility] Attn: Epic Prelude ADT TERRY GOETZ [address] Care Team Providers Care Coat Baster Name Role Phone Non-Staff, Physician Primary Care Provider Unava ilable Allergies No known active allergies Medications metroNIDAZOLE (FLAGYL) 500 mg tabletIndications :Diverticulitis TAKE 1 TABLET BY MOUTH THREE TIMES DAILY 30 Tablet 0 9 Active lisinopriL (PRINIVIL) 5 mg tablet Take 1 Tablet (5 mg) by mouth daily In evening. 30 Tablet 0 9 Active lisinopriL (PRINIVIL) 10 mg tabletIndications :Essential hypertension TAKE 1 TABLET BY MOUTH EVERY MORNING 30 Tablet 0 9 Active metoprolol tartrate (LOPRESSOR) 25 mg tabletIndications :Essential hypertension Take 1 Tablet (25 mg) by mouth daily. 30 Tablet 0 9 Active Active Problems Problem Noted Date Diagnosed Date Pain in ankle joint 09/29/2008 Diverticulitis 09/16/2008 Hyperlipidemia 09/16/2008 Immunizations Immunization Administration Dates Next Due (ADACEL/BOOSTRIX)(10 YR UP) TDAP VACCINE, 0.5ML, IM 01/30/2017 Family History Medical History Relation Name Comments Colon Cancer Father Relation Name Status Comments Father Social History Tobacco Use Types Packs/Day Years Used Date Smoking Tobacco: Never Smokeless Tobacco: Never Alcohol Use Standard Drinks/Week Comments No 0 (1 standard drink = 0.6 oz pur e alcohol) Sex and Gender Information Value Date Recorded Sex Assigned at Not on file 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 Gender Identity Not on file Sexual Orientation Not on file Last Filed Vital Signs Vital Sign Reading Time Taken Comments Blood Pressure 148/88 02/06/2019 1:56 PM CDT Pulse 92 02/06/2019 1:56 PM CDT Temperature 37 C (98.6 F) 02/06/2019 1:56 PM CDT Respiratory Rate 18 02/06/2019 1:56 PM CDT Oxygen Saturation - - Inhaled Oxygen Concentration - - Weight 80.7 kg (178 lb) 02/06/2019 1:56 PM CDT Height 170.2 cm (5' 7 ) 02/06/2019 1:56 PM CDT Body Mass Index 27.88 02/06/2019 1:56 PM CDT Plan of Treatment Health Maintenance Due Date Last Done Comments COLORECTAL SCREENING 1995 FIT-DNA Q 3 years 1995 Flex Sig/CT Colonography Q 5 years 1995 PNEUMOCOCCAL VACCINE 50+ YEARS (1 of 1 - PCV) 06/11/20 00 ZOSTER VACCINE (1 of 2) 2000 Colorectal Cancer Screening 01/16/2019 FIT/FOBT Q 1 year 01/16/2019 01/16/2018 INFLUENZA VACCINE (#1) 2025 RSV VACCINE (60+ or ) (1 - 1-dose 75+ series) 2025 DTAP/TDAP/TD VACCINES (2 - Td or Tdap) 01/30/2027 Procedures Procedure Name Priority Date/Time Associated Diagnosis Comments POC OCCULT BLOOD UP TO 3 CARDS Routine 01/16/2018 11:16 AM CDT from Last 3 Months or Most Recently Relevant to Health Maintenance Results * POC OCCULT BLOOD UP TO 3 CARDS (01/16/2018 11:16 AM CDT) OCCULT BLOOD 1 CARD POC Negative Negative [facility] OCCULT BLOOD 2 CARD POC Negative Negative [facility] OCCULT BLOOD 3 CARD POC Negative Negative [facility] INTERNAL KIT QC Pass Pass [facility] CARD LOT NUMBER POC [id number] [facility] CARD EXPIRATION DATE POC 02/26/19 [facility] DEVELOPER LOT NUMBER POC [phone] [facility] DEVELOPER EXPIRATION DATE POC 08/29/19 [facility] Stool STOOL SPECIMEN / Unknown 01/16/2018 11:16 AM CDT us Ligia Lorenzana PAEDIATRIC SURGEON POINT OF CARE TESTING Final Result [facility] CLIA# [id number] [address] [place] [address] from Last 3 Months or Most Recently Relevant to Health Maintenance [place] [address] [id number] Care Teams Coat Baster Relationship Specialty Start Date End Date Non-Staff, Physician NO ADDRESS ON FILE PCP - General 01/19/22
--- OUTSIDE RECORDS SUMMARY | 2025-09-30 06:34 | XMS_ITS | Encounter Summary ---
Author Organization [facility] Address [address] [place] [address] Care Team Providers Care Sld Educational Aide Name Role Phone Shakira Stapleton MD Primary Care Provider Encounter Details Date Type Department Care Team (Latest Contact Info) Description 10/25/2000 Outpatient Historical [facility] Family Medicine [place] [address] [address] Rizwan Amos DO NO ADDRESS ON FILE Pain in joint, shoulder region (Primary Dx); Diverticulitis of colon Social History Tobacco Use Types Packs/Day Years Used Date Smoking Tobacco: Never Assessed Sex and Gender Information Value Date Recorded Sex Assigned at Not on file 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
--- OUTSIDE RECORDS SUMMARY | 2025-09-30 06:34 | XMS_ITS | Encounter Summary ---
Author Organization [facility] Address [address] [place] [address] Care Team Providers Care Personal Insurance Advisor Name Role Phone Shakira Stapleton MD Primary Care Provider [phone] Encounter Details Date Type Department Care Team (Latest Contact Info) Description 09/03/2000 Outpatient Historical [facility] Family Medicine [place] [address] [address] Rizwan Amos DO NO ADDRESS ON FILE Simple or unspecified chronic serous otitis media (Primary Dx); Headache(784.0) Social History Tobacco Use Types Packs/Day Years Used Date Smoking Tobacco: Never Assessed Sex and Gender Information Value Date Recorded Sex Assigned at Not on file 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
--- OUTSIDE RECORDS SUMMARY | 2025-09-30 06:34 | XMS_ITS | Encounter Summary ---
Author Organization [facility] Address [address] [place] [address] Care Team Providers Care Cytogenetic Technician Name Role Phone Shakira Stapleton MD Primary Care Provider Encounter Details Date Type Department Care Team (Latest Contact Info) Description 11/15/2001 Outpatient Historical [facility] Family Medicine [place] [address] [address] Rizwan Amos DO NO ADDRESS ON FILE ACUTE SINUSITIS NOS (Primary Dx) Social History Tobacco Use Types Packs/Day Years Used Date Smoking Tobacco: Never Assessed Sex and Gender Information Value Date Recorded Sex Assigned at Not on file 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
--- OUTSIDE RECORDS SUMMARY | 2025-09-30 06:34 | XMS_ITS | Encounter Summary ---
Author Organization [facility] Address [address] [place] [address] Care Team Providers Care Rooming House Keeper Name Role Phone Shakira Stapleton MD Primary Care Provider [phone] Encounter Details Date Type Department Care Team (Latest Contact Info) Description 10/03/2005 Outpatient Historical [facility] General Surgery [address] [address] [address] [place] [address] [place] [address] [facility] [address] [place] [address] SURGERY FOLLOWUP NOS (Primary Dx) Social History Tobacco Use Types Packs/Day Years Used Date Smoking Tobacco: Never Assessed Sex and Gender Information Value Date Recorded Sex Assigned at Not on file 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
--- OUTSIDE RECORDS SUMMARY | 2025-09-30 06:34 | XMS_ITS | Encounter Summary ---
Author Organization [facility] Address [address] [place] [address] Care Team Providers Care Managing Supervisor Name Role Phone Shakira Stapleton MD Primary Care Provider [phone] Encounter Details Date Type Department Care Team (Latest Contact Info) Description 09/19/2006 Outpatient Historical [facility] [address] [place] [phone] Rizwan Amos DO NO ADDRESS ON FILE Abdominal Pain, Unspecified Site (Primary Dx) Social History Tobacco Use Types Packs/Day Years Used Date Smoking Tobacco: Never Assessed Sex and Gender Information Value Date Recorded Sex Assigned at Not on file 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
--- OUTSIDE RECORDS SUMMARY | 2025-09-30 06:34 | XMS_ITS | Encounter Summary ---
Author Organization [facility] Address [address] [place] [address] Care Team Providers Care Hazardous Materials Tanker Driver Name Role Phone Shakira Stapleton MD Primary Care Provider Encounter Details Date Type Department Care Team (Latest Contact Info) Description 09/13/2005 Outpatient Historical [facility] Family Medicine [place] [address] [address] Rizwan Amos DO NO ADDRESS ON FILE UNILAT INGUINAL HERNIA (Primary Dx) Social History Tobacco Use Types Packs/Day Years Used Date Smoking Tobacco: Never Assessed Sex and Gender Information Value Date Recorded Sex Assigned at Not on file 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
--- OUTSIDE RECORDS SUMMARY | 2025-09-30 06:34 | XMS_ITS | Encounter Summary ---
Author Organization [facility] Address [address] [place] [address] Care Team Providers Care Purchasing Director Name Role Phone Shakira Stapleton MD Primary Care Provider Encounter Details Date Type Department Care Team (Latest Contact Info) Description 09/26/2005 Outpatient Historical [facility] General Surgery [address] [address] [address] [place] [address] [place] [address] [facility] [address] [place] [address] UNILAT INGUINAL HERNIA (Primary Dx); Umbilical hernia Social History Tobacco Use Types Packs/Day Years Used Date Smoking Tobacco: Never Assessed Sex and Gender Information Value Date Recorded Sex Assigned at Not on file 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 Gender Identity Not on file Sexual Orientation Not on file documented as of this encounter Plan of Treatment Not on file documented as of this encounter Visit Diagnoses Diagnosis Inguinal hernia without mention of obstruction or gangrene, unilateral or unspecified, (not specified as recurrent)- Primary Umbilical hernia Umbilical hernia without mention of obstruction or gangrene documented in this encounter Care Teams Purchasing Director Relationship Specialty Start Date End Date Shakira Stapleton MD [address] [phone] PCP - General Family Practice 03/06/14 documented as of this encounter
--- NOTE | 2025-09-30 06:37 | ECG_ITS ---
[facility]: 2025-09[facility]30 Pat Name: Rafa Galindo Department: Room: Gender: Male Circuit Board Drafter: : 1950 Requested By: Whitney Louie Order Number: [id number] Jessica MD: Madelin Bacon M.D. Measurements Intervals [place] Rate: 86 P: -57 AK: 113 QRS: -18 QRSD: 85 T: 91 QT: 383 QTc: 458 Interpretive Statements ECTOPIC ATRIAL RHYTHM WITH SHORT AK INTERVAL WITH OCCASIONAL ECTOPIC PREMATURE COMPLEXES NONSPECIFIC T-WAVE ABNORMALITY Compared to ECG 09/10/2024 03:39:23 Ectopic atrial rhythm now present Short AK interval now present T-wave abnormality now present Junctional rhythm no longer present Electronically Signed On 09-30-2025 23:40:12 FISHING BOAT MATE by Madelin Bacon M.D. [email or web address]
--- NOTE | 2025-09-30 06:37 | W.ED.CHESTPA ---
HPI - Chest Pain General: Chief Complaint: Chest Pain Stated Complaint: cp Time Seen by Provider: 09/30/25 06:31 History of Present Illness: 75-year-old man with a history of coronary artery disease status post stents 2 to 3 years ago, hypertension, hyperlipidemia and diverticulosis who presents to the emergency room by ambulance with chest pain. He said this started overnight. He woke up once took some nitro and went back to bed and then woke up again with chest pain and this time it did not go away initially so he called an ambulance. He received more nitro and has an inch of Nitropaste on now. He is taking aspirin. He is now chest pain-free except for he says he still has a little bit of burning in his stomach. He thinks that is from the aspirin. No cough. No fever. No altered mental status. No abdominal pain. No vomiting. Related Data Home Medications ?Medication ?Instructions ?Recorded ?Confirmed aspirin 81 mg tablet,delayed 81 mg PO QAM 09/18/23 09/17/25 release pantoprazole 40 mg tablet,delayed 40 mg PO DAILY PRN Heartburn 09/07/24 09/17/25 release Previous Rx's ?Medication ?Instructions ?Recorded nitroglycerin 0.4 mg sublingual 0.4 mg sublingual Q5M PRN Chest 09/11/24 tablet (Nitrostat) Pain 30 days #30 tabs isosorbide mononitrate 30 mg 30 mg PO DAILY #90 tabs 07/27/25 tablet,extended release 24 hr clopidogrel 75 mg tablet See Rx Instructions .Route 08/27/25 .COMPLEX #90 tabs lisinopril 20 mg tablet See Rx Instructions .Route 08/27/25 .COMPLEX #90 tabs metoprolol tartrate 25 mg tablet 25 mg PO QAM #90 tabs 09/15/25 ciprofloxacin HCl 250 mg tablet 250 mg PO Q12H 10 days #20 tabs 09/17/25 (Cipro) metronidazole 500 mg tablet 500 mg PO BID 10 days #20 tabs 09/17/25 Allergies Allergy/AdvReac Type Severity Reaction Status Date / Time No Known Allergies Allergy Verified 09/17/25 07:52 Review of Systems Narrative: Constitutional symptoms: Negative except as documented in HPI. Skin symptoms: Negative except as documented in HPI. Eye symptoms: Negative except as documented in HPI. ENMT symptoms: Negative except as documented in HPI. Respiratory symptoms: Negative except as documented in HPI. Cardiovascular symptoms: Negative except as documented in HPI. Gastrointestinal symptoms: Negative except as documented in HPI. Genitourinary symptoms: Negative except as documented in HPI. Musculoskeletal symptoms: Negative except as documented in HPI. Neurologic symptoms: Negative except as documented in HPI. Psychiatric symptoms: Negative except as documented in HPI. Endocrine symptoms: Negative except as documented in HPI. PFSH ED PFSH: Medical History (Updated 09/30/25 @ 07:52 by Whitney Ruvalcaba MD) Positive cardiac stress test Acute non-ST elevation myocardial infarction (NSTEMI) Diverticulosis Dyslipidemia CAD (coronary artery disease) Hypertension Surgical History Hx of heart artery stent Stented coronary artery Hx of inguinal hernia surgery Family History Mother Hypertension Father Cancer Colon cancer Family/Other Dementia Denies family history of Diabetes CAD (coronary artery disease) Clotting disorder Chronic kidney disease (CKD) Suicide Anesthesia complication Bleeding disorder Lung disease Stroke Social History Smoking and tobacco/nicotine status: never used tobacco/nicotine Alcohol intake: never Substance/Drug Use: never Physical Exam Narrative: EXAM NARRATIVE: General: Alert, no acute distress. Skin: Warm, dry. Head: Normocephalic, atraumatic. Neck: Supple, trachea midline. Eye: Extraocular movements are intact. Ears, nose, mouth and throat: mucosa moist. Cardiovascular: Regular, Normal peripheral perfusion. Respiratory: Lungs are clear to auscultation, respirations are non-labored, breath sounds are equal, Symmetrical chest wall expansion. Gastrointestinal: Soft, Nontender, Non distended Musculoskeletal: Normal ROM, no deformity. Neurological: Alert and oriented, No focal neurological deficit observed. Psychiatric: Cooperative, appropriate mood & affect. Course Vital Signs: Vital signs: Vital Signs Temperature 97.9 F 09/30/25 06:32 Pulse Rate 82 09/30/25 07:57 Respiratory Rate 16 09/30/25 06:58 Blood Pressure 141/87 09/30/25 07:57 Pulse Oximetry 95 09/30/25 07:49 Oxygen Delivery Me thod Room Air 09/30/25 07:49 MDM - Chest Pain Medical Decision Making Medical decision making Patient's reason for coming to the emergency room: Chest pain Social determinants: Patient is retired I reviewed the patient's medical record. 75-year-old man with a history of coronary artery disease status post stents 2 to 3 years ago, hypertension, hyperlipidemia and diverticulosis. 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 Reviewed [facility] procedure back in 2022. One-vessel coronary disease at that time with severe proximal/ostial LAD disease. It was stented with good result. I reviewed the patient's current home meds Patient says he is still on Plavix. Alternate historians: None Differential diagnosis for patient with chest pain includes but is not limited to and based on the above HPI, review of systems and physical exam: Pneumonia. unstable angina. angina. Acute coronary syndrome / [place]. Pulmonary embolism. Costochondritis / musculoskeletal. Pleurisy. Pericarditis. Esophageal spasm. Pancreatitis. Cholecystitis. Orders placed to evaluate differential diagnosis based on the above differential, HPI and physical exam EKG: Time 6:37 AM. Rate 86. Normal sinus rhythm, nonspecific T wave changes, no ectopy, normal CT & QRS intervals, This was reviewed and interpreted by myself the ER physician at 6:40 AM Chest x-ray: No acute process. No infiltrate. No pneumothorax. This was reviewed and interpreted by myself the emergency room physician. I also reviewed the radiology report. Lab Review: Laboratory results were reviewed and interpreted by myself the emergency room physician. No leukocytosis. No anemia. No renal failure. Initial troponin is slightly elevated at 32. Reexamination: Nitropaste was removed to see how the patient to do. He has redeveloped chest pain. Replacing the Nitropaste. No increased work of breathing. No oxygen requirements. No altered mental status. Assessment of risk: Level of risk: High risk patient. History of coronary disease. Unstable angina. Hospitalization considerations: Patient is being admitted. Clinical decision support: Heart score of 8. Recommend admission to [facility] and cardiology consult Consultation: I spoke with Dr. Lai who is on-call for the hospitalist who agrees to admission. Consultation: I spoke with Dr. Elizabeth who is on-call for the cardiology service who will consult on the patient. He agrees with heparin drip and recommends n.p.o. diet at this time. Assessment and plan: Unstable angina Coronary artery disease ? Putting Nitropaste back. Heparin drip initiated. Stat echo ordered. - Discharged home - Discussed plan with patient. Answered any questions. - Evaluation and treatment of this problem were appropriate in the emergency setting. Lab Data 09/30/25 07:01 09/30/25 07:01 Radiology Impressions Chest X-Ray 09/30/25 06:31 IMPRESSION: Low lung volumes with bibasilar opacities which may represent atelectasis versus infiltrate. Laboratory Results WBC 3.78 10^3/uL (3.29-11.43) 09/30/25 07:01 RBC 4.18 10^6/uL (3.85-5.65) 09/30/25 07:01 Hgb 13.00 g/dL (11.27-16.99) 09/30/25 07:01 Hct 38.6 % (37-53) 09/30/25 07:01 MCV 92.3 fl (82-101) 09/30/25 07:01 MCH 31.1 pg (27-33) 09/30/25 07:01 MCHC 33.7 g/dL (30-55) 09/30/25 07:01 RDW 12.4 % (12.1-15.1) 09/30/25 07:01 Plt Count 228 10^3/cmm (157-399) 09/30/25 07:01 MPV 9.3 fL (7.4-10.4) 09/30/25 07:01 Neut % (Auto) 65.6 % 09/30/25 07:01 Lymph % (Auto) 18.3 % 09/30/25 07:01 [place] % (Auto) 12.4 % 09/30/25 07:01 Eos % (Auto) 1.9 % 09/30/25 07:01 Baso % (Auto) 1.3 % 09/30/25 07:01 Neut # (Auto) 2.48 10^3/uL (1.8-7.7) 09/30/25 07:01 Lymph # (Auto) 0.7 10^3/uL (0.8-4.8) L 09/30/25 07:01 [place] # (Auto) 0.5 10^3/uL (0.2-0.9) 09/30/25 07:01 Eos # (Auto) 0.1 10^3/uL (0.0-0.8) 09/30/25 07:01 Baso # (Auto) 0.1 10^3/uL (0.0-0.1) 09/30/25 07:01 Nucleated RBC % (auto) 0 % 09/30/25 07:01 Nucleated RBCs # 0.0 /100WBC 09/30/25 07:01 PT 13.40 SECONDS (12.1-14.9) 09/30/25 07:01 INR 0.95 (0.8-1.2) 09/30/25 07:01 APTT 30.2 SECONDS (23.9-36.7) 09/30/25 07:01 Sodium 137 mmol/L (136-145) 09/30/25 07:01 Potassium 4.4 mmol/L (3.5-5.1) 09/30/25 07:01 Chloride 103 mmol/L (98-107) 09/30/25 07:01 Carbon Dioxide 24 mmol/L (22-29) 09/30/25 07:01 Anion Gap 14.4 (5-19) 09/30/25 07:01 BUN 18 mg/dL (8-23) 09/30/25 07:01 Creatinine 0.9 mg/dL (0.7-1.2) 09/30/25 07:01 GFR Calculation Not Reportable 09/30/25 07:01 Glucose 132 mg/dL (65-115) H 09/30/25 07:01 Calculated Osmolality 288 mOsm/kg (285-295) 09/30/25 07:01 Calcium 8.5 mg/dL (8.5-10.5) 09/30/25 07:01 Total Bilirubin 0.5 mg/dL (0.15-1.2) 09/30/25 07:01 AST 18 U/L (0-40) 09/30/25 07:01 ALT 22 U/L (0-41) 09/30/25 07:01 Alkaline Phosphatase 52 U/L (40-130) 09/30/25 07:01 Troponin T Baseline 32 ng/L (0-15) H 09/30/25 07:01 NT-Pro-B Natriuret Pep < 36 pg/mL (0-450) 09/30/25 07:01 Total Protein 6.1 g/dL (6.6-8.7) L 09/30/25 07:01 Albumin 3.7 g/dL (3.5-5.2) 09/30/25 07:01 Globulin 2.4 g/dL (1.3-4.6) 09/30/25 07:01 Lipase 28 U/L (13-60) 09/30/25 07:01 All radiology interpretation(s) finalized by discharge Clincial Decision Support The following clinical decision support tools were used to aid in care of the patient HEART Score -> History: Highly Suspicious, EKG: Non-specific Changes, Age: 65 or more yrs, Risk Factors: >/=3 Risk Factors, Troponin: Baseline Trop 16-45 ng/L. Resulting HEART Score: 8. Discharge Plan Discharge Patient Disposition: Placed in Observation Clinical Impression: Unstable angina CAD (coronary artery disease) Qualifiers: Coronary Disease-Associated Artery/Lesion type: [place] artery [place] vs. transplanted heart: [place] heart Associated angina: with other forms of angina Qualified Code(s): I25.118 - Atherosclerotic heart disease of [place] coronary artery with other forms of angina pectoris Coding Level of Care Code ED Charge Histotechnologist for Chg Fwd Heart Score HEART Score Components History: Highly Suspicious EKG: Non-specific Changes Age: 65 or more yrs Risk Factors: >/=3 Risk Factors Troponin: Baseline Trop 16-45 ng/L HEART Score RESULT HEART Score: 8
--- NOTE | 2025-09-30 06:48 | PC.NURSE ---
PT WAS GIVEN A TOTAL OF 320MG OF CHEWABLE ASPIRIN BEFORE ED ARRIVAL
[2025-09-30 07:13] LABS: Hematocrit 38.6 % (37-53); Hemoglobin 13.00 g/dL (11.27-16.99); Mean Corpuscular HGB Conc 33.7 g/dL (30-55); Mean Corpuscular Hemoglobin 31.1 pg (27-33); Mean Corpuscular Volume 92.3 fl (82-101); Nucleated Red Blood Cells % 0 %; Platelet Count 228 10^3/cmm (157-399); Red Blood Count 4.18 10^6/uL (3.85-5.65); White Blood Count 3.78 10^3/uL (3.29-11.43)
[2025-09-30 07:23] LABS: INR 0.95 (0.8-1.2); Partial Thromboplastin Time 30.2 SECONDS (23.9-36.7); Prothrombin Time 13.40 SECONDS (12.1-14.9)
[2025-09-30 07:29] LABS: Troponin(5th) Baseline 32 ng/L (0-15)
[2025-09-30 07:43] LABS: Alanine Aminotransferase 22 U/L (0-41); Albumin Level 3.7 g/dL (3.5-5.2); Alkaline Phosphatase 52 U/L (40-130); Anion Gap 14.4 (5-19); Aspartate Amino Transferase 18 U/L (0-40); Blood Urea Nitrogen 18 mg/dL (8-23); Calcium 8.5 mg/dL (8.5-10.5); Carbon Dioxide 24 mmol/L (22-29); Chloride 103 mmol/L (98-107); Globulin 2.4 g/dL (1.3-4.6); Glucose 132 mg/dL (65-115); Lipase 28 U/L (13-60); NT Pro B Type Natriuretic Pept < 36 pg/mL (0-450); Osmolality Calculated 288 mOsm/kg (285-295); Potassium 4.4 mmol/L (3.5-5.1); Sodium 137 mmol/L (136-145); Total Protein 6.1 g/dL (6.6-8.7)
[2025-09-30] MEDS: nitroglycerin 1 gm/inch oint Pkt 0.5 INCH TOPICAL (07:57)
--- NOTE | 2025-09-30 08:15 | USCV_ITS ---
Rafa Galindo Age: 75 Gender: M : 1950 Exam Date: 09/30/2025 13:31 Ordering Phys: Whitney Ruvalcaba MD Technologist: Exam [place] [facility] [place]: cp sob BP: 126 / 80 HR: 83 Rhythm: Sinus Technical Quality: Adequate MEASUREMENTS (Male / Female) Normal Values 2D ECHO LV Diastolic Diameter PLAX 3.7 cm 4.2 - 5.9 / 3.9 - 5.3 cm IVS Diastolic Thickness 1.1 cm 0.6 - 1.0 / 0.6 - 0.9 cm IVS Systolic Thickness 2.0 cm LVPW Diastolic Thickness 1.2 cm 0.6 - 1.0 / 0.6 - 0.9 cm LVPW Systolic Thickness 1.6 cm LVOT Diameter 2.0 cm LV Ejection Fraction 2D Teich 69.5 % LV Ejection Fraction MOD 4C 61.5 % LV Ejection Fraction MOD 2C 56.5 % LV Ejection Fraction 2C AL 57.9 % LA Diameter 4.6 cm RA Systolic Volume 4C AL 34.8 ml RA Systolic Volume 4C MOD 32.6 ml Aorta at Sinotubular Diameter 2.7 cm IVC Diameter 1.1 cm M-MODE LA Ao Ratio MM 1.2 AV Cusp Separation MM 2.2 cm DOPPLER AV Peak Velocity 137.0 cm/s LVOT Peak Velocity 132.0 cm/s AV Area Cont Eq vti 3.2 cm squared AV Area Cont Eq pk 3.1 cm squared MV Peak Velocity 79.0 cm/s MV Area PHT 3.3 cm squared Mitral E to A Ratio 0.7 TV Peak Velocity 143.0 cm/s TR Peak Velocity 156.0 cm/s TR Peak Gradient 9.7 mmHg TV Peak E Velocity 88.0 cm/s PV Peak Velocity 117.0 cm/s FINDINGS Left Ventricle Normal left ventricular size and systolic function, EF 56%.. No gross wall motion abnormalities.mild left ventricular hypertrophy. Grade I/IV diastolic dysfunction (abnormal relaxation filling pattern), normal to mildly elevated filling pressures. Right Ventricle Normal right ventricular size and systolic function. Right Atrium Normal right atrial size. Left Atrium Normal left atrial size. IA Septum Normal appearance of the interatrial septum. Mitral Valve No gross abnormalities noted Aortic Valve No gross abnormalities noted Tricuspid Valve No gross abnormalities noted Pulmonic Valve No gross abnormalities noted Pericardium No pericardial effusion. Aorta Normal aortic annulus size. IVC Inferior vena cava not visualized. CONCLUSIONS Normal left ventricular size and systolic function, EF 56%.. No gross wall motion abnormalities.mild left ventricular hypertrophy. Grade I/IV diastolic dysfunction (abnormal relaxation filling pattern), normal to mildly elevated filling pressures. No significant valvular abnormalities. There is no pericardial effusion. There are no intracardiac masses. Compared to the study from 09/09/2024, there may not be a significant change Dr Madelin Bacon MD FACC (Electronically Signed) Final Date: 30 September 2025 16:45 S
--- NOTE | 2025-09-30 08:28 | PM.HP ---
Providers/Chief Complaint Admitting Physician: Isamar Lai MD Primary Care Provider: JUAN CARLOS Arroyo Chief Complaint: Chest Pain History of Present Illness Rafa Galindo is a 75 year old male Patient with PMH of HTN, CAD (s/p PCI w/ LAURENT to LAD 04/2023), HLD, diverticulosis Patient presented to the ED out fo concern for chest pain that began last night around 1:30 AM The pain woke him up from sleep, rated 7/10 located to midline in the chest with slightly more discomfort on the right side. Reports taking 162 mg of aspirin and dose of SL nitro with partial relief, allowing him to fall back asleep briefly before the pain returned about an hour later. The pain is described as constant without radiation to the extremities, back, neck or jaw. Denies associated shortness of breath. Reports chest pain is always nocturnal and never occurs with exertion. Takes metoprolol and lisinopril for hypertension at home with home BP readings typically 95-1 10/60s. Takes aspirin and clopidogrel following his stent placement in April 2023. Patient is known to have hyperlipidemia but declined statin therapy due to concern about cognitive side effects after witnessing neighbors to develop Alzheimer's while taking lipid-lowering medications. Reports occasional dizziness with position change. Denies syncopal events. 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 On 09/17/2025 he was diagnosed with colitis and was prescribed a course of antibiotics. Reports history of GERD, only takes PPI on as-needed basis. Reports occasional difficulty swallowing pills (feels they get stuck). Notes history of endoscopy. ED records and workup reviewed Presenting vital signs, 09/30/25 0632 Temp 97.9 ?F BP 108/72 HR 81 RR 18 SpO2 95% on room air VSS EKG #1, 09/30 0637: Ectopic atrial rhythm, premature complexes, non-specific T wave abnormality. EKG #2, 09/30 0831: Junctional rhythm w/ occasional PVCs, QTc 455 Labs, 09/30/25 0701 Hemogram WBC 3.78 RBC 4.18 PLT 228 HGB 13.0 MCV 92.3 Coags PT 13.4 INR 0.95 aPTT 30.2 Chemistry Na 137 K 4.4 Cl 103 Ca 8.5 Glu 132 CO2 24 AG 14.4 Renal BUN 18 Cr 0.9 eGFR 81.9 Liver AST 18 ALT 22 ALP 52 T.Bili 0.5 Alb 3.7 T.Protein 6.1 Pancreas Lipase 28 Cardiac HS Trop 32 NT-proBNP < 36 XR CHEST, 09/30/25 0635 Impression: Low lung volumes with mild bibasilar opacities which may represent atelectasis vs. infiltrate. In ED received... 0631 Aspirin 324 mg 0751 Nitro-Bid paste 0.5 inch 0809 Heparin bolus 0815 Heparin gtt Other pertinent records reviewed Per review of records. Recently seen in the outpatient setting 09/17/2025 and diagnosed with diverticulitis, subsequently treated with Cipro and Flagyl. Episode of chest pain in August 2024 (hospitalized). His prior cardiac records reviewed. Left heart cath 09/2023 with nonobstructive CAD. Patent prior LAD stent. LVEF 60%. Echocardiogram 08/2024 with LVEF of 60%. No regional wall motion abnormalities. Mild TR. Sestamibi stress test 08/2024. No Lexiscan induced chest pain or cardiac arrhythmia. Review of Systems General: Reports: 10 or more systems reviewed and unremarkable except in HPI and below Medications/Allergies Home Medications ?Medication ?Instructions ?Recorded ?Confirmed ?Last Taken ?Type aspirin 81 mg tablet,delayed 81 mg PO QAM 09/18/23 09/30/25 09/29/25 08:00 History release pantoprazole 40 mg tablet,delayed 40 mg PO DAILY PRN Heartburn 09/07/24 09/30/25 Unknown History release nitroglycerin 0.4 mg sublingual 0.4 mg sublingual Q5M PRN Chest 09/11/24 09/30/25 Unknown Rx tablet (Nitrostat) Pain 30 days #30 tabs isosorbide mononitrate 30 mg 30 mg PO DAILY #90 tabs 07/27/25 09/30/25 09/29/25 08:00 Rx tablet,extended release 24 hr clopidogrel 75 mg tablet See Rx Instructions .Route 08/27/25 09/30/25 09/29/25 08:00 Rx .COMPLEX #90 tabs lisinopril 20 mg tablet See Rx Instructions .Route 08/27/25 09/30/25 09/29/25 08:00 Rx .COMPLEX #90 tabs metoprolol tartrate 25 mg tablet 25 mg PO QAM #90 tabs 09/15/25 09/30/25 09/29/25 08:00 Rx Allergies Allergy/AdvReac Type Severity Reaction Status Date / Time No Known Allergies Allergy Verified 09/17/25 07:52 PFSH Acute PFSH: Medical History Positive cardiac stress test Acute non-ST elevation myocardial infarction (NSTEMI) Diverticulosis Dyslipidemia CAD (coronary artery disease) Hypertension Surgical History Hx of heart artery stent Stented coronary artery Hx of inguinal hernia surgery Family History Mother Hypertension Father Cancer Colon cancer Family/Other Dementia Denies family history of Diabetes CAD (coronary artery disease) Clotting disorder Chronic kidney disease (CKD) Suicide Anesthesia complication Bleeding disorder Lung disease Stroke Social History Smoking and tobacco/nicotine status: never used tobacco/nicotine Alcohol intake: never Substance/Drug Use: never Vitals/I&O/Wt Last Vital Signs Temp 97.9 F 09/30/25 06:32 Pulse 82 09/30/25 07:57 Resp 16 09/30/25 06:58 BP 141/87 09/30/25 07:57 Pulse Ox 95 09/30/25 07:49 O2 Del Method Room Air 09/30/25 07:49 Weight last 48 hrs Weight 81.647 kg Physical Exam Narrative: Constitutional: NAD Neuro: AOx3. No unilateral weakness, facial asymmetry or speech deficits. Head: NC/AT Eyes: PERRLA, EOMI Ears: Normal external ears. Hearing intact to normal voice. Nose: Normal external nose. No epistaxis. Throat: MMM Respiratory: CTAB. No accessory muscle use. On room air. Cardiovascular: Regular. No murmur. Extremities: No edema bilaterally Gastrointestinal: Soft. NT. ND. +BS Genitourinary: No CVA TTP. No buchanan catheter. Musculoskeletal: Skin: Data 09/30/25 07:01 09/30/25 07:01 Other Labs: I have personally reviewed below listed labs that were done in ED on presentation. Labs, 09/30/25 0701 Hemogram WBC 3.78 RBC 4.18 PLT 228 HGB 13.0 MCV 92.3 Coags PT 13.4 INR 0.95 aPTT 30.2 Chemistry Na 137 K 4.4 Cl 103 Ca 8.5 Glu 132 CO2 24 AG 14.4 Renal BUN 18 Cr 0.9 eGFR 81.9 Liver AST 18 ALT 22 ALP 52 T.Bili 0.5 Alb 3.7 T.Protein 6.1 Pancreas Lipase 28 Cardiac HS Trop 32 NT-proBNP < 36 CXR: Radiologist's impression: Exam: XR Chest Exam date and time: 09/30/2025 6:35 AM Age: 75 years old Clinical indication: Pain; Chest pressure; Prior surgery; Surgery date: 6+ months; Surgery type: Cardiac stent; Additional info: Chest pain TECHNIQUE: Imaging protocol: Radiologic exam of the chest. Views: 1 view. COMPARISON: CR XR chest 1V portable [id number] 09/09/2024 8:59 PM FINDINGS: Lungs: Low lung volumes. Mild bibasilar opacities. No focal consolidation. Pleural spaces: Unremarkable. No pleural effusion. No pneumothorax. Heart/Mediastinum: Unremarkable. No cardiomegaly. Bones/joints: Unremarkable. IMPRESSION: Low lung volumes with bibasilar opacities which may represent atelectasis versus infiltrate. EKG's done in ED: My Interpretation: EKG #1, 09/30/25 0637: Ectopic atrial rhythm, premature complexes, non-specific T wave abnormality. QTc 458. EKG #2, 09/30/25 0831: Junctional rhythm w/ occasional PVCs, QTc 455 Other data: Prior cardiac testing / work-up Left heart cath 10/11/23 Diagnostic Findings * INDICATION: Chest pain/abnormal stress test. * Left Main has no significant disease. * Left Anterior Descending has patent prior proximal stent. No significant disease. * Circumflex has mild luminal irregularities. * Proximal Right Coronary Artery: luminal irregularities 20% stenosis, CARMELA:3 flow. * Coronary angiography shows right dominance. Conclusions 1. Non-obstructive Coronary artery disease. Patent prior LAD stent. 2. Normal left ventricular systolic function. Ejection fraction of 60%. Echocardiogram, 09/09/24 1. Normal left ventricular size, systolic function and wall thickness, with no regional wall motion abnormalities. Left ventricular ejection fraction is estimated at 60%. Normal left ventricular wall thickness. Grade I/IV diastolic dysfunction (abnormal relaxation filling pattern), normal to mildly elevated filling pressures. 2. No significant chamber abnormalities. 3. Mild tricuspid valve regurgitation. 4. There is no pericardial effusion. 5. There are no intracardiac masses. 6. Pulmonary artery systolic pressure is within normal limits. 7. Right atrial pressure is around [5] mm of mercury. 8. There are no prior echocardiogram studies to compare. Sestamibi stress test 09/10/24 1. Normal EKG response to Lexiscan infusion 2. No Lexiscan induced chest pain or cardiac arrhythmia. 3. Normal blood pressure and heart rate response. 4. Sestamibi/sestamibi perfusion scan pending; see separate report. A&P Assessment and plan 1. Acute chest pain: 2. CAD (coronary artery disease): 3. Primary hypertension: 4. 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 - Check lipid panel - BIOLOGICAL LAB TECHNICIAN not on a statin # GERD - Start protonix 40 mg QD (scheduled) VTE PPx: High Risk (Caprini score 5). SCDs, on heparin gtt PDMP PDMP Reviewed: Not Reviewed Attestations Medical Necessity Statement*: Given complexity of patient's presentation, co-morbid conditions, and required intensity of treatment, a hospitalization exceeding two midnights is anticipated. Coding Level of Care Code 57053 Diagnoses Acute chest pain R07.9 CAD (coronary artery disease) I25.10 Primary hypertension I10 Dyslipidemia E78.5
--- NOTE | 2025-09-30 08:31 | ECG_ITS ---
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 Measurements Intervals [place] Rate: 85 P: 268 [place]: 121 QRS: -28 QRSD: 91 T: 61 QT: 382 QTc: 455 Interpretive Statements ECTOPIC ATRIAL RHYTHM WITH OCCASIONAL VENTRICULAR PREMATURE COMPLEXES BORDERLINE LEFT AXIS DEVIATION [QRS AXIS < -20] ABNORMAL RHYTHM ECG Compared to ECG 09/30/2025 06:37:30 Junctional rhythm now present Ventricular premature complex(es) now present Ectopic atrial rhythm no longer present Short [place] interval no longer present T-wave abnormality no longer present Electronically Signed On 09-30-2025 23:51:48 FROG CATCHER by Madelin Bacon M.D. [email or web address]
[2025-09-30] MEDS: heparin drip 25,000 UNIT/500 ML PREMIX 19.6 UNIT IV (08:45)
[2025-09-30] MEDS: heparin 5,000 unit/mL INJ 1 mL IVP (08:45)
[2025-09-30] MEDS: morphine 4 mg/mL SDV 1 mL 2 MG IVP (10:48)
--- NOTE | 2025-09-30 12:31 | ECG_ITS ---
[facility] Test Date: 2025-09-30 Pat Name: Rafa Galindo Department: Room: Gender: Male [employer] Supervisor: : 1950 Requested By: Whitney Louie Order Number: [id number] A Lopez MD: Madelin Bacon M.D. Measurements Intervals [place] Rate: 81 P: -87 [place]: 115 QRS: -24 QRSD: 98 T: 64 QT: 388 QTc: 452 Interpretive Statements JUNCTIONAL RHYTHM BORDERLINE LEFT AXIS DEVIATION [QRS AXIS < -20] ABNORMAL RHYTHM ECG Compared to ECG 09/30/2025 08:28:35 Ventricular premature complex(es) no longer present Electronically Signed On 09-30-2025 23:49:53 [employer] by Madelin Bacon M.D. [email or web address]
[2025-09-30] MEDS: fluticasone nasal spray 16gm Btl 1 SPRAY NASAL (14:39)
--- NOTE | 2025-09-30 14:56 | P.CONIM_ITS ---
<Statement entered by Jose Carlos Elizabeth MD - 09/30/25 18:53> Patient was evaluated and cared for in conjunction with an advanced practice practitioner. I personally examined the patient and reviewed the chart and all pertinent data including imaging, telemetry, and laboratory results. I discussed the patient in detail with the advanced practice practitioner. Please see their note for complete H&P testing result and agreed upon plan of care for the patient. 75-year-old male presented with chest pain with history of coronary disease hypertension hyperlipidemia and prior PCI with a negative cath in 2022 with patent previously placed LAD stent presented with what he described the chest pain of the same nature when he had his stent placed. Patient says nitroglycerin relieves it however pain come back again. Twelve-lead EKG is not suggestive of ST elevation or any dynamic EKG changes., Troponin is negative. GENERAL: Patient is alert, awake and oriented x3. HEART: Regular S1 and S2. No murmur, rub or gallop. LUNGS: Clear to auscultate bilaterally. CENTRAL NERVOUS SYSTEM: Grossly nonfocal. EXTREMITIES: Lower extremities with out edema bilaterally. Assessment and plan Chest pain recurrent relieved with nitroglycerin and Nitropaste when taken off Nitropaste patient experienced chest pressure again. Hypertension Hyperlipidemia Patient presentation is suggestive of unstable angina at this point will recommend observing patient, anticoagulation will be initiated continue aspirin statin beta-sveta Plavix Continue monitoring with serial cardiac markers and EKG Keep n.p.o. overnight Possible left heart cath in the for unstable angina Providers/Reason For Consult 2 Consulting Physician/Specialty*: Dr. Elizabeth Reason for Consult*: Chest pain Requesting Physician: Dr. Ruvalcaba Attending Physician: Savannah Martínez NP Primary Care Provider: JUAN CARLOS Arroyo History of Present Illness History of Present Illness Rafa Galindo is a 75 year old male with a history of CAD status post stent to the LAD in April [address] Tanner. He had a subsequent cath procedure in [address] Brewster that showed RCA had luminal irregularities, LAD had a patent proximal stent without significant disease. Circumflex had luminal irregularities. Patient has a history of dyslipidemia, hypertension, CAD. He reports that last night around 1 AM he developed chest pain. He reports this as a pain at the center of his chest. He states that it awoke woken him up from his sleep and he took a nitro with improvement. When the chest pain returned he decided to come into the emergency room. He states this is same type of pain that he had before when he had stents. Denied nausea vomiting or pain radiating. He denies any shortness of breath and appears euvolemic on exam. EKG showed no acute ST or T wave abnormalities. Patient was given nitro in the ED but his blood pressure dropped. Currently he states his chest pain is much improved but still complains of some of this at this time. Vitals are stable. Patient currently on heparin drip. Review of Systems 2 Narrative: Consitutional: denies fever, chills, body aches, or changes in appetite, denies abnormal weight loss Eyes: Denies changes in vision Card: Reports chest pain in the center of his chest much improved after nitro, palpitations, irregular heart rhythm, edema, syncope, shortness of breath, orthopnea, leg pain with exertion Resp: Denies shortness of breath, denies hemoptysis, denies cough GI: denies abdominal pain, denies nausea or voimting, denies blood in stool : denies blood in urine, denies dysuria Musc: Denies extremity pain, denies limited range of motion or recent injury Skin: Denies rash, lesions, or wounds, denies changes to skin color Neuro: Denies nubmness in extremities, h/a, s/s of stroke Rashel: Denies easy bruiding/bleeding All: Denies s/s of allergies Medications/Allergies Home Medications ?Medication ?Instructions ?Recorded ?Confirmed ?Last Taken ?Type aspirin 81 mg tablet,delayed 81 mg PO QAM 09/18/2301/2009/29/25 08:00 History release pantoprazole 40 mg tablet,delayed 40 mg PO DAILY PRN H eartburn 09/07/24 09/30/25 Unknown History release nitroglycerin 0.4 mg sublingual 0.4 mg sublingual Q5M PRN Chest 09/11/24 09/30/25 Unknown Rx tablet (Nitrostat) Pain 30 days #30 tabs isosorbide mononitrate 30 mg 30 mg PO DAILY #90 tabs 0 07/27/25 09/30/25 09/29/25 08:00 Rx tablet,extended release 24 hr clopidogrel 75 mg tablet See Rx Instructions .Route 1 0/25 12/03/25 12/02/25 08:00 Rx .COMPLEX #90 tabs lisinopril 20 mg tablet See Rx Instructions .Route 1 09/30/25 09/29/25 08:00 Rx .COMPLEX #90 tabs metoprolol tartrate 25 mg tablet 25 mg PO QAM #90 tabs 09/15/25 09/30/25 09/29/25 08:00 Rx Allergies Allergy/AdvReac Type Severity Reaction Status Date / Time No Known Allergies Allergy Verified 09/17/25 07:52 Current Medications Generic Name Dose Route Start Last Admin Trade Name Freq PRN Reason Stop Dose Admin Heparin Sodium/Sodium Chloride 25,000 unit in 500 mls @ 19.595 mls/hr 09/30/25 08:15 09/30/25 08:45 Heparin Drip IV 12 unit/kg/hr CONT BRAULIO 19.6 mls/hr Protocol Administration 12 UNIT/KG/HR Pantoprazole Sodium 40 mg 09/30/25 12:51 09/30/25 14:[address] 40 Mg Tablet PO 40 mg DAILY BRAULIO Administration PFSH Acute 2 PFSH: Medical History (Updated 09/30/25 @ 09:12 by Savannah Martínez NP) Positive cardiac stress test Acute non-ST elevation myocardial infarction (NSTEMI) Diverticulosis Dyslipidemia CAD (coronary artery disease) Hypertension Surgical History Hx of heart artery stent Stented coronary artery Hx of inguinal hernia surgery Family History Mother Hypertension Father Cancer Colon cancer Family/Other Dementia Denies family history of Diabetes CAD (coronary artery disease) Clotting disorder Chronic kidney disease (CKD) Suicide Anesthesia complication Bleeding disorder Lung disease Stroke Social History Smoking and tobacco/nicotine status: never used tobacco/nicotine Alcohol intake: never Substance/Drug Use: never Vitals/I&O/Wt Last Vital Signs Temp 97.9 F 09/30/25 06:32 Pulse 86 09/30/25 14:53 Resp 16 09/30/25 06:58 BP 107/70 09/30/25 14:53 Pulse Ox 95 09/30/25 14:53 O2 Del Method Room Air 09/30/25 14:53 Weight last 48 hrs Weight 180 lb Physical Exam 2 Narrative: General: No apparent distress, healthy appearing, well nourished HENMT: normoceophalic Neck: No carotid bruit bilaterally Muskuloskeletal: Full ROM Lymphatic: no lymphedema noted Respiratory: Normal respiratory effort, clear to auscultation bilaterally throughout all lung dale, no use of accessory muscles Cardio: No JVD, regular rate, regular rhythm, S1 S2 normal, no murmurs, peripheral pulses 2+ radial palpated bilaterally GI: Normal to inspection, nondistended Extremities: Full ROM, normal, normal capillary refill, no cyanosis or edema Neuro: Alert and oriented x4, no focal motor deficits Psych: Affect normal, denies suicidal ideation, mental status grossly normal Skin: No rashes or lesions noted, no wounds Data 09/30/25 07:01 09/30/25 07:01 Other data: trop 32-33.67 6 hour pending echo ordered probnp <36 A&P Assessment and plan 1. Acute chest pain: 2. CAD (coronary artery disease): 3. Primary hypertension: 4. Dyslipidemia: Plan: Acute chest pain- Continue aspirin and plavix. At this time, chest pain has significantly improved without ekg changes. Patient is stable. Continue heparin drip. Continue to monitor for s/s of worsening chest pain/ekg changes. Due to the patient's persistent symptoms, hx of CAD, recommend taking patient for angigram tomorrow in the morning around 6 AM. Patient agrees to this. The risk and benefits were discussed in detail with the patient. The risk of bleeding, hematoma, vascular injury, myocardial infarction, myocardial perforation, malignant cardiac arrhythmias ,CVA, renal failure and other concomitant complications were explained in detail. Thank you, Dr. Ruvalcaba, for allowing us to care for this very pleasant 75 year old gentleman. PDMP PDMP Reviewed: Not Reviewed Consult Attestations 2 Medical Necessity Statement: Deferred to primary. Coding Level of Care Code Acute Code for Chg Fwd Diagnoses Acute chest pain R07.9 CAD (coronary artery disease) I25.10 Primary hypertension I10 Dyslipidemia E78.5
[2025-09-30 15:03] LABS: Troponin 5 6HR 29.71 ng/L (0-15)
[2025-09-30 15:05] LABS: Troponin 5 6HR Delta -2.29 ng/L (0-12)
[2025-09-30 15:06] LABS: Partial Thromboplastin Time 106.1 SECONDS (23.9-36.7)
[2025-09-30 21:57] LABS: Partial Thromboplastin Time 54.3 SECONDS (23.9-36.7)
[2025-10-01] VITALS (27 sets, daily range): BP systolic 105–145; BP diastolic 70–94; PULSE 70–98; RESP 3–20; TEMP 36.7; O2SAT 89–97
[2025-10-01 05:22] LABS: Hematocrit 39.3 % (37-53); Hemoglobin 13.40 g/dL (11.27-16.99); Mean Corpuscular HGB Conc 34.1 g/dL (30-55); Mean Corpuscular Hemoglobin 31.2 pg (27-33); Mean Corpuscular Volume 91.4 fl (82-101); Nucleated Red Blood Cells % 0 %; Platelet Count 217 10^3/cmm (157-399); Red Blood Count 4.30 10^6/uL (3.85-5.65); White Blood Count 4.77 10^3/uL (3.29-11.43)
--- NOTE | 2025-10-01 05:26 | XACV_ITS ---
Exam Room: 2 Ht: 170 cm Wt: 82 kg BSA: 1.98 m2 Gender: Male : 1950 Any Known Allergies: No known allergies Exam Priority: Routine Procedure(s): Procedure Description: Diagnostic procedure Procedure Description: Coronary Angiography ROSE, Clara; Diagnostic Cath Status: Urgent Conclusions 1. Indication: Recurrent chest pain despite of medical management and relieved with nitro#1 Left main is normal #2 LAD has luminal irregularity with patent previously placed proximal stent #3 LCx has luminal irregularity without significant stenosis #4 RCA is a dominant vessel without significant stenosisSince echocardiogram was performed therefore we have not done LV gram. Recommendations * Usual post-cath care, continue medical management. Diagnostic RX Recommendation: medical therapy and/or counseling Pressures Phase:Rest AO : 103 / 90 ( 91 ) @ 6:55:00 AM Clinical Evaluation EBL: 5mL-10mL Procedural Details Procedure Consent Obtained. Pre-Procedure Time Out. Identified patient by full name and date of as verbalized by the patient/guarantor. Does the consent match the physician's order: Yes. Accurate & Complete Informed Consent: Yes. Inpatient/Outpatient History & Physical on Chart: Yes. If H&P is completed, is and addenduem needed: No. Visualize and Verify Site with Patient/Guarantor: N/A. Relevant Radiology Images available: Yes. The risks, benefits, and alternatives of sedation and/or procedure were discussed by physician. The patient agrees to continue. Procedure started. [facility] Clinical Fraility Score: 3: Managing Well. 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 Chest Pain Symptom Assessment: Typical Angina Symptoms. Cardiovascular Instability: No. Correct patient, site and procedure confirmed by cath team. PERRLA. 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 Lungs clear x 5 lobes. IV Site on Arrival: 18 gauge in the right anticubital. IV Site on Arrival: 18 gauge in the left anticubital. IV Fluids: 0.9% NaCl at KVO. 100 mL infused prior to labor relations analyst. Pre Procedural Pulses: bilateral radial was 3+. Pre Procedural Pulses: bilateral dorsalis pedis was Doppled. Pre Procedural Pulses: bilateral posterior tibial was Doppled. Oxygen started at 2liters/min via nasal canula. right groin was prepped with chloroprep then draped in the usual sterile fashion. right radial was prepped with chloroprep then draped in the usual sterile fashion. Physician notified. Baseline sample Acquired. HR: 115 BPM. Patient's family unavailable. Equipment: 6F - Radial. Cardiac Cath Pack. ACIST Manifold Kit Model BT 2000. Heparinized Saline (2 units/mL), 1000 mL bag. Physician arrived. Physician scrubbed in. Immediate Pre-Procedure Time Out. Correct Patient: Yes; Correct Procedure: Yes; Correct Site: Yes; Correct Patient Position: Yes; Correct Supplies: Yes; Dried Flammable Prep: Yes; Blood Products Available: N/A;. Lidocaine 1% infiltrated to the right radial. Arterial access obtained. A 5 albanian TIG catheter in over the exchange J wire. ACT drawn. Results 172 seconds. Therapeutic limits - pre-heparin administration 90-150 seconds and monitoring heparin during a vascular procedure >250 seconds. Multiple views taken of left coronary artery. Catheter redirected to the RCA. Multiple views taken of right coronary artery. Catheter removed over the exchange J wire. Dr. Elizabeth scrubbed out. Vital chart was stopped. A TR Band was successful obtaining hemostatsis at the Right Radial artery insertion site. Post Procedure: Pulses reassessed and unchanged. PERRLA. 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 No VTE prophylaxis required. Medication's Wasted: Lidocaine 1% = 18 mL. Medication's Wasted: Nitro = 49.8 mg. Medication's Wasted: Heparin = 1000 units. Medication's Wasted: Other = Versed 1 mg. Medication's Wasted: Other = Fentanyl 50 mcg. Total IV fluids: 30 mL. Post-op diagnosis: Non-obstructive CAD. Complications: none. Estimated blood loss: 5mL-10mL. Responsiveness - Normal response to verbal stimuli; alert and oriented, PERRLA. Airway - Unaffected, no intervention required; spontaneous ventilation. Circulation: W/N/L, pulses unchanged. Nausea/Vomiting: No. Procedure completed. Patient transferred by bed to 1st floor. Access Site Site: Right Radial artery Sheath Size: 6 Fr Hemostasis Method: TR Band Hemostasis Success: Successful Procedure Medications Start: 6:39 AM Stop: 6:39 AM Medication: Versed Amount: 1 mg Route: I.V. Start: 6:39 AM Stop: 6:39 AM Medication: Fentanyl Amount: 50 mcg Route: I.V. Start: 6:52 AM Stop: 6:52 AM Medication: Nitrogylcerin Amount: 200 mcg Route: I.A. Start: 6:56 AM Stop: 6:56 AM Medication: Heparin Amount: 5000 units Route: I.V. I, the attending physician, have reviewed and verified all procedure medications. Yes, all medications given per verbal order History/Risk Factors Hypertension: Yes Dyslipidemia: Yes Peripheral Arterial Disease (PAD): No Myocardial Infarction (DE): Yes Obesity: No Renal Disease: No Tobacco Use: Never Prior Interventions PCI: Yes CABG: No Valve Surgery: No Date of PCI: 05/17/2023 Report Signatures Finalized by Jose Carlos Elizabeth MD on 10/01/2025 07:11 AM
[2025-10-01 05:57] LABS: Partial Thromboplastin Time 76.3 SECONDS (23.9-36.7)
[2025-10-01 06:00] LABS: Anion Gap 11.2 (5-19); Blood Urea Nitrogen 13 mg/dL (8-23); Calcium 8.3 mg/dL (8.5-10.5); Carbon Dioxide 26 mmol/L (22-29); Chloride 104 mmol/L (98-107); Cholesterol 215 mg/dL (0-200); Glucose 116 mg/dL (65-115); HDL Cholesterol 65 mg/dL (60-100); Magnesium 2.2 mg/dL (1.7-2.3); Osmolality Calculated 285 mOsm/kg (285-295); Potassium 4.2 mmol/L (3.5-5.1); Sodium 137 mmol/L (136-145); Triglycerides 96 mg/dL (0-150)
[2025-10-01 06:10] LABS: Estmated Average Glucose 123; Hemoglobin A1C 5.9 % (4.0-6.0)
--- NOTE | 2025-10-01 06:39 | W.PM.OPSUD ---
Surgery/Procedure H&P Update DATE OF PROCEDURE: October 01, 2025 DATE H&P PERFORMED: 09/30/25 H&P UPDATE INFORMATION: I have reviewed H&P completed within last 30 days, I have examined patient prior to procedure, No changes to prior documentation and Changes to prior documentation as noted here PREOP DIAGNOSIS: Chest pain suggestive of unstable angina PRIMARY INDICATION FOR PROCEDURE: Worsening of chest pain with increased frequency and duration relieved with nitroglycerin and Nitropaste PLANNED PROCEDURE: Operation Date: 10/01/25 06:00 Proposed Procedures p Cardiac Catheterization(Left) - Italo Brewster M.D PATIENT REASSESSED PRIOR TO SEDATION, WITH NO CHANGE NOTED: Yes PHYSICAL EXAM: alert, oriented x 3, clear to auscultation bilaterally, regular rate & rhythm and operative site marked AIRWAY EVAL/ANESTHESIA PLAN: ASA II and Patient agrees to continue as planned ADDITIONAL INFORMATION: All risk-benefit and alternative for the procedure has been explained to the patient. Patient understand 2% risk of stroke major bleed. Patient understand 5% risk of minor bleeding oozing infection hematoma contrast-induced nephropathy urgent or emergent vascular or bypass surgery. Patient agrees to it and would like to proceed with it.
--- NOTE | 2025-10-01 07:04 | PM.PN ---
Subjective Subjective: Patient underwent left heart cath today noted to have no significant blockage Vitals/I&O/Wt Last Vital Signs Temp 98.0 F 10/01/25 04:00 Pulse 74 10/01/25 04:00 Resp 15 10/01/25 04:00 BP 121/76 10/01/25 04:00 Pulse Ox 97 10/01/25 04:00 O2 Del Method Room Air 10/01/25 04:00 09/30/25 10/01/25 10/01/25 22:59 06:59 14:59 Intake Total 585.155 / 585.155 130.368 / 715.523 Balance 585.155 / 585.155 130.368 / 715.523 Weight last 48 hrs Weight 173 lb 4.533 oz Weight 176 lb 5.917 oz Weight 180 lb Physical Exam Const: COMMON NORMALS: alert OTHER: GENERAL: Patient is alert, awake and oriented x3. HEART: Regular S1 and S2. No murmur, rub or gallop. LUNGS: Clear to auscultate bilaterally. CENTRAL NERVOUS SYSTEM: Grossly nonfocal. EXTREMITIES: Lower extremities with out edema bilaterally. Resp: COMMON NORMALS: clear to auscultation bilaterally AUSCULTATION: clear to auscultation bilaterally Neuro: SENSORIUM/ORIENTATION: Yes alert Data 10/01/25 05:00 10/01/25 05:00 A&P Assessment and plan 1. Acute chest pain: 2. Coronary artery disease involving [place] coronary artery of [place] heart with other form of angina pectoris: 3. Primary hypertension: 4. Dyslipidemia: Plan: Left heart cath was performed today, no significant obstructive coronary artery disease noted. Continue current regimen Discharge patient once radial band is off. Follow-up with cardiology as usual on regular basis PDMP PDMP Reviewed: Not Reviewed Attestations Medical Necessity Statement*: From cardiovascular perspective patient can be discharged home Coding Level of Care Code Acute Code for [facility] Fw Diagnoses Acute chest pain R07.9 Coronary artery disease involving [place] coronary artery of [place] heart with other form of angina pectoris I25.118 Coronary Disease-Associated Artery/Lesion type: [place] artery [place] vs. transplanted heart: [place] heart Associated angina: with other forms of angina Primary hypertension I10 Dyslipidemia E78.5
--- NOTE | 2025-10-01 10:12 | PC.NURSE ---
Initiated TR band removal at 0830 per protocol removing 2ml of air every 15-20min until band off at this time. No s/s of bleeding or hematoma formation observed. Covered site with 2x2 and coban. Instructed patient on site care with restrictions. Also educated on need to continue to monitor site and vs to ensure no changes. Patient verbalized complete understanding. Patient denies pain or needs. No distress observed.
--- NOTE | 2025-10-01 10:39 | P.DS_ITS ---
Documented by User: Lorraine Mackenzie MD 10/01/25 10:39 Discharge Providers Date of Admission: 09/30/25 12:49 Date of Discharge: October 01, 2025 Attending Provider at Admission: Isamar Lai MD Attending Provider at Discharge: Lorraine Mackenzie MD Primary Care Provider: JUAN CARLOS Arroyo Diagnoses at Discharge Discharge Diagnosis 1. Acute chest pain: 2. Coronary artery disease involving qagan tayagungin coronary artery of qagan tayagungin heart with other form of angina pectoris: 3. Primary hypertension: 4. Dyslipidemia: Reason for Visit Reason for Visit: Chest Pain Hospital Course Hospital Course Left heart cath was performed today, no significant obstructive coronary artery disease noted. Continue current regimen Discharge patient once radial band is off. Follow-up with cardiology as usual on regular basis Discharge Data Studies Completed and Pending Completed Studies During Hospitalization Category Date Time Status RAISE MINER request for service Routine Exams 10/01/25 05:26 Completed XR chest 1V portable [id number] Stat Exams 09/30/25 06:31 Completed CV. echo complete* [id number] Stat Ultrasound 09/30/25 08:15 Completed Radiology Impressions Chest X-Ray 09/30/25 06:31 IMPRESSION: Low lung volumes with bibasilar opacities which may represent atelectasis versus infiltrate. Laboratory Results WBC 4.77 10^3/uL (3.29-11.43) 10/01/25 05:00 RBC 4.30 10^6/uL (3.85-5.65) 10/01/25 05:00 Hgb 13.40 g/dL (11.27-16.99) 10/01/25 05:00 Hct 39.3 % (37-53) 10/01/25 05:00 MCV 91.4 fl (82-101) 10/01/25 05:00 MCH 31.2 pg (27-33) 10/01/25 05:00 MCHC 34.1 g/dL (30-55) 10/01/25 05:00 RDW 12.6 % (12.1-15.1) 10/01/25 05:00 Plt Count 217 10^3/cmm (157-399) 10/01/25 05:00 MPV 9.1 fL (7.4-10.4) 10/01/25 05:00 Neut % (Auto) 64.0 % 10/01/25 05:00 Lymph % (Auto) 21.8 % 10/01/25 05:00 [place] % (Auto) 10.9 % 10/01/25 05:00 Eos % (Auto) 1.9 % 10/01/25 05:00 Baso % (Auto) 1.0 % 10/01/25 05:00 Neut # (Auto) 3.05 10^3/uL (1.8-7.7) 10/01/25 05:00 Lymph # (Auto) 1.0 10^3/uL (0.8-4.8) 10/01/25 05:00 [place] # (Auto) 0.5 10^3/uL (0.2-0.9) 10/01/25 05:00 Eos # (Auto) 0.1 10^3/uL (0.0-0.8) 10/01/25 05:00 Baso # (Auto) 0.1 10^3/uL (0.0-0.1) 10/01/25 05:00 Nucleated RBC % (auto) 0 % 10/01/25 05:00 Nucleated RBCs # 0.0 /100WBC 10/01/25 05:00 PT 13.40 SECONDS (12.1-14.9) 09/30/25 07:01 INR 0.95 (0.8-1.2) 09/30/25 07:01 APTT 76.3 SECONDS (23.9-36.7) H 10/01/25 05:00 Sodium 137 mmol/L (136-145) 10/01/25 05:00 Potassium 4.2 mmol/L (3.5-5.1) 10/01/25 05:00 Chloride 104 mmol/L (98-107) 10/01/25 05:00 Carbon Dioxide 26 mmol/L (22-29) 10/01/25 05:00 Anion Gap 11.2 (5-19) 10/01/25 05:00 BUN 13 mg/dL (8-23) 10/01/25 05:00 Creatinine 0.7 mg/dL (0.7-1.2) 10/01/25 05:00 GFR Calculation Not Reportable 10/01/25 05:00 Glucose 116 mg/dL (65-115) H 10/01/25 05:00 Estimat Average Glucose 123 10/01/25 05:00 Hemoglobin A1c 5.9 % (4.0-6.0) 10/01/25 05:00 Calculated Osmolality 285 mOsm/kg (285-295) 10/01/25 05:00 Calcium 8.3 mg/dL (8.5-10.5) L 10/01/25 05:00 Magnesium 2.2 mg/dL (1.7-2.3) 10/01/25 05:00 Total Bilirubin 0.5 mg/dL (0.15-1.2) 09/30/25 07:01 AST 18 U/L (0-40) 09/30/25 07:01 ALT 22 U/L (0-41) 09/30/25 07:01 Alkaline Phosphatase 52 U/L (40-130) 09/30/25 07:01 Troponin T Baseline 32 ng/L (0-15) H 09/30/25 07:01 Troponin T 120 Minute 33.67 ng/L (0-15) H 09/30/25 08:57 Delta Troponin T 1.67 ABS# (0-10) 09/30/25 08:57 Troponin T Hi Sens 6Hr 29.71 ng/L (0-15) H 09/30/25 14:37 Troponin T Hi Sens 6Hr Delta -2.29 ng/L (0-12) L 09/30/25 14:37 NT-Pro-B Natriuret Pep < 36 pg/mL (0-450) 09/30/25 07:01 Total Protein 6.1 g/dL (6.6-8.7) L 09/30/25 07:01 Albumin 3.7 g/dL (3.5-5.2) 09/30/25 07:01 Globulin 2.4 g/dL (1.3-4.6) 09/30/25 07:01 Triglycerides 96 mg/dL (0-150) 10/01/25 05:00 Cholesterol 215 mg/dL (0-200) H 10/01/25 05:00 LDL Cholesterol, Calc 131 mg/dL (50-129) H 10/01/25 05:00 HDL Cholesterol 65 mg/dL (60-100) 10/01/25 05:00 LDL/HDL Ratio 2.02 RATIO (0.00-3.22) 10/01/25 05:00 Cholesterol/HDL Ratio 3.31 mg/dL (1.0-5.00) 10/01/25 05:00 Lipase 28 U/L (13-60) 09/30/25 07:01 Vitals Last Vital Signs Temp 98.0 F 10/01/25 07:44 Pulse 83 10/01/25 10:15 Resp 20 H 10/01/25 08:45 BP 113/76 10/01/25 10:15 Pulse Ox 96 10/01/25 09:15 O2 Del Method Room Air 10/01/25 04:00 Discharge Plan Discharge Patient Disposition: Home Condition: Stable Prescriptions: Continued isosorbide mononitrate 30 mg tablet extended release 24 hr 30 mg PO DAILY Qty: 90 0RF clopidogrel 75 mg tablet See Rx Instructions .ROUTE .COMPLEX Qty: 90 0RF Dose Instruction: Take 1 tablet by mouth once daily Rx Instructions: Take 1 tablet by mouth once daily lisinopril 20 mg tablet See Rx Instructions .ROUTE .COMPLEX Qty: 90 0RF Dose Instruction: TAKE 1 TABLET BY MOUTH IN THE MORNING Rx Instructions: TAKE 1 TABLET BY MOUTH IN THE MORNING metoprolol tartrate 25 mg tablet 25 mg PO QAM Qty: 90 0RF aspirin 81 mg tablet,delayed release (DR/EC) 81 mg PO QAM pantoprazole 40 mg tablet,delayed release (DR/EC) 40 mg PO DAILY PRN (Reason: Heartburn) nitroglycerin [Nitrostat] 0.4 mg Tablet, Sublingual 0.4 mg SUBLINGUAL Q5M PRN (Reason: Chest Pain) 30 Days Qty: 30 0RF Rx Instructions: do not exceed 3 doses per episode Discharge Order = DC NOW: Discharge Order (Routine); Ordered 10/01/25 Ordered By: Lorraine Mackenzie Referrals: Ligia Lorenzana FNP [Primary Care Provider, Family Practice] - 10/07/25 1:40 pm Edel Garcia FNP [Nurse Practitioner, Cardiology] - 10/26/25 2:00 pm Discharge Diet: Cardiac Discharge Activity: Resume usual activity and Increase activity as tolerated Patient Instructions: Hypertension, Coronary Artery Disease (DC), Cardiac Rehabilitation (DC), Heart Catheterization (DC), Chest Pain Stoplight, Opioid Safety, Pain Management, Patient Portal & Lita Instructions Coding Level of Care Code Acute Code for Chg Fwd Diagnoses Acute chest pain R07.9 Coronary artery disease involving qagan tayagungin coronary artery of qagan tayagungin heart with other form of angina pectoris I25.118 Associated angina: with other forms of angina Coronary Disease-Associated Artery/Lesion type: qagan tayagungin artery [place] vs. transplanted heart: qagan tayagungin heart Primary hypertension I10 Dyslipidemia E78.5 Documented by User: Brody Calero MD 10/19/25 15:19 Diagnoses at Discharge Discharge Diagnosis 1. Acute chest pain: 2. Coronary artery disease involving qagan tayagungin coronary artery of qagan tayagungin heart with other form of angina pectoris: 3. Primary hypertension: 4. Dyslipidemia: Reason for Visit Reason for Visit: Chest Pain Hospital Course Hospital Course Left heart cath was performed today, no significant obstructive coronary artery disease noted. Continue current regimen Discharge patient once radial band is off. Follow-up with cardiology as usual on regular basis Discharge Plan Discharge Patient Disposition: Home Condition: Stable Prescriptions: Continued isosorbide mononitrate 30 mg tablet extended release 24 hr 30 mg PO DAILY Qty: 90 0RF clopidogrel 75 mg tablet See Rx Instructions .ROUTE .COMPLEX Qty: 90 0RF Dose Instruction: Take 1 tablet by mouth once daily Rx Instructions: Take 1 tablet by mouth once daily lisinopril 20 mg tablet See Rx Instructions .ROUTE .COMPLEX Qty: 90 0RF Dose Instruction: TAKE 1 TABLET BY MOUTH IN THE MORNING Rx Instructions: TAKE 1 TABLET BY MOUTH IN THE MORNING metoprolol tartrate 25 mg tablet 25 mg PO QAM Qty: 90 0RF aspirin 81 mg tablet,delayed release (DR/EC) 81 mg PO QAM pantoprazole 40 mg tablet,delayed release (DR/EC) 40 mg PO DAILY PRN (Reason: Heartburn) nitroglycerin [Nitrostat] 0.4 mg Tablet, Sublingual 0.4 mg SUBLINGUAL Q5M PRN (Reason: Chest Pain) 30 Days Qty: 30 0RF Rx Instructions: do not exceed 3 doses per episode Discharge Order = DC NOW: Discharge Order (Routine); Ordered 10/01/25 Ordered By: Lorraine Mackenzie Referrals: Ligia Lorenzana FNP [Primary Care Provider, Family Practice] - 10/07/25 1:40 pm Edel Garcia FNP [Nurse Practitioner, Cardiology] - 10/26/25 2:00 pm Discharge Diet: Cardiac Discharge Activity: Resume usual activity and Increase activity as tolerated Patient Instructions: Hypertension, Coronary Artery Disease (DC), Cardiac Rehabilitation (DC), Heart Catheterization (DC), Chest Pain Stoplight, Opioid Safety, Pain Management, Patient Portal & Lita Instructions Discharge Attestations Time Spent in Discharge Care*: greater than 30 min Quality Metrics Clinical Quality Measures [ No reported AMI, CVA or VTE this stay] Coding Level of Care Code Acute Code for [facility] Fwd Diagnoses Acute chest pain R07.9 Coronary artery disease involving qagan tayagungin coronary artery of qagan tayagungin heart with other form of angina pectoris I25.118 Associated angina: with other forms of angina Coronary Disease-Associated Artery/Lesion type: qagan tayagungin artery [place] vs. transplanted heart: qagan tayagungin heart Primary hypertension I10 Dyslipidemia E78.5
--- NOTE | 2025-10-01 12:19 | PC.NURSE ---
patient discharged to home. Instruction provided regarding follow up appointments and site care with restrictions. No medication changes. Patient verbalized complte understanding. patient requesting to wait for his ride at surgical services. Patient will leave ambulatory. No bleeding or hematoma formation observed. patient denies pain or needs. No distress observed.
--- OUTSIDE RECORDS SUMMARY | 2025-10-01 19:12 | XMS_ITS | Encounter Summary ---
Author Organization [facility] Address [address] [place] [address] Care Team Providers Care Imaging Science Professor Name Role Phone Shakira Stapleton MD Primary Care Provider Encounter Details Date Type Department Care Team (Latest Contact Info) Description 11/15/2001 Outpatient Historical [facility] [address] [address] Rizwan Amos DO NO ADDRESS ON FILE ACUTE SINUSITIS NOS (Primary Dx) Social History Tobacco Use Types Packs/Day Years Used Date Smoking Tobacco: Never Assessed Sex and Gender Information Value Date Recorded Sex Assigned at Not on file 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
--- OUTSIDE RECORDS SUMMARY | 2025-10-01 19:13 | XMS_ITS | Encounter Summary ---
Author Organization [facility] Address [address] [place] [address] Care Team Providers Care Supply Technician Name Role Phone Shakira Stapleton MD Primary Care Provider [phone] Encounter Details Date Type Department Care Team (Latest Contact Info) Description 09/19/2006 Outpatient Historical [facility] [address] [place] [id number] Rizwan Amos DO NO ADDRESS ON FILE Abdominal Pain, Unspecified Site (Primary Dx) Social History Tobacco Use Types Packs/Day Years Used Date Smoking Tobacco: Never Assessed Sex and Gender Information Value Date Recorded Sex Assigned at Not on file 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
--- OUTSIDE RECORDS SUMMARY | 2025-10-01 19:13 | XMS_ITS | Encounter Summary ---
Author Organization [facility] Address [address] [place] [address] Care Team Providers Care Airline Hostess Name Role Phone Shakira Stapleton MD Primary Care Provider [phone] Encounter Details Date Type Department Care Team (Latest Contact Info) Description 10/25/2000 Outpatient Historical [facility] Family Medicine [place] [address] [address] Rizwan Amos DO NO ADDRESS ON FILE Pain in joint, shoulder region (Primary Dx); Diverticulitis of colon Social History Tobacco Use Types Packs/Day Years Used Date Smoking Tobacco: Never Assessed Sex and Gender Information Value Date Recorded Sex Assigned at Not on file Legal Sex Male 6:41 AM Gender Identity Not on file Sexual Orientation Not on file documented as of this encounter Plan of Treatment Not on file documented as of this encounter Visit Diagnoses Diagnosis Pain in joint, shoulder region- Primary Diverticulitis of colon Diverticulitis of colon (without mention of hemorrhage) documented in this encounter Care Teams Airline Hostess Relationship Specialty Start Date End Date Shakira Stapleton MD [address] [address] PCP - General Family Practice 03/06/14 documented as of this encounter
--- OUTSIDE RECORDS SUMMARY | 2025-10-01 19:13 | XMS_ITS | Clinical Summary ---
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 Gender Identity Not on file Sexual Orientation [...] OCCULT BLOOD 1 CARD POC Negative Negative [facility] OCCULT BLOOD 2 CARD POC Negative Negative [facility] OCCULT BLOOD 3 CARD POC Negative Negative [facility] INTERNAL KIT QC Pass Pass [facility] CARD LOT NUMBER POC [id number] [facility] CARD EXPIRATION DATE POC 02/26/19 [facility] DEVELOPER LOT NUMBER POC [id number] [facility] DEVELOPER EXPIRATION DATE POC 08/29/19 [facility] Stool STOOL SPECIMEN / Unknown 01/16/2018 11:16 AM CDT us Ligia Lorenzana MAIL READER POINT OF CARE TESTING Final Result [facility] CLIA# [id number] [address] [place] [address] from Last 3 Months or Most Recently Relevant to Health Maintenance [place] [place] [id number] Care Teams Pulmonary Physical Therapist Relationship Specialty Start Date End Date Non-Staff, Physician NO ADDRESS ON FILE PCP - General 01/19/22
--- OUTSIDE RECORDS SUMMARY | 2025-10-01 19:13 | XMS_ITS | Encounter Summary ---
Author Organization [facility] Address [address] [place] [address] Care Team Providers Care Director Social Name Role Phone Shakira Stapleton MD Primary Care Provider Encounter Details Date Type Department Care Team (Latest Contact Info) Description 09/14/2005 Outpatient Historical [facility] General Surgery [address] [address] [address] [place] [address] [place] [address] [facility] [address] [place] [address] UNILAT INGUINAL HERNIA (Primary Dx) Social History Tobacco Use Types Packs/Day Years Used Date Smoking Tobacco: Never Assessed Sex and Gender Information Value Date Recorded Sex Assigned at Not on file 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
--- OUTSIDE RECORDS SUMMARY | 2025-10-01 19:13 | XMS_ITS | Encounter Summary ---
Author Organization [facility] Address [address] [place] [address] Care Team Providers Care Tip Out Worker Name Role Phone Shakira Stapleton MD Primary Care Provider Encounter Details Date Type Department Care Team (Latest Contact Info) Description 09/26/2005 Outpatient Historical [facility] General Surgery [address] [address] [address] [place] [address] [place] [address] [facility] [address] [place] [address] UNILAT INGUINAL HERNIA (Primary Dx); Umbilical hernia Social History Tobacco Use Types Packs/Day Years Used Date Smoking Tobacco: Never Assessed Sex and Gender Information Value Date Recorded Sex Assigned at Not on file 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 Gender Identity Not on file Sexual Orientation Not on file documented as of this encounter Plan of Treatment Not on file documented as of this encounter Visit Diagnoses Diagnosis Inguinal hernia without mention of obstruction or gangrene, unilateral or unspecified, (not specified as recurrent)- Primary Umbilical hernia Umbilical hernia without mention of obstruction or gangrene documented in this encounter Care Teams Tip Out Worker Relationship Specialty Start Date End Date Shakira Stapleton MD [address] [address] PCP - General Family Practice 03/06/14 documented as of this encounter
--- OUTSIDE RECORDS SUMMARY | 2025-10-01 19:13 | XMS_ITS | Encounter Summary ---
Author Organization [facility] Address [address] [place] [address] Care Team Providers Care Industrial Mechanic Name Role Phone Shakira Stapleton MD Primary Care Provider Encounter Details Date Type Department Care Team (Latest Contact Info) Description 09/03/2000 Outpatient Historical [facility] Family Medicine [place] [address] [address] Rizwan Amos DO NO ADDRESS ON FILE Simple or unspecified chronic serous otitis media (Primary Dx); Headache(784.0) Social History Tobacco Use Types Packs/Day Years Used Date Smoking Tobacco: Never Assessed Sex and Gender Information Value Date Recorded Sex Assigned at Not on file 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
--- OUTSIDE RECORDS SUMMARY | 2025-10-01 19:13 | XMS_ITS | Encounter Summary ---
Author Organization [facility] Address [address] [place] [address] Care Team Providers Care Sack Cleaner Name Role Phone Shakira Stapleton MD Primary Care Provider Encounter Details Date Type Department Care Team (Latest Contact Info) Description 10/03/2005 Outpatient Historical [facility] General Surgery [address] [address] [address] [place] [address] [place] [address] [facility] [address] [place] [address] SURGERY FOLLOWUP NOS (Primary Dx) Social History Tobacco Use Types Packs/Day Years Used Date Smoking Tobacco: Never Assessed Sex and Gender Information Value Date Recorded Sex Assigned at Not on file 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
--- OUTSIDE RECORDS SUMMARY | 2025-10-01 19:13 | XMS_ITS | Encounter Summary ---
Author Organization [facility] Address [address] [place] [address] Care Team Providers Care Meat Stock Clerk Name Role Phone Shakira Stapleton MD Primary Care Provider Encounter Details Date Type Department Care Team (Latest Contact Info) Description 07/23/2000 Outpatient Historical [facility] Family Medicine [place] [address] [address] Rizwan Amos DO NO ADDRESS ON FILE Diverticulitis of colon (Primary Dx); Screening for malignant neoplasm of the rectum Social History Tobacco Use Types Packs/Day Years Used Date Smoking Tobacco: Never Assessed Sex and Gender Information Value Date Recorded Sex Assigned at Not on file 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
--- OUTSIDE RECORDS SUMMARY | 2025-10-01 19:14 | XMS_ITS | Encounter Summary ---
Author Organization [facility] Address [address] [place] [address] Care Team Providers Care Driver License Reviewing Officer Name Role Phone Shakira Stapleton MD Primary Care Provider Encounter Details Date Type Department Care Team (Latest Contact Info) Description 09/13/2005 Outpatient Historical [facility] Family Medicine [place] [address] [address] Rizwan Amos DO NO ADDRESS ON FILE UNILAT INGUINAL HERNIA (Primary Dx) Social History Tobacco Use Types Packs/Day Years Used Date Smoking Tobacco: Never Assessed Sex and Gender Information Value Date Recorded Sex Assigned at Not on file 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
--- OUTSIDE RECORDS SUMMARY | 2025-10-01 19:14 | XMS_ITS | Clinical Summary ---
Author Organization [facility] Address [address] 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 Gender Identity Not on file Sexual Orientation [...] OCCULT BLOOD 1 CARD POC Negative Negative [facility] OCCULT BLOOD 2 CARD POC Negative Negative [facility] OCCULT BLOOD 3 CARD POC Negative Negative [facility] INTERNAL KIT QC Pass Pass [facility] CARD LOT NUMBER POC [id number] [facility] CARD EXPIRATION DATE POC 02/26/19 [facility] DEVELOPER LOT NUMBER POC [id number] [facility] DEVELOPER EXPIRATION DATE POC 08/29/19 [facility] Stool STOOL SPECIMEN / Unknown 01/16/2018 11:16 AM CDT Ligia Lorenzana HAUL CANE BRAKEMAN POINT OF CARE TESTING Final Result Performing Organization Address City/State/[facility] Co de Phone Number [facility] CLIA# [id number] [address] [place] [address] from Last 3 Months or Most Recently Relevant to Health Maintenance Insurance MEDICARE PART [facility] AND B [facility] [place] [address] Care Teams Gum Machine Operator Relationship Specialty Start Date End Date Shakira Stapleton MD [address] [id number] PCP - General Family Practice 03/06/14
== END 2025-10-01 12:34 | disposition home or self-care (01) ==
LOC: ER 11:35 → CSU 19:06 → ER IP 10-01 15:10
PROVIDERS: Internal Medicine Cardiovascular Disease; Nurse Practitioner Family; Nurse Practitioner Gerontology; Admitting Provider Internal Medicine; Emergency Provider Emergency Medicine; PCP Nurse Practitioner Family; Visit Provider Internal Medicine
DX: R07.9 Chest pain, unspecified (principal); Z95.5 Presence of coronary angioplasty implant and graft; I10 Essential (primary) hypertension; E78.5 Hyperlipidemia, unspecified; I25.2 Old myocardial infarction; Z86.79 Personal history of other diseases of the circulatory system; Z79.82 Long term (current) use of aspirin; K21.9 Gastro-esophageal reflux disease without esophagitis; Z79.02 Long term (current) use of antithrombotics/antiplatelets; Z82.49 Family history of ischemic heart disease and other diseases of the circulatory system
CPT/HCPCS: 36415; 71045; 80048; 80053; 80061; 83036; 83690; 83735; 83880; 84484; 85025; 85347; 85610; 85730; 93005; 93306; 93454; 96365; 96375; 99152; 99153; 99285; C1769; C1887; C1894; G0378; J1644; J2250; J2270; J3010; J3490; J7030; J9999; Q0163; Q9967

== ENCOUNTER → 2025-10-26 13:17 | Outpatient (BNVA) | payer MEDICARE, SELFPAY | PROVIDERS: PCP Nurse Practitioner Family; Visit Provider Nurse Practitioner Family | DX: I25.10 Atherosclerotic heart disease of native coronary artery without angina pectoris (principal); Z51.89 Encounter for other specified aftercare; E78.5 Hyperlipidemia, unspecified; I10 Essential (primary) hypertension; Z95.5 Presence of coronary angioplasty implant and graft; I25.2 Old myocardial infarction | CPT/HCPCS: 99214 ==